=== PATIENT | female | born 1950 | race Caucasian/White ===

== ENCOUNTER 2020-11-28 16:13 | Inpatient (IN) | payer MEDICARE, OTHER ==
[2020-11-28] MEDS ORDERED: NALOXONE 0.4 MG/ML 1 ML VIAL IV PRN (16:52)
--- NOTE | 2020-11-28 16:52 | ED ---
Abdominal Pain HPI - General Source: patient, EMS Mode of arrival: EMS Limitations: no limitations <Iwona Nicole - Last Filed: 11/28/20 18:14> <Luis Enrique Murillo - Last Filed: 11/28/20 18:31> - General Chief Complaint: Abdominal Pain Stated Complaint: abd obstruction Time Seen by Provider: 11/28/20 16:22 - History of Present Illness Initial Comments: Patient is a 70-year-old female with history of diabetes, heart failure, CKD, multiple abdominal hernia repairs with mesh, presenting to the emergency department via transfer from [facility], for abdominal pain for one week. She states she's had multiple episodes of nonbloody, nonbilious emesis as well as watery diarrhea for the last week. She also admits to history of appendectomy, cholecystectomy. She's had the surgeries at a different hospital system. She denies any fevers, chills, chest pain, shortness of breath. She denies any urinary symptoms such as dysuria or hematuria. She has no further complaints at this time. Upon arrival to our ER, she is at 98% on 3 L, afebrile. She did receive Zofran and morphine and the EMS prior to arrival. She states her pain did increase during EMS ride but she feels like it is starting to decrease now. Currently 02/20. (Iwona Nicole) - Related Data Home Medications Medication Instructions Recorded Confirmed Atorvastatin [Lipitor] 40 mg PO HS 07/08/17 11/28/20 Hydrocodone/Acetaminophen [[place] 1 tab PO BID 07/08/17 11/28/20 5-325] Insulin Glulisine (For Pump) 0.01 units SQ-PUMP CONTINUOUS 07/08/17 11/28/20 [Apidra (For Pump)] Levothyroxine Sodium [Synthroid] 137 mcg PO SUTUTHSA 07/08/17 11/28/20 Ipratropium-Albuterol Nebulize 3 ml INHALATION RT-TID 11/28/20 11/28/20 [Duoneb 0.5 mg-3 mg/3 ml Soln] Levothyroxine Sodium [Synthroid] 150 mcg PO MOWEFR 11/28/20 11/28/20 Tiotropium [place] [Spiriva 1 spray INHALATION RT-DAILY 11/28/20 11/28/20 Respimat] Zolpidem [Ambien] 10 mg PO HS 11/28/20 11/28/20 Previous Rx's Medication Instructions Recorded Budesonide-Formot 160-4.5 Mcg 1 puff INHALATION RT-BID #1 puff 07/10/17 [Symbicort 160-4.5 Mcg Inhaler] Allergies Allergy/AdvReac Type Severity Reaction Status Date / Time Iodinated Contrast Media AdvReac SEE COMMENT Verified 11/28/20 17:15 [Iodinated Contrast- Oral and IV Dye] Review of Systems ROS Other: All systems not noted in ROS Statement are negative. <Iwona Nicole - Last Filed: 11/28/20 18:14> ROS Other: All systems not noted in ROS Statement are negative. <Luis Enrique Murillo - Last Filed: 11/28/20 18:31> ROS Statement: Those systems with pertinent positive or pertinent negative responses have been documented in the HPI. Past Medical History Past Medical History: Chest Pain / Angina, Heart Failure, Diabetes Mellitus, Hyperlipidemia, Hypertension, Sleep Apnea/CPAP/BIPAP, Thyroid Disorder History of Any Multi-Drug Resistant Organisms: MRSA Date of last positivie culture/infection: 2012 MDRO Source:: right arm Past Surgical History: Appendectomy, Cholecystectomy, Hernia Repair Additional Past Surgical History / Comment(s): tumors removed from head Past Anesthesia/Blood Transfusion Reactions: No Reported Reaction Past Psychological History: No Psychological Hx Reported Smoking Status: Former smoker Past Alcohol Use History: Rare Past Drug Use History: None Reported - Past Family History Mother Family Medical History: Congestive Heart Failure (CHF), Diabetes Mellitus, Sleep Apnea/CPAP/BIPAP, Thyroid Disorder Additional Family Medical History / Comment(s): diverticulitis <Iwona Nicole - Last Filed: 11/28/20 18:14> General Exam Limitations: no limitations <Iwona Nicole - Last Filed: 11/28/20 18:14> - General Exam Comments Initial Comments: GENERAL: Patient is well-developed and well-nourished. Patient is nontoxic and in mild distress. HEAD: Atraumatic, normocephalic. EYES: Pupils equal round and reactive to light, extraocular movements intact, sclera anicteric, conjunctiva are normal. Eyelids were unremarkable. ENT: TMs normal, nares patent, oropharynx clear without exudates. Moist mucous membranes. NECK: Normal range of motion, supple without lymphadenopathy or JVD. LUNGS: Unlabored respirations. Breath sounds clear to auscultation bilaterally and equal. No wheezes rales or rhonchi. HEART: Regular rate and rhythm without murmurs, rubs or gallops. ABDOMEN: Soft, distended, generalized tenderness, hypoactive bowel sounds. : Deferred MUSCULOSKELETAL: Normal extremities with adequate strength and normal range of motion, no pitting or edema. No clubbing or cyanosis. NEUROLOGICAL: Patient is alert and oriented x 3. Motor and sensory are also intact. Cranial nerves II through XII grossly intact. Symmetrical smile. Normal speech, normal gait. PSYCH: Normal mood, normal affect. SKIN: Warm, Dry, normal turgor, no rashes or lesions noted. (Iwona Nicole) Course <Luis Enrique Murillo - Last Filed: 11/28/20 18:31> Vital Signs 11/28/20 11/28/20 16:17 18:25 Temperature 98.7 F Pulse Rate 59 L 60 Respiratory 18 16 Rate Blood Pressure 123/60 104/82 O2 Sat by Pulse 98 98 Oximetry - Reevaluation(s) Reevaluation #1: 11/28/20 18:30 PA supervision: I did personally do a [id number] evaluation the patient she presented from [facility] after an evaluation for abdominal pain was found that she had an apple core lesion in her colon CAT scan with evidence of bowel obstruction. She was transferred here for higher level of care and surgical evaluation patient will be admitted to Dr. Healy with medical consultation. I do agree with the assessment and plan. I had previously discuss the case with the sending physician. (Luis Enrique Murillo) Medical Decision Making <Iwona Nicole - Last Filed: 11/28/20 18:14> - Medical Decision Making Patient is a 70-year-old female, with history of diabetes, heart failure, CKD, here as a transfer from [facility] for bowel obstruction. She's had abdominal pain for the past week. Multiple abdominal surgeries in her past. Her vital signs are currently stable, 98% on 3 L. Lab work performed at [facility] shows BUN of 23, creatinine 1.4, GFR 39. Remaining blood work showed no other acute process. Dr. Eemrson is 1.3. Her covert test is negative. CT was done without contrast secondary to kidney disease, show suspicious right colonic concentric mass or apple core type neoplasm causing bowel obstruction. Significantly dilated cecum with air-fluid level. Some nondependent air could reflect trap fecal debris but ischemia into the wall cannot be excluded. No free air or mesenteric air noted. Nonspecific bibasilar nodules consider metastatic disease. Patient received IV fluids, Zofran, morphine. Currently her pain is 6/10. Patient will be admitted under Dr. Healy who is accepting. We will put medicine on consult for medical management. We will place an NG tube, and keep NPO. Case discussed with Dr. Murillo. (Iwona Nicole) Disposition Decision Date: 11/28/20 Decision Time: 16:52 <Iwona Nicole - Last Filed: 11/28/20 18:14> <Luis Enrique Murillo - Last Filed: 11/28/20 18:31> Clinical Impression: Bowel obstruction Disposition: ADMITTED IP TO THIS HOSP
[2020-11-28] MEDS: SODIUM CHLORIDE 0.9% 1,000 ML IV SCH ×3 (18:19→18:46)
[2020-11-28] MEDS: MORPHINE SULFATE 4 MG/ML SYRINGE IV PRN ×2 (18:19→23:33)
--- NOTE | 2020-11-28 18:35 | XR ---
EXAMINATION TYPE: XR abdomen 1V DATE OF EXAM: 11/28/2020 COMPARISON: NONE HISTORY: Tube placement TECHNIQUE: 2 views supine FINDINGS: There is nasogastric tube with the tip overlying the gastroesophageal junction or the gastr ic fundus. There are clips probably from cholecystectomy. There are multiple dilated small bowel loop s with fluid. IMPRESSION: NG tube is probably just beyond the gastroesophageal junction.
[2020-11-28 18:38] LABS: Glucose,Whole Blood 180 mg/dL (75-99)
[2020-11-28] MEDS: INSULIN ASPART (NovoLOG) 100 UNIT/ML VIAL SQ SCH ×2 (18:46→21:48)
--- NOTE | 2020-11-28 19:25 | P.CONS ---
History of Present Illness - Reason for Consult Consult date: 11/28/20 Medical management Requesting physician: Clay Healy - Chief Complaint Abdominal pain - History of Present Illness Consultation: This is a pleasant 70-year-old patient of Dr. Mercer. Chronic stable medical conditions include heart failure, diabetes, hypertension, hyperlipidemia, obstructive sleep apnea, hypothyroid. Patient lives by herself at her baseline uses a walker. For 2 weeks patient been having mid abdominal pain. 3 much constant. We'll get 8 intermittent watery stools. Was taking Imodium. Has been having fever nausea vomiting. Patient's had multiple abdominal hernia repairs with mesh. Was transferred here from [facility]. She is also had appendectomy and cholecystectomy in the past. She was transferred for small bowel obstruction. Review of systems: GEN.: Tired EYES: None HEENT: None NECK: None RESPIRATORY: Some shortness of breath CARDIOVASCULAR: None GASTROINTESTINAL: As above GENITOURINARY: None MUSCULOSKELETAL: October joint pains LYMPHATICS: None HEMATOLOGICAL: None PSYCHIATRY: None NEUROLOGICAL: Does use a walker Past medical history to include: Angina, CHF, diabetes, hyperlipidemia, hypertension, obstructive sleep apnea, hypothyroid, home oxygen-2 L Social history: . Lives alone. Does smoke up to 7 years ago. Alcohol rarely. Does use a walker Physical examination: VITAL SIGNS: 98.7, 59, 18, 1 23 x 60, 98% on room air GENERAL: BMI 42.5, laying in bed, tired. EYES: Pupils equal. Conjunctiva normal. HEENT: External appearance of nose and ears normal, oral cavity grossly normal. NECK: JVD not raised; masses not palpable. HEART: First and second heart sounds are normal; no edema. LUNGS:[ Respiratory rate increased, decreased breath sounds. ABDOMEN: Soft, generalized abdominal tenderness, no guarding rigidity, hyperactive bowel sounds multiple scars on the abdomen, liver spleen not palpable, no masses palpable. MUSCULAR skeletal: Evidence of OA especially in the hands PSYCH: [Alert and oriented x3; mood and affect anxious. NEUROLOGICAL: Cranial nerves grossly intact; no facial asymmetry, power and sensation grossly intact. LYMPHATICS: No lymph nodes palpable in the axilla and neck INVESTIGATIONS, reviewed in the clinical context: Coronavirus [PCR]-not detected Abdominal x-ray film personally reviewed by me: Small bowel obstruction Assessment and plan: -Acute small bowel obstruction likely from adhesions from multiple abdominal surgeries. Patient to have an NG tube. -Diabetes mellitus type 2. Patient on insulin pump. Hold that for now. Start Levemir. Accu-Cheks. -Chronic hypoxic respiratory failure uses 2 L of oxygen at home -Hyperlipidemia -Chronic urinary stress incontinence. Follow clinically. -Essential hypertension -Hypothyroid, continue with Synthroid -Morbid obesity BMI 42.5. Follow-up with PCP for weight loss measures. -Chronic congestive heart failure. EF not known. -Chronic insomnia. 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 Subcu Lovenox We will check patient's labs. Care was discussed with the patient. Gentle hydration at 75 mL an hour. Thank you Dr. Broderick. Past Medical History Past Medical History: Chest Pain / Angina, Heart Failure, Diabetes Mellitus, Hyperlipidemia, Hypertension, Sleep Apnea/CPAP/BIPAP, Thyroid Disorder History of Any Multi-Drug Resistant Organisms: MRSA Year Discovered:: 2012 MDRO Source:: right arm Past Surgical History: Appendectomy, Cholecystectomy, Hernia Repair Additional Past Surgical History / Comment(s): tumors removed from head Past Anesthesia/Blood Transfusion Reactions: No Reported Reaction Past Psychological History: No Psychological Hx Reported Smoking Status: Former smoker Past Alcohol Use History: Rare Past Drug Use History: None Reported - Past Family History Mother Family Medical History: Congestive Heart Failure (CHF), Diabetes Mellitus, Sleep Apnea/CPAP/BIPAP, Thyroid Disorder Additional Family Medical History / Comment(s): diverticulitis Medications and Allergies Home Medications Medication Instructions Recorded Confirmed Type Atorvastatin [Lipitor] 40 mg PO HS 07/08/17 11/28/20 History Hydrocodone/Acetaminophen [[place] 1 tab PO BID 07/08/17 11/28/20 History 5-325] Insulin Glulisine (For Pump) 0.01 units SQ-PUMP CONTINUOUS 07/08/17 11/28/20 History [Apidra (For Pump)] Levothyroxine Sodium [Synthroid] 137 mcg PO SUTUTHSA 07/08/17 11/28/20 History Budesonide-Formot 160-4.5 Mcg 1 puff INHALATION RT-BID #1 puff 07/10/17 11/28/20 Rx [Symbicort 160-4.5 Mcg Inhaler] Ipratropium-Albuterol Nebulize 3 ml INHALATION RT-TID 11/28/20 11/28/20 History [Duoneb 0.5 mg-3 mg/3 ml Soln] Levothyroxine Sodium [Synthroid] 150 mcg PO MOWEFR 11/28/20 11/28/20 History Tiotropium [place] [Spiriva 1 spray INHALATION RT-DAILY 11/28/20 11/28/20 History Respimat] Zolpidem [Ambien] 10 mg PO HS 11/28/20 11/28/20 History Allergies Allergy/AdvReac Type Severity Reaction Status Date / Time Iodinated Contrast Media AdvReac SEE COMMENT Verified 11/28/20 17:15 [Iodinated Contrast- Oral and IV Dye] Physical Exam Vitals: Vital Signs Temp Pulse Resp BP Pulse Ox 11/28/20 18:25 60 16 104/82 98 11/28/20 16:17 98.7 F 59 L 18 123/60 98 Intake and Output 11/28/20 11/28/20 11/28/20 06:59 14:59 22:59 Other: Weight 108.862 kg Results Labs: Abnormal Lab Results - Last 24 Hours (Table) 11/28/20 Range/Units 18:34 POC Glucose (mg/dL) 180 H (75-99) mg/dL
[2020-11-28 19:58] LABS: Basophils % (A) 0 %; Eosinophils # (A) 0.1 k/uL (0-0.7); Eosinophils % (A) 1 %; HCT 40.6 % (34.0-46.0); Lymphocytes # (A) 1.4 k/uL (1.0-4.8); Lymphocytes % (A) 13 %; MCH 30.1 pg (25.0-35.0); MCV 94.1 fL (80.0-100.0); Monocytes # (A) 0.6 k/uL (0-1.0); Monocytes % (A) 5 %; Neutrophils # (A) 8.9 k/uL (1.3-7.7); Neutrophils % (A) 80 %; Platelet Count 529 k/uL (150-450); RBC 4.31 m/uL (3.80-5.40); RDW 14.9 % (11.5-15.5); WBC 11.1 k/uL (3.8-10.6)
[2020-11-28] MEDS: SYMBICORT 160-4.5 MCG INHALER INHALATION SCH (20:08)
[2020-11-28] MEDS: IPRATROPIUM-ALBUTEROL 3 ML NEB INHALATION SCH (20:08)
[2020-11-28 20:09] LABS: African American GFR (CKD) 42 (>60 ml/min/1.73 sqM); Anion Gap 5 mmol/L; Blood Urea Nitrogen 26 mg/dL (7-17); Calcium 8.6 mg/dL (8.4-10.2); Carbon Dioxide 32 mmol/L (22-30); Chloride 100 mmol/L (98-107); Glucose 182 mg/dL (74-99); Non-African American GFR(CKD) 37 (>60 ml/min/1.73 sqM); Potassium 4.3 mmol/L (3.5-5.1); Sodium 137 mmol/L (137-145)
[2020-11-28] MEDS: INSULIN DETEMIR (LEVEMIR) 100 UNIT/ML SYR SQ SCH (20:52)
[2020-11-28] MEDS: ENOXAPARIN 40 MG/0.4 ML SYRINGE SQ SCH (20:52)
[2020-11-28] MEDS: ATORVASTATIN 40 MG TAB PO SCH ×2 (20:52→20:56)
[2020-11-28 20:57] LABS: Glucose,Whole Blood 152 mg/dL (75-99)
[2020-11-28 21:47] LABS: Glucose,Whole Blood 161 mg/dL (75-99)
[2020-11-28] MEDS: ZOLPIDEM 5 MG TAB PO SCH (21:57)
[2020-11-29] MEDS: MORPHINE SULFATE 4 MG/ML SYRINGE IV PRN ×3 (03:23→13:53)
[2020-11-29] MEDS: LEVOTHYROXINE 137 MCG TAB PO SCH (06:34)
[2020-11-29] MEDS: ONDANSETRON 4 MG/2 ML VIAL IVP PRN ×3 (06:37→21:35)
[2020-11-29 08:23] LABS: Glucose,Whole Blood 118 mg/dL (75-99)
[2020-11-29] MEDS: INSULIN ASPART (NovoLOG) 100 UNIT/ML VIAL SQ SCH ×4 (08:23→21:35)
[2020-11-29] MEDS: IPRATROPIUM-ALBUTEROL 3 ML NEB INHALATION SCH ×3 (08:24→20:33)
[2020-11-29] MEDS: SYMBICORT 160-4.5 MCG INHALER INHALATION SCH (08:24)
[2020-11-29] MEDS: ENOXAPARIN 40 MG/0.4 ML SYRINGE SQ SCH (08:27)
[2020-11-29] MEDS: SODIUM CHLORIDE 0.9% 1,000 ML IV SCH ×2 (10:03→21:05)
--- NOTE | 2020-11-29 11:03 | XR ---
EXAMINATION TYPE: XR abdomen 2V DATE OF EXAM: 11/29/2020 COMPARISON: 11/28/2020 HISTORY: Pain TECHNIQUE: One view abdominal series FINDINGS: Persistent dilated small bowel loops with air-fluid levels. Bibasilar infiltrate. NG tube is seen onl y to level the distal esophagus. Surgical clips are seen in the right upper quadrant. Nonspecific pel denis calcifications. Hypertrophic and degenerative change of the spine. Report called to the patient's nurse 11/29/2020 at 10:59 AM IMPRESSION: 1. NG tube appears to been pulled back into the distal esophagus correlate for repositioning. 2. Persistent dilated bowel loops with a markedly distended loop seen in the right abdomen with air-f luid levels correlate for obstruction. 2. Bilateral lower lobe infiltrate.
--- NOTE | 2020-11-29 12:06 | P.GSHP ---
<Chiqui Dietz - Last Filed: 11/29/20 11:54> History of Present Illness H&P Date: 11/29/20 CHIEF COMPLAINT: Abdominal pain HISTORY OF PRESENT ILLNESS: This is a 70-year-old female she was a transfer from [facility]. She has a known past medical history of diabetes, congestive heart failure, chronic kidney disease, COPD and hypothyroidism. She has surgical history of 3 abdominal hernia repairs with mesh placement. Her last abdominal hernia surgery was about 20 years ago. She also had history of cholecystectomy and appendectomy. Patient is complaining of abdominal pain for about 2 weeks. She reports pain throughout her whole abdomen. She had been having diffuse watery diarrhea for the past week. And over the last couple a days she started to have vomiting. She denies any blood in the stool or emesis. She is also been having chills and sweats. Her pain is worse with movement. She had NG tube placed in the ER unfortunately the patient had pulled NG tube out. She does report her pain about a 5 or 6 out of 10. Computed tomography scan at [facility] had some shown suspicious right colonic mass or apple core neoplasm causing bowel obstruction. Significantly dilated cecum with air- fluid levels. Fecal debris and ischemia not excluded. Also had noted by nonspecific bibasilar nodules consider metastatic disease. Patient states her last colonoscopy was 7 years ago and was normal at that time. PAST MEDICAL HISTORY: See list. PAST SURGICAL HISTORY: See list. MEDICATIONS: See list. ALLERGIES: See list. SOCIAL HISTORY: No illicit drug use. REVIEW OF SYSTEMS: CONSTITUTIONAL: Denies fever or chills. HEENT: Denies blurred vision, vision changes, or eye pain. Denies hemoptysis CARDIOVASCULAR: Denies chest pain or pressure. RESPIRATORY: No shortness of breath. GASTROINTESTINAL: See HPI for pertinent findings HEMATOLOGIC: Denies bleeding disorders. GENITOURINARY: Denies any blood in urine or increased urinary frequency. SKIN: Denies pruitis. Denies rash. PHYSICAL EXAM: VITAL SIGNS: Reviewed GENERAL: Well-developed in no acute distress. HEENT: No sclera icterus. Extraocular movements grossly intact. Moist buccal mucosa. Head is atraumatic, normocephalic. No nasal drainage. ABDOMEN: Patient's stomach is distended firm tenderness with palpation thro ughout the abdomen. NEUROLOGIC: Alert and oriented. Cranial nerves II through XII grossly intact. LABORATORY DATA: WBC 11.1 Hgb 13 platelets 529 sodium 137 potassium 4.3 creatinine 1.45 glucose 1 82 IMAGING: ASSESSMENT: 1. Bowel obstruction with computed tomography scan findings suspicious of a right colonic mass or apple core lesion causing the bowel obstruction 2. History of 3 prior abdominal hernia repairs with mesh placement. Last surgery 20 years ago 3. History of cholecystectomy and appendectomy PLAN: -Patient scheduled for exploratory laparotomy with right colectomy with Dr. Healy today, 11/29/2020 -Initially NG tube placed in ER for decompression, unfortunately patient has pulled out the NG tube -Continue IV fluids -Continue pain medication as needed -Medical service on consult for medical management Physician Agronomy Teacher note has been reviewed by physician. Signing provider agrees with the documented findings, assessment, and plan of care. Past Medical History Past Medical History: Chest Pain / Angina, Heart Failure, COPD, Diabetes Mellitus, Hyperlipidemia, Hypertension, Osteoarthritis (OA), Pneumonia, Renal Disease, Respiratory Disorder, Sleep Apnea/CPAP/BIPAP, Thyroid Disorder Additional Past Medical History / Comment(s): IDDM type II with insulin pump, neuropathy bilateral feet, chronic respiratory failure with home O2 at 3L/NC ATC, TRUDI with Cpap, bronchitis, CKD stage II, urinary stress incontinence, hiatal hernia, arthritis in bilateral knees/back, insomnia, hypothyroid. 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 Past Anesthesia/Blood Transfusion Reactions: No Reported Reaction Additional Past Anesthesia/Blood Transfusion Reaction / Comment(s): Pt has clausterphobia. Smoking Status: Former smoker - Past Family History Mother Family Medical History: Cancer, Congestive Heart Failure (CHF), Diabetes Mellitus, Sleep Apnea/CPAP/BIPAP, Thyroid Disorder Additional Family Medical History / Comment(s): diverticulitis. Metastatic cancer/primary unknown Father Family Medical History: Diabetes Mellitus Additional Family Medical History / Comment(s): Obesity, multiple knee replacements, pacer. Medications and Allergies Home Medications Medication Instructions Recorded Confirmed Type Atorvastatin [Lipitor] 40 mg PO HS 07/08/17 11/28/20 History Hydrocodone/Acetaminophen [[place] 1 tab PO BID 07/08/17 11/28/20 History 5-325] Insulin Glulisine (For Pump) 0.01 units SQ-PUMP CONTINUOUS 07/08/17 11/28/20 H istory [Apidra (For Pump)] Levothyroxine Sodium [Synthroid] 137 mcg PO SUTUTHSA 07/08/17 11/28/20 History Budesonide-Formot 160-4.5 Mcg 1 puff INHALATION RT-BID #1 puff 07/10/17 11/28/20 Rx [Symbicort 160-4.5 Mcg Inhaler] Ipratropium-Albuterol Nebulize 3 ml INHALATION RT-TID 11/28/20 11/28/20 History [Duoneb 0.5 mg-3 mg/3 ml Soln] Levothyroxine Sodium [Synthroid] 150 mcg PO MOWEFR 11/28/20 11/28/20 History Tiotropium [place] [Spiriva 1 spray INHALATION RT-DAILY 11/28/20 11/28/20 History Respimat] Zolpidem [Ambien] 10 mg PO HS 11/28/20 11/28/20 History Allergies Allergy/AdvReac Type Severity Reaction Status Date / Time Iodinated Contrast Media AdvReac SEE COMMENT Verified 11/28/20 17:15 [Iodinated Contrast- Oral and IV Dye] Surgical - Exam Vital Signs Temp Pulse Resp BP Pulse Ox 98.7 F 59 L 18 123/60 98 11/28/20 16:17 11/28/20 16:17 11/28/20 16:17 11/28/20 16:17 11/28/20 16:17 Results - Labs 11/28/20 19:35 11/28/20 19:35 Abnormal Lab Results - Last 24 Hours (Table) 11/28/20 11/28/20 11/28/20 Range/Units 18:34 19:35 19:35 WBC 11.1 H (3.8-10.6) k/uL Plt Count 529 H (150-450) k/uL Neutrophils # 8.9 H (1.3-7.7) k/uL Carbon Dioxide 32 H (22-30) mmol/L BUN 26 H (7-17) mg/dL Creatinine 1.45 H (0.52-1.04) mg/dL Glucose 182 H (74-99) mg/dL POC Glucose (mg/dL) 180 H (75-99) mg/dL 11/28/20 11/28/20 11/29/20 Range/Units 20:51 21:44 08:22 WBC (3.8-10.6) k/uL Plt Count (150-450) k/uL Neutrophils # (1.3-7.7) k/uL Carbon Dioxide (22-30) mmol/L BUN (7-17) mg/dL Creatinine (0.52-1.04) mg/dL Glucose (74-99) mg/dL POC Glucose (mg/dL) 152 H 161 H 118 H (75-99) mg/dL Diabetes panel 11/28/20 Range/Units 19:35 Sodium 137 (137-145) mmol/L Potassium 4.3 (3.5-5.1) mmol/L Chloride 100 (98-107) mmol/L Carbon Dioxide 32 H (22-30) mmol/L BUN 26 H (7-17) mg/dL Creatinine 1.45 H (0.52-1.04) mg/dL Glucose 182 H (74-99) mg/dL Calcium 8.6 (8.4-10.2) mg/dL Calcium panel 11/28/20 Range/Units 19:35 Calcium 8.6 (8.4-10.2) mg/dL Pituitary panel 11/28/20 Range/Units 19:35 Sodium 137 (137-145) mmol/L Potassium 4.3 (3.5-5.1) mmol/L Chloride 100 (98-107) mmol/L Carbon Dioxide 32 H (22-30) mmol/L BUN 26 H (7-17) mg/dL Creatinine 1.45 H (0.52-1.04) mg/dL Glucose 182 H (74-99) mg/dL Calcium 8.6 (8.4-10.2) mg/dL Adrenal panel 11/28/20 Range/Units 19:35 Sodium 137 (137-145) mmol/L Potassium 4.3 (3.5-5.1) mmol/L Chloride 100 (98-107) mmol/L Carbon Dioxide 32 H (22-30) mmol/L BUN 26 H (7-17) mg/dL Creatinine 1.45 H (0.52-1.04) mg/dL Glucose 182 H (74-99) mg/dL Calcium 8.6 (8.4-10.2) mg/dL <Clay Healy - Last Filed: 11/29/20 14:50> History of Present Illness As above. Patient with 2 week history of intermittent diarrhea, constipation, and abdominal cramping. Patient feels bloated. CAT scan from outside [facility] ion reviewed with the patient and her son. Ascending colon obstructing lesion with possible adenopathy identified. 2 separate lung lesions appear to be present back in 2011 and appear likely benign. Patient had a nasogastric tube which fell out. She is refusing to have it replaced. Options reviewed with the patient and her family. Favor primary surgical intervention with open right colectomy and primary anastomosis. Patient with history of previous appendectomy cholecystectomy and multiple abdominal wall hernias with mesh. Risks of bleeding, infection, scarring, recurrent hernia, leak, abscess, bladder bowel and ureteral injury, respiratory and cardiac complications, and reviewed. They understand and wish to proceed. Case was discussed with hospitalist on 2 separate occasions. He apparently discussed with cardiology. Patient felt to be moderate risk and we do not need to wait for formal cardiac consultation at this time. We'll proceed this afternoon when OR time available. Surgical - Exam Vital Signs Temp Pulse Resp BP Pulse Ox 98.7 F 59 L 18 123/60 98 11/28/20 16:17 11/28/20 16:17 11/28/20 16:17 11/28/20 16:17 11/28/20 16:17 Results - Labs 11/28/20 19:35 11/28/20 19:35 Abnormal Lab Results - Last 24 Hours (Table) 11/28/20 11/28/20 11/28/20 Range/Units 18:34 19:35 19:35 WBC 11.1 H (3.8-10.6) k/uL Plt Count 529 H (150-450) k/uL Neutrophils # 8.9 H (1.3-7.7) k/uL Carbon Dioxide 32 H (22-30) mmol/L BUN 26 H (7-17) mg/dL Creatinine 1.45 H (0.52-1.04) mg/dL Glucose 182 H (74-99) mg/dL POC Glucose (mg/dL) 180 H (75-99) mg/dL 11/28/20 11/28/20 11/29/20 Range/Units 20:51 21:44 08:22 WBC (3.8-10.6) k/uL Plt Count (150-450) k/uL Neutrophils # (1.3-7.7) k/uL Carbon Dioxide (22-30) mmol/L BUN (7-17) mg/dL Creatinine (0.52-1.04) mg/dL Glucose (74-99) mg/dL POC Glucose (mg/dL) 152 H 161 H 118 H (75-99) mg/dL 11/29/20 Range/Units 12:20 WBC (3.8-10.6) k/uL Plt Count (150-450) k/uL Neutrophils # (1.3-7.7) k/uL Carbon Dioxide (22-30) mmol/L BUN (7-17) mg/dL Creatinine (0.52-1.04) mg/dL Glucose (74-99) mg/dL POC Glucose (mg/dL) 155 H (75-99) mg/dL Diabetes panel 11/28/20 Range/Units 19:35 Sodium 137 (137-145) mmol/L Potassium 4.3 (3.5-5.1) mmol/L Chloride 100 (98-107) mmol/L Carbon Dioxide 32 H (22-30) mmol/L BUN 26 H (7-17) mg/dL Creatinine 1.45 H (0.52-1.04) mg/dL Glucose 182 H (74-99) mg/dL Calcium 8.6 (8.4-10.2) mg/dL Calcium panel 11/28/20 Range/Units 19:35 Calcium 8.6 (8.4-10.2) mg/dL Pituitary panel 11/28/20 Range/Units 19:35 Sodium 137 (137-145) mmol/L Potassium 4.3 (3.5-5.1) mmol/L Chloride 100 (98-107) mmol/L Carbon Dioxide 32 H (22-30) mmol/L BUN 26 H (7-17) mg/dL Creatinine 1.45 H (0.52-1.04) mg/dL Glucose 182 H (74-99) mg/dL Calcium 8.6 (8.4-10.2) mg/dL Adrenal panel 11/28/20 Range/Units 19:35 Sodium 137 (137-145) mmol/L Potassium 4.3 (3.5-5.1) mmol/L Chloride 100 (98-107) mmol/L Carbon Dioxide 32 H (22-30) mmol/L BUN 26 H (7-17) mg/dL Creatinine 1.45 H (0.52-1.04) mg/dL Glucose 182 H (74-99) mg/dL Calcium 8.6 (8.4-10.2) mg/dL
[2020-11-29 12:21] LABS: Glucose,Whole Blood 155 mg/dL (75-99)
[2020-11-29] MEDS: PANTOPRAZOLE 40 MG/10 ML VIAL IVP SCH (13:47)
[2020-11-29] MEDS ORDERED: LACTATED RINGERS 1,000 ML IV ONE ×2 (14:54→17:00)
[2020-11-29 15:27] LABS: Glucose,Whole Blood 136 mg/dL (75-99)
[2020-11-29] MEDS ORDERED: metroNIDAZOLE-NS PMX 500 MG in SALINE 1 100ML.BAG IVPB STA (16:41)
[2020-11-29] MEDS ORDERED: NEOSTIGMINE 1 MG/ML 10 ML VIAL ONE (16:45)
[2020-11-29] MEDS ORDERED: SUCCINYLCHOLINE CHLORIDE 100 MG/5 ML SYR IV ONE (16:45)
[2020-11-29] MEDS ORDERED: GLYCOPYRROLATE 0.2 MG/ML 2 ML VIAL ONE (16:45)
[2020-11-29] MEDS ORDERED: LIDOCAINE 1% INJ 10MG/ML (20 ML MDV) ONE (16:45)
[2020-11-29] MEDS ORDERED: PROPOFOL 10 MG/ML 20 ML VIAL IV ONE (16:45)
[2020-11-29] MEDS ORDERED: fentaNYL (PF) 50 MCG/ML 2 ML AMP ONE (16:45)
[2020-11-29] MEDS ORDERED: HYDROmorphone (PF) 1 MG/ML ONE (16:45)
[2020-11-29] MEDS ORDERED: KETAMINE 10 MG/ML 20 ML VIAL ONE (16:45)
[2020-11-29] MEDS ORDERED: ROCURONIUM 10 MG/ML (5 ML VIAL) IV ONE (16:45)
--- NOTE | 2020-11-29 16:45 | P.CNPUL ---
History of Present Illness Consult date: 11/29/20 Requesting physician: Clay Healy Reason for consult: dyspnea, COPD, hypoxemia Chief complaint: Bowel obstruction, preop clearance. History of present illness: 70-year-old patient, brought in by EMS, on November 28. She was seen by Dr. Luis Enrique Murillo in the emergency department. She has a history of diabetes mellitus, CHF, chronic kidney disease, multiple abdominal hernia repairs, with mesh, and severe COPD. Her FEV1 is 0.92 L which is 41% of predicted. She sees my partner in the office for her COPD. She also suffers from chronic hypoxemic respiratory failure, and does use oxygen /. She apparently recently has had multiple episodes of nonbloody nonbilious emesis, as well as watery diarrhea, for one week. She apparently was evaluated and found on computed tomography scan, to have a colonic lesion, consistent with colon cancer. I was consulted for preop clearance. We saw her right before she went off to surgery. She is chronically on oxygen therapy at 3 L as mentioned above. The patient was having surgery with Dr. Clay Healy. Basically, she tells me that her COPD much at baseline. I did mention to her that she may end up in the intensive care unit after surgery. Also, based on the FEV1 alone, without the MVV, or RV/TLC ratio, the patient's at moderately increased operative risk from general anesthesia. White count 11.1, hemoglobin 13, hematocrit 40.6, platelet count 529,000, sodium 137, potassium 4.3, chlorides 100, CO2 32, anion gap 5, BUN 26, and creatinine 1.45. There was no chest x-ray to review. Review of Systems REVIEW OF SYSTEMS: CONSTITUTIONAL: [Negative.] NEUROLOGIC: [ Negative.] HEENT: [ Negative.] CARDIAC: [Negative.] PULMONARY: Chronic shortness of breath, pretty much at baseline. GI: Nausea, vomiting, abdominal pain, and diarrhea. : [Negative.] RHEUMATOLOGIC: [ Negative.] IMMUNOLOGIC: [ Negative.] ENDOCRINE: [Negative. ] DERMATOLOGIC: [Negative.] Past Medical History Past Medical History: Chest Pain / Angina, Heart Failure, COPD, Diabetes Mellitus, Hyperlipidemia, Hypertension, Osteoarthritis (OA), Pneumonia, Renal Disease, Respiratory Disorder, Sleep Apnea/CPAP/BIPAP, Thyroid Disorder Additional Past Medical History / Comment(s): IDDM type II with insulin pump, neuropathy bilateral feet, chronic respiratory failure with home O2 at 3L/NC ATC, TRUDI with Cpap, bronchitis, CKD stage II, urinary stress incontinence, hiat al hernia, arthritis in bilateral knees/back, insomnia, hypothyroid. 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 Past Anesthesia/Blood Transfusion Reactions: No Reported Reaction Additional Past Anesthesia/Blood Transfusion Reaction / Comment(s): Pt has clausterphobia. Smoking Status: Former smoker - Past Family History Mother Family Medical History: Cancer, Congestive Heart Failure (CHF), Diabetes Mellitus, Sleep Apnea/CPAP/BIPAP, Thyroid Disorder Additional Family Medical History / Comment(s): diverticulitis. Metastatic cancer/primary unknown Father Family Medical History: Diabetes Mellitus Additional Family Medical History / Comment(s): Obesity, multiple knee replaceme nts, pacer. Medications and Allergies Home Medications Medication Instructions Recorded Confirmed Type Atorvastatin [Lipitor] 40 mg PO HS 07/08/17 11/28/20 History Hydrocodone/Acetaminophen [[place] 1 tab PO BID 07/08/17 11/28/20 History 5-325] Insulin Glulisine (For Pump) 0.01 units SQ-PUMP CONTINUOUS 07/08/17 11/28/20 History [Apidra (For Pump)] Levothyroxine Sodium [Synthroid] 137 mcg PO SUTUTHSA 07/08/17 11/28/20 History Budesonide-Formot 160-4.5 Mcg 1 puff INHALATION RT-BID #1 puff 07/10/17 11/28/20 Rx [Symbicort 160-4.5 Mcg Inhaler] Ipratropium-Albuterol Nebulize 3 ml INHALATION RT-TID 11/28/20 11/28/20 History [Duoneb 0.5 mg-3 mg/3 ml Soln] Levothyroxine Sodium [Synthroid] 150 mcg PO MOWEFR 11/28/20 11/28/20 History Tiotropium [place] [Spiriva 1 spray INHALATION RT-DAILY 11/28/20 11/28/20 History Respimat] Zolpidem [Ambien] 10 mg PO HS 11/28/20 11/28/20 History Allergies Allergy/AdvReac Type Severity Reaction Status Date / Time Iodinated Contrast Media AdvReac SEE COMMENT Verified 11/28/20 17:15 [Iodinated Contrast- Oral and IV Dye] Physical Exam Osteopathic Statement: *. No significant issues noted on an osteopathic structural exam other than those noted in the History and Physical/Consult. Vitals: Vital Signs Temp Pulse Pulse Resp BP BP BP 11/29/20 15:39 98.3 F 72 20 116/58 11/29/20 08:33 59 L 11/29/20 08:25 58 L 11/29/20 08:16 97.5 F L 60 22 95/51 11/29/20 06:16 97.9 F 86 16 109/56 11/29/20 03:26 87 16 102/47 11/29/20 03:18 95/47 11/29/20 02:00 97.9 F 62 18 95/46 11/28/20 23:22 61 16 110/45 11/28/20 22:00 76 18 100/56 11/28/20 20:19 60 11/28/20 20:10 56 L 11/28/20 20:02 60 18 109/48 11/28/20 18:25 60 16 104/82 Pulse Ox 11/29/20 15:39 96 11/29/20 08:33 11/29/20 08:25 11/29/20 08:16 95 11/29/20 06:16 99 11/29/20 03:26 99 11/29/20 03:18 11/29/20 02:00 96 11/28/20 23:22 98 11/28/20 22:00 95 11/28/20 20:19 11/28/20 20:10 11/28/20 20:02 95 11/28/20 18:25 98 Intake and Output 11/29/20 11/29/20 11/29/20 06:59 14:59 22:59 Other: # Voids 1 Weight 108.862 kg No acute distress, oriented 3. Patient currently on 3 L nasal cannula, which is her baseline oxygen requirement. Saturations are 96%. HEENT examination is grossly unremarkable. Mucous membranes are moist. Neck supple. Full range of motion. No adenopathy thyromegaly or neck vein distention. Cardiovascular examination reveals regular rhythm rate. S1-S2 normal. No S3 or S4. No discernible murmur noted. Heart rate is 72 bpm. Lungs reveal diminished breath sounds throughout. A few scattered expiratory w heezes and rhonchi are noted. Breath sounds are equal bilaterally but diminished throughout. There are no crackles. Abdomen mildly tender on palpation, and mildly distended. No bowel sounds. Extremities are intact. No cyanosis clubbing or edema. Skin is without rash or lesion. Neurologic examination is brief but nonfocal. Results - Laboratory Findings CBC and BMP: 11/28/20 19:35 11/28/20 19:35 Abnormal lab findings: Abnormal Labs 11/28/20 11/28/20 11/28/20 18:34 19:35 19:35 WBC 11.1 H Plt Count 529 H Neutrophils # 8.9 H Carbon Dioxide 32 H BUN 26 H Creatinine 1.45 H Glucose 182 H POC Glucose (mg/dL) 180 H 11/28/20 11/28/20 11/29/20 20:51 21:44 08:22 WBC Plt Count Neutrophils # Carbon Dioxide BUN Creatinine Glucose POC Glucose (mg/dL) 152 H 161 H 118 H 11/29/20 11/29/20 12:20 15:24 WBC Plt Count Neutrophils # Carbon Dioxide BUN Creatinine Glucose POC Glucose (mg/dL) 155 H 136 H Assessment and Plan Assessment: Acute bowel obstruction, with computed tomography scan showing findings suspicious of a right colonic mass or apple core lesion. Severe/stage III, COPD, with an FEV1 that is 0.92 L or 41% of predicted. History of 3 prior abdominal hernia repairs, with mesh placement. History of angina pectoris. History of CHF. History of diabetes mellitus. History of hyperlipidemia. History of essential hypertension. History of sleep apnea syndrome, currently on CPAP. History of hypothyroidism. Prior history of MRSA infection, 2012. Previous history of heavy tobacco use. Plan: Plan dated 11/29/2020. As we are in the room seeing the patient, transport people were there to take her to the operating room. I did explain to her, that based on her lung function, and an FEV1 that's 0.92 L or 41% of predicted, she was at moderately increased operative risk, and may end up in the intensive care unit. We'll make sure that she has appropriate breathing medications ordered after surgery. We did review her office notes. She sees my partner, Dr. Whitaker. In addition to COPD, she has sleep apnea syndrome for which he uses CPAP. We will continue to follow make recommendations were appropriate. After surgery, she will need to use the incentive spirometer every hour, and focus on deep breathing, coughing, and clearing of secretions. Additional recommendations and suggestions are forthcoming. Time with Patient: Greater than 30
--- NOTE | 2020-11-29 20:01 | P.OP ---
Date of Procedure: 11/29/20 Procedure(s) Performed: PREOPERATIVE DIAGNOSIS: Obstructing mass right colon POSTOPERATIVE DIAGNOSIS: Same PROCEDURE: Exploratory laparotomy with right colectomy SURGEON: Monet EBL: 100ML ANESTHESIA: General COMPLICATIONS: None OPERATIVE PROCEDURE: Placement placed in the operating table in the supine posit ion. The patient was placed under general anesthesia. Abdomen was then prepped and draped sterilely. Midline incision made using the scalpel. Dissection through the subcutaneous tissues and fascia took place using electrocautery. The patient had a mesh present extending from the infraumbilical to the supraumbilical location. This was divided sharply. Entrance into the peritoneal cavity occurred. The patient had extensive adhesions present to the abdominal wall which were carefully lysed using 1 dissection and electrocautery. This took approximately 30-40 minutes. Bookwalter retractor was utilized. The patient's cecum was significantly distended with some early ischemic changes. The patient's right upper quadrant had adhesions likely from the previous cholecystectomy. Very carefully I was able to mobilize the cecum and ascending colon. The gastrocolic ligament was divided and the hepatic flexure was mobilized. Most of the mobilization took place using a LigaSure device. Once we had the bowel towards the midline I was able to divide the mid to proximal transverse colon using a linear 75 blue load stapler. The mesentery was divided towards the colic pedicle using both 0 silk ties and the LigaSure device. Once we reached the region of the right colic pedicle the small bowel was divided. The small bowel was distended. The wall of the bowel throughout was slightly edematous from the chronic obstruction. I used a green load 75 stapler to divide the ileum. The mesentery was then divided using the LigaSure device. As we started to approach the cecum the mesentery was divided using a combination of LigaSure and 0 silk ties. Once we reached the ileocolic pedicle it was divided after 2-0 silk ties were placed and the LigaSure was utilized. The patient had residual nonresectable lymphadenopathy in the retroperitoneum that appeared to be adherent to the duodenum and densely adherent to the ileocolic pedicle. The palpable mass was identified at the distal ascending colon. The duodenum was carefully preserved and no cautery was used adjacent to the duodenum. Specimen was passed off at that point. The area was irrigated. No bleeding was seen. The antimesenteric portion of the staple line of both the ileum and transverse colon was excised using electrocautery. The green load linear 75 stapler was fired along the antimesenteric border creating a [id number] anastomosis antiperistaltic. The defect was then closed using a green load TX 60 device. The TX 60 stapler line was imbricated using interrupted 3-0 GI silk sutures. A 3-0 GI silk crotch stitch was also placed. Again irrigation took place with no evidence of bleeding. No additional abnormalities in the bowel both small bowel and colon were identified. Palpation of the liver revealed no abnormalities. No peritoneal metastasis were seen on the surfaces. The nasogastric tube was confirmed to be within the lumen of the stomach. This was then secured. The midline fascia was then reapproximated using 2 separate double-stranded looped PDS sutures for the superior two thirds of the closure. The bottom 1/3-1/2 of the closure was reapproximated using short running #1 Ethibond sutures. This was where the mesh was present. I then placed a drain anterior to the fascial closure exiting from the right lower quadrant. This is sutured to the skin using a 3-0 nylon stitch. The subcutaneous tissues were closed using 3-0 Vicryl sutures. The skin was closed using danielle. Sterile dressings were applied. At the end of this procedure the sponge needle and ensure counts were correct. DISPOSITION: Stable to recovery room
[2020-11-29 20:08] LABS: Glucose,Whole Blood 200 mg/dL (75-99)
[2020-11-29] MEDS: fentaNYL (PF) 50 MCG/ML 2 ML AMP IVP ONE ×2 (20:14→20:18)
[2020-11-29] MEDS: HYDROmorphone 0.5 MG/0.5 ML SYRINGE IVP ONE ×2 (20:23→20:27)
[2020-11-29 21:28] LABS: Glucose,Whole Blood 222 mg/dL (75-99)
[2020-11-29] MEDS: ACETAMINOPHEN IV (For NPO) 1,000 MG in EMPTY BAG 1 BAG IVPB SCH (21:47)
[2020-11-29] MEDS: ZOLPIDEM 5 MG TAB PO SCH (22:54)
[2020-11-29] MEDS: INSULIN DETEMIR (LEVEMIR) 100 UNIT/ML SYR SQ SCH (22:54)
[2020-11-29] MEDS: ATORVASTATIN 40 MG TAB PO SCH (22:54)
--- NOTE | 2020-11-29 23:03 | P.PN ---
Progress Note - Text Progress Note Date: 11/29/20 - Chief Complaint Abdominal pain Consultation: This is a pleasant 70-year-old patient of Dr. Mercer. Chronic stable medical conditions include heart failure, diabetes, hypertension, hyperlipidemia, obstructive sleep apnea, hypothyroid. Patient lives by herself at her baseline uses a walker. For 2 weeks patient been having mid abdominal pain. 3 much constant. We'll get 8 intermittent watery stools. Was taking Imodium. Has been having fever nausea vomiting. Patient's had multiple abdominal hernia repairs with mesh. Was transferred here from [facility]. She is also had appendectomy and cholecystectomy in the past. She was transferred for small bowel obstruction. Today-laying in bed. NG tube. Abdominal distention. No flatus. Abdominal pain. Review of systems: Was done for constitutional, cardiovascular, GI, pulmonary. relevant finding as above Active Medications Albuterol/Ipratropium (Ipratropium-Albuterol 3 Ml Neb) 3 ml INHALATION RT-TID [facility] Last Admin: 11/29/20 20:33 Dose: Not Given Documented by: Atorvastatin Calcium (Atorvastatin 40 Mg Tab) 40 mg PO HS [facility] Last Admin: 11/29/20 22:54 Dose: Not Given Documented by: Budesonide/Formoterol Fumarate (Symbicort 160-4.5 Mcg Inhaler) 1 puff INHALATION RT-BID [facility] Last Admin: 11/29/20 08:24 Dose: 1 puff Documented by: Enoxaparin Sodium (Enoxaparin 40 Mg/0.4 Ml Syringe) 40 mg SQ DAILY [facility] Last Admin: 11/29/20 08:27 Dose: 40 mg Documented by: Heparin Sodium (Porcine) (Heparin Sodium,Porcine 5,000 Unit/Ml 1 Ml Vial) 5,000 unit SQ Q8HR [facility] Hydromorphone HCl (Hydromorphone 1 Mg/Ml 1 Ml Syringe) 1 mg IVP Q3HR PRN PRN Reason: Pain Sodium Chloride (Saline 0.9%) 1,000 mls @ 75 mls/hr IV .[id number] [facility] Last Admin: 11/29/20 21:05 Dose: 0 mls Documented by: Piperacillin Sod/Tazobactam (Sod 3.375 gm/ Sodium Chloride) 100 mls @ 25 mls/hr IVPB Q8HR [facility] Metronidazole 500 mg/ IV (Solution) 100 mls @ 100 mls/hr IVPB Q8HR [facility] Acetaminophen 1,000 mg/ IV (Solution) 100 mls @ 400 mls/hr IVPB Q6H [facility] Stop: 11/30/20 15:14 Last Admin: 11/29/20 21:47 Dose: 400 mls/hr Documented by: Insulin Aspart (Insulin Aspart (Novolog) 100 Unit/Ml Vial) 0 unit SQ ACHS [facility]; Protocol Last Admin: 11/29/20 21:35 Dose: 4 unit Documented by: Insulin Detemir (Insulin Detemir (Levemir) 100 Unit/Ml Syr) 20 unit SQ [facility] Last Admin: 11/29/20 22:54 Dose: Not Given Documented by: Levothyroxine Sodium (Levothyroxine 137 Mcg Tab) 137 mcg PO DAILY@0630 [facility] Last Admin: 11/29/20 06:34 Dose: Not Given Documented by: Naloxone HCl (Naloxone 0.4 Mg/Ml 1 Ml Vial) 0.2 mg IV Q2M PRN PRN Reason: Opioid Reversal Ondansetron HCl (Ondansetron 4 Mg/2 Ml Vial) 4 mg IVP Q8HR PRN PRN Reason: Nausea And Vomiting Last Admin: 11/29/20 21:35 Dose: 4 mg Documented by: Pantoprazole Sodium (Pantoprazole 40 Mg/10 Ml Vial) 40 mg IVP DAILY [facility] Last Admin: 11/29/20 13:47 Dose: 40 mg Documented by: Zolpidem Tartrate (Zolpidem 5 Mg Tab) 5 mg PO [facility] Last Admin: 11/29/20 22:54 Dose: Not Given Documented by: Past medical history to include: Angina, CHF, diabetes, hyperlipidemia, hypertension, obstructive sleep apnea, hypothyroid, home oxygen-2 L Social history: . Lives alone. Does smoke up to 7 years ago. Alcohol rarely. Does use a walker Physical examination: VITAL SIGNS: 97.5, 60, 22, 95/51, 95% on room air GENERAL: BMI 42.5, laying in bed, tired. EYES: Pupils equal. Conjunctiva normal. HEENT: External appearance of nose and ears normal, oral cavity grossly normal. NECK: JVD not raised; masses not palpable. HEART: First and second heart sounds are normal; no edema. LUNGS:[ Respiratory rate increased, decreased breath sounds. ABDOMEN: Soft, generalized abdominal tenderness, some distention, no guarding rigidity, hyperactive bowel sounds multiple scars on the abdomen, liver spleen not palpable, no masses palpable. MUSCULAR skeletal: Evidence of OA especially in the hands PSYCH: [Alert and oriented x3; mood and affect anxious. INVESTIGATIONS, reviewed in the clinical context: Abdominal x-ray [November 29]: Persistent dilated bowel loops with air-fluid levels Coronavirus [PCR]-not detected Abdominal x-ray film personally reviewed by me: Small bowel obstruction Assessment and plan: -Acute small bowel obstruction likely from adhesions from multiple abdominal surgeries. NG tube. Not improving. -Diabetes mellitus type 2. Patient on insulin pump. Hold that for now. Start Levemir. Accu-Cheks. -Chronic hypoxic respiratory failure uses 2 L of oxygen at home -Hyperlipidemia -Chronic urinary stress incontinence. Follow clinically. -Essential hypertension -Hypothyroid, continue with Synthroid -Morbid obesity BMI 42.5. Follow-up with PCP for weight loss measures. -Chronic congestive heart failure. EF not known. -Chronic insomnia. 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 Subcu Lovenox Dr. Broderick called me this afternoon. Most sitting the patient on for surgery. Cleared to proceed for surgery. Patient is the moderate cardiovascular risk. No acute intervention. Has to be monitored cardiopulmonary perioperatively. Cardiology consultation was also placed. Total time spent about 40 minutes with over 20 minutes of discussion Thank you Dr. Broderick.
[2020-11-29] MEDS: metroNIDAZOLE-NS PMX 500 MG in SALINE 1 100ML.BAG IVPB SCH (23:18)
[2020-11-29] MEDS: PIPERACILLIN-TAZOBACTAM 3.375 GM in SODIUM CHLORIDE 0.9% 100 ML IVPB SCH (23:30)
[2020-11-29] MEDS: HEPARIN SODIUM,PORCINE 5,000 UNIT/ML 1 ML VIAL SQ SCH (23:40)
[2020-11-30] MEDS: HYDROmorphone 1 MG/ML 1 ML SYRINGE IVP PRN ×5 (00:18→20:00)
[2020-11-30] MEDS: ACETAMINOPHEN IV (For NPO) 1,000 MG in EMPTY BAG 1 BAG IVPB SCH ×3 (02:33→15:29)
[2020-11-30] MEDS: LEVOTHYROXINE 137 MCG TAB PO SCH (02:41)
[2020-11-30 07:28] LABS: Basophils % (A) 0 %; Eosinophils % (A) 0 %; HCT 40.6 % (34.0-46.0); HGB 12.6 gm/dL (11.4-16.0); Hypochromasia Slight; Lymphocytes # (A) 0.4 k/uL (1.0-4.8); Lymphocytes % (A) 4 %; MCH 30.2 pg (25.0-35.0); MCHC 31.1 g/dL (31.0-37.0); MCV 97.2 fL (80.0-100.0); Monocytes # (A) 0.6 k/uL (0-1.0); Monocytes % (A) 5 %; Neutrophils # (A) 9.5 k/uL (1.3-7.7); Neutrophils % (A) 90 %; Platelet Count 462 k/uL (150-450); RBC 4.17 m/uL (3.80-5.40); RDW 14.9 % (11.5-15.5); WBC 10.6 k/uL (3.8-10.6)
[2020-11-30 07:46] LABS: African American GFR (CKD) 41 (>60 ml/min/1.73 sqM); Anion Gap 9 mmol/L; Blood Urea Nitrogen 29 mg/dL (7-17); Calcium 7.7 mg/dL (8.4-10.2); Carbon Dioxide 21 mmol/L (22-30); Chloride 107 mmol/L (98-107); Glucose 241 mg/dL (74-99); Non-African American GFR(CKD) 35 (>60 ml/min/1.73 sqM); Potassium 4.8 mmol/L (3.5-5.1); Sodium 137 mmol/L (137-145)
[2020-11-30 07:57] LABS: Glucose,Whole Blood 233 mg/dL (75-99)
[2020-11-30] MEDS: SYMBICORT 160-4.5 MCG INHALER INHALATION SCH ×2 (08:24→19:23)
[2020-11-30] MEDS: IPRATROPIUM-ALBUTEROL 3 ML NEB INHALATION SCH ×3 (08:24→19:25)
[2020-11-30] MEDS: PIPERACILLIN-TAZOBACTAM 3.375 GM in SODIUM CHLORIDE 0.9% 100 ML IVPB SCH ×2 (08:35→17:03)
[2020-11-30] MEDS: INSULIN ASPART (NovoLOG) 100 UNIT/ML VIAL SQ SCH ×4 (08:39→21:59)
[2020-11-30] MEDS: PANTOPRAZOLE 40 MG/10 ML VIAL IVP SCH (08:44)
[2020-11-30] MEDS: ENOXAPARIN 40 MG/0.4 ML SYRINGE SQ SCH (08:45)
[2020-11-30] MEDS: HEPARIN SODIUM,PORCINE 5,000 UNIT/ML 1 ML VIAL SQ SCH (08:47)
[2020-11-30] MEDS: metroNIDAZOLE-NS PMX 500 MG in SALINE 1 100ML.BAG IVPB SCH ×2 (10:00→17:00)
--- NOTE | 2020-11-30 10:29 | P.PN ---
Subjective Progress Note Date: 11/30/20 Principal diagnosis: Colon obstruction Patient says her abdominal swelling and pressure type pain are improved after surgery. She has incisional discomfort today. T-max 99.1. Sats 93% on simple mass. White blood cell count 10.6, hemoglobin 12.6. Nasogastric tube is bilious. Objective - Vital Signs Vital signs: Vital Signs Temp 99.1 F 11/30/20 08:00 Pulse 60 11/30/20 08:38 Resp 18 11/30/20 08:00 BP 127/63 11/30/20 08:00 Pulse Ox 93 L 11/30/20 08:00 Intake & Output 11/29/20 11/30/20 11/30/20 18:59 06:59 18:59 Intake Total 1650 300 Output Total 650 15 Balance 1650 -350 -15 Weight 108.862 kg Intake: IV 1650 200 Intake, IV Titration 100 Amount metroNIDAZOLE-NS PMX 500 100 mg In Saline 1 100ml.bag @ 100 mls/hr IVPB Q8HR [facility] Rx#:[id number] Output: Gastric Drainage 100 Drainage 15 Abdomen 15 Urine 450 Estimated Blood Loss 100 Other: Voiding Method Indwelling Catheter # Voids 1 - Exam Abdomen: Soft, mild distention, dressing clean and dry, mild tenderness - Labs CBC & Chem 7: 11/30/20 06:58 11/30/20 06:58 Labs: Abnormal Lab Results - Last 24 Hours (Table) 11/29/20 11/29/20 11/29/20 Range/Units 12:20 15:24 20:07 Plt Count (150-450) k/uL Neutrophils # (1.3-7.7) k/uL Lymphocytes # (1.0-4.8) k/uL Carbon Dioxide (22-30) mmol/L BUN (7-17) mg/dL Creatinine (0.52-1.04) mg/dL Glucose (74-99) mg/dL POC Glucose (mg/dL) 155 H 136 H 200 H (75-99) mg/dL Calcium (8.4-10.2) mg/dL 11/29/20 11/30/20 11/30/20 Range/Units 21:26 06:58 06:58 Plt Count 462 H (150-450) k/uL Neutrophils # 9.5 H (1.3-7.7) k/uL Lymphocytes # 0.4 L (1.0-4.8) k/uL Carbon Dioxide 21 L (22-30) mmol/L BUN 29 H (7-17) mg/dL Creatinine 1.50 H (0.52-1.04) mg/dL Glucose 241 H (74-99) mg/dL POC Glucose (mg/dL) 222 H (75-99) mg/dL Calcium 7.7 L (8.4-10.2) mg/dL 11/30/20 Range/Units 07:37 Plt Count (150-450) k/uL Neutrophils # (1.3-7.7) k/uL Lymphocytes # (1.0-4.8) k/uL Carbon Dioxide (22-30) mmol/L BUN (7-17) mg/dL Creatinine (0.52-1.04) mg/dL Glucose (74-99) mg/dL POC Glucose (mg/dL) 233 H (75-99) mg/dL Calcium (8.4-10.2) mg/dL Assessment and Plan (1) Bowel obstruction Narrative/Plan: Tissue doing fairly well postoperatively. Keep nothing by mouth with nasogastric tube suction for now. May have ice chips. Add abdominal binder. Follow labs. Current Visit: Yes Status: Acute Code(s): K56.609 - UNSP INTESTNL OBST, UNSP TO PARTIAL VERSUS COMPLETE OBST SNOMED Code(s): 05510667
[2020-11-30 12:06] LABS: Glucose,Whole Blood 216 mg/dL (75-99)
--- NOTE | 2020-11-30 12:50 | XR ---
EXAMINATION TYPE: XR abdomen 1V DATE OF EXAM: 11/30/2020 COMPARISON: 11/29/2020 INDICATION: NG tube placement TECHNIQUE: Single view abdomen semiupright view FINDINGS: Nonspecific bowel gas is present. Left lower lobe infiltrate may be present. Psoas margins are normal. No organomegaly is present. Surgical skin danielle and a catheter present within the right mid abdomen There is placement of a nasogastric tube which is been advanced and now has its tip in the right uppe r quadrant of the abdomen. IMPRESSION: 1. NG tube tip currently within the right upper quadrant of the abdomen has been advanced from the co mparison. 2. Postsurgical changes. 3. Correlate for right lower lobe atelectasis
--- NOTE | 2020-11-30 13:47 | P.CRDCN ---
History of Present Illness Consult date: 11/30/20 Reason for Consult (text): Cardiac clearance Chief complaint: Cardiac clearance for surgery History of present illness: HISTORY OF PRESENT ILLNESS AND PLAN: This is a 70 year-old female she was a transfer from [facility] for complaints of severe abdominal pain, emesis, loose stools x 2 weeks. She has a history of diabetes, congestive heart failure, chronic kidney disease, COPD, hypothyroidism, 3 abdominal hernia repairs with mesh placement, cholecystectomy and appendectomy. Pt is currentl POD #3 s/p colectomy with removal of obstructing mass of RIGHT colon. Unfortunately there was no cardiology surgical clearance prior to procedure. Pt is seen this am lying with bed with on acute distress. Pt has no current complaints of chest pain, chest pressure, shortness of breath or palpitations. No lower extremity edema. Patient does have mild abdominal pain with the midline incision that is clean dry and intact. Drain tubs intact. Pt also has NG tube with dark green drainage, NPO currently. Pa tient continues on 4 L of supplemental oxygen. Currently vital signs stable. Sinus rhythm, heart rate 60. Patient has never followed with cardiology historically. Most recent echocardiogram in 2017 shows preserved EF at 55-60% mild concentric LVH. Mild to moderate MR and mild TR. SIGNIFICANT PAST MEDICAL HISTORY: diabetes, congestive heart failure, chronic kidney disease, COPD, hypothyroidism, 3 abdominal hernia repairs with mesh placement, cholecystectomy and appendectomy. PAST SURGICAL HISTORY: See list. SIGNIFICANT LABORATORY VALUES: BUN 29, CR 1.5. Glucose levels elevated in the 200's. Most recent echo = EF 55-60% mild concentric LVH. Mild to moderate MR. Mild TR. REVIEW OF SYSTEMS: CONSTITUTIONAL: Denies fever. Denies chills. EYES: Denies blurred vision. Denies blurred vision or vision changes. Denies eye pain. EARS, NOSE, MOUTH & THROAT: Denies headache. Denies sore throat. Denies ear pain Denies hemoptysis. CARDIOVASCULAR: Denies chest pain. Denies shortness of breath. Denies orthopnea. Denies PND. Denies palpitations. RESPIRATORY: Denies cough. Denies shortness of breath. GASTROINTESTINAL: Complains of incisional abdominal pain. No complaints of distention. Denies diarrhea. Denies constipation. Denies nausea. Denies vomiting. MUSCULOSKELETAL: Complains of myalgias. INTEGUMENTARY: Denies pruitis. Denies rash. ENDOCRINE: Complains of fatigue. Denies weight change. Denies polydipsia. Denies polyurina Denies heat/cold intolerance. GENITOURINARY: Denies burning, hematuria or urgency with micturation. HEMATOLOGIC: Denies history of anemia. Denies bleeding. NEUROLOGIC: Denies numbness. Denies tingling. Complains of weakness. PSYCHIATRIC: Denies anxiety. Denies depression. PHYSICAL EXAM: GENERAL: Morbidly obese, in no acute distress. HEENT: Head is atraumatic, normocephalic. Pupils are equal, round. Extra ocular movements intact. Mucous membranes moist. Neck supple. No JVD. No carotid bruit. No thyromegaly. LUNGS: Clear to auscultation. No wheezes, rales or rhonchi. No chest wall tend erness on palpation or with deep breathing. HEART: Regular rate and rhythm, no rubs or gallops. S1 and S2 heard. I/ systolic murmur at the base. ABDOMEN: Abdominal exam, WNL for post surgical day #3. Hypoactive bowel sounds x4 quads. Soft but tender, without masses, organomegaly, or abdominal aorta enlargement. EXTREMITIES/VASCULAR: Extremities have easily palpable radial, femoral, dorsalis pedis and posterior tibial pulses. No cyanosis, calf tenderness. No BLE edema. NEUROLOGIC: Patient is awake, alert and oriented x3. No focal neurologic abnormalities. FINAL IMPRESSION: 1. Colon obstruction, POD #1 doing well 2. HTN, controlled 3. Hyperlipidemia 4. COPD with supplimental O2, 5. DM II PLAN: Patient is doing as well as can be expected post op day #3. Pain is well controlled. VSS. Pt continues NPO. Pt continue same medical/medication regime. Cardiology to follow on a when necessary basis. Nurse Practitioner note has been reviewed by the Physician. Signing provider agrees with the documented findings, assessment and plan of care. Past Medical History Past Medical History: Chest Pain / Angina, Heart Failure, COPD, Diabetes Lelia litus, Hyperlipidemia, Hypertension, Osteoarthritis (OA), Pneumonia, Renal Disease, Respiratory Disorder, Sleep Apnea/CPAP/BIPAP, Thyroid Disorder Additional Past Medical History / Comment(s): IDDM type II with insulin pump, neuropathy bilateral feet, chronic respiratory failure with home O2 at 3L/NC ATC, TRUDI with Cpap, bronchitis, CKD stage II, urinary stress incontinence, hiatal hernia, arthritis in bilateral knees/back, insomnia, hypothyroid. 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 Past Anesthesia/Blood Transfusion Reactions: No Reported Reaction Additional Past Anesthesia/Blood Transfusion Reaction / Comment(s): Pt has clausterphobia. Smoking Status: Former smoker - Past Family History Mother Family Medical History: Cancer, Congestive Heart Failure (CHF), Diabetes Mellitus, Sleep Apnea/CPAP/BIPAP, Thyroid Disorder Additional Family Medical History / Comment(s): diverticulitis. Metastatic ca ncer/primary unknown Father Family Medical History: Diabetes Mellitus Additional Family Medical History / Comment(s): Obesity, multiple knee rep lacements, pacer. Medications and Allergies Home Medications Medication Instructions Recorded Confirmed Type Atorvastatin [Lipitor] 40 mg PO HS 07/08/17 11/28/20 History Hydrocodone/Acetaminophen [[place] 1 tab PO BID 07/08/17 11/28/20 History 5-325] Insulin Glulisine (For Pump) 0.01 units SQ-PUMP CONTINUOUS 07/08/17 11/28/20 History [Apidra (For Pump)] Levothyroxine Sodium [Synthroid] 137 mcg PO SUTUTHSA 07/08/17 11/28/20 History Budesonide-Formot 160-4.5 Mcg 1 puff INHALATION RT-BID #1 puff 07/10/17 11/28/20 Rx [Symbicort 160-4.5 Mcg Inhaler] Ipratropium-Albuterol Nebulize 3 ml INHALATION RT-TID 11/28/20 11/28/20 History [Duoneb 0.5 mg-3 mg/3 ml Soln] Levothyroxine Sodium [Synthroid] 150 mcg PO MOWEFR 11/28/20 11/28/20 History Tiotropium [place] [Spiriva 1 spray INHALATION RT-DAILY 11/28/20 11/28/20 Hist ory Respimat] Zolpidem [Ambien] 10 mg PO HS 11/28/20 11/28/20 History Allergies Allergy/AdvReac Type Severity Reaction Status Date / Time Iodinated Contrast Media AdvReac SEE COMMENT Verified 11/28/20 17:15 [Iodinated Contrast- Oral and IV Dye] Physical Exam Vitals: Vital Signs Temp Pulse Pulse Pulse Resp BP BP 11/30/20 08:38 60 11/30/20 08:30 18 11/30/20 08:24 60 11/30/20 08:00 99.1 F 73 18 127/63 11/30/20 02:23 97.9 F 76 17 99/52 11/29/20 23:29 76 102/59 11/29/20 22:59 80 101/56 11/29/20 22:29 85 93/44 11/29/20 22:14 82 109/55 11/29/20 21:59 82 111/60 11/29/20 21:44 82 111/58 11/29/20 21:32 97.6 F 81 16 113/57 11/29/20 21:00 85 16 134/61 11/29/20 20:45 82 16 140/63 11/29/20 20:30 80 16 132/59 11/29/20 20:15 72 18 126/61 11/29/20 20:03 99.3 F 70 20 131/62 11/29/20 15:39 98.3 F 72 20 116/58 Pulse Ox 11/30/20 08:38 11/30/20 08:30 11/30/20 08:24 11/30/20 08:00 93 L 11/30/20 02:23 94 L 11/29/20 23:29 92 L 11/29/20 22:59 90 L 11/29/20 22:29 90 L 11/29/20 22:14 92 L 11/29/20 21:59 91 L 11/29/20 21:44 91 L 11/29/20 21:32 91 L 11/29/20 21:00 97 11/29/20 20:45 94 L 11/29/20 20:30 95 11/29/20 20:15 94 L 11/29/20 20:03 96 11/29/20 15:39 96 Intake and Output 11/29/20 11/30/20 11/30/20 22:59 06:59 14:59 Intake Total 1350 100 Output Total 250 400 15 Balance 1100 -300 -15 Intake: IV 1350 Intake, IV Titration 100 Amount metroNIDAZOLE-NS PMX 500 100 mg In Saline 1 100ml.bag @ 100 mls/hr IVPB Q8HR [facility] Rx#:[id number] Output: Gastric Drainage 100 Drainage 15 Abdomen 15 Urine 150 300 Estimated Blood Loss 100 Other: Voiding Method Indwelling Catheter Indwelling Catheter Results 11/30/20 06:58 11/30/20 06:58 CBC 11/30/20 Range/Units 06:58 WBC 10.6 (3.8-10.6) k/uL RBC 4.17 (3.80-5.40) m/uL Hgb 12.6 (11.4-16.0) gm/dL Hct 40.6 (34.0-46.0) % Plt Count 462 H (150-450) k/uL Comprehensive Metabolic Panel 11/30/20 Range/Units 06:58 Sodium 137 (137-145) mmol/L Potassium 4.8 (3.5-5.1) mmol/L Chloride 107 (98-107) mmol/L Carbon Dioxide 21 L (22-30) mmol/L BUN 29 H (7-17) mg/dL Creatinine 1.50 H (0.52-1.04) mg/dL Glucose 241 H (74-99) mg/dL Calcium 7.7 L (8.4-10.2) mg/dL Current Medications Generic Name Dose Route Start Last Admin Trade Name Freq PRN Reason Stop Dose Admin Albuterol/Ipratropium 3 ml 11/28/20 20:00 11/30/20 12:05 Ipratropium-Albuterol 3 Ml Neb INHALATION Not Given RT-TID [facility] Atorvastatin Calcium 40 mg 11/28/20 21:00 11/29/20 22:54 Atorvastatin 40 Mg Tab PO Not Given HS [facility] Budesonide/Formoterol Fumarate 1 puff 11/28/20 20:00 11/30/20 08:24 Symbicort 160-4.5 Mcg Inhaler INHALATION 1 puff RT-BID [facility] Administration Enoxaparin Sodium 40 mg 11/28/20 19:30 11/30/20 08:45 Enoxaparin 40 Mg/0.4 Ml Syringe SQ Not Given DAILY [facility] Hydromorphone HCl 1 mg 11/29/20 20:26 11/30/20 12:44 Hydromorphone 1 Mg/Ml 1 Ml Syringe IVP 1 mg Q3HR PRN Administration Pain Sodium Chloride 1,000 mls @ 75 mls/hr 11/28/20 17:00 11/29/20 21:05 Saline 0.9% IV 0 mls .[id number] [facility] Administration Piperacillin Sod/Tazobactam 100 mls @ 25 mls/hr 11/30/20 00:00 11/30/20 08:35 Sod 3.375 gm/ Sodium Chloride IVPB 25 mls/hr Q8HR [facility] Administration Metronidazole 500 mg/ IV 100 mls @ 100 mls/hr 11/30/20 00:00 11/30/20 10:00 Solution IVPB 100 mls/hr Q8HR [facility] Administration Acetaminophen 1,000 mg/ IV 100 mls @ 400 mls/hr 11/29/20 21:00 11/30/20 08:53 Solution IVPB 11/30/20 15:14 400 mls/hr Q6H [facility] Administration Insulin Aspart 0 unit 11/28/20 17:30 11/30/20 12:54 Insulin Aspart (Novolog) 100 Unit/Ml Vial SQ 4 unit ACHS [facility] Administration Protocol Insulin Detemir 20 unit 11/28/20 21:00 11/29/20 22:54 Insulin Detemir (Levemir) 100 Unit/Ml Syr SQ Not Given HS [facility] Levothyroxine Sodium 137 mcg 11/29/20 06:30 11/30/20 02:41 Levothyroxine 137 Mcg Tab PO Not Given DAILY@0630 [facility] Naloxone HCl 0.2 mg 11/28/20 16:52 Naloxone 0.4 Mg/Ml 1 Ml Vial IV Q2M PRN Opioid Reversal Ondansetron HCl 4 mg 11/28/20 16:52 11/29/20 21:35 Ondansetron 4 Mg/2 Ml Vial IVP 4 mg Q8HR PRN Administration Nausea And Vomiting Pantoprazole Sodium 40 mg 11/29/20 12:15 11/30/20 08:44 Pantoprazole 40 Mg/10 Ml Vial IVP 40 mg DAILY [facility] Administration Zolpidem Tartrate 5 mg 11/28/20 21:00 11/29/20 22:54 Zolpidem 5 Mg Tab PO Not Given HS [facility] Intake and Output 11/29/20 11/30/20 11/30/20 22:59 06:59 14:59 Intake Total 1350 100 Output Total 250 400 15 Balance 1100 -300 -15 Intake: IV 1350 Intake, IV Titration 100 Amount metroNIDAZOLE-NS PMX 500 100 mg In Saline 1 100ml.bag @ 100 mls/hr IVPB Q8HR [facility] Rx#:[id number] Output: Gastric Drainage 100 Drainage 15 Abdomen 15 Urine 150 300 Estimated Blood Loss 100 Other: Voiding Method Indwelling Catheter Indwelling Catheter 11/30/20 06:58 11/30/20 06:58
--- NOTE | 2020-11-30 15:16 | P.PN ---
Subjective Progress Note Date: 11/30/20 Principal diagnosis: Bowel mass, status post resection 70-year-old patient, brought in by EMS, on November 28. She was seen by Dr. Luis Enrique Murillo in the emergency department. She has a history of diabetes mellitus, CHF, chronic kidney disease, multiple abdominal hernia repairs, with mesh, and severe COPD. Her FEV1 is 0.92 L which is 41% of predicted. She sees my partner in the office for her COPD. She also suffers from chronic hypoxemic respiratory failure, and does use oxygen /. She apparently recently has had multiple episodes of nonbloody nonbilious emesis, as well as watery diarrhea, for one week. She apparently was evaluated and found on computed tomography sca n, to have a colonic lesion, consistent with colon cancer. I was consulted for preop clearance. We saw her right before she went off to surgery. She is chronically on oxygen therapy at 3 L as mentioned above. The patient was having surgery with Dr. Clay Healy. Basically, she tells me that her COPD much at baseline. I did mention to her that she may end up in the intensive care unit after surgery. Also, based on the FEV1 alone, without the MVV, or RV/TLC ratio, the patient's at moderately increased operative risk from general anesthesia. White count 11.1, hemoglobin 13, hematocrit 40.6, platelet count 529,000, sodium 137, potassium 4.3, chlorides 100, CO2 32, anion gap 5, BUN 26, and creatinine 1.45. There was no chest x-ray to review. The patient is seen today 11/30/2020 in follow-up on the regular medical floor. She is currently resting quite comfortably in bed. Awake and alert in no acute distress. Nasogastric tube is secured in place. Maintaining O2 saturations in the 90s on 6 L/m per nasal cannula. White count 10.6. Hemoglobin 12.6. Sodium 137. Potassium 4.8. Creatinine 1.50. She is maintained on Symbicort and DuoNeb inhalations. Anticoagulated with Lovenox. Objective - Vital Signs Vital signs: Vital Signs Temp 98.4 F 11/30/20 14:00 Pulse 67 11/30/20 14:00 Resp 18 11/30/20 14:00 BP 120/67 11/30/20 14:00 Pulse Ox 99 11/30/20 14:00 Intake & Output 11/29/20 11/30/20 11/30/20 18:59 06:59 18:59 Intake Total 1650 300 Output Total 650 15 Balance 1650 -350 -15 Weight 108.862 kg Intake: IV 1650 200 Intake, IV Titration 100 Amount metroNIDAZOLE-NS PMX 500 100 mg In Saline 1 100ml.bag @ 100 mls/hr IVPB Q8HR [facility] Rx#:[id number] Output: Gastric Drainage 100 Drainage 15 Abdomen 15 Urine 450 Estimated Blood Loss 100 Other: Voiding Method Indwelling Catheter Indwelling Catheter # Voids 1 - Exam GENERAL EXAM: Alert, pleasant 70-year-old female patient, and 6 L nasal cannula, comfortable in no apparent distress. HEAD: Normocephalic. EYES: Normal reaction of pupils, equal size. NOSE: Nasogastric tube secured in place Clear with pink turbinates. THROAT: No erythema or exudates. NECK: No masses, no JVD. CHEST: No chest wall deformity. LUNGS: Equal air entry with crackles in the posterior bases, diminished. CVS: S1 and S2 normal with no audible murmur, regular rhythm. ABDOMEN: Is seen dry and intact. No hepatosplenomegaly, normal bowel sounds, no guarding or rigidity. SPINE: No scoliosis or deformity SKIN: No rashes CENTRAL NERVOUS SYSTEM: No focal deficits, tone is normal in all 4 extremities. EXTREMITIES: There is no peripheral edema. No clubbing, no cyanosis. Peripheral pulses are intact. - Labs CBC & Chem 7: 11/30/20 06:58 11/30/20 06:58 Labs: Abnormal Lab Results - Last 24 Hours (Table) 11/29/20 11/29/20 11/29/20 Range/Units 15:24 20:07 21:26 Plt Count (150-450) k/uL Neutrophils # (1.3-7.7) k/uL Lymphocytes # (1.0-4.8) k/uL Carbon Dioxide (22-30) mmol/L BUN (7-17) mg/dL Creatinine (0.52-1.04) mg/dL Glucose (74-99) mg/dL POC Glucose (mg/dL) 136 H 200 H 222 H (75-99) mg/dL Calcium (8.4-10.2) mg/dL 11/30/20 11/30/20 11/30/20 Range/Units 06:58 06:58 07:37 Plt Count 462 H (150-450) k/uL Neutrophils # 9.5 H (1.3-7.7) k/uL Lymphocytes # 0.4 L (1.0-4.8) k/uL Carbon Dioxide 21 L (22-30) mmol/L BUN 29 H (7-17) mg/dL Creatinine 1.50 H (0.52-1.04) mg/dL Glucose 241 H (74-99) mg/dL POC Glucose (mg/dL) 233 H (75-99) mg/dL Calcium 7.7 L (8.4-10.2) mg/dL 11/30/20 Range/Units 11:55 Plt Count (150-450) k/uL Neutrophils # (1.3-7.7) k/uL Lymphocytes # (1.0-4.8) k/uL Carbon Dioxide (22-30) mmol/L BUN (7-17) mg/dL Creatinine (0.52-1.04) mg/dL Glucose (74-99) mg/dL POC Glucose (mg/dL) 216 H (75-99) mg/dL Calcium (8.4-10.2) mg/dL Assessment and Plan Assessment: 1 Acute bowel obstruction, with computed tomography scan showing findings suspicious of a right colonic mass or apple core lesion. Status post resection. Postoperative day #1. 2 Severe/stage III, COPD, with an FEV1 that is 0.92 L or 41% of predicted. 3 History of 3 prior abdominal hernia repairs, with mesh placement. 4 History of angina pectoris. 5 History of CHF. 6 History of diabetes mellitus. 7 History of hyperlipidemia. 8 History of essential hypertension. 9 History of sleep apnea syndrome, currently on CPAP. 10 History of hypothyroidism. 11 Prior history of MRSA infection, 2013. 12 Previous history of heavy tobacco use. Plan: The patient was seen and evaluated by Dr. Seals Currently stable from the pulmonary standpoint Encouraged the increased use the incentive spirometer and cough and deep breathing exercises Titrate down the FiO2 as tolerated Continue Bull and yl We will continue to follow I, the cosigning physician, performed a history & physical examination of the patient. Lungs sounds few crackles in the posterior bases. Maintaining good O2 saturations in the 90s on 6 L/m per nasal. I discussed the assessment and plan of care with my nurse practitioner, Maria Guadalupe Barnes. I attest to the above note as dictated by her.
[2020-11-30 16:54] LABS: Glucose,Whole Blood 212 mg/dL (75-99)
[2020-11-30 21:10] LABS: Glucose,Whole Blood 159 mg/dL (75-99)
[2020-11-30] MEDS: ATORVASTATIN 40 MG TAB PO SCH (21:58)
[2020-11-30] MEDS: ZOLPIDEM 5 MG TAB PO SCH (21:58)
[2020-11-30] MEDS: INSULIN DETEMIR (LEVEMIR) 100 UNIT/ML SYR SQ SCH (21:59)
[2020-11-30] MEDS: ONDANSETRON 4 MG/2 ML VIAL IVP PRN (22:06)
--- NOTE | 2020-11-30 22:42 | P.PN ---
Progress Note - Text Progress Note Date: 11/30/20 - Chief Complaint Abdominal pain Consultation: This is a pleasant 70-year-old patient of Dr. Mercer. Chronic stable medical conditions include heart failure, diabetes, hypertension, hyperlipidemia, obstructive sleep apnea, hypothyroid. Patient lives by herself at her baseline uses a walker. For 2 weeks patient been having mid abdominal pain. 3 much constant. We'll get 8 intermittent watery stools. Was taking Imodium. Has been having fever nausea vomiting. Patient's had multiple abdominal hernia repairs with mesh. Was transferred here from [facility]. She is also had appendectomy and cholecystectomy in the past. She was transferred for small bowel obstruction. November 29: Underwent expiratory 3 laboratory with a right colectomy for obstructing right distal colonic mass Today-In bed. NG tube to suction. Some abdominal pain. Son at the bedside. IV fluids. Nothing by mouth Review of systems: Was done for constitutional, cardiovascular, GI, pulmonary. relevant finding as above Active Medications Albuterol/Ipratropium (Ipratropium-Albuterol 3 Ml Neb) 3 ml INHALATION RT-TID [facility] Last Admin: 11/30/20 19:25 Dose: Not Given Documented by: Atorvastatin Calcium (Atorvastatin 40 Mg Tab) 40 mg PO HS [facility] Last Admin: 11/30/20 21:58 Dose: 40 mg Documented by: Budesonide/Formoterol Fumarate (Symbicort 160-4.5 Mcg Inhaler) 1 puff INHALATION RT-BID [facility] Last Admin: 11/30/20 19:23 Dose: 1 puff Documented by: Enoxaparin Sodium (Enoxaparin 40 Mg/0.4 Ml Syringe) 40 mg SQ DAILY [facility] Last Admin: 11/30/20 08:45 Dose: Not Given Documented by: Hydromorphone HCl (Hydromorphone 1 Mg/Ml 1 Ml Syringe) 1 mg IVP Q3HR PRN PRN Reason: Pain Last Admin: 11/30/20 20:00 Dose: 1 mg Documented by: Sodium Chloride (Saline 0.9%) 1,000 mls @ 75 mls/hr IV .[id number] [facility] Last Admin: 11/29/20 21:05 Dose: 0 mls Documented by: Piperacillin Sod/Tazobactam (Sod 3.375 gm/ Sodium Chloride) 100 mls @ 25 mls/hr IVPB Q8HR [facility] Last Admin: 11/30/20 17:03 Dose: 25 mls/hr Documented by: Metronidazole 500 mg/ IV (Solution) 100 mls @ 100 mls/hr IVPB Q8HR [facility] Last Admin: 11/30/20 17:00 Dose: 100 mls/hr Documented by: Insulin Aspart (Insulin Aspart (Novolog) 100 Unit/Ml Vial) 0 unit SQ [facility]; Protocol Last Admin: 11/30/20 21:59 Dose: 2 unit Documented by: Insulin Detemir (Insulin Detemir (Levemir) 100 Unit/Ml Syr) 20 unit SQ [facility] Last Admin: 11/30/20 21:59 Dose: 20 unit Documented by: Levothyroxine Sodium (Levothyroxine 137 Mcg Tab) 137 mcg PO DAILY@0630 [facility] Last Admin: 11/30/20 02:41 Dose: Not Given Documented by: Naloxone HCl (Naloxone 0.4 Mg/Ml 1 Ml Vial) 0.2 mg IV Q2M PRN PRN Reason: Opioid Reversal Ondansetron HCl (Ondansetron 4 Mg/2 Ml Vial) 4 mg IVP Q8HR PRN PRN Reason: Nausea And Vomiting Last Admin: 11/30/20 22:06 Dose: 4 mg Documented by: Pantoprazole Sodium (Pantoprazole 40 Mg/10 Ml Vial) 40 mg IVP DAILY [facility] Last Admin: 11/30/20 08:44 Dose: 40 mg Documented by: Zolpidem Tartrate (Zolpidem 5 Mg Tab) 5 mg PO [facility] Last Admin: 11/30/20 21:58 Dose: 5 mg Documented by: Past medical history to include: Angina, CHF, diabetes, hyperlipidemia, hypertension, obstructive sleep apnea, hypothyroid, home oxygen-2 L Social history: . Lives alone. Does smoke up to 7 years ago. Alcohol rarely. Does use a walker Physical examination: VITAL SIGNS: 98.4, 67, 18, 120/67, 99% on 6 L GENERAL: Laying in bed, awake EYES: Pupils equal. Conjunctiva normal. HEENT: External appearance of nose and ears normal, oral cavity -dry. NG tube NECK: JVD not raised; masses not palpable. HEART: First and second heart sounds are normal; no edema. LUNGS:[ Respiratory rate increased, decreased breath sounds. ABDOMEN: Soft, mild abdominal tenderness, dressing in place, no guarding rigidity, absent bowel sounds multiple scars on the abdomen, liver spleen not palpable, no masses palpable. MUSCULAR skeletal: Evidence of OA especially in the hands PSYCH: [Alert and oriented x3; mood and affect anxious. INVESTIGATIONS, reviewed in the clinical context: November 30: WBC 10.6 hemoglobin 12.6 potassium 4.8 creatinine 1.5 Abdominal x-ray [November 29]: Persistent dilated bowel loops with air-fluid levels Coronavirus [PCR]-not detected Abdominal x-ray film personally reviewed by me: Small bowel obstruction Assessment and plan: -Acute small bowel obstruction : November 29: Right hemicolectomy for a distal ascending colon mass. NG tube -Diabetes mellitus type 2. Patient on insulin pump. Hold that for now. Start Levemir. Accu-Cheks. -Chronic hypoxic respiratory failure uses 2 L of oxygen at home -Hyperlipidemia -Chronic urinary stress incontinence. Follow clinically. -Essential hypertension -Hypothyroid, continue with Synthroid -Morbid obesity BMI 42.5. Follow-up with PCP for weight loss measures. -Chronic congestive heart failure. EF not known. -Chronic insomnia. 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 Subcu Lovenox Care was discussed with the patient and son at the bedside. Questions answered. Follow-up BMP. Increase IV fluids to 100an hour Thank you Dr. Broderick.
[2020-12-01] MEDS: HYDROmorphone 1 MG/ML 1 ML SYRINGE IVP PRN ×7 (01:10→22:02)
[2020-12-01] MEDS: metroNIDAZOLE-NS PMX 500 MG in SALINE 1 100ML.BAG IVPB SCH ×3 (01:16→16:01)
[2020-12-01] MEDS: SODIUM CHLORIDE 0.9% 1,000 ML IV SCH ×3 (01:17→16:09)
[2020-12-01] MEDS: PIPERACILLIN-TAZOBACTAM 3.375 GM in SODIUM CHLORIDE 0.9% 100 ML IVPB SCH ×3 (03:10→15:41)
[2020-12-01] MEDS: IPRATROPIUM-ALBUTEROL 3 ML NEB INHALATION SCH ×4 (04:37→20:46)
[2020-12-01] MEDS: LEVOTHYROXINE 137 MCG TAB PO SCH (05:51)
[2020-12-01 07:03] LABS: Glucose,Whole Blood 140 mg/dL (75-99)
[2020-12-01] MEDS: SYMBICORT 160-4.5 MCG INHALER INHALATION SCH (07:46)
[2020-12-01] MEDS: INSULIN ASPART (NovoLOG) 100 UNIT/ML VIAL SQ SCH ×4 (08:13→21:46)
[2020-12-01] MEDS: PANTOPRAZOLE 40 MG/10 ML VIAL IVP SCH (08:26)
[2020-12-01] MEDS: ENOXAPARIN 40 MG/0.4 ML SYRINGE SQ SCH (08:34)
[2020-12-01 09:15] LABS: Basophils # (A) 0.05 X 10*3/uL (0.00-0.10); Basophils % (A) 0.5 %; Eosinophils # (A) 0.19 X 10*3/uL (0.04-0.35); Eosinophils % (A) 1.9 %; HCT 35.1 % (37.2-46.3); HGB 10.9 g/dL (12.0-15.0); Lymphocytes # (A) 0.62 X 10*3/uL (0.90-5.00); MCH 30.5 pg (27.0-32.0); MCHC 31.1 g/dL (32.0-37.0); MCV 98.3 fL (80.0-97.0); Mean Platelet Volume 10.1 fL (9.5-12.2); Monocytes % (A) 7.8 %; Neutrophils % (A) 82.8 %; Platelet Count 498 X 10*3/uL (140-440); RBC 3.57 X 10*6/uL (4.10-5.20); RDW 14.6 % (11.5-14.5); WBC 10.26 X 10*3/uL (4.50-10.00)
[2020-12-01 09:54] LABS: African American GFR (CKD) 48.5 (60.0-200.0); Anion Gap 5.6 mmol/L (4.00-12.00); BUN/Creat Ratio 19.23 Ratio (12.00-20.00); Carbon Dioxide 26.4 mmol/L (21.6-31.8); Non-African American GFR(CKD) 41.8 (60.0-200.0); Potassium 4.5 mmol/L (3.5-5.5)
--- NOTE | 2020-12-01 10:38 | P.PN ---
Subjective Progress Note Date: 12/01/20 Principal diagnosis: Colon obstruction Patient without new complaints. Nasogastric tube 300 mL bilious since last night. White blood cell count 10.2, hemoglobin 10.9. Pain is about the same she states. No flatus or bowel movement thus far. Objective - Vital Signs Vital signs: Vital Signs Temp 97.5 F L 12/01/20 07:00 Pulse 85 12/01/20 07:00 Resp 20 12/01/20 07:00 BP 129/69 12/01/20 07:00 Pulse Ox 91 L 12/01/20 07:00 Intake & Output 11/30/20 12/01/20 12/01/20 18:59 06:59 18:59 Output Total 780 980 Balance -780 -980 Output: Gastric Drainage 300 200 Drainage 30 30 Abdomen 30 30 Urine 450 750 Other: Voiding Method Indwelling Catheter Indwelling Catheter - Exam Abdomen: Soft, nondistended, mild tenderness, dressing clean and dry - Labs CBC & Chem 7: 12/01/20 06:10 12/01/20 06:10 Labs: Abnormal Lab Results - Last 24 Hours (Table) 11/30/20 11/30/20 11/30/20 Range/Units 11:55 16:42 21:09 WBC (4.50-10.00) X 10*3/uL RBC (4.10-5.20) X 10*6/uL Hgb (12.0-15.0) g/dL Hct (37.2-46.3) % MCV (80.0-97.0) fL MCHC (32.0-37.0) g/dL RDW (11.5-14.5) % Plt Count (140-440) X 10*3/uL Absolute Nucleated RBC (0.00-0.00) X 10*3/uL Immature Gran # (0.00-0.04) X 10*3/uL Neutrophils # (1.80-7.70) X 10*3/uL Lymphocytes # (0.90-5.00) X 10*3/uL NRBC/100 WBC Diff (0.0-0.0) /100 WBCS Est GFR (CKD-EPI)AfAm (60.0-200.0) Est GFR (CKD-EPI)NonAf (60.0-200.0) Glucose (70-110) mg/dL POC Glucose (mg/dL) 216 H 212 H 159 H (75-99) mg/dL Calcium (8.7-10.3) mg/dL 12/01/20 12/01/20 12/01/20 Range/Units 06:10 06:10 06:45 WBC 10.26 H (4.50-10.00) X 10*3/uL RBC 3.57 L (4.10-5.20) X 10*6/uL Hgb 10.9 L (12.0-15.0) g/dL Hct 35.1 L (37.2-46.3) % MCV 98.3 H (80.0-97.0) fL MCHC 31.1 L (32.0-37.0) g/dL RDW 14.6 H (11.5-14.5) % Plt Count 498 H (140-440) X 10*3/uL Absolute Nucleated RBC 0.02 H (0.00-0.00) X 10*3/uL Immature Gran # 0.10 H (0.00-0.04) X 10*3/uL Neutrophils # 8.50 H (1.80-7.70) X 10*3/uL Lymphocytes # 0.62 L (0.90-5.00) X 10*3/uL NRBC/100 WBC Diff 0.2 H (0.0-0.0) /100 WBCS Est GFR (CKD-EPI)AfAm 48.5 L (60.0-200.0) Est GFR (CKD-EPI)NonAf 41.8 L (60.0-200.0) Glucose 155 H (70-110) mg/dL POC Glucose (mg/dL) 140 H (75-99) mg/dL Calcium 8.0 L (8.7-10.3) mg/dL Assessment and Plan (1) Bowel obstruction Narrative/Plan: Keep nothing by mouth with nasogastric tube in place. Recheck labs tomorrow. Increase activity as tolerated. Current Visit: Yes Status: Acute Code(s): K56.609 - UNSP INTESTNL OBST, UNSP TO PARTIAL VERSUS COMPLETE OBST SNOMED Code(s): 38564085
--- NOTE | 2020-12-01 11:14 | P.PN ---
Subjective Progress Note Date: 12/01/20 PROGRESS NOTE 12/01/20 This is a 70 year-old female she was a transfer from [facility] for complaints of severe abdominal pain, emesis, loose stools x 2 weeks. She has a history of diabetes, congestive heart failure, chronic kidney disease, COPD, hypothyroidism, 3 abdominal hernia repairs with mesh placement, cholecystectomy and appendectomy. Pt is currently POD #3 s/p colectomy with removal of obstructing mass of RIGHT colon. Unfortunately there was no cardiology surgical clearance prior to procedure. Pt is seen this am lying with bed with on acute distress. Pt has no current complaints of chest pain, chest pressure, shortness of breath or palpitations. No lower extremity edema. Patient does have mild abdominal pain with the midline incision that is clean dry and intact. Drain tubs intact. Pt also has NG tube with dark green drainage, NPO currently. Patient continues on 4 L of supplemental oxygen. Currently vital signs stable. Sinus rhythm, heart rate 60. Patient has never followed with cardiology historically. Most recent echocardiogram in 2017 shows preserved EF at 55-60% mild concentric LVH. Mild to moderate MR and mild TR. Progress Note 12/01/20 Pt is seen this am lying with bed with on acute distress, pain well controlled. Pt has no current complaints of chest pain, chest pressure, shortness of breath or palpitations. No lower extremity edema. Patient has abdominal binder on this day. NG tube continues with dark green drainage. Pt remains NPO with ICE. Patient continues on 4 L of supplemental oxygen. Currently vital signs stable. Sinus rhythm, heart rate 60. Pt using IS, lungs jarvis are diminished bilaterally this am. Encourage ambulation. POD #4 PHYSICAL EXAMINATION: HEENT: Head is atraumatic, normocephalic. Pupils are equal, round. Sclerae anicteric. Conjunctivae are clear. Mucous membranes of the mouth are moist. Neck is supple. There is no jugular venous distention. No carotid bruit is heard. No thyromegaly. LUNGS: DIMINISHED lung jarvis bilaterally. No chest wall tenderness is noted on palpation or with deep breathing. HEART: Regular rate and rhythm without murmurs, rubs or gallops. S1 and S2 heard. ABDOMEN: Abdominal exam hypoactive bowel sounds. The abdomen was soft and remains tender. No masses, organomegaly, or appreciable enlargement of the abdominal aorta. EXTREMITIES: Examination of the extremities revealed easily palpable radial, femoral and pedal pulses. There was no cyanosis, clubbing or edema. No calf tenderness noted. VASCULAR: Radial and dorsalis pedis pulses palpated, no evidence of clubbing. NEUROLOGIC: Patient is awake, alert and oriented x3. There were no obvious focal neurologic abnormalities. LAB DATA: HGB 10.9/HCT 35.1. BUN 25, CR 1.3. CA 8.0 FINAL IMPRESSION: 1. Colon obstruction, POD #4 doing well 2. HTN, controlled 3. Hyperlipidemia 4. COPD with supplimental O2, 5. DM II PLAN: PLAN: Patient is doing as well post op day #4. Pain is well controlled. VSS. Pt continues NPO. Pt continue same medical/medication regime. Cardiology to follow on a when necessary basis. Objective - Vital Signs Vital signs: Vital Signs Temp 97.5 F L 12/01/20 07:00 Pulse 85 12/01/20 07:00 Resp 20 12/01/20 07:00 BP 129/69 12/01/20 07:00 Pulse Ox 91 L 12/01/20 07:00 Intake & Output 11/30/20 12/01/20 12/01/20 18:59 06:59 18:59 Output Total 780 980 Balance -780 -980 Output: Gastric Drainage 300 200 Drainage 30 30 Abdomen 30 30 Urine 450 750 Other: Voiding Method Indwelling Catheter Indwelling Catheter - Labs CBC & Chem 7: 12/01/20 06:10 12/01/20 06:10 Labs: Abnormal Lab Results - Last 24 Hours (Table) 11/30/20 11/30/20 11/30/20 Range/Units 11:55 16:42 21:09 WBC (4.50-10.00) X 10*3/uL RBC (4.10-5.20) X 10*6/uL Hgb (12.0-15.0) g/dL Hct (37.2-46.3) % MCV (80.0-97.0) fL MCHC (32.0-37.0) g/dL RDW (11.5-14.5) % Plt Count (140-440) X 10*3/uL Absolute Nucleated RBC (0.00-0.00) X 10*3/uL Immature Gran # (0.00-0.04) X 10*3/uL Neutrophils # (1.80-7.70) X 10*3/uL Lymphocytes # (0.90-5.00) X 10*3/uL NRBC/100 WBC Diff (0.0-0.0) /100 WBCS Est GFR (CKD-EPI)AfAm (60.0-200.0) Est GFR (CKD-EPI)NonAf (60.0-200.0) Glucose (70-110) mg/dL POC Glucose (mg/dL) 216 H 212 H 159 H (75-99) mg/dL Calcium (8.7-10.3) mg/dL 12/01/20 12/01/20 12/01/20 Range/Units 06:10 06:10 06:45 WBC 10.26 H (4.50-10.00) X 10*3/uL RBC 3.57 L (4.10-5.20) X 10*6/uL Hgb 10.9 L (12.0-15.0) g/dL Hct 35.1 L (37.2-46.3) % MCV 98.3 H (80.0-97.0) fL MCHC 31.1 L (32.0-37.0) g/dL RDW 14.6 H (11.5-14.5) % Plt Count 498 H (140-440) X 10*3/uL Absolute Nucleated RBC 0.02 H (0.00-0.00) X 10*3/uL Immature Gran # 0.10 H (0.00-0.04) X 10*3/uL Neutrophils # 8.50 H (1.80-7.70) X 10*3/uL Lymphocytes # 0.62 L (0.90-5.00) X 10*3/uL NRBC/100 WBC Diff 0.2 H (0.0-0.0) /100 WBCS Est GFR (CKD-EPI)AfAm 48.5 L (60.0-200.0) Est GFR (CKD-EPI)NonAf 41.8 L (60.0-200.0) Glucose 155 H (70-110) mg/dL POC Glucose (mg/dL) 140 H (75-99) mg/dL Calcium 8.0 L (8.7-10.3) mg/dL
[2020-12-01 11:21] LABS: Glucose,Whole Blood 113 mg/dL (75-99)
--- NOTE | 2020-12-01 15:07 | P.PN ---
Subjective Progress Note Date: 12/01/20 Principal diagnosis: Bowel mass, status post resection 70-year-old patient, brought in by EMS, on November 28. She was seen by Dr. Luis Enrique Murillo in the emergency department. She has a history of diabetes mellitus, CHF, chronic kidney disease, multiple abdominal hernia repairs, with mesh, and severe COPD. Her FEV1 is 0.92 L which is 41% of predicted. She sees my partner in the office for her COPD. She also suffers from chronic hypoxemic respiratory failure, and does use oxygen 24/. She apparently recently has had multiple episodes of nonbloody nonbilious emesis, as well as watery diarrhea, for one week. She apparently was evaluated and found on computed tomography sca n, to have a colonic lesion, consistent with colon cancer. I was consulted for preop clearance. We saw her right before she went off to surgery. She is chronically on oxygen therapy at 3 L as mentioned above. The patient was having surgery with Dr. Clay Healy. Basically, she tells me that her COPD much at baseline. I did mention to her that she may end up in the intensive care unit after surgery. Also, based on the FEV1 alone, without the MVV, or RV/TLC ratio, the patient's at moderately increased operative risk from general anesthesia. White count 11.1, hemoglobin 13, hematocrit 40.6, platelet count 529,000, sodium 137, potassium 4.3, chlorides 100, CO2 32, anion gap 5, BUN 26, and creatinine 1.45. There was no chest x-ray to review. The patient is seen today 11/30/2020 in follow-up on the regular medical floor. She is currently resting quite comfortably in bed. Awake and alert in no acute distress. Nasogastric tube is secured in place. Maintaining O2 saturations in the 90s on 6 L/m per nasal cannula. White count 10.6. Hemoglobin 12.6. Sodium 137. Potassium 4.8. Creatinine 1.50. She is maintained on Symbicort and DuoNeb inhalations. Anticoagulated with Lovenox. The patient is seen today 12/01/2020 in follow-up on the regular medical floor. She is awake and alert in no acute distress. Resting comfortably in bed. Nasogastric tube remains in place. This is postoperative day #2. She remains on Zosyn and Flagyl. Maintaining O2 saturation in the 90s on 4 L/m per nasal cannula. She was requesting breathing treatments during the night for some incr easing shortness of breath. Working well with the incentive spirometer. White count 10.2. Hemoglobin 10.9. Sodium 141. Potassium 4.5. Creatinine 1.3. Objective - Vital Signs Vital signs: Vital Signs Temp 97.5 F L 12/01/20 14:34 Pulse 87 12/01/20 14:34 Resp 18 12/01/20 14:34 BP 125/71 12/01/20 14:34 Pulse Ox 90 L 12/01/20 14:34 Intake & Output 11/30/20 12/01/20 12/01/20 18:59 06:59 18:59 Output Total 780 980 Balance -780 -980 Output: Gastric Drainage 300 200 Drainage 30 30 Abdomen 30 30 Urine 450 750 Other: Voiding Method Indwelling Catheter Indwelling Catheter Indwelling Catheter - Exam GENERAL EXAM: Alert, pleasant 70-year-old female patient, on 4 L nasal cannula, comfortable in no apparent distress. HEAD: Normocephalic. EYES: Normal reaction of pupils, equal size. NOSE: Nasogastric tube secured in place. Clear with pink turbinates. THROAT: No erythema or exudates. NECK: No masses, no JVD. CHEST: No chest wall deformity. LUNGS: Equal air entry with crackles in the posterior bases, diminished. CVS: S1 and S2 normal with no audible murmur, regular rhythm. ABDOMEN: Dressing dry and intact. No hepatosplenomegaly, normal bowel sounds, no guarding or rigidity. SPINE: No scoliosis or deformity SKIN: No rashes CENTRAL NERVOUS SYSTEM: No focal deficits, tone is normal in all 4 extremities. EXTREMITIES: There is no peripheral edema. No clubbing, no cyanosis. Peripheral pulses are intact. - Labs CBC & Chem 7: 12/01/20 06:10 12/01/20 06:10 Labs: Abnormal Lab Results - Last 24 Hours (Table) 11/30/20 11/30/20 12/01/20 Range/Units 16:42 21:09 06:10 WBC 10.26 H (4.50-10.00) X 10*3/uL RBC 3.57 L (4.10-5.20) X 10*6/uL Hgb 10.9 L (12.0-15.0) g/dL Hct 35.1 L (37.2-46.3) % MCV 98.3 H (80.0-97.0) fL MCHC 31.1 L (32.0-37.0) g/dL RDW 14.6 H (11.5-14.5) % Plt Count 498 H (140-440) X 10*3/uL Absolute Nucleated RBC 0.02 H (0.00-0.00) X 10*3/uL Immature Gran # 0.10 H (0.00-0.04) X 10*3/uL Neutrophils # 8.50 H (1.80-7.70) X 10*3/uL Lymphocytes # 0.62 L (0.90-5.00) X 10*3/uL NRBC/100 WBC Diff 0.2 H (0.0-0.0) /100 WBCS Est GFR (CKD-EPI)AfAm (60.0-200.0) Est GFR (CKD-EPI)NonAf (60.0-200.0) Glucose (70-110) mg/dL POC Glucose (mg/dL) 212 H 159 H (75-99) mg/dL Calcium (8.7-10.3) mg/dL 12/01/20 12/01/20 12/01/20 Range/Units 06:10 06:45 11:20 WBC (4.50-10.00) X 10*3/uL RBC (4.10-5.20) X 10*6/uL Hgb (12.0-15.0) g/dL Hct (37.2-46.3) % MCV (80.0-97.0) fL MCHC (32.0-37.0) g/dL RDW (11.5-14.5) % Plt Count (140-440) X 10*3/uL Absolute Nucleated RBC (0.00-0.00) X 10*3/uL Immature Gran # (0.00-0.04) X 10*3/uL Neutrophils # (1.80-7.70) X 10*3/uL Lymphocytes # (0.90-5.00) X 10*3/uL NRBC/100 WBC Diff (0.0-0.0) /100 WBCS Est GFR (CKD-EPI)AfAm 48.5 L (60.0-200.0) Est GFR (CKD-EPI)NonAf 41.8 L (60.0-200.0) Glucose 155 H (70-110) mg/dL POC Glucose (mg/dL) 140 H 113 H (75-99) mg/dL Calcium 8.0 L (8.7-10.3) mg/dL Assessment and Plan Assessment: 1 Acute bowel obstruction, with computed tomography scan showing findings suspic ious of a right colonic mass or apple core lesion. Status post resection. Postoperative day #2. 2 Severe/stage III, COPD, with an FEV1 that is 0.92 L or 41% of predicted. 3 History of 3 prior abdominal hernia repairs, with mesh placement. 4 History of angina pectoris. 5 History of CHF. 6 History of diabetes mellitus. 7 History of hyperlipidemia. 8 History of essential hypertension. 9 History of sleep apnea syndrome, currently on CPAP. 10 History of hypothyroidism. 11 Prior history of MRSA infection, 2012. 12 Previous history of heavy tobacco use. Plan: The patient was seen and evaluated by Dr. Seals We'll discontinue Symbicort, add Pulmicort and Perforomist DuoNeb inhalations scheduled and when necessary Encouraged the increased use the incentive spirometer Increase her activity as tolerate Titrate down the FiO2 as tolerated Continue Zosyn and Flagyl Chest x-ray in a.m. We will continue to follow I, the cosigning physician, performed a history & physical examination of the patient. Lungs sounds few crackles in the posterior bases. Maintaining good O2 saturations in the 90s on 4 L/m per nasal. I discussed the assessment and plan of care with my nurse practitioner, Maria Guadalupe Barnes. I attest to the above note as dictated by her.
[2020-12-01] MEDS: ONDANSETRON 4 MG/2 ML VIAL IVP PRN (15:47)
[2020-12-01 16:07] LABS: Glucose,Whole Blood 106 mg/dL (75-99)
[2020-12-01] MEDS ORDERED: BUDESONIDE 0.5 MG/2 ML NEBU INHALATION SCH (20:00)
[2020-12-01 20:25] LABS: Glucose,Whole Blood 104 mg/dL (75-99)
[2020-12-01] MEDS: BUDESONIDE 1 MG/2 ML NEBU INHALATION SCH (20:46)
[2020-12-01] MEDS: FORMOTEROL FUMARATE 20 MCG/2 ML NEBU INHALATION SCH (20:46)
--- NOTE | 2020-12-01 21:18 | P.PN ---
Progress Note - Text Progress Note Date: 12/01/20 - Chief Complaint Abdominal pain Consultation: This is a pleasant 70-year-old patient of Dr. Mercer. Chronic stable medical conditions include heart failure, diabetes, hypertension, hyperlipidemia, obstructive sleep apnea, hypothyroid. Patient lives by herself at her baseline uses a walker. For 2 weeks patient been having mid abdominal pain. 3 much constant. We'll get 8 intermittent watery stools. Was taking Imodium. Has been having fever nausea vomiting. Patient's had multiple abdominal hernia repairs with mesh. Was transferred here from [facility]. She is also had appendectomy and cholecystectomy in the past. She was transferred for small bowel obstruction. November 29: Underwent expiratory 3 laboratory with a right colectomy for obstructing right distal colonic mass Today-In bed. NG tube to suction. Some abdominal pain. Son at the bedside. Remains nothing by mouth. No flatus or bowel movement. Review of systems: Was done for constitutional, cardiovascular, GI, pulmonary. relevant finding as above Active Medications Albuterol/Ipratropium (Ipratropium-Albuterol 3 Ml Neb) 3 ml INHALATION RT-TID SPENCER Last Admin: 12/01/20 20:46 Dose: 3 ml Documented by: Albuterol/Ipratropium (Ipratropium-Albuterol 3 Ml Neb) 3 ml INHALATION RT-Q1H PRN PRN Reason: Shortness Of Breath Or Wheezing Atorvastatin Calcium (Atorvastatin 40 Mg Tab) 40 mg PO HS SPENCER Last Admin: 11/30/20 21:58 Dose: 40 mg Documented by: Budesonide (Budesonide 1 Mg/2 Ml Nebu) 1 mg INHALATION RT-BID SPENCER Last Admin: 12/01/20 20:46 Dose: 1 mg Documented by: Enoxaparin Sodium (Enoxaparin 40 Mg/0.4 Ml Syringe) 40 mg SQ DAILY [facility] Last Admin: 12/01/20 08:34 Dose: 40 mg Documented by: Formoterol Fumarate (Formoterol Fumarate 20 Mcg/2 Ml Nebu) 20 mcg INHALATION RT-BID SPENCER Last Admin: 12/01/20 20:46 Dose: 20 mcg Documented by: Hydromorphone HCl (Hydromorphone 1 Mg/Ml 1 Ml Syringe) 1 mg IVP Q3HR PRN PRN Reason: Pain Last Admin: 12/01/20 18:14 Dose: 1 mg Documented by: Piperacillin Sod/Tazobactam (Sod 3.375 gm/ Sodium Chloride) 100 mls @ 25 mls/hr IVPB Q8HR [facility] Last Admin: 12/01/20 15:41 Dose: 25 mls/hr Documented by: Metronidazole 500 mg/ IV (Solution) 100 mls @ 100 mls/hr IVPB Q8HR [facility] Last Admin: 12/01/20 16:01 Dose: 100 mls/hr Documented by: Sodium Chloride (Saline 0.9%) 1,000 mls @ 100 mls/hr IV .Q10H [facility] Last Admin: 12/01/20 16:09 Dose: 100 mls/hr Documented by: Insulin Aspart (Insulin Aspart (Novolog) 100 Unit/Ml Vial) 0 unit SQ [facility]; Protocol Last Admin: 12/01/20 16:07 Dose: Not Given Documented by: Insulin Detemir (Insulin Detemir (Levemir) 100 Unit/Ml Syr) 20 unit SQ [facility] Last Admin: 11/30/20 21:59 Dose: 20 unit Documented by: Levothyroxine Sodium (Levothyroxine 137 Mcg Tab) 137 mcg PO DAILY@0630 [facility] Last Admin: 12/01/20 05:51 Dose: 137 mcg Documented by: Naloxone HCl (Naloxone 0.4 Mg/Ml 1 Ml Vial) 0.2 mg IV Q2M PRN PRN Reason: Opioid Reversal Ondansetron HCl (Ondansetron 4 Mg/2 Ml Vial) 4 mg IVP Q8HR PRN PRN Reason: Nausea And Vomiting Last Admin: 12/01/20 15:47 Dose: 4 mg Documented by: Pantoprazole Sodium (Pantoprazole 40 Mg/10 Ml Vial) 40 mg IVP DAILY [facility] Last Admin: 12/01/20 08:26 Dose: 40 mg Documented by: Zolpidem Tartrate (Zolpidem 5 Mg Tab) 5 mg PO [facility] Last Admin: 11/30/20 21:58 Dose: 5 mg Documented by: Past medical history to include: Angina, CHF, diabetes, hyperlipidemia, hypertension, obstructive sleep apnea, hypothyroid, home oxygen-2 L Social history: . Lives alone. Does smoke up to 7 years ago. Alcohol rarely. Does use a walker Physical examination: VITAL SIGNS: 97.5, 87, 18, 1 25 x 71, 90% on 3 L GENERAL: Reclining in bed, awake EYES: Pupils equal. Conjunctiva normal. HEENT: External appearance of nose and ears normal, oral cavity -dry. NG tube NECK: JVD not raised; masses not palpable. HEART: First and second heart sounds are normal; no edema. LUNGS:[ Respiratory rate increased, decreased breath sounds. ABDOMEN: Soft, mild abdominal tenderness, dressing in place, no guarding rigidity, absent bowel sounds multiple scars on the abdomen, liver spleen not palpable, no masses palpable. MUSCULAR skeletal: Evidence of OA especially in the hands PSYCH: [Alert and oriented x3; mood and affect anxious. INVESTIGATIONS, reviewed in the clinical context: December 01: WBC 10.2 hemoglobin 10.9 platelets 198 potassium 4.5 creatinine 1.3 November 30: WBC 10.6 hemoglobin 12.6 potassium 4.8 creatinine 1.5 Abdominal x-ray [November 29]: Persistent dilated bowel loops with air-fluid levels Coronavirus [PCR]-not detected Abdominal x-ray film personally reviewed by me: Small bowel obstruction Assessment and plan: -Acute small bowel obstruction : November 29: Right hemicolectomy for a distal ascending colon mass. NG tube to suction -Diabetes mellitus type 2. Patient on insulin pump. Hold that for now. Start Levemir. Accu-Cheks. -Chronic hypoxic respiratory failure uses 2 L of oxygen at home -Hyperlipidemia -Chronic urinary stress incontinence. Follow clinically. -Essential hypertension follow blood pressure closely -Hypothyroid, continue with Synthroid -Morbid obesity BMI 42.5. Follow-up with PCP for weight loss measures. -Chronic congestive heart failure. EF not known. -Chronic insomnia. 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 Subcu Lovenox Care was discussed with the patient and son at the bedside. Continue IV fluids. I asked the patient to sit up in a chair Thank you Dr. Broderick.
[2020-12-01] MEDS: INSULIN DETEMIR (LEVEMIR) 100 UNIT/ML SYR SQ SCH (21:52)
[2020-12-01] MEDS: ATORVASTATIN 40 MG TAB PO SCH ×2 (21:52→22:00)
[2020-12-01] MEDS: ZOLPIDEM 5 MG TAB PO SCH ×2 (21:52→22:00)
[2020-12-02] MEDS: PIPERACILLIN-TAZOBACTAM 3.375 GM in SODIUM CHLORIDE 0.9% 100 ML IVPB SCH ×3 (02:09→16:36)
[2020-12-02] MEDS: metroNIDAZOLE-NS PMX 500 MG in SALINE 1 100ML.BAG IVPB SCH ×3 (02:10→16:36)
[2020-12-02] MEDS: ONDANSETRON 4 MG/2 ML VIAL IVP PRN (02:13)
[2020-12-02] MEDS: HYDROmorphone 1 MG/ML 1 ML SYRINGE IVP PRN ×6 (02:18→22:03)
[2020-12-02] MEDS: SODIUM CHLORIDE 0.9% 1,000 ML IV SCH ×2 (04:37→16:31)
[2020-12-02 06:57] LABS: Glucose,Whole Blood 128 mg/dL (75-99)
[2020-12-02] MEDS: IPRATROPIUM-ALBUTEROL 3 ML NEB INHALATION SCH ×3 (07:18→20:30)
[2020-12-02] MEDS: BUDESONIDE 1 MG/2 ML NEBU INHALATION SCH ×2 (07:18→20:30)
[2020-12-02] MEDS: FORMOTEROL FUMARATE 20 MCG/2 ML NEBU INHALATION SCH ×2 (07:24→20:30)
[2020-12-02] MEDS: LEVOTHYROXINE 137 MCG TAB PO SCH (07:36)
[2020-12-02] MEDS: INSULIN ASPART (NovoLOG) 100 UNIT/ML VIAL SQ SCH ×4 (07:36→20:53)
[2020-12-02] MEDS: ENOXAPARIN 40 MG/0.4 ML SYRINGE SQ SCH (07:45)
[2020-12-02] MEDS: PANTOPRAZOLE 40 MG/10 ML VIAL IVP SCH (07:45)
[2020-12-02 09:25] LABS: African American GFR (CKD) 53.4 (60.0-200.0); Anion Gap 8.8 mmol/L (4.00-12.00); BUN/Creat Ratio 19.17 Ratio (12.00-20.00); Calcium 8.2 mg/dL (8.7-10.3); Carbon Dioxide 27.2 mmol/L (21.6-31.8); Non-African American GFR(CKD) 46.1 (60.0-200.0); Potassium 4.2 mmol/L (3.5-5.5)
[2020-12-02 09:31] LABS: Basophils # (A) 0.07 X 10*3/uL (0.00-0.10); Basophils % (A) 0.6 %; Eosinophils # (A) 0.15 X 10*3/uL (0.04-0.35); Eosinophils % (A) 1.2 %; HCT 33.8 % (37.2-46.3); HGB 10.5 g/dL (12.0-15.0); Lymphocytes # (A) 1.01 X 10*3/uL (0.90-5.00); Lymphocytes % (A) 8.4 %; MCH 30.4 pg (27.0-32.0); MCHC 31.1 g/dL (32.0-37.0); Mean Platelet Volume 9.8 fL (9.5-12.2); Monocytes # (A) 0.74 X 10*3/uL (0.20-1.00); Monocytes % (A) 6.1 %; Neutrophils # (A) 9.95 X 10*3/uL (1.80-7.70); Neutrophils % (A) 82.3 %; Platelet Count 460 X 10*3/uL (140-440); RBC 3.45 X 10*6/uL (4.10-5.20); WBC 12.09 X 10*3/uL (4.50-10.00)
--- NOTE | 2020-12-02 10:21 | XR ---
EXAMINATION TYPE: XR chest 1V portable DATE OF EXAM: 12/02/2020 COMPARISON: Chest x-ray dated 07/08/2017 HISTORY: Postop atelectasis TECHNIQUE: Single frontal view of the chest is obtained. FINDINGS: Lung volumes are low and the patient is rotated. Patchy densities present at the lung base s. Cardiac mediastinal silhouette is likely within normal limits accounting for differences in techni que. There is an NG tube present coursing in the appropriate direction, distal tip not definitely inc luded on exam. Surgical clips are present in the right upper quadrant, surgical danielle noted. No milagro dent pneumothorax or sizable effusion. Aorta is dense. IMPRESSION: Probable atelectasis, correlate to exclude pneumonia. Follow-up recommended. Postop chilel ges.
--- NOTE | 2020-12-02 10:46 | P.PN ---
<Chiqui Dietz - Last Filed: 12/02/20 10:37> Subjective Progress Note Date: 12/02/20 CHIEF COMPLAINT: Colon obstruction HISTORY OF PRESENT ILLNESS: Patient is status post exploratory laparotomy with right colectomy for obstructing mass of the right colon. Postop day #3. She had about 300 mL output of bilious fluid from her NG tube last night. JOHN drain about 10 mL of serosanguineous fluid. Patient is complaining of a headache this morning. She denies any flatus or BM. She denies any nausea. She does report a decrease in her pain. She is on 5 L of oxygen. She remains nothing by mouth. She is afebrile. WBC 12.09 hemoglobin 10.5 creatinine 1.2 Chest x-ray possible atelectasis, correlate to exclude pneumonia. PHYSICAL EXAM: VITAL SIGNS: Reviewed. GENERAL: Well-developed in no acute distress. HEENT: No sclera icterus. Extraocular movements grossly intact. Moist buccal mucosa. Head is atraumatic, normocephalic. ABDOMEN: Soft. Nondistended. Dressing clean, dry and intact. JOHN drain right side of abdomen NEUROLOGIC: Alert and oriented. Cranial nerves II through XII grossly intact. ASSESSMENT: 1. Obstructing mass of the right colon status post exploratory laparotomy with right colectomy PLAN: -Continue NG tube for decompression -Keep patient nothing by mouth -Encouraged patient to use incentive spirometer -Encouraged patient to increase activity -Continue IV fluid -Continue IV antibiotics -Continue GI prophylaxis Protonix and DVT prophylaxis Lovenox Physician Duplicating Machine Operator note has been reviewed by physician. Signing provider agrees with the documented findings, assessment, and plan of care. Objective - Vital Signs Vital signs: Vital Signs Temp 92.5 F L 12/02/20 07:46 Pulse 83 12/02/20 07:46 Resp 20 12/02/20 07:46 BP 155/73 12/02/20 07:46 Pulse Ox 90 L 12/02/20 07:46 Intake & Output 12/01/20 12/02/20 12/02/20 18:59 06:59 18:59 Output Total 1285 960 Balance -1285 -960 Output: Gastric Drainage 150 300 Drainage 35 10 Abdomen 35 10 Urine 1100 650 Other: Voiding Method Indwelling Catheter Indwelling Catheter - Labs CBC & Chem 7: 12/02/20 05:51 12/02/20 05:51 Labs: Abnormal Lab Results - Last 24 Hours (Table) 12/01/20 12/01/20 12/01/20 Range/Units 11:20 16:05 20:23 WBC (4.50-10.00) X 10*3/uL RBC (4.10-5.20) X 10*6/uL Hgb (12.0-15.0) g/dL Hct (37.2-46.3) % MCV (80.0-97.0) fL MCHC (32.0-37.0) g/dL RDW (11.5-14.5) % Plt Count (140-440) X 10*3/uL Immature Gran # (0.00-0.04) X 10*3/uL Neutrophils # (1.80-7.70) X 10*3/uL Est GFR (CKD-EPI)AfAm (60.0-200.0) Est GFR (CKD-EPI)NonAf (60.0-200.0) Glucose (70-110) mg/dL POC Glucose (mg/dL) 113 H 106 H 104 H (75-99) mg/dL Calcium (8.7-10.3) mg/dL 12/02/20 12/02/20 12/02/20 Range/Units 05:51 05:51 06:56 WBC 12.09 H (4.50-10.00) X 10*3/uL RBC 3.45 L (4.10-5.20) X 10*6/uL Hgb 10.5 L (12.0-15.0) g/dL Hct 33.8 L (37.2-46.3) % MCV 98.0 H (80.0-97.0) fL MCHC 31.1 L (32.0-37.0) g/dL RDW 15.0 H (11.5-14.5) % Plt Count 460 H (140-440) X 10*3/uL Immature Gran # 0.17 H (0.00-0.04) X 10*3/uL Neutrophils # 9.95 H (1.80-7.70) X 10*3/uL Est GFR (CKD-EPI)AfAm 53.4 L (60.0-200.0) Est GFR (CKD-EPI)NonAf 46.1 L (60.0-200.0) Glucose 131 H (70-110) mg/dL POC Glucose (mg/dL) 128 H (75-99) mg/dL Calcium 8.2 L (8.7-10.3) mg/dL <DiannavidalClay - Last Filed: 12/02/20 14:39> Subjective As above. Patient feeling some abdominal cramps. Overall pain is improving however. We'll remove nasogastric tube. Keep nothing by mouth. Increase activity. Tentatively planned Barkley catheter removal tomorrow. Objective - Vital Signs Vital signs: Vital Signs Temp 97.6 F 12/02/20 13:51 Pulse 76 12/02/20 13:51 Resp 17 12/02/20 13:51 BP 145/61 12/02/20 13:51 Pulse Ox 91 L 12/02/20 13:51 Intake & Output 12/01/20 12/02/20 12/02/20 18:59 06:59 18:59 Output Total 1285 960 Balance -1285 -960 Output: Gastric Drainage 150 300 Drainage 35 10 Abdomen 35 10 Urine 1100 650 Other: Voiding Method Indwelling Catheter Indwelling Catheter - Labs CBC & Chem 7: 12/02/20 05:51 12/02/20 05:51 Labs: Abnormal Lab Results - Last 24 Hours (Table) 12/01/20 12/01/20 12/02/20 Range/Units 16:05 20:23 05:51 WBC 12.09 H (4.50-10.00) X 10*3/uL RBC 3.45 L (4.10-5.20) X 10*6/uL Hgb 10.5 L (12.0-15.0) g/dL Hct 33.8 L (37.2-46.3) % MCV 98.0 H (80.0-97.0) fL MCHC 31.1 L (32.0-37.0) g/dL RDW 15.0 H (11.5-14.5) % Plt Count 460 H (140-440) X 10*3/uL Immature Gran # 0.17 H (0.00-0.04) X 10*3/uL Neutrophils # 9.95 H (1.80-7.70) X 10*3/uL Est GFR (CKD-EPI)AfAm (60.0-200.0) Est GFR (CKD-EPI)NonAf (60.0-200.0) Glucose (70-110) mg/dL POC Glucose (mg/dL) 106 H 104 H (75-99) mg/dL Calcium (8.7-10.3) mg/dL 12/02/20 12/02/20 12/02/20 Range/Units 05:51 06:56 12:02 WBC (4.50-10.00) X 10*3/uL RBC (4.10-5.20) X 10*6/uL Hgb (12.0-15.0) g/dL Hct (37.2-46.3) % MCV (80.0-97.0) fL MCHC (32.0-37.0) g/dL RDW (11.5-14.5) % Plt Count (140-440) X 10*3/uL Immature Gran # (0.00-0.04) X 10*3/uL Neutrophils # (1.80-7.70) X 10*3/uL Est GFR (CKD-EPI)AfAm 53.4 L (60.0-200.0) Est GFR (CKD-EPI)NonAf 46.1 L (60.0-200.0) Glucose 131 H (70-110) mg/dL POC Glucose (mg/dL) 128 H 132 H (75-99) mg/dL Calcium 8.2 L (8.7-10.3) mg/dL Assessment and Plan (1) Bowel obstruction Current Visit: Yes Status: Acute Code(s): K56.609 - UNSP INTESTNL OBST, UNSP TO PARTIAL VERSUS COMPLETE OBST SNOMED Code(s): 49759562
--- NOTE | 2020-12-02 11:38 | P.PN ---
Subjective Progress Note Date: 12/02/20 70-year-old patient, brought in by EMS, on November 28. She was seen by Dr. Luis Enrique Murillo in the emergency department. She has a history of diabetes mellitus, CHF, chronic kidney disease, multiple abdominal hernia repairs, with mesh, and severe COPD. Her FEV1 is 0.92 L which is 41% of predicted. She sees my partner in the office for her COPD. She also suffers from chronic hypoxemic respiratory failure, and does use oxygen 24/. She apparently recently has had multiple episodes of nonbloody nonbilious emesis, as well as watery diarrhea, for one week. She apparently was evaluated and found on computed tomography scan, to have a colonic lesion, consistent with colon cancer. I was consulted for preop clearance. We saw her right before she went off to surgery. She is chronically on oxygen therapy at 3 L as mentioned above. The patient was having surgery with Dr. Clay Healy. Basically, she tells me that her COPD much at baseline. I did mention to her that she may end up in the intensive care unit after surgery. Also, based on the FEV1 alone, without the MVV, or RV/TLC ratio, the patient's at moderately increased operative risk from general anesthesia. White count 11.1, hemoglobin 13, hematocrit 40.6, platelet count 529,000, sodium 137, potassium 4.3, chlorides 100, CO2 32, anion gap 5, BUN 26, and creatinine 1.45. There was no chest x-ray to review. The patient is seen today 11/30/2020 in follow-up on the regular medical floor. She is currently resting quite comfortably in bed. Awake and alert in no acute distress. Nasogastric tube is secured in place. Maintaining O2 saturations in the 90s on 6 L/m per nasal cannula. White count 10.6. Hemoglobin 12.6. Sodium 137. Potassium 4.8. Creatinine 1.50. She is maintained on Symbicort and DuoNeb inhalations. Anticoagulated with Lovenox. The patient is seen today 12/01/2020 in follow-up on the regular medical floor. She is awake and alert in no acute distress. Resting comfortably in bed. Nasogastric tube remains in place. This is postoperative day #2. She remains on Zosyn and Flagyl. Maintaining O2 saturation in the 90s on 4 L/m per nasal cannula. She was requesting breathing treatments during the night for some increasing shortness of breath. Working well with the incentive spirometer. White count 10.2. Hemoglobin 10.9. Sodium 141. Potassium 4.5. Creatinine 1.3. 12/02/2020 the patient is being seen for a follow-up. The patient is postop day #3 and the patient underwent resection of the right colonic mass and secondary bowel obstruction. The patient has an NG tube in place. The patient remains covered with a combination of Zosyn and Flagyl. Doing well. Using incentive spirometer. No significant respiratory difficulties. Currently on oxygen at 4 L per minute nasal cannula. The pain is under adequate control. The patient is on DuoNeb nebulized treatments around the clock and the patient is receiving Dilaudid for pain control 1 mg every 3 hours IV. IV fluids are running with normal saline at the rate of 100 mL an hour. NG tube was removed this morning. The patient is passing no gas and she hasn't had any bowel movements yet. Nevertheless, she has decent bowel sounds. JOHN drains in place. Output is in order of minimal amount in the order of 10 mL serosanguineous. The patient was up on a chair and she is gradually getting stronger. Antibiotic coverage is s katelyn. Oxygen is at 5 L. Objective - Vital Signs Vital signs: Vital Signs Temp 97.5 F L 12/02/20 07:46 Pulse 83 12/02/20 07:46 Resp 20 12/02/20 07:46 BP 155/73 12/02/20 07:46 Pulse Ox 90 L 12/02/20 07:46 Intake & Output 12/01/20 12/02/20 12/02/20 18:59 06:59 18:59 Output Total 1285 960 Balance -1285 -960 Output: Gastric Drainage 150 300 Drainage 35 10 Abdomen 35 10 Urine 1100 650 Other: Voiding Method Indwelling Catheter Indwelling Catheter - Exam GENERAL EXAM: Alert, pleasant 70-year-old female patient, on 4 L nasal cannula, comfortable in no apparent distress. HEAD: Normocephalic. EYES: Normal reaction of pupils, equal size. NOSE: Nasogastric tube secured in place. Clear with pink turbinates. THROAT: No erythema or exudates. NECK: No masses, no JVD. CHEST: No chest wall deformity. LUNGS: Equal air entry with crackles in the posterior bases, diminished. CVS: S1 and S2 normal with no audible murmur, regular rhythm. ABDOMEN: Dressing dry and intact. No hepatosplenomegaly, normal bowel sounds, no guarding or rigidity. SPINE: No scoliosis or deformity SKIN: No rashes CENTRAL NERVOUS SYSTEM: No focal deficits, tone is normal in all 4 extremities. EXTREMITIES: There is no peripheral edema. No clubbing, no cyanosis. Peripheral pulses are intact. - Labs CBC & Chem 7: 12/02/20 05:51 12/02/20 05:51 Labs: Abnormal Lab Results - Last 24 Hours (Table) 12/01/20 12/01/20 12/02/20 Range/Units 16:05 20:23 05:51 WBC 12.09 H (4.50-10.00) X 10*3/uL RBC 3.45 L (4.10-5.20) X 10*6/uL Hgb 10.5 L (12.0-15.0) g/dL Hct 33.8 L (37.2-46.3) % MCV 98.0 H (80.0-97.0) fL MCHC 31.1 L (32.0-37.0) g/dL RDW 15.0 H (11.5-14.5) % Plt Count 460 H (140-440) X 10*3/uL Immature Gran # 0.17 H (0.00-0.04) X 10*3/uL Neutrophils # 9.95 H (1.80-7.70) X 10*3/uL Est GFR (CKD-EPI)AfAm (60.0-200.0) Est GFR (CKD-EPI)NonAf (60.0-200.0) Glucose (70-110) mg/dL POC Glucose (mg/dL) 106 H 104 H (75-99) mg/dL Calcium (8.7-10.3) mg/dL 12/02/20 12/02/20 Range/Units 05:51 06:56 WBC (4.50-10.00) X 10*3/uL RBC (4.10-5.20) X 10*6/uL Hgb (12.0-15.0) g/dL Hct (37.2-46.3) % MCV (80.0-97.0) fL MCHC (32.0-37.0) g/dL RDW (11.5-14.5) % Plt Count (140-440) X 10*3/uL Immature Gran # (0.00-0.04) X 10*3/uL Neutrophils # (1.80-7.70) X 10*3/uL Est GFR (CKD-EPI)AfAm 53.4 L (60.0-200.0) Est GFR (CKD-EPI)NonAf 46.1 L (60.0-200.0) Glucose 131 H (70-110) mg/dL POC Glucose (mg/dL) 128 H (75-99) mg/dL Calcium 8.2 L (8.7-10.3) mg/dL Assessment and Plan Plan: 1 Acute bowel obstruction, with computed tomography scan showing findings suspicious of a right colonic mass or apple core lesion. Status post resection. Postoperative day #3. The patient had the NG tube removed and the patient is currently on Zosyn and Flagyl. Using incentive spirometer. Pain is under good control for now. 2 Severe/stage III, COPD, with an FEV1 that is 0.92 L or 41% of predicted. 3 History of 3 prior abdominal hernia repairs, with mesh placement. 4 History of angina pectoris. 5 History of CHF. 6 History of diabetes mellitus. 7 History of hyperlipidemia. 8 History of essential hypertension. 9 History of sleep apnea syndrome, currently on CPAP. 10 History of hypothyroidism. 11 Prior history of MRSA infection, 2013. 12 Previous history of heavy tobacco use. Plan: NG tube has been removed today. JOHN drain output is minimal at this point in time. DuoNeb inhalations scheduled and when necessary, in addition to Pulmicort and Perforomist Encouraged the increased use the incentive spirometer Increase her activity as tolerate Titrate down the FiO2 as tolerated Continue Zosyn and Flagyl Chest x-ray in a.m. We will continue to follow
[2020-12-02 12:03] LABS: Glucose,Whole Blood 132 mg/dL (75-99)
[2020-12-02 16:39] LABS: Glucose,Whole Blood 117 mg/dL (75-99)
[2020-12-02 20:27] LABS: Glucose,Whole Blood 114 mg/dL (75-99)
[2020-12-02] MEDS: INSULIN DETEMIR (LEVEMIR) 100 UNIT/ML SYR SQ SCH (21:55)
[2020-12-02] MEDS: ZOLPIDEM 5 MG TAB PO SCH (22:03)
[2020-12-02] MEDS: ATORVASTATIN 40 MG TAB PO SCH (22:03)
[2020-12-02] MEDS: BENZOCAINE/MENTHOL LOZENG 1 EACH LOZENGE MUCOUS MEM PRN (22:03)
--- NOTE | 2020-12-02 22:19 | P.PN ---
Progress Note - Text Progress Note Date: 12/02/20 - Chief Complaint Abdominal pain Consultation: This is a pleasant 70-year-old patient of Dr. Mercer. Chronic stable medical conditions include heart failure, diabetes, hypertension, hyperlipidemia, obstructive sleep apnea, hypothyroid. Patient lives by herself at her baseline uses a walker. For 2 weeks patient been having mid abdominal pain. 3 much constant. We'll get 8 intermittent watery stools. Was taking Imodium. Has been having fever nausea vomiting. Patient's had multiple abdominal hernia repairs with mesh. Was transferred here from [facility]. She is also had appendectomy and cholecystectomy in the past. She was transferred for small bowel obstruction. November 29: Underwent expiratory 3 laboratory with a right colectomy for obstructing right distal colonic mass Today-In bed. NG tube to suction. Some abdominal pain. . Remains nothing by mouth. No flatus or bowel movement. Review of systems: Was done for constitutional, cardiovascular, GI, pulmonary. relevant finding as above Active Medications Albuterol/Ipratropium (Ipratropium-Albuterol 3 Ml Neb) 3 ml INHALATION RT-TID SPENCER Last Admin: 12/02/20 20:30 Dose: 3 ml Documented by: Albuterol/Ipratropium (Ipratropium-Albuterol 3 Ml Neb) 3 ml INHALATION RT-Q1H PRN PRN Reason: Shortness Of Breath Or Wheezing Atorvastatin Calcium (Atorvastatin 40 Mg Tab) 40 mg PO HS SPENCER Last Admin: 12/02/20 22:03 Dose: 40 mg Documented by: Benzocaine/Menthol (Benzocaine/Menthol Lozeng 1 Each Lozenge) 1 each MUCOUS MEM Q4HR PRN PRN Reason: Sore Throat Last Admin: 12/02/20 22:03 Dose: 1 each Documented by: Budesonide (Budesonide 1 Mg/2 Ml Nebu) 1 mg INHALATION RT-BID SPENCER Last Admin: 12/02/20 20:30 Dose: 1 mg Documented by: Enoxaparin Sodium (Enoxaparin 40 Mg/0.4 Ml Syringe) 40 mg SQ DAILY SPENCER Last Admin: 12/02/20 07:45 Dose: 40 mg Documented by: Formoterol Fumarate (Formoterol Fumarate 20 Mcg/2 Ml Nebu) 20 mcg INHALATION RT-BID SPENCER Last Admin: 12/02/20 20:30 Dose: 20 mcg Documented by: Hydromorphone HCl (Hydromorphone 1 Mg/Ml 1 Ml Syringe) 1 mg IVP Q3HR PRN PRN Reason: Pain Last Admin: 12/02/20 22:03 Dose: 1 mg Documented by: Piperacillin Sod/Tazobactam (Sod 3.375 gm/ Sodium Chloride) 100 mls @ 25 mls/hr IVPB Q8HR [facility] Last Admin: 12/02/20 16:36 Dose: 25 mls/hr Documented by: Metronidazole 500 mg/ IV (Solution) 100 mls @ 100 mls/hr IVPB Q8HR [facility] Last Admin: 12/02/20 16:36 Dose: 100 mls/hr Documented by: Sodium Chloride (Saline 0.9%) 1,000 mls @ 100 mls/hr IV .Q10H [facility] Last Admin: 12/02/20 16:31 Dose: Not Given Documented by: Insulin Aspart (Insulin Aspart (Novolog) 100 Unit/Ml Vial) 0 unit SQ [facility]; Protocol Last Admin: 12/02/20 20:53 Dose: Not Given Documented by: Insulin Detemir (Insulin Detemir (Levemir) 100 Unit/Ml Syr) 20 unit SQ [facility] Last Admin: 12/02/20 21:55 Dose: Not Given Documented by: Levothyroxine Sodium (Levothyroxine 137 Mcg Tab) 137 mcg PO DAILY@0630 [facility] Last Admin: 12/02/20 07:36 Dose: Not Given Documented by: Naloxone HCl (Naloxone 0.4 Mg/Ml 1 Ml Vial) 0.2 mg IV Q2M PRN PRN Reason: Opioid Reversal Ondansetron HCl (Ondansetron 4 Mg/2 Ml Vial) 4 mg IVP Q8HR PRN PRN Reason: Nausea And Vomiting Last Admin: 12/02/20 02:13 Dose: 4 mg Documented by: Pantoprazole Sodium (Pantoprazole 40 Mg/10 Ml Vial) 40 mg IVP DAILY [facility] Last Admin: 12/02/20 07:45 Dose: 40 mg Documented by: Zolpidem Tartrate (Zolpidem 5 Mg Tab) 5 mg PO [facility] Last Admin: 12/02/20 22:03 Dose: 5 mg Documented by: Past medical history to include: Angina, CHF, diabetes, hyperlipidemia, hypertension, obstructive sleep apnea, hypothyroid, home oxygen-2 L Social history: . Lives alone. Does smoke up to 7 years ago. Alcohol rarely. Does use a walker Physical examination: VITAL SIGNS: 97.6, 76, 17, 145 x 61, 91% on 5 L GENERAL: Reclining in bed, awake EYES: Pupils equal. Conjunctiva normal. HEENT: External appearance of nose and ears normal, oral cavity -dry. NG tube NECK: JVD not raised; masses not palpable. HEART: First and second heart sounds are normal; no edema. LUNGS:[ Respiratory rate increased, decreased breath sounds. ABDOMEN: Soft, mild abdominal tenderness, dressing in place, no guarding rigidity, absent bowel sounds multiple scars on the abdomen, liver spleen not palpable, no masses palpable. JOHN drain. Sluggish bowel sounds MUSCULAR skeletal: Evidence of OA especially in the hands PSYCH: [Alert and oriented x3; mood and affect anxious. INVESTIGATIONS, reviewed in the clinical context: December 02: WBC 12.09 hemoglobin 10.5 potassium 4.2 December 01: WBC 10.2 hemoglobin 10.9 platelets 198 potassium 4.5 creatinine 1.3 November 30: WBC 10.6 hemoglobin 12.6 potassium 4.8 creatinine 1.5 Abdominal x-ray [November 29]: Persistent dilated bowel loops with air-fluid levels Coronavirus [PCR]-not detected Abdominal x-ray film personally reviewed by me: Small bowel obstruction Assessment and plan: -Acute small bowel obstruction : November 29: Right hemicolectomy for a distal ascending colon mass. NG tube to suction -Diabetes mellitus type 2. Patient on insulin pump. Hold that for now. Levemir. Accu-Cheks. -Chronic hypoxic respiratory failure uses 2 L of oxygen at home -Hyperlipidemia -Chronic urinary stress incontinence. Follow clinically. -Essential hypertension follow blood pressure closely -Hypothyroid, continue with Synthroid -Morbid obesity BMI 42.5. Follow-up with PCP for weight loss measures. -Chronic congestive heart failure. EF not known. -Chronic insomnia. 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 Subcu Lovenox Care was discussed with the patient Continue IV fluids. Thank you Dr. Broderick.
[2020-12-03] MEDS: PIPERACILLIN-TAZOBACTAM 3.375 GM in SODIUM CHLORIDE 0.9% 100 ML IVPB SCH ×3 (00:49→15:21)
[2020-12-03] MEDS: metroNIDAZOLE-NS PMX 500 MG in SALINE 1 100ML.BAG IVPB SCH ×3 (00:50→15:28)
[2020-12-03] MEDS: SODIUM CHLORIDE 0.9% 1,000 ML IV SCH ×3 (00:51→23:41)
[2020-12-03] MEDS: HYDROmorphone 1 MG/ML 1 ML SYRINGE IVP PRN ×5 (01:40→22:14)
[2020-12-03] MEDS: BENZOCAINE/MENTHOL LOZENG 1 EACH LOZENGE MUCOUS MEM PRN ×3 (01:41→12:34)
[2020-12-03] MEDS: LEVOTHYROXINE 137 MCG TAB PO SCH (05:31)
[2020-12-03 06:47] LABS: Glucose,Whole Blood 157 mg/dL (75-99)
[2020-12-03] MEDS: INSULIN ASPART (NovoLOG) 100 UNIT/ML VIAL SQ SCH ×4 (07:51→23:41)
[2020-12-03] MEDS: BUDESONIDE 1 MG/2 ML NEBU INHALATION SCH ×2 (08:34→21:30)
[2020-12-03] MEDS: IPRATROPIUM-ALBUTEROL 3 ML NEB INHALATION SCH ×3 (08:34→21:30)
[2020-12-03] MEDS: FORMOTEROL FUMARATE 20 MCG/2 ML NEBU INHALATION SCH ×2 (08:34→21:30)
[2020-12-03 08:39] LABS: Basophils # (A) 0.11 X 10*3/uL (0.00-0.10); Basophils % (A) 0.8 %; Eosinophils # (A) 0.04 X 10*3/uL (0.04-0.35); Eosinophils % (A) 0.3 %; HCT 36.1 % (37.2-46.3); HGB 10.7 g/dL (12.0-15.0); Lymphocytes # (A) 0.85 X 10*3/uL (0.90-5.00); Lymphocytes % (A) 5.9 %; MCH 29.8 pg (27.0-32.0); MCHC 29.6 g/dL (32.0-37.0); MCV 100.6 fL (80.0-97.0); Mean Platelet Volume 9.8 fL (9.5-12.2); Monocytes # (A) 0.62 X 10*3/uL (0.20-1.00); Monocytes % (A) 4.3 %; Neutrophils # (A) 12.37 X 10*3/uL (1.80-7.70); Neutrophils % (A) 86.2 %; Platelet Count 490 X 10*3/uL (140-440); RBC 3.59 X 10*6/uL (4.10-5.20); RDW 15.1 % (11.5-14.5); WBC 14.35 X 10*3/uL (4.50-10.00)
[2020-12-03] MEDS: ENOXAPARIN 40 MG/0.4 ML SYRINGE SQ SCH (09:04)
[2020-12-03] MEDS: PANTOPRAZOLE 40 MG/10 ML VIAL IVP SCH (09:10)
--- NOTE | 2020-12-03 11:04 | P.PN ---
<Chiqui Dietz - Last Filed: 12/03/20 10:57> Subjective Progress Note Date: 12/03/20 CHIEF COMPLAINT: Colon obstruction HISTORY OF PRESENT ILLNESS: Patient is status post exploratory laparotomy with right colectomy for obstructing mass of the right colon. Postop day #4. NG tube was discontinued yesterday. Patient denies any vomiting. She is reporting nausea this morning and is being given Zofran. She is complaining of abdominal pain. She states that the pain is the same as yesterday. But she does rate her pain 10 out of 10. She has been requiring the IV Dilaudid. She is currently sitting up at the bedside chair. She denies any bowel movement or flatus. Afebrile. White count has increased from 12.09-14.35 hemoglobin 10.7 JOHN drain serosanguineous fluid 47 mL output in 24hours. PHYSICAL EXAM: VITAL SIGNS: Reviewed. GENERAL: Well-developed in no acute distress. HEENT: No sclera icterus. Extraocular movements grossly intact. Moist buccal mucosa. Head is atraumatic, normocephalic. ABDOMEN: Soft. Nondistended. Incision at the umbilicus head minimal blood noted. The rest of the incision clean dry and intact. JOHN drain right side of abdomen NEUROLOGIC: Alert and oriented. Cranial nerves II through XII grossly intact. ASSESSMENT: 1. Obstructing mass of the right colon status post exploratory laparotomy with right colectomy 2. Leukocytosis PLAN: -Keep patient nothing by mouth -Add IV Tylenol for pain -Continue IV Dilaudid as needed -Encouraged patient to use incentive spirometer -Encouraged patient to increase activity -Continue IV fluid -Continue IV antibiotics -Continue GI prophylaxis Protonix and DVT prophylaxis Lovenox Physician [employer] Paralegal note has been reviewed by physician. Signing provider agrees with the documented findings, assessment, and plan of care. Objective - Vital Signs Vital signs: Vital Signs Temp 97.8 F 12/03/20 07:04 Pulse 92 12/03/20 08:51 Resp 12 12/03/20 07:04 BP 149/64 12/03/20 07:04 Pulse Ox 90 L 12/03/20 08:34 Intake & Output 12/02/20 12/03/20 12/03/20 18:59 06:59 18:59 Intake Total 1100 Output Total 870 717 Balance 230 -717 Intake: Intake, IV Titration 1000 Amount Sodium Chloride 0.9% 1, 1000 000 ml @ 100 mls/hr IV . Q10H [facility] Rx#:[id number] Oral 100 Output: Drainage 20 17 Abdomen 20 17 Urine 850 700 Other: Voiding Method Indwelling Catheter - Labs CBC & Chem 7: 12/03/20 05:17 12/02/20 05:51 Labs: Abnormal Lab Results - Last 24 Hours (Table) 12/02/20 12/02/20 12/02/20 Range/Units 12:02 16:37 20:24 WBC (4.50-10.00) X 10*3/uL RBC (4.10-5.20) X 10*6/uL Hgb (12.0-15.0) g/dL Hct (37.2-46.3) % MCV (80.0-97.0) fL MCHC (32.0-37.0) g/dL RDW (11.5-14.5) % Plt Count (140-440) X 10*3/uL Immature Gran # (0.00-0.04) X 10*3/uL Neutrophils # (1.80-7.70) X 10*3/uL Lymphocytes # (0.90-5.00) X 10*3/uL Basophils # (0.00-0.10) X 10*3/uL POC Glucose (mg/dL) 132 H 117 H 114 H (75-99) mg/dL 12/03/20 12/03/20 Range/Units 05:17 06:42 WBC 14.35 H (4.50-10.00) X 10*3/uL RBC 3.59 L (4.10-5.20) X 10*6/uL Hgb 10.7 L (12.0-15.0) g/dL Hct 36.1 L (37.2-46.3) % MCV 100.6 H (80.0-97.0) fL MCHC 29.6 L (32.0-37.0) g/dL RDW 15.1 H (11.5-14.5) % Plt Count 490 H (140-440) X 10*3/uL Immature Gran # 0.36 H (0.00-0.04) X 10*3/uL Neutrophils # 12.37 H (1.80-7.70) X 10*3/uL Lymphocytes # 0.85 L (0.90-5.00) X 10*3/uL Basophils # 0.11 H (0.00-0.10) X 10*3/uL POC Glucose (mg/dL) 157 H (75-99) mg/dL <Clay Healy - Last Filed: 12/03/20 16:14> Subjective As above. Patient was having dry heaves today immediately after the Dilaudid was given. She states her pain is improved although she was moaning during her dry heaves episode earlier. She is afebrile. White blood cell count has increased somewhat today. She is passing flatus. No bowel movement. She is asking for food. Continue increasing activity. Repeat CBC tomorrow. If leukocytosis or pain increase we'll plan CT abdomen. We'll try to switch away from IV narcotics. Objective - Vital Signs Vital signs: Vital Signs Temp 98.5 F 12/03/20 13:27 Pulse 80 12/03/20 13:27 Resp 15 12/03/20 13:27 BP 152/67 12/03/20 13:27 Pulse Ox 90 L 12/03/20 08:34 Intake & Output 12/02/20 12/03/20 12/03/20 18:59 06:59 18:59 Intake Total 1100 Output Total 870 717 525 Balance 068 -517 -366 Weight 108.862 kg Intake: Intake, IV Titration 1000 Amount Sodium Chloride 0.9% 1, 1000 000 ml @ 100 mls/hr IV . Q10H [facility] Rx#:[id number] Oral 100 Output: Drainage 20 17 25 Abdomen 20 17 25 Urine 850 700 500 Other: Voiding Method Indwelling Catheter Indwelling Catheter - Labs CBC & Chem 7: 12/03/20 05:17 12/02/20 05:51 Labs: Abnormal Lab Results - Last 24 Hours (Table) 12/02/20 12/02/20 12/03/20 Range/Units 16:37 20:24 05:17 WBC 14.35 H (4.50-10.00) X 10*3/uL RBC 3.59 L (4.10-5.20) X 10*6/uL Hgb 10.7 L (12.0-15.0) g/dL Hct 36.1 L (37.2-46.3) % MCV 100.6 H (80.0-97.0) fL MCHC 29.6 L (32.0-37.0) g/dL RDW 15.1 H (11.5-14.5) % Plt Count 490 H (140-440) X 10*3/uL Immature Gran # 0.36 H (0.00-0.04) X 10*3/uL Neutrophils # 12.37 H (1.80-7.70) X 10*3/uL Lymphocytes # 0.85 L (0.90-5.00) X 10*3/uL Basophils # 0.11 H (0.00-0.10) X 10*3/uL POC Glucose (mg/dL) 117 H 114 H (75-99) mg/dL 12/03/20 12/03/20 Range/Units 06:42 11:26 WBC (4.50-10.00) X 10*3/uL RBC (4.10-5.20) X 10*6/uL Hgb (12.0-15.0) g/dL Hct (37.2-46.3) % MCV (80.0-97.0) fL MCHC (32.0-37.0) g/dL RDW (11.5-14.5) % Plt Count (140-440) X 10*3/uL Immature Gran # (0.00-0.04) X 10*3/uL Neutrophils # (1.80-7.70) X 10*3/uL Lymphocytes # (0.90-5.00) X 10*3/uL Basophils # (0.00-0.10) X 10*3/uL POC Glucose (mg/dL) 157 H 180 H (75-99) mg/dL Assessment and Plan (1) Bowel obstruction Current Visit: Yes Status: Acute Code(s): K56.609 - UNSP INTESTNL OBST, UNSP TO PARTIAL VERSUS COMPLETE OBST SNOMED Code(s): 62072977
[2020-12-03 11:31] LABS: Glucose,Whole Blood 180 mg/dL (75-99)
--- NOTE | 2020-12-03 11:46 | P.PN ---
Subjective Progress Note Date: 12/03/20 70-year-old patient, brought in by EMS, on November 28. She was seen by Dr. Luis Enrique Murillo in the emergency department. She has a history of diabetes mellitus, CHF, chronic kidney disease, multiple abdominal hernia repairs, with mesh, and severe COPD. Her FEV1 is 0.92 L which is 41% of predicted. She sees my partner in the office for her COPD. She also suffers from chronic hypoxemic respiratory failure, and does use oxygen 24/. She apparently recently has had multiple episodes of nonbloody nonbilious emesis, as well as watery diarrhea, for one week. She apparently was evaluated and found on computed tomography scan, to have a colonic lesion, consistent with colon cancer. I was consulted for preop clearance. We saw her right before she went off to surgery. She is chronically on oxygen therapy at 3 L as mentioned above. The patient was having surgery with Dr. Clay Healy. Basically, she tells me that her COPD much at baseline. I did mention to her that she may end up in the intensive care unit after surgery. Also, based on the FEV1 alone, without the MVV, or RV/TLC ratio, the patient's at moderately increased operative risk from general anesthesia. White count 11.1, hemoglobin 13, hematocrit 40.6, platelet count 529,000, sodium 137, potassium 4.3, chlorides 100, CO2 32, anion gap 5, BUN 26, and creatinine 1.45. There was no chest x-ray to review. The patient is seen today 11/30/2020 in follow-up on the regular medical floor. She is currently resting quite comfortably in bed. Awake and alert in no acute distress. Nasogastric tube is secured in place. Maintaining O2 saturations in the 90s on 6 L/m per nasal cannula. White count 10.6. Hemoglobin 12.6. Sodium 137. Potassium 4.8. Creatinine 1.50. She is maintained on Symbicort and DuoNeb inhalations. Anticoagulated with Lovenox. The patient is seen today 12/01/2020 in follow-up on the regular medical floor. She is awake and alert in no acute distress. Resting comfortably in bed. Nasogastric tube remains in place. This is postoperative day #2. She remains on Zosyn and Flagyl. Maintaining O2 saturation in the 90s on 4 L/m per nasal cannula. She was requesting breathing treatments during the night for some increasing shortness of breath. Working well with the incentive spirometer. White count 10.2. Hemoglobin 10.9. Sodium 141. Potassium 4.5. Creatinine 1.3. 12/02/2020 the patient is being seen for a follow-up. The patient is postop day #3 and the patient underwent resection of the right colonic mass and secondary bowel obstruction. The patient has an NG tube in place. The patient remains covered with a combination of Zosyn and Flagyl. Doing well. Using incentive spirometer. No significant respiratory difficulties. Currently on oxygen at 4 L per minute nasal cannula. The pain is under adequate control. The patient is on DuoNeb nebulized treatments around the clock and the patient is receiving Dilaudid for pain control 1 mg every 3 hours IV. IV fluids are running with normal saline at the rate of 100 mL an hour. NG tube was removed this morning. The patient is passing no gas and she hasn't had any bowel movements yet. Nevertheless, she has decent bowel sounds. JOHN drains in place. Output is in order of minimal amount in the order of 10 mL serosanguineous. The patient was up on a chair and she is gradually getting stronger. Antibiotic coverage is s katelyn. Oxygen is at 5 L. On today's evaluation of 12/02/2020, the patient is postop day #4. She is currently on 5 L of oxygen by nasal cannula. NG tube was removed yesterday. She is quite comfortable and she is sitting up on a recliner. JOHN drain is in place and output is serosanguineous and it's minimal right now. Bowel sounds are active and the patient on is still nothing by mouth and she's taken only as chips. She is using incentive spirometer which is in front of her all the time. Urine output is adequate. She feels that she is getting stronger. She is on DuoNeb nebulized treatment [id number]. She has adequate pain control with Dilaudid. She is also on examination Zosyn and Flagyl. No fever. No chills. No other significant events overnight. No altered mentation. Patient is passing gas and she is requesting gel low Objective - Vital Signs Vital signs: Vital Signs Temp 97.8 F 12/03/20 07:04 Pulse 92 12/03/20 08:51 Resp 12 12/03/20 07:04 BP 149/64 12/03/20 07:04 Pulse Ox 90 L 12/03/20 08:34 Intake & Output 12/02/20 12/03/20 12/03/20 18:59 06:59 18:59 Intake Total 1100 Output Total 870 717 Balance 230 -717 Weight 108.862 kg Intake: Intake, IV Titration 1000 Amount Sodium Chloride 0.9% 1, 1000 000 ml @ 100 mls/hr IV . Q10H [facility] Rx#:[id number] Oral 100 Output: Drainage 20 17 Abdomen 20 17 Urine 850 700 Other: Voiding Method Indwelling Catheter Indwelling Catheter - Exam GENERAL EXAM: Alert, pleasant 70-year-old female patient, on 4-5L nasal cannula, comfortable in no apparent distress. HEAD: Normocephalic. EYES: Normal reaction of pupils, equal size. NOSE: Nasogastric tube secured in place. Clear with pink turbinates. THROAT: No erythema or exudates. NECK: No masses, no JVD. CHEST: No chest wall deformity. LUNGS: Equal air entry with crackles in the posterior bases, diminished. CVS: S1 and S2 normal with no audible murmur, regular rhythm. ABDOMEN: Dressing dry and intact. No hepatosplenomegaly, normal bowel sounds, no guarding or rigidity. Patient has a JOHN drain in the right lower quadrant. SPINE: No scoliosis or deformity SKIN: No rashes CENTRAL NERVOUS SYSTEM: No focal deficits, tone is normal in all 4 extremities. EXTREMITIES: There is no peripheral edema. No clubbing, no cyanosis. Pe ripheral pulses are intact. - Labs CBC & Chem 7: 12/03/20 05:17 12/02/20 05:51 Labs: Abnormal Lab Results - Last 24 Hours (Table) 12/02/20 12/02/20 12/02/20 Range/Units 12:02 16:37 20:24 WBC (4.50-10.00) X 10*3/uL RBC (4.10-5.20) X 10*6/uL Hgb (12.0-15.0) g/dL Hct (37.2-46.3) % MCV (80.0-97.0) fL MCHC (32.0-37.0) g/dL RDW (11.5-14.5) % Plt Count (140-440) X 10*3/uL Immature Gran # (0.00-0.04) X 10*3/uL Neutrophils # (1.80-7.70) X 10*3/uL Lymphocytes # (0.90-5.00) X 10*3/uL Basophils # (0.00-0.10) X 10*3/uL POC Glucose (mg/dL) 132 H 117 H 114 H (75-99) mg/dL 12/03/20 12/03/20 12/03/20 Range/Units 05:17 06:42 11:26 WBC 14.35 H (4.50-10.00) X 10*3/uL RBC 3.59 L (4.10-5.20) X 10*6/uL Hgb 10.7 L (12.0-15.0) g/dL Hct 36.1 L (37.2-46.3) % MCV 100.6 H (80.0-97.0) fL MCHC 29.6 L (32.0-37.0) g/dL RDW 15.1 H (11.5-14.5) % Plt Count 490 H (140-440) X 10*3/uL Immature Gran # 0.36 H (0.00-0.04) X 10*3/uL Neutrophils # 12.37 H (1.80-7.70) X 10*3/uL Lymphocytes # 0.85 L (0.90-5.00) X 10*3/uL Basophils # 0.11 H (0.00-0.10) X 10*3/uL POC Glucose (mg/dL) 157 H 180 H (75-99) mg/dL Assessment and Plan Plan: 1 Acute bowel obstruction, with computed tomography scan showing findings mayo picious of a right colonic mass or apple core lesion. Status post resection. Postoperative day #4. The patient had the NG tube removed and the patient is currently on Zosyn and Flagyl. Using incentive spirometer. Pain is under good control for now. Patient has bowel sounds on examination. The patient is also passing gas. 2 Severe/stage III, COPD, with an FEV1 that is 0.92 L or 41% of predicted. 3 History of 3 prior abdominal hernia repairs, with mesh placement. 4 History of angina pectoris. 5 History of CHF. 6 History of diabetes mellitus. 7 History of hyperlipidemia. 8 History of essential hypertension. 9 History of sleep apnea syndrome, currently on CPAP. 10 History of hypothyroidism. 11 Prior history of MRSA infection, 2013. 12 Previous history of heavy tobacco use. Plan: When asked the surgeon regarding the possibility of advancing diet to full liquids JOHN drain output is minimal at this point in time. DuoNeb inhalations scheduled and when necessary, in addition to Pulmicort and Perforomist Encouraged the increased use the incentive spirometer Increase her activity as tolerate Titrate down the FiO2 as tolerated Continue Zosyn and Flagyl Patient is sitting up on a recliner. Chest x-ray in ROM yesterday showed limited atelectatic changes in lung bases. Lung WERE small. Atelectasis was worse on the left. No other major abnormalities noted. We will continue to follow
[2020-12-03] MEDS: ACETAMINOPHEN IV (For NPO) 1,000 MG in EMPTY BAG 1 BAG IVPB SCH ×2 (12:38→18:04)
[2020-12-03] MEDS: ONDANSETRON 4 MG/2 ML VIAL IVP PRN ×2 (13:03→22:09)
[2020-12-03] MEDS: KETOROLAC 15 MG/ML 1 ML VIAL IVP SCH ×2 (16:18→23:42)
[2020-12-03 16:41] LABS: Glucose,Whole Blood 182 mg/dL (75-99)
[2020-12-03 19:58] LABS: Glucose,Whole Blood 153 mg/dL (75-99)
[2020-12-03] MEDS: traMADol 50 MG TAB PO PRN (20:13)
[2020-12-03] MEDS: ZOLPIDEM 5 MG TAB PO SCH (21:47)
[2020-12-03] MEDS: ATORVASTATIN 40 MG TAB PO SCH (21:47)
[2020-12-03] MEDS ORDERED: IOPAMIDOL CONTRAST (ORAL USE) VIAL PO PRN (23:27)
[2020-12-03] MEDS: INSULIN DETEMIR (LEVEMIR) 100 UNIT/ML SYR SQ SCH (23:41)
[2020-12-04] MEDS: ACETAMINOPHEN IV (For NPO) 1,000 MG in EMPTY BAG 1 BAG IVPB SCH ×2 (00:14→05:21)
[2020-12-04] MEDS: metroNIDAZOLE-NS PMX 500 MG in SALINE 1 100ML.BAG IVPB SCH ×3 (01:07→16:25)
[2020-12-04] MEDS: PIPERACILLIN-TAZOBACTAM 3.375 GM in SODIUM CHLORIDE 0.9% 100 ML IVPB SCH ×3 (01:08→16:25)
--- NOTE | 2020-12-04 01:09 | CT ---
EXAMINATION TYPE: CT abdomen pelvis wo con DATE OF EXAM: 12/04/2020 COMPARISON: 11/28/2020 HISTORY: pain CT DLP: 1689.1 mGycm Automated exposure control for dose reduction was used. Images were obtained from the diaphragm to the floor the pelvis with oral contrast only. There are moderate bilateral pleural effusions. There is airspace consolidation and atelectasis in talat th lower lobes. Heart is probably enlarged. Liver shows no focal defect. There are clips from cholecystectomy. The bile ducts are not dilated. Sp jr is intact. The stomach is intact. There is no pancreatic mass. There is no adrenal mass. Kidneys have normal size. There is no hydronephrosis. There is no retroperi toneal adenopathy. There is Barkley catheter in the urinary bladder. Bladder is empty. Uterus is anteve rted. I see no evidence of free air. There are distended multiple loops of air and fluid-filled small bowel . The thoracic and lumbar spine appear intact. There is no compression fracture. The bony pelvis is i ntact. I see no evidence of free air. There is no ascites. IMPRESSION: Compared to recent exam there is development of basilar pulmonary airspace consolidation and atelecta sis. There are new pleural effusions. Distended loops of air and fluid-filled bowel consistent with ileus which is similar to last exam. No free air. I do not suspect a mechanical bowel obstruction. There is previous intestinal surgery. The re is a markedly dilated loop of bowel in the right lateral abdomen on the previous exam which is not present on today's exam. There is a segment of bowel with wall thickening and stenosis on the old CT scan that is not demonstrated on today's exam in the right lateral abdomen.
--- NOTE | 2020-12-04 01:15 | P.PN ---
Progress Note - Text Progress Note Date: 12/03/20 - Chief Complaint Abdominal pain Consultation: This is a pleasant 70-year-old patient of Dr. Mercer. Chronic stable medical conditions include heart failure, diabetes, hypertension, hyperlipidemia, obstructive sleep apnea, hypothyroid. Patient lives by herself at her baseline uses a walker. For 2 weeks patient been having mid abdominal pain. 3 much constant. We'll get 8 intermittent watery stools. Was taking Imodium. Has been having fever nausea vomiting. Patient's had multiple abdominal hernia repairs with mesh. Was transferred here from [facility]. She is also had appendectomy and cholecystectomy in the past. She was transferred for small bowel obstruction. November 29: Underwent expiratory 3 laboratory with a right colectomy for obstructing right distal colonic mass Today-. NG tube to suction. Some abdominal pain. . Remains nothing by mouth. No flatus or bowel movement. Review of systems: Was done for constitutional, cardiovascular, GI, pulmonary. relevant finding as above Active Medications Albuterol/Ipratropium (Ipratropium-Albuterol 3 Ml Neb) 3 ml INHALATION RT-TID [facility] Last Admin: 12/03/20 21:30 Dose: 3 ml Documented by: Albuterol/Ipratropium (Ipratropium-Albuterol 3 Ml Neb) 3 ml INHALATION RT-Q1H PRN PRN Reason: Shortness Of Breath Or Wheezing Atorvastatin Calcium (Atorvastatin 40 Mg Tab) 40 mg PO HS [facility] Last Admin: 12/03/20 21:47 Dose: 40 mg Documented by: Benzocaine/Menthol (Benzocaine/Menthol Lozeng 1 Each Lozenge) 1 each MUCOUS MEM Q4HR PRN PRN Reason: Sore Throat Last Admin: 12/03/20 12:34 Dose: 1 each Documented by: Budesonide (Budesonide 1 Mg/2 Ml Nebu) 1 mg INHALATION RT-BID [facility] Last Admin: 12/03/20 21:30 Dose: 1 mg Documented by: Enoxaparin Sodium (Enoxaparin 40 Mg/0.4 Ml Syringe) 40 mg SQ DAILY [facility] Last Admin: 12/03/20 09:04 Dose: 40 mg Documented by: Formoterol Fumarate (Formoterol Fumarate 20 Mcg/2 Ml Nebu) 20 mcg INHALATION RT-BID [facility]ER Last Admin: 12/03/20 21:30 Dose: 20 mcg Documented by: Hydromorphone HCl (Hydromorphone 1 Mg/Ml 1 Ml Syringe) 1 mg IVP Q3HR PRN PRN Reason: Pain Last Admin: 12/03/20 22:14 Dose: 1 mg Documented by: Piperacillin Sod/Tazobactam (Sod 3.375 gm/ Sodium Chloride) 100 mls @ 25 mls/hr IVPB Q8HR [facility] Last Admin: 12/04/20 01:08 Dose: 25 mls/hr Documented by: Metronidazole 500 mg/ IV (Solution) 100 mls @ 100 mls/hr IVPB Q8HR [facility] Last Admin: 12/04/20 01:07 Dose: 100 mls/hr Documented by: Sodium Chloride (Saline 0.9%) 1,000 mls @ 100 mls/hr IV .Q10H [facility] Last Admin: 12/03/20 23:41 Dose: Not Given Documented by: Acetaminophen 1,000 mg/ IV (Solution) 100 mls @ 400 mls/hr IVPB Q6HR [facility] Stop: 12/04/20 06:14 Last Admin: 12/04/20 00:14 Dose: 400 mls/hr Documented by: Insulin Aspart (Insulin Aspart (Novolog) 100 Unit/Ml Vial) 0 unit SQ [facility]; Protocol Last Admin: 12/03/20 23:41 Dose: Not Given Documented by: Insulin Detemir (Insulin Detemir (Levemir) 100 Unit/Ml Syr) 20 unit SQ [facility] Last Admin: 12/03/20 23:41 Dose: Not Given Documented by: Iopamidol (Iopamidol Contrast (Oral Use) Vial) 30 ml PO Q60M PRN PRN Reason: CT Scan Stop: 12/04/20 23:28 Last Admin: 12/03/20 23:37 Dose: 30 ml Documented by: Ketorolac Tromethamine (Ketorolac 15 Mg/Ml 1 Ml Vial) 15 mg IVP Q6H [facility] Stop: 12/08/20 15:01 Last Admin: 12/03/20 23:42 Dose: 15 mg Documented by: Levothyroxine Sodium (Levothyroxine 137 Mcg Tab) 137 mcg PO DAILY@0630 [facility] Last Admin: 12/03/20 05:31 Dose: 137 mcg Documented by: Naloxone HCl (Naloxone 0.4 Mg/Ml 1 Ml Vial) 0.2 mg IV Q2M PRN PRN Reason: Opioid Reversal Ondansetron HCl (Ondansetron 4 Mg/2 Ml Vial) 4 mg IVP Q8HR PRN PRN Reason: Nausea And Vomiting Last Admin: 12/03/20 22:09 Dose: 4 mg Documented by: Pantoprazole Sodium (Pantoprazole 40 Mg/10 Ml Vial) 40 mg IVP DAILY [facility] Last Admin: 12/03/20 09:10 Dose: 40 mg Documented by: Tramadol HCl (Tramadol 50 Mg Tab) 50 mg PO Q6H PRN PRN Reason: Breakthrough Pain Last Admin: 12/03/20 20:13 Dose: 50 mg Documented by: Zolpidem Tartrate (Zolpidem 5 Mg Tab) 5 mg PO HS [facility] Last Admin: 12/03/20 21:47 Dose: 5 mg Documented by: Past medical history to include: Angina, CHF, diabetes, hyperlipidemia, hypertension, obstructive sleep apnea, hypothyroid, home oxygen-2 L Social history: . Lives alone. Does smoke up to 7 years ago. Alcohol rarely. Does use a walker Physical examination: VITAL SIGNS: 98.5, 80, 15, 152 with 57, on nasal cannula GENERAL: Reclining in bed, awake EYES: Pupils equal. Conjunctiva normal. HEENT: External appearance of nose and ears normal, oral cavity -dry. NG tube NECK: JVD not raised; masses not palpable. HEART: First and second heart sounds are normal; no edema. LUNGS:[ Respiratory rate increased, decreased breath sounds. ABDOMEN: Soft, mild abdominal tenderness, dressing in place, no guarding rigidity, absent bowel sounds multiple scars on the abdomen, liver spleen not palpable, no masses palpable. JOHN drain. Sluggish bowel sounds MUSCULAR skeletal: Evidence of OA especially in the hands PSYCH: [Alert and oriented x3; mood and affect anxious. INVESTIGATIONS, reviewed in the clinical context: December 03: WBC 14.3 hemoglobin 10.7 December 02: WBC 12.09 hemoglobin 10.5 potassium 4.2 December 01: WBC 10.2 hemoglobin 10.9 platelets 198 potassium 4.5 creatinine 1.3 November 30: WBC 10.6 hemoglobin 12.6 potassium 4.8 creatinine 1.5 Abdominal x-ray [November 29]: Persistent dilated bowel loops with air-fluid levels Coronavirus [PCR]-not detected Abdominal x-ray film personally reviewed by me: Small bowel obstruction Assessment and plan: -Acute small bowel obstruction : November 29: Right hemicolectomy for a distal ascending colon mass. NG tube to suction -Diabetes mellitus type 2. Patient on insulin pump. Hold that for now. Levemir. Accu-Cheks. -Chronic hypoxic respiratory failure uses 2 L of oxygen at home -Hyperlipidemia -Chronic urinary stress incontinence. Follow clinically. -Essential hypertension follow blood pressure closely -Hypothyroid, continue with Synthroid -Morbid obesity BMI 42.5. Follow-up with PCP for weight loss measures. -Chronic congestive heart failure. EF not known. -Chronic insomnia. 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 Subcu Lovenox Continue current treatment plan. Continue IV fluids. Keep a close and the white count is going up. On IV Zosyn and Flagyl. Thank you Dr. Broderick.
[2020-12-04] MEDS: HYDROmorphone 1 MG/ML 1 ML SYRINGE IVP PRN ×2 (02:19→17:31)
--- NOTE | 2020-12-04 02:42 | XR ---
EXAM: XR Chest, 1 View CLINICAL HISTORY: ITS.REASON XR Reason: NG PLACEMENT TECHNIQUE: Frontal view of the chest. COMPARISON: 12/02/2020 IMPRESSION: NG tube terminates in the mid stomach. Right more than left pleural effusions.
[2020-12-04] MEDS: KETOROLAC 15 MG/ML 1 ML VIAL IVP SCH ×4 (05:17→20:14)
[2020-12-04] MEDS: LEVOTHYROXINE 137 MCG TAB PO SCH (05:21)
[2020-12-04 06:47] LABS: Glucose,Whole Blood 168 mg/dL (75-99)
[2020-12-04] MEDS: INSULIN ASPART (NovoLOG) 100 UNIT/ML VIAL SQ SCH ×4 (07:23→23:49)
[2020-12-04] MEDS: BUDESONIDE 1 MG/2 ML NEBU INHALATION SCH ×2 (07:25→20:10)
[2020-12-04] MEDS: IPRATROPIUM-ALBUTEROL 3 ML NEB INHALATION SCH ×3 (07:25→20:10)
[2020-12-04] MEDS: FORMOTEROL FUMARATE 20 MCG/2 ML NEBU INHALATION SCH ×2 (07:26→20:10)
[2020-12-04 08:51] LABS: Basophils # (A) 0.13 X 10*3/uL (0.00-0.10); Basophils % (A) 0.9 %; Eosinophils # (A) 0.25 X 10*3/uL (0.04-0.35); Eosinophils % (A) 1.8 %; HGB 10.3 g/dL (12.0-15.0); Lymphocytes # (A) 1.17 X 10*3/uL (0.90-5.00); Lymphocytes % (A) 8.2 %; MCH 29.9 pg (27.0-32.0); MCHC 29.4 g/dL (32.0-37.0); MCV 101.4 fL (80.0-97.0); Mean Platelet Volume 9.8 fL (9.5-12.2); Monocytes # (A) 0.74 X 10*3/uL (0.20-1.00); Monocytes % (A) 5.2 %; Neutrophils # (A) 11.54 X 10*3/uL (1.80-7.70); Neutrophils % (A) 81.3 %; Platelet Count 490 X 10*3/uL (140-440); RBC 3.45 X 10*6/uL (4.10-5.20); RDW 15.3 % (11.5-14.5)
[2020-12-04 09:23] LABS: African American GFR (CKD) 53.4 (60.0-200.0); Anion Gap 10.1 mmol/L (4.00-12.00); BUN/Creat Ratio 21.67 Ratio (12.00-20.00); Calcium 8.3 mg/dL (8.7-10.3); Carbon Dioxide 25.9 mmol/L (21.6-31.8); Non-African American GFR(CKD) 46.1 (60.0-200.0); Potassium 3.9 mmol/L (3.5-5.5)
[2020-12-04] MEDS: PANTOPRAZOLE 40 MG/10 ML VIAL IVP SCH (10:15)
[2020-12-04] MEDS: ENOXAPARIN 40 MG/0.4 ML SYRINGE SQ SCH (10:15)
[2020-12-04] MEDS: bisacodyL 10 MG SUPP RECTAL SCH (10:16)
--- NOTE | 2020-12-04 10:56 | P.PN ---
<Chiqui Dietz - Last Filed: 12/04/20 12:21> Subjective Progress Note Date: 12/04/20 CHIEF COMPLAINT: Colon obstruction HISTORY OF PRESENT ILLNESS: Patient is status post exploratory laparotomy with right colectomy for obstructing mass of the right colon. Postop day #5. Patient had increasing abdominal pain through the night a computed tomography scan of the abdomen and pelvis was completed which had shown development of basilar pulmonary airspace consolidation and atelectasis. There are new pleural effusions. Distended loops of air and fluid-filled bowel consistent with ileus which is similar to last exam. No free air. Patient did have NG tube reinserted and Dulcolax suppositories added. Patient lying in bed. She states that she is not moving today. She wants a day of rest. She rates her abdominal pain 7 out of 10 and when she receives pain medication and goes down to 4 out of 10. She states that her pain is the same as yesterday. She is passing gas. No bowel movement. Denies any nausea. She does have a cough. Afebrile. WBC 14.20 Hgb 10.3 creatinine 1.2 JOHN drains serosanguineous fluid with 10 mL output through the night. PHYSICAL EXAM: VITAL SIGNS: Reviewed. GENERAL: Well-developed in no acute distress. HEENT: No sclera icterus. Extraocular movements grossly intact. Moist buccal mucosa. Head is atraumatic, normocephalic. ABDOMEN: Soft. Nondistended. Incision at the umbilicus minimal blood noted. The rest of the incision clean dry and intact. JOHN drain right side of abdomen serosanguineous fluid NEUROLOGIC: Alert and oriented. Cranial nerves II through XII grossly intact. ASSESSMENT: 1. Obstructing mass of the right colon status post exploratory laparotomy with right colectomy 2. Leukocytosis 3. Ileus PLAN: -Keep patient nothing by mouth except for ice chips and popsicles -Continue NG tube for decompression -Continue Dulcolax suppositories daily -Continue pain medication as needed. We'll continue the Toradol and Ultram. IV Dilaudid only for severe breakthrough pain otherwise try to avoid IV narcotics -Encouraged patient to use incentive spirometer -Encouraged patient to increase activity -Continue IV fluid -Continue IV antibiotics -Continue GI prophylaxis Protonix and DVT prophylaxis Lovenox Physician Technical Planner note has been reviewed by physician. Signing provider agrees with the documented findings, assessment, and plan of care. Objective - Vital Signs Vital signs: Vital Signs Temp 97.4 F L 12/04/20 08:56 Pulse 91 12/04/20 08:56 Resp 14 12/04/20 08:56 BP 176/82 12/04/20 08:56 Pulse Ox 92 L 12/04/20 07:26 Intake & Output 12/03/20 12/04/20 12/04/20 18:59 06:59 18:59 Output Total 685 500 Balance -685 -500 Weight 108.862 kg Output: Drainage 35 Abdomen 35 Urine 650 500 Other: Voiding Method Indwelling Catheter Indwelling Catheter Indwelling Catheter - Labs CBC & Chem 7: 12/04/20 05:28 12/04/20 05:28 Labs: Abnormal Lab Results - Last 24 Hours (Table) 12/03/20 12/03/20 12/03/20 Range/Units 11:26 16:32 19:56 WBC (4.50-10.00) X 10*3/uL RBC (4.10-5.20) X 10*6/uL Hgb (12.0-15.0) g/dL Hct (37.2-46.3) % MCV (80.0-97.0) fL MCHC (32.0-37.0) g/dL RDW (11.5-14.5) % Plt Count (140-440) X 10*3/uL Immature Gran # (0.00-0.04) X 10*3/uL Neutrophils # (1.80-7.70) X 10*3/uL Basophils # (0.00-0.10) X 10*3/uL Est GFR (CKD-EPI)AfAm (60.0-200.0) Est GFR (CKD-EPI)NonAf (60.0-200.0) BUN/Creatinine Ratio (12.00-20.00) Ratio Glucose (70-110) mg/dL POC Glucose (mg/dL) 180 H 182 H 153 H (75-99) mg/dL Calcium (8.7-10.3) mg/dL 12/04/20 12/04/20 12/04/20 Range/Units 05:28 05:28 06:41 WBC 14.20 H (4.50-10.00) X 10*3/uL RBC 3.45 L (4.10-5.20) X 10*6/uL Hgb 10.3 L (12.0-15.0) g/dL Hct 35.0 L (37.2-46.3) % MCV 101.4 H (80.0-97.0) fL MCHC 29.4 L (32.0-37.0) g/dL RDW 15.3 H (11.5-14.5) % Plt Count 490 H (140-440) X 10*3/uL Immature Gran # 0.37 H (0.00-0.04) X 10*3/uL Neutrophils # 11.54 H (1.80-7.70) X 10*3/uL Basophils # 0.13 H (0.00-0.10) X 10*3/uL Est GFR (CKD-EPI)AfAm 53.4 L (60.0-200.0) Est GFR (CKD-EPI)NonAf 46.1 L (60.0-200.0) BUN/Creatinine Ratio 21.67 H (12.00-20.00) Ratio Glucose 166 H (70-110) mg/dL POC Glucose (mg/dL) 168 H (75-99) mg/dL Calcium 8.3 L (8.7-10.3) mg/dL <Clay Healy - Last Filed: 12/04/20 18:43> Subjective Patient was doing better today. She was up in the chair for 3-4 hours and apparently was comfortable speaking with her son and pain was well controlled without narcotics. After going back to bed however patient began experiencing some discomfort again. She describes cramps at times. She is passing flatus. No bowel movement. Nasogastric tube remains in place after last night's CAT scan showed ileus. CAT scan was reviewed. I do not see any definite evidence to suggest anastomotic leak although this must be monitored for closely. Continue antibiotics. Consult radiology for PICC line so that TPN can be initiated. Call the patient's son by phone and left a message on his machine. Objective - Vital Signs Vital signs: Vital Signs Temp 98.3 F 12/04/20 14:58 Pulse 81 12/04/20 16:45 Resp 21 12/04/20 16:02 BP 170/82 12/04/20 16:02 Pulse Ox 93 L 12/04/20 16:02 Intake & Output 12/03/20 12/04/20 12/04/20 18:59 06:59 18:59 Output Total 595 608 4636 Balance -685 -500 -1010 Weight 108.862 kg Output: Drainage 35 10 Abdomen 35 10 Urine 433 587 2617 Other: Voiding Method Indwelling Catheter Indwelling Catheter Indwelling Catheter - Labs CBC & Chem 7: 12/04/20 05:28 12/04/20 05:28 Labs: Abnormal Lab Results - Last 24 Hours (Table) 12/03/20 12/04/20 12/04/20 Range/Units 19:56 05:28 05:28 WBC 14.20 H (4.50-10.00) X 10*3/uL RBC 3.45 L (4.10-5.20) X 10*6/uL Hgb 10.3 L (12.0-15.0) g/dL Hct 35.0 L (37.2-46.3) % MCV 101.4 H (80.0-97.0) fL MCHC 29.4 L (32.0-37.0) g/dL RDW 15.3 H (11.5-14.5) % Plt Count 490 H (140-440) X 10*3/uL Immature Gran # 0.37 H (0.00-0.04) X 10*3/uL Neutrophils # 11.54 H (1.80-7.70) X 10*3/uL Basophils # 0.13 H (0.00-0.10) X 10*3/uL Est GFR (CKD-EPI)AfAm 53.4 L (60.0-200.0) Est GFR (CKD-EPI)NonAf 46.1 L (60.0-200.0) BUN/Creatinine Ratio 21.67 H (12.00-20.00) Ratio Glucose 166 H (70-110) mg/dL POC Glucose (mg/dL) 153 H (75-99) mg/dL Calcium 8.3 L (8.7-10.3) mg/dL 12/04/20 12/04/20 12/04/20 Range/Units 06:41 11:28 16:24 WBC (4.50-10.00) X 10*3/uL RBC (4.10-5.20) X 10*6/uL Hgb (12.0-15.0) g/dL Hct (37.2-46.3) % MCV (80.0-97.0) fL MCHC (32.0-37.0) g/dL RDW (11.5-14.5) % Plt Count (140-440) X 10*3/uL Immature Gran # (0.00-0.04) X 10*3/uL Neutrophils # (1.80-7.70) X 10*3/uL Basophils # (0.00-0.10) X 10*3/uL Est GFR (CKD-EPI)AfAm (60.0-200.0) Est GFR (CKD-EPI)NonAf (60.0-200.0) BUN/Creatinine Ratio (12.00-20.00) Ratio Glucose (70-110) mg/dL POC Glucose (mg/dL) 168 H 166 H 172 H (75-99) mg/dL Calcium (8.7-10.3) mg/dL Assessment and Plan (1) Bowel obstruction Current Visit: Yes Status: Acute Code(s): K56.609 - UNSP INTESTNL OBST, UNSP TO PARTIAL VERSUS COMPLETE OBST SNOMED Code(s): 05069709
[2020-12-04] MEDS: SODIUM CHLORIDE 0.9% 1,000 ML IV SCH ×3 (11:22→18:08)
[2020-12-04 11:34] LABS: Glucose,Whole Blood 166 mg/dL (75-99)
--- NOTE | 2020-12-04 12:20 | P.PN ---
Subjective Progress Note Date: 12/04/20 Principal diagnosis: Bowel mass, status post resection 70-year-old patient, brought in by EMS, on November 28. She was seen by Dr. Luis Enrique Murillo in the emergency department. She has a history of diabetes mellitus, CHF, chronic kidney disease, multiple abdominal hernia repairs, with mesh, and severe COPD. Her FEV1 is 0.92 L which is 41% of predicted. She sees my partner in the office for her COPD. She also suffers from chronic hypoxemic respiratory failure, and does use oxygen 05/04. She apparently recently has had multiple episodes of nonbloody nonbilious emesis, as well as watery diarrhea, for one week. She apparently was evaluated and found on computed tomography sca n, to have a colonic lesion, consistent with colon cancer. I was consulted for preop clearance. We saw her right before she went off to surgery. She is chronically on oxygen therapy at 3 L as mentioned above. The patient was having surgery with Dr. Clay Healy. Basically, she tells me that her COPD much at baseline. I did mention to her that she may end up in the intensive care unit after surgery. Also, based on the FEV1 alone, without the MVV, or RV/TLC ratio, the patient's at moderately increased operative risk from general anesthesia. White count 11.1, hemoglobin 13, hematocrit 40.6, platelet count 529,000, sodium 137, potassium 4.3, chlorides 100, CO2 32, anion gap 5, BUN 26, and creatinine 1.45. There was no chest x-ray to review. The patient is seen today 11/30/2020 in follow-up on the regular medical floor. She is currently resting quite comfortably in bed. Awake and alert in no acute distress. Nasogastric tube is secured in place. Maintaining O2 saturations in the 90s on 6 L/m per nasal cannula. White count 10.6. Hemoglobin 12.6. Sodium 137. Potassium 4.8. Creatinine 1.50. She is maintained on Symbicort and DuoNeb inhalations. Anticoagulated with Lovenox. The patient is seen today 12/01/2020 in follow-up on the regular medical floor. She is awake and alert in no acute distress. Resting comfortably in bed. Nasogastric tube remains in place. This is postoperative day #2. She remains on Zosyn and Flagyl. Maintaining O2 saturation in the 90s on 4 L/m per nasal cannula. She was requesting breathing treatments during the night for some incr easing shortness of breath. Working well with the incentive spirometer. White count 10.2. Hemoglobin 10.9. Sodium 141. Potassium 4.5. Creatinine 1.3. 12/02/2020 the patient is being seen for a follow-up. The patient is postop day #3 and the patient underwent resection of the right colonic mass and secondary bowel obstruction. The patient has an NG tube in place. The patient remains covered with a combination of Zosyn and Flagyl. Doing well. Using incentive spirometer. No significant respiratory difficulties. Currently on oxygen at 4 L per minute nasal cannula. The pain is under adequate control. The patient is on DuoNeb nebulized treatments around the clock and the patient is receiving Dilaudid for pain control 1 mg every 3 hours IV. IV fluids are running with normal saline at the rate of 100 mL an hour. NG tube was removed this morning. The patient is passing no gas and she hasn't had any bowel movements yet. Nevertheless, she has decent bowel sounds. JOHN drains in place. Output is in order of minimal amount in the order of 10 mL serosanguineous. The patient was up on a chair and she is gradually getting stronger. Antibiotic coverage is same. Oxygen is at 5 L. On today's evaluation of 12/02/2020, the patient is postop day #4. She is currently on 5 L of oxygen by nasal cannula. NG tube was removed yesterday. She is quite comfortable and she is sitting up on a recliner. JOHN drain is in place and output is serosanguineous and it's minimal right now. Bowel sounds are active and the patient on is still nothing by mouth and she's taken only as chips. She is using incentive spirometer which is in front of her all the time. Urine output is adequate. She feels that she is getting stronger. She is on DuoNeb nebulized treatment [id number]. She has adequate pain control with Dilaudid. She is also on examination Zosyn and Flagyl. No fever. No chills. No other significant events overnight. No altered mentation. Patient is passing gas and she is requesting gel low The patient is seen today 12/04/2020 in follow-up. This is postoperative day #5. She is currently sitting up in a chair at the bedside. Maintaining O2 saturations in the 90s on 5 L/m per nasal cannula. She's afebrile. His been having some ongoing discomfort in her abdomen. Nasogastric tube remains in place. Computed tomography scan of the abdomen revealed distended loops of air and fluid filled bowel consistent with ileus similar to compared to previous. N o free air. No mechanical bowel obstruction. There were noted basilar consolidation and atelectasis. New pleural effusions. She is working well with the incentive spirometer. Chest x-ray revealed pleural effusions right greater than left. She is continued on bronchodilators, antibiotics in the form of Zosyn and Flagyl. Objective - Vital Signs Vital signs: Vital Signs Temp 97.4 F L 12/04/20 08:56 Pulse 80 12/04/20 11:19 Resp 14 12/04/20 08:56 BP 176/82 12/04/20 08:56 Pulse Ox 92 L 12/04/20 07:26 Intake & Output 12/03/20 12/04/20 12/04/20 18:59 06:59 18:59 Output Total 685 500 Balance -685 -500 Weight 108.862 kg Output: Drainage 35 Abdomen 35 Urine 650 500 Other: Voiding Method Indwelling Catheter Indwelling Catheter Indwelling Catheter - Exam GENERAL EXAM: Alert, pleasant 70-year-old female patient, up in a chair at the bedside on 5 L nasal cannula, comfortable in no apparent distress. HEAD: Normocephalic. EYES: Normal reaction of pupils, equal size. NOSE: Nasogastric tube secured in place. Clear with pink turbinates. THROAT: No erythema or exudates. NECK: No masses, no JVD. CHEST: No chest wall deformity. LUNGS: Equal air entry with crackles in the posterior bases, diminished. CVS: S1 and S2 normal with no audible murmur, regular rhythm. ABDOMEN: Dressing dry and intact. No hepatosplenomegaly, normal bowel sounds, no guarding or rigidity. SPINE: No scoliosis or deformity SKIN: No rashes CENTRAL NERVOUS SYSTEM: No focal deficits, tone is normal in all 4 extremities. EXTREMITIES: There is no peripheral edema. No clubbing, no cyanosis. Peripheral pulses are intact. - Labs CBC & Chem 7: 12/04/20 05:28 12/04/20 05:28 Labs: Abnormal Lab Results - Last 24 Hours (Table) 12/03/20 12/03/20 12/04/20 Range/Units 16:32 19:56 05:28 WBC 14.20 H (4.50-10.00) X 10*3/uL RBC 3.45 L (4.10-5.20) X 10*6/uL Hgb 10.3 L (12.0-15.0) g/dL Hct 35.0 L (37.2-46.3) % MCV 101.4 H (80.0-97.0) fL MCHC 29.4 L (32.0-37.0) g/dL RDW 15.3 H (11.5-14.5) % Plt Count 490 H (140-440) X 10*3/uL Immature Gran # 0.37 H (0.00-0.04) X 10*3/uL Neutrophils # 11.54 H (1.80-7.70) X 10*3/uL Basophils # 0.13 H (0.00-0.10) X 10*3/uL Est GFR (CKD-EPI)AfAm (60.0-200.0) Est GFR (CKD-EPI)NonAf (60.0-200.0) BUN/Creatinine Ratio (12.00-20.00) Ratio Glucose (70-110) mg/dL POC Glucose (mg/dL) 182 H 153 H (75-99) mg/dL Calcium (8.7-10.3) mg/dL 12/04/20 12/04/20 12/04/20 Range/Units 05:28 06:41 11:28 WBC (4.50-10.00) X 10*3/uL RBC (4.10-5.20) X 10*6/uL Hgb (12.0-15.0) g/dL Hct (37.2-46.3) % MCV (80.0-97.0) fL MCHC (32.0-37.0) g/dL RDW (11.5-14.5) % Plt Count (140-440) X 10*3/uL Immature Gran # (0.00-0.04) X 10*3/uL Neutrophils # (1.80-7.70) X 10*3/uL Basophils # (0.00-0.10) X 10*3/uL Est GFR (CKD-EPI)AfAm 53.4 L (60.0-200.0) Est GFR (CKD-EPI)NonAf 46.1 L (60.0-200.0) BUN/Creatinine Ratio 21.67 H (12.00-20.00) Ratio Glucose 166 H (70-110) mg/dL POC Glucose (mg/dL) 168 H 166 H (75-99) mg/dL Calcium 8.3 L (8.7-10.3) mg/dL Assessment and Plan Assessment: 1 Acute bowel obstruction, with computed tomography scan showing findings suspicious of a right colonic mass or apple core lesion. Status post resection. Postoperative day #5. Computed tomography scan of the abdomen revealed distended loops of air and fluid filled bowel consistent with ileus similar to compared to previous. No free air. No mechanical bowel obstruction. 2 Severe/stage III, COPD, with an FEV1 that is 0.92 L or 41% of predicted. 3 History of 3 prior abdominal hernia repairs, with mesh placement. 4 History of angina pectoris. 5 History of CHF. 6 History of diabetes mellitus. 7 History of hyperlipidemia. 8 History of essential hypertension. 9 History of sleep apnea syndrome, currently on CPAP. 10 History of hypothyroidism. 11 Prior history of MRSA infection, 2013. 12 Previous history of heavy tobacco use. Plan: The patient was seen and evaluated by Dr. Whitaker Computed tomography scan of the abdomen, chest x-ray, labs reviewed Encourage increased use the incentive spirometer Continued bronchodilators, Zosyn, Flagyl Increase her activity as tolerate Titrate down the FiO2 as tolerated We will continue to follow I, the cosigning physician, performed a history & physical examination of the patient. Lungs sounds few crackles in the posterior bases. Maintaining good O2 saturations in the 90s on 5 L/m per nasal. I discussed the assessment and plan of care with my nurse practitioner, Maria Guadalupe Barnes. I attest to the above note as dictated by her.
[2020-12-04 16:26] LABS: Glucose,Whole Blood 172 mg/dL (75-99)
[2020-12-04] MEDS: IPRATROPIUM-ALBUTEROL 3 ML NEB INHALATION PRN (16:38)
[2020-12-04] MEDS: ONDANSETRON 4 MG/2 ML VIAL IVP PRN (17:39)
[2020-12-04] MEDS: ATORVASTATIN 40 MG TAB PO SCH (20:14)
[2020-12-04] MEDS: ZOLPIDEM 5 MG TAB PO SCH (20:14)
[2020-12-04] MEDS: BENZOCAINE/MENTHOL LOZENG 1 EACH LOZENGE MUCOUS MEM PRN (23:28)
[2020-12-04] MEDS: INSULIN DETEMIR (LEVEMIR) 100 UNIT/ML SYR SQ SCH (23:49)
[2020-12-04 23:50] LABS: Glucose,Whole Blood 145 mg/dL (75-99)
--- NOTE | 2020-12-05 00:21 | P.PN ---
Progress Note - Text Progress Note Date: 12/04/20 - Chief Complaint Abdominal pain Consultation: This is a pleasant 70-year-old patient of Dr. Mercer. Chronic stable medical conditions include heart failure, diabetes, hypertension, hyperlipidemia, obstructive sleep apnea, hypothyroid. Patient lives by herself at her baseline uses a walker. For 2 weeks patient been having mid abdominal pain. 3 much constant. We'll get 8 intermittent watery stools. Was taking Imodium. Has been having fever nausea vomiting. Patient's had multiple abdominal hernia repairs with mesh. Was transferred here from [facility]. She is also had appendectomy and cholecystectomy in the past. She was transferred for small bowel obstruction. November 29: Underwent expiratory 3 laboratory with a right colectomy for obstructing right distal colonic mass Today-. Was having increasing abdominal pain. More distention. Computed tomography scan showed postoperative ileus. NG tube was reinserted. Did pass some flatus. Review of systems: Was done for constitutional, cardiovascular, GI, pulmonary. relevant finding as above Active Medications Albuterol/Ipratropium (Ipratropium-Albuterol 3 Ml Neb) 3 ml INHALATION RT-TID SPENCER Last Admin: 12/04/20 20:10 Dose: 3 ml Documented by: Albuterol/Ipratropium (Ipratropium-Albuterol 3 Ml Neb) 3 ml INHALATION RT-Q1H PRN PRN Reason: Shortness Of Breath Or Wheezing Last Admin: 12/04/20 16:38 Dose: 3 ml Documented by: Atorvastatin Calcium (Atorvastatin 40 Mg Tab) 40 mg PO HS SPENCER Last Admin: 12/04/20 20:14 Dose: 40 mg Documented by: Benzocaine (Benzocaine [place] 1 Can) 1 spray MUCOUS MEM QID PRN PRN Reason: Mouth Irritation Benzocaine/Menthol (Benzocaine/Menthol Lozeng 1 Each Lozenge) 1 each MUCOUS MEM Q4HR PRN PRN Reason: Sore Throat Last Admin: 12/04/20 23:28 Dose: 1 each Documented by: Bisacodyl (Bisacodyl 10 Mg Supp) 10 mg RECTAL DAILY SPENCER Last Admin: 12/04/20 10:16 Dose: 10 mg Documented by: Budesonide (Budesonide 1 Mg/2 Ml Nebu) 1 mg INHALATION RT-BID SPENCER Last Admin: 12/04/20 20:10 Dose: 1 mg Documented by: Enoxaparin Sodium (Enoxaparin 40 Mg/0.4 Ml Syringe) 40 mg SQ DAILY [facility] Last Admin: 12/04/20 10:15 Dose: 40 mg Documented by: Formoterol Fumarate (Formoterol Fumarate 20 Mcg/2 Ml Nebu) 20 mcg INHALATION RT-BID [facility] Last Admin: 12/04/20 20:10 Dose: 20 mcg Documented by: Hydromorphone HCl (Hydromorphone 1 Mg/Ml 1 Ml Syringe) 1 mg IVP Q3HR PRN PRN Reason: Pain Last Admin: 12/04/20 17:31 Dose: 1 mg Documented by: Piperacillin Sod/Tazobactam (Sod 3.375 gm/ Sodium Chloride) 100 mls @ 25 mls/hr IVPB Q8HR [facility] Last Admin: 12/04/20 16:25 Dose: 25 mls/hr Documented by: Metronidazole 500 mg/ IV (Solution) 100 mls @ 100 mls/hr IVPB Q8HR [facility] Last Admin: 12/04/20 16:25 Dose: 100 mls/hr Documented by: Sodium Chloride (Saline 0.9%) 1,000 mls @ 100 mls/hr IV .Q10H [facility] Last Admin: 12/04/20 18:08 Dose: Not Given Documented by: Insulin Aspart (Insulin Aspart (Novolog) 100 Unit/Ml Vial) 0 unit SQ Q6HR [facility]; Protocol Last Admin: 12/04/20 23:49 Dose: Not Given Documented by: Insulin Detemir (Insulin Detemir (Levemir) 100 Unit/Ml Syr) 20 unit SQ [facility] Last Admin: 12/04/20 23:49 Dose: Not Given Documented by: Ketorolac Tromethamine (Ketorolac 15 Mg/Ml 1 Ml Vial) 15 mg IVP Q6H [facility] Stop: 12/08/20 15:01 Last Admin: 12/04/20 20:14 Dose: 15 mg Documented by: Levothyroxine Sodium (Levothyroxine 137 Mcg Tab) 137 mcg PO DAILY@0630 [facility] Last Admin: 12/04/20 05:21 Dose: Not Given Documented by: Naloxone HCl (Naloxone 0.4 Mg/Ml 1 Ml Vial) 0.2 mg IV Q2M PRN PRN Reason: Opioid Reversal Ondansetron HCl (Ondansetron 4 Mg/2 Ml Vial) 4 mg IVP Q8HR PRN PRN Reason: Nausea And Vomiting Last Admin: 12/04/20 17:39 Dose: 4 mg Documented by: Pantoprazole Sodium (Pantoprazole 40 Mg/10 Ml Vial) 40 mg IVP DAILY [facility] Last Admin: 12/04/20 10:15 Dose: 40 mg Documented by: Tramadol HCl (Tramadol 50 Mg Tab) 50 mg PO Q6H PRN PRN Reason: Breakthrough Pain Last Admin: 12/03/20 20:13 Dose: 50 mg Documented by: Zolpidem Tartrate (Zolpidem 5 Mg Tab) 5 mg PO HS [facility] Last Admin: 12/04/20 20:14 Dose: 5 mg Documented by: Past medical history to include: Angina, CHF, diabetes, hyperlipidemia, hypertension, obstructive sleep apnea, hypothyroid, home oxygen-2 L Social history: . Lives alone. Does smoke up to 7 years ago. Alcohol rarely. Does use a walker Physical examination: VITAL SIGNS: 98.7, 84, 15, 155% in 2, 96% on 5 L GENERAL: Reclining in bed, tired, awake EYES: Pupils equal. Conjunctiva normal. HEENT: External appearance of nose and ears normal, oral cavity -dry. NG tube- to suction NECK: JVD not raised; masses not palpable. HEART: First and second heart sounds are normal; no edema. LUNGS:[ Respiratory rate increased, decreased breath sounds. ABDOMEN: Soft, mild abdominal tenderness, dressing in place, no guarding rigidity, absent bowel sounds multiple scars on the abdomen, liver spleen not palpable, no masses palpable. JOHN drain. Sluggish bowel sounds MUSCULAR skeletal: Evidence of OA especially in the hands PSYCH: [Alert and oriented x3; mood and affect anxious. INVESTIGATIONS, reviewed in the clinical context: Chest x-ray right greater than left pleural effusion Computed tomography scan of abdomen and pelvis without contrast: Distended loops of 8 and fluid-filled bowel consistent with ileus similar to previous exam. No free air. Bowel obstruction not suspected December 04: WBC 14.2 hemoglobin 10.3 potassium 3.9 creatinine 1.2 December 03: WBC 14.3 hemoglobin 10.7 December 02: WBC 12.09 hemoglobin 10.5 potassium 4.2 December 01: WBC 10.2 hemoglobin 10.9 platelets 198 potassium 4.5 creatinine 1.3 November 30: WBC 10.6 hemoglobin 12.6 potassium 4.8 creatinine 1.5 Abdominal x-ray [November 29]: Persistent dilated bowel loops with air-fluid levels Coronavirus [PCR]-not detected Abdominal x-ray film personally reviewed by me: Small bowel obstruction Assessment and plan: -Acute small bowel obstruction : November 29: Right hemicolectomy for a distal ascending colon mass. NG tube to suction. - Post operative ileus.-NG tube to continue. Not improving -Diabetes mellitus type 2. Patient on insulin pump. Hold that for now. Levemir. Accu-Cheks. -Chronic hypoxic respiratory failure uses 2 L of oxygen at home -Hyperlipidemia -Chronic urinary stress incontinence. Follow clinically. -Essential hypertension follow blood pressure closely -Hypothyroid, continue with Synthroid -Morbid obesity BMI 42.5. Follow-up with PCP for weight loss measures. -Chronic congestive heart failure. EF not known. -Chronic insomnia. 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 Subcu Lovenox Continue current treatment plan. Continue IV fluids. On IV Zosyn and Flagyl. Thank you Dr. Broderick.
[2020-12-05] MEDS: PIPERACILLIN-TAZOBACTAM 3.375 GM in SODIUM CHLORIDE 0.9% 100 ML IVPB SCH ×3 (00:31→17:20)
[2020-12-05] MEDS: SODIUM CHLORIDE 0.9% 1,000 ML IV SCH ×2 (00:36→14:46)
[2020-12-05] MEDS: metroNIDAZOLE-NS PMX 500 MG in SALINE 1 100ML.BAG IVPB SCH ×3 (00:36→17:20)
[2020-12-05] MEDS: HYDROmorphone 1 MG/ML 1 ML SYRINGE IVP PRN ×2 (01:21→06:19)
[2020-12-05] MEDS: KETOROLAC 15 MG/ML 1 ML VIAL IVP SCH ×4 (04:02→20:07)
[2020-12-05] MEDS: BENZOCAINE/MENTHOL LOZENG 1 EACH LOZENGE MUCOUS MEM PRN ×2 (04:13→17:56)
[2020-12-05] MEDS: INSULIN ASPART (NovoLOG) 100 UNIT/ML VIAL SQ SCH ×4 (04:36→17:35)
[2020-12-05] MEDS: ENOXAPARIN 40 MG/0.4 ML SYRINGE SQ SCH (04:45)
[2020-12-05 05:50] LABS: Glucose,Whole Blood 161 mg/dL (75-99)
[2020-12-05] MEDS ORDERED: LEVOTHYROXINE IVP 100 MCG/5 ML VIAL IV SCH ×2 (06:30)
[2020-12-05 06:48] LABS: African American GFR (CKD) 64 (>60 ml/min/1.73 sqM); Anion Gap 5 mmol/L; Blood Urea Nitrogen 24 mg/dL (7-17); Calcium 7.9 mg/dL (8.4-10.2); Carbon Dioxide 30 mmol/L (22-30); Chloride 107 mmol/L (98-107); Glucose 167 mg/dL (74-99); Non-African American GFR(CKD) 56 (>60 ml/min/1.73 sqM); Potassium 3.8 mmol/L (3.5-5.1); Sodium 142 mmol/L (137-145)
[2020-12-05 06:59] LABS: Glucose,Whole Blood 156 mg/dL (75-99)
[2020-12-05] MEDS: BUDESONIDE 1 MG/2 ML NEBU INHALATION SCH ×2 (07:40→19:32)
[2020-12-05] MEDS: FORMOTEROL FUMARATE 20 MCG/2 ML NEBU INHALATION SCH ×2 (07:40→19:32)
[2020-12-05] MEDS: IPRATROPIUM-ALBUTEROL 3 ML NEB INHALATION SCH ×3 (07:40→19:33)
[2020-12-05] MEDS: ONDANSETRON 4 MG/2 ML VIAL IVP PRN (08:03)
[2020-12-05] MEDS: PANTOPRAZOLE 40 MG/10 ML VIAL IVP SCH (09:00)
[2020-12-05] MEDS: bisacodyL 10 MG SUPP RECTAL SCH (09:00)
--- NOTE | 2020-12-05 10:58 | P.PN ---
<MirelaChiqui - Last Filed: 12/05/20 10:54> Subjective Progress Note Date: 12/05/20 CHIEF COMPLAINT: Colon obstruction HISTORY OF PRESENT ILLNESS: Patient is status post exploratory laparotomy with right colectomy for obstructing mass of the right colon. Postop day #6. Patient did have a bowel movement yesterday. She is having flatus. Nursing is again reporting that patient gets nauseous after the IV Dilaudid is given and that makes her lethargic. Patient reports that she did not sleep well last night. She states usually at home to help her sleep she uses a CPAP and takes her Ambien. Patient currently rating her abdominal pain about a 6 out of 10. She states that her pain is about the same as yesterday. Afebrile. Creatinine 1.03. CBC pending. PHYSICAL EXAM: VITAL SIGNS: Reviewed. GENERAL: Well-developed in no acute distress. HEENT: No sclera icterus. Extraocular movements grossly intact. Moist buccal mucosa. Head is atraumatic, normocephalic. ABDOMEN: Soft. Nondistended. Incision site clean dry and intact. Nontender with light palpation. JOHN drain right side of abdomen serosanguineous fluid NEUROLOGIC: Alert and oriented. Cranial nerves II through XII grossly intact. ASSESSMENT: 1. Obstructing mass of the right colon status post exploratory laparotomy with right colectomy 2. Leukocytosis 3. Ileus PLAN: -Keep patient nothing by mouth except for ice chips and popsicles -Continue NG tube for decompression -Continue Dulcolax suppositories daily -Continue pain medication as needed. We'll continue the Toradol and Ultram. IV Dilaudid only for severe breakthrough pain otherwise try to avoid IV narcotics -Encouraged patient to use incentive spirometer -Encouraged patient to increase activity -Continue IV fluid -Continue IV antibiotics -Continue GI prophylaxis Protonix and DVT prophylaxis Lovenox Physician Knobber note has been reviewed by physician. Signing provider agrees with the documented findings, assessment, and plan of care. Objective - Vital Signs Vital signs: Vital Signs Temp 97.4 F L 12/05/20 00:17 Pulse 75 12/05/20 08:02 Resp 15 12/05/20 07:16 BP 128/65 12/05/20 07:16 Pulse Ox 91 L 12/05/20 07:16 Intake & Output 12/04/20 12/05/20 12/05/20 18:59 06:59 18:59 Output Total 1010 625 Balance -1010 -625 Output: Drainage 10 Abdomen 10 Urine 1000 625 Other: Voiding Method Indwelling Catheter Indwelling Catheter Indwelling Catheter # Bowel Movements 1 - Labs CBC & Chem 7: 12/04/20 05:28 12/05/20 06:21 Labs: Abnormal Lab Results - Last 24 Hours (Table) 12/04/20 12/04/20 12/04/20 Range/Units 11:28 16:24 23:48 BUN (7-17) mg/dL Glucose (74-99) mg/dL POC Glucose (mg/dL) 166 H 172 H 145 H (75-99) mg/dL Calcium (8.4-10.2) mg/dL 12/05/20 12/05/20 12/05/20 Range/Units 05:48 06:21 06:57 BUN 24 H (7-17) mg/dL Glucose 167 H (74-99) mg/dL POC Glucose (mg/dL) 161 H 156 H (75-99) mg/dL Calcium 7.9 L (8.4-10.2) mg/dL <Clay Healy - Last Filed: 12/05/20 13:35> Subjective As above. Patient says her pain is better today than yesterday currently. Had her PICC line placed earlier. Will begin TPN fully later today. Patient is ingesting large volumes of ice chips and popsicles and with that denies nausea. Nasogastric tube output as expected has increased. She did have a small bowel movement yesterday. Denies shortness of breath currently but apparently was having some dyspnea earlier. White blood cell count today unchanged. Keep nasogastric tube for now. Continue antibiotics. Begin TPN. Objective - Vital Signs Vital signs: Vital Signs Temp 94.6 F L 12/05/20 12:19 Pulse 90 12/05/20 12:19 Resp 15 12/05/20 07:16 BP 126/66 12/05/20 12:19 Pulse Ox 92 L 12/05/20 12:19 Intake & Output 12/04/20 12/05/20 12/05/20 18:59 06:59 18:59 Output Total 1010 625 Balance -1010 -625 Output: Drainage 10 Abdomen 10 Urine 1000 625 Other: Voiding Method Indwelling Catheter Indwelling Catheter Indwelling Catheter # Bowel Movements 1 - Labs CBC & Chem 7: 12/05/20 11:47 12/05/20 06:21 Labs: Abnormal Lab Results - Last 24 Hours (Table) 12/04/20 12/04/20 12/05/20 Range/Units 16:24 23:48 05:48 WBC (3.8-10.6) k/uL MCHC (31.0-37.0) g/dL Plt Count (150-450) k/uL Neutrophils # (1.3-7.7) k/uL Lymphocytes # (1.0-4.8) k/uL BUN (7-17) mg/dL Glucose (74-99) mg/dL POC Glucose (mg/dL) 172 H 145 H 161 H (75-99) mg/dL Calcium (8.4-10.2) mg/dL 12/05/20 12/05/20 12/05/20 Range/Units 06:21 06:57 11:34 WBC (3.8-10.6) k/uL MCHC (31.0-37.0) g/dL Plt Count (150-450) k/uL Neutrophils # (1.3-7.7) k/uL Lymphocytes # (1.0-4.8) k/uL BUN 24 H (7-17) mg/dL Glucose 167 H (74-99) mg/dL POC Glucose (mg/dL) 156 H 170 H (75-99) mg/dL Calcium 7.9 L (8.4-10.2) mg/dL 12/05/20 Range/Units 11:47 WBC 14.3 H (3.8-10.6) k/uL MCHC 30.4 L (31.0-37.0) g/dL Plt Count 480 H (150-450) k/uL Neutrophils # 13.0 H (1.3-7.7) k/uL Lymphocytes # 0.6 L (1.0-4.8) k/uL BUN (7-17) mg/dL Glucose (74-99) mg/dL POC Glucose (mg/dL) (75-99) mg/dL Calcium (8.4-10.2) mg/dL Assessment and Plan (1) Bowel obstruction Current Visit: Yes Status: Acute Code(s): K56.609 - UNSP INTESTNL OBST, UNSP TO PARTIAL VERSUS COMPLETE OBST SNOMED Code(s): 95031245
[2020-12-05 11:36] LABS: Glucose,Whole Blood 170 mg/dL (75-99)
--- NOTE | 2020-12-05 12:11 | P.PN ---
Subjective Progress Note Date: 12/05/20 70-year-old patient, brought in by EMS, on November 28. She was seen by Dr. Luis Enrique Murillo in the emergency department. She has a history of diabetes mellitus, CHF, chronic kidney disease, multiple abdominal hernia repairs, with mesh, and severe COPD. Her FEV1 is 0.92 L which is 41% of predicted. She sees my partner in the office for her COPD. She also suffers from chronic hypoxemic respiratory failure, and does use oxygen 24/. She apparently recently has had multiple episodes of nonbloody nonbilious emesis, as well as watery diarrhea, for one week. She apparently was evaluated and found on computed tomography scan, to have a colonic lesion, consistent with colon cancer. I was consulted for preop clearance. We saw her right before she went off to surgery. She is chronically on oxygen therapy at 3 L as mentioned above. The patient was having surgery with Dr. Clay Healy. Basically, she tells me that her COPD much at baseline. I did mention to her that she may end up in the intensive care unit after surgery. Also, based on the FEV1 alone, without the MVV, or RV/TLC ratio, the patient's at moderately increased operative risk from general anesthesia. White count 11.1, hemoglobin 13, hematocrit 40.6, platelet count 529,000, sodium 137, potassium 4.3, chlorides 100, CO2 32, anion gap 5, BUN 26, and creatinine 1.45. There was no chest x-ray to review. The patient is seen today 11/30/2020 in follow-up on the regular medical floor. She is currently resting quite comfortably in bed. Awake and alert in no acute distress. Nasogastric tube is secured in place. Maintaining O2 saturations in the 90s on 6 L/m per nasal cannula. White count 10.6. Hemoglobin 12.6. Sodium 137. Potassium 4.8. Creatinine 1.50. She is maintained on Symbicort and DuoNeb inhalations. Anticoagulated with Lovenox. The patient is seen today 12/01/2020 in follow-up on the regular medical floor. She is awake and alert in no acute distress. Resting comfortably in bed. Nasogastric tube remains in place. This is postoperative day #2. She remains on Zosyn and Flagyl. Maintaining O2 saturation in the 90s on 4 L/m per nasal cannula. She was requesting breathing treatments during the night for some increasing shortness of breath. Working well with the incentive spirometer. White count 10.2. Hemoglobin 10.9. Sodium 141. Potassium 4.5. Creatinine 1.3. 12/02/2020 the patient is being seen for a follow-up. The patient is postop day #3 and the patient underwent resection of the right colonic mass and secondary bowel obstruction. The patient has an NG tube in place. The patient remains covered with a combination of Zosyn and Flagyl. Doing well. Using incentive spirometer. No significant respiratory difficulties. Currently on oxygen at 4 L per minute nasal cannula. The pain is under adequate control. The patient is on DuoNeb nebulized treatments around the clock and the patient is receiving Dilaudid for pain control 1 mg every 3 hours IV. IV fluids are running with normal saline at the rate of 100 mL an hour. NG tube was removed this morning. The patient is passing no gas and she hasn't had any bowel movements yet. Nevertheless, she has decent bowel sounds. JOHN drains in place. Output is in order of minimal amount in the order of 10 mL serosanguineous. The patient was up on a chair and she is gradually getting stronger. Antibiotic coverage is sa me. Oxygen is at 5 L. On today's evaluation of 12/02/2020, the patient is postop day #4. She is c urrently on 5 L of oxygen by nasal cannula. NG tube was removed yesterday. She is quite comfortable and she is sitting up on a recliner. JOHN drain is in place and output is serosanguineous and it's minimal right now. Bowel sounds are active and the patient on is still nothing by mouth and she's taken only as chips. She is using incentive spirometer which is in front of her all the time. Urine output is adequate. She feels that she is getting stronger. She is on DuoNeb nebulized treatment [id number]. She has adequate pain control with Dilaudid. She is also on examination Zosyn and Flagyl. No fever. No chills. No other significant events overnight. No altered mentation. Patient is passing gas and she is requesting gel low The patient is seen today 12/04/2020 in follow-up. This is postoperative day #5. She is currently sitting up in a chair at the bedside. Maintaining O2 saturations in the 90s on 5 L/m per nasal cannula. She's afebrile. His been having some ongoing discomfort in her abdomen. Nasogastric tube remains in place. Computed tomography scan of the abdomen revealed distended loops of air and fluid filled bowel consistent with ileus similar to compared to previous. No free air. No mechanical bowel obstruction. There were noted basilar consolidation and atelectasis. New pleural effusions. She is working well with the incentive spirometer. Chest x-ray revealed pleural effusions right greater than left. She is continued on bronchodilators, antibiotics in the form of Zosyn and Flagyl. 12/05/2020 the patient is postop day #6. She was able to pass flatus. She was also able to pass a bowel movement. NG tube is still in place and output is in order of 3. Unfortunately, she continues to have popsicles. In terms of oxygen, she is on 6 L and his saturations around 91%. She is feeling slightly more short of breath and she getting incentive spirometer. Chest x-ray that showed some small bilateral pleural effusions. She is on IV fluids currently running at 100 mL an hour. She is also on examination Zosyn and Flagyl. Surgical wound site is clean. The blood work from today showing Objective - Vital Signs Vital signs: Vital Signs Temp 97.4 F L 12/05/20 00:17 Pulse 87 12/05/20 11:10 Resp 15 12/05/20 07:16 BP 128/65 12/05/20 07:16 Pulse Ox 91 L 12/05/20 07:16 Intake & Output 12/04/20 12/05/20 12/05/20 18:59 06:59 18:59 Output Total 1010 625 Balance -1010 -625 Output: Drainage 10 Abdomen 10 Urine 1000 625 Other: Voiding Method Indwelling Catheter Indwelling Catheter Indwelling Catheter # Bowel Movements 1 - Exam GENERAL EXAM: Alert, pleasant 70-year-old female patient, on 4-5L nasal cannula, comfortable in no apparent distress. HEAD: Normocephalic. EYES: Normal reaction of pupils, equal size. NOSE: Nasogastric tube secured in place. Clear with pink turbinates. THROAT: No erythema or exudates. NECK: No masses, no JVD. CHEST: No chest wall deformity. LUNGS: Equal air entry with crackles in the posterior bases, diminished. CVS: S1 and S2 normal with no audible murmur, regular rhythm. ABDOMEN: Dressing dry and intact. No hepatosplenomegaly, normal bowel sounds, no guarding or rigidity. Patient has a JOHN drain in the right lower quadrant. SPINE: No scoliosis or deformity SKIN: No rashes CENTRAL NERVOUS SYSTEM: No focal deficits, tone is normal in all 4 extremities. EXTREMITIES: There is no peripheral edema. No clubbing, no cyanosis. Peripheral pulses are intact. - Labs CBC & Chem 7: 12/04/20 05:28 12/05/20 06:21 Labs: Abnormal Lab Results - Last 24 Hours (Table) 12/04/20 12/04/20 12/05/20 Range/Units 16:24 23:48 05:48 BUN (7-17) mg/dL Glucose (74-99) mg/dL POC Glucose (mg/dL) 172 H 145 H 161 H (75-99) mg/dL Calcium (8.4-10.2) mg/dL 12/05/20 12/05/20 12/05/20 Range/Units 06:21 06:57 11:34 BUN 24 H (7-17) mg/dL Glucose 167 H (74-99) mg/dL POC Glucose (mg/dL) 156 H 170 H (75-99) mg/dL Calcium 7.9 L (8.4-10.2) mg/dL Assessment and Plan Plan: 1 Acute bowel obstruction, with computed tomography scan showing findings suspicious of a right colonic mass or apple core lesion. Status post resection. Postoperative day #5 The patient had the NG tube in place as the patient is having PICC line insertion and the patient will be started at a later stage on TPN for nutritional support. Otherwise, the surgical wound site is dry clean and intact. The patient on Zosyn and Levaquin. The patient is being monitored along with the surgical team. She has active. Unfortunately she continues to take liquids and popsicles which is increasing her NG output. 2 Severe/stage III, COPD, with an FEV1 that is 0.92 L or 41% of predicted. 3 History of 3 prior abdominal hernia repairs, with mesh placement. 4 History of angina pectoris. 5 History of CHF. 6 History of diabetes mellitus. 7 History of hyperlipidemia. 8 History of essential hypertension. 9 History of sleep apnea syndrome, currently on CPAP. 10 History of hypothyroidism. 11 Prior history of MRSA infection, 2013. 12 Previous history of heavy tobacco use. Plan: Continue using incentive spirometer Keep the NG tube in place and keep the patient nothing by mouth for now Will insert a PICC line today and possible TPN at a later stage JOHN drain output is minimal at this point in time. DuoNeb inhalations scheduled and when necessary, in addition to Pulmicort and Perforomist Encouraged the increased use the incentive spirometer Increase her activity as tolerate Titrate down the FiO2 as tolerated my currently on 6 L Continue Zosyn and Flagyl Patient is sitting up on a recliner. We will continue to follow
[2020-12-05] MEDS ORDERED: LIDOCAINE 1% INJ 10MG/ML (20 ML MDV) SQ ONE (12:38)
[2020-12-05 13:29] LABS: Basophils # (A) 0.1 k/uL (0-0.2); Basophils % (A) 1 %; Eosinophils # (A) 0.2 k/uL (0-0.7); Eosinophils % (A) 1 %; HCT 37.8 % (34.0-46.0); HGB 11.5 gm/dL (11.4-16.0); Hypochromasia Marked; Lymphocytes # (A) 0.6 k/uL (1.0-4.8); Lymphocytes % (A) 4 %; MCH 29.8 pg (25.0-35.0); MCHC 30.4 g/dL (31.0-37.0); MCV 98.1 fL (80.0-100.0); Mean Platelet Volume 7.1; Monocytes # (A) 0.4 k/uL (0-1.0); Monocytes % (A) 3 %; Neutrophils % (A) 91 %; Platelet Count 480 k/uL (150-450); RBC 3.85 m/uL (3.80-5.40); RDW 15.2 % (11.5-15.5); WBC 14.3 k/uL (3.8-10.6)
--- NOTE | 2020-12-05 14:14 | IR ---
PICC LINE PLACEMENT: HISTORY: Infection requiring long-term antibiotic therapy PROCEDURE: Ultrasound and fluoroscopic guidance of PICC line placement. COMPLICATIONS: None ANESTHESIA: 1. 1% Lidocaine locally. FINDINGS/TECHNIQUE: The procedure was explained to the patient. The risks, complications, benefits and alternatives were discussed and any questions were answered. Informed consent was obtained. The patient was placed supine on the fluoroscopic table and prepped and draped in the usual sterile fash ion. Utilizing a 21 gauge needle and sonographic and fluoroscopic guidance, access in the left basi lic vein was achieved and there is placement of a 0.018 guidewire. The vein is patent. A 4-F sheath was placed over the guidewire. The guidewire and dilator were removed and a 4-F. PICC line was plac ed through the sheath with the tip at the level of the SVC. The sheath was removed, the catheter was flushed and sutured into position. The patient was stable throughout the procedure and remained sta ble upon discharge from the Department of Radiology. The vein puncture was patent under ultrasound. A bazan scale image was obtained to document patency of the vein punctured. All elements of the maximal barrier technique were utilized. FLUOROSCOPY TIME: 0.3 minutes and one images submitted IMPRESSION: Successful PICC line placement under ultrasound and fluoroscopic guidance.
[2020-12-05 14:57] LABS: Magnesium 2.1 mg/dL (1.6-2.3); Phosphorus 2.6 mg/dL (2.5-4.5)
[2020-12-05] MEDS ORDERED: MVI, ADULT NO.4 WITH VIT K 10 ML, TRACE (CONC-1ML/DOSE) 1 ML in AMINO ACID 5%-D20W+LYTE... IV SCH ×3 (16:00)
[2020-12-05 16:32] LABS: Glucose,Whole Blood 208 mg/dL (75-99)
[2020-12-05] MEDS: ZOLPIDEM 5 MG TAB PO SCH (20:07)
[2020-12-05] MEDS: ATORVASTATIN 40 MG TAB PO SCH (20:07)
[2020-12-05] MEDS: INSULIN DETEMIR (LEVEMIR) 100 UNIT/ML SYR SQ SCH (21:52)
[2020-12-05] MEDS ORDERED: traMADol 50 MG TAB ONE (23:15)
[2020-12-06] MEDS ORDERED: INSULIN ASPART (NovoLOG) 100 UNIT/ML VIAL SQ ONE
[2020-12-06] MEDS ORDERED: KETOROLAC 15 MG/ML 1 ML VIAL ONE (03:00)
[2020-12-06 05:37] LABS: Glucose,Whole Blood 243 mg/dL (75-99)
[2020-12-06] MEDS: INSULIN ASPART (NovoLOG) 100 UNIT/ML VIAL SQ SCH ×4 (06:02→17:33)
[2020-12-06] MEDS: PIPERACILLIN-TAZOBACTAM 3.375 GM in SODIUM CHLORIDE 0.9% 100 ML IVPB SCH ×3 (06:02→15:56)
[2020-12-06] MEDS: metroNIDAZOLE-NS PMX 500 MG in SALINE 1 100ML.BAG IVPB SCH ×3 (06:02→15:55)
[2020-12-06] MEDS: SODIUM CHLORIDE 0.9% 1,000 ML IV SCH ×2 (06:02→10:08)
[2020-12-06] MEDS: KETOROLAC 15 MG/ML 1 ML VIAL IVP SCH ×4 (06:03→21:11)
[2020-12-06 06:15] LABS: Glucose,Whole Blood 253 mg/dL (75-99)
[2020-12-06] MEDS: traMADol 50 MG TAB PO PRN (06:26)
[2020-12-06] MEDS: LEVOTHYROXINE IVP 100 MCG/5 ML VIAL IV SCH (06:27)
[2020-12-06] MEDS: BENZOCAINE/MENTHOL LOZENG 1 EACH LOZENGE MUCOUS MEM PRN (06:29)
[2020-12-06 07:19] LABS: Basophils # (A) 0.1 k/uL (0-0.2); Basophils % (A) 0 %; Eosinophils # (A) 0.1 k/uL (0-0.7); Eosinophils % (A) 1 %; HCT 37.1 % (34.0-46.0); HGB 11.3 gm/dL (11.4-16.0); Hypochromasia Moderate; Lymphocytes # (A) 0.6 k/uL (1.0-4.8); Lymphocytes % (A) 4 %; MCH 29.5 pg (25.0-35.0); MCHC 30.6 g/dL (31.0-37.0); MCV 96.4 fL (80.0-100.0); Mean Platelet Volume 7.1; Monocytes # (A) 0.5 k/uL (0-1.0); Monocytes % (A) 3 %; Neutrophils # (A) 13.6 k/uL (1.3-7.7); Neutrophils % (A) 91 %; Platelet Count 496 k/uL (150-450); RBC 3.85 m/uL (3.80-5.40); RDW 15.2 % (11.5-15.5); WBC 14.9 k/uL (3.8-10.6)
[2020-12-06] MEDS: FORMOTEROL FUMARATE 20 MCG/2 ML NEBU INHALATION SCH ×2 (07:26→19:30)
[2020-12-06] MEDS: IPRATROPIUM-ALBUTEROL 3 ML NEB INHALATION SCH ×3 (07:26→19:30)
[2020-12-06] MEDS: BUDESONIDE 1 MG/2 ML NEBU INHALATION SCH ×2 (07:26→19:30)
[2020-12-06 09:33] LABS: African American GFR (CKD) 66.6 (60.0-200.0); Anion Gap 7.9 mmol/L (4.00-12.00); Calcium 8.5 mg/dL (8.7-10.3); Carbon Dioxide 32.1 mmol/L (21.6-31.8); Magnesium 2.1 mg/dL (1.5-2.4); Non-African American GFR(CKD) 57.4 (60.0-200.0); Phosphorus 1.8 mg/dL (2.4-5.1); Potassium 3.6 mmol/L (3.5-5.5)
[2020-12-06] MEDS: PANTOPRAZOLE 40 MG/10 ML VIAL IVP SCH (10:05)
[2020-12-06] MEDS: bisacodyL 10 MG SUPP RECTAL SCH (10:07)
[2020-12-06] MEDS: FAT EMULSION 20% 250 ML in EMPTY BAG 1 BAG IV SCH (10:07)
[2020-12-06] MEDS: ENOXAPARIN 40 MG/0.4 ML SYRINGE SQ SCH (10:08)
--- NOTE | 2020-12-06 10:42 | P.PN ---
Subjective Progress Note Date: 12/06/20 70-year-old patient, brought in by EMS, on November 28. She was seen by Dr. Luis Enrique Murillo in the emergency department. She has a history of diabetes mellitus, CHF, chronic kidney disease, multiple abdominal hernia repairs, with mesh, and severe COPD. Her FEV1 is 0.92 L which is 41% of predicted. She sees my partner in the office for her COPD. She also suffers from chronic hypoxemic respiratory failure, and does use oxygen 24/. She apparently recently has had multiple episodes of nonbloody nonbilious emesis, as well as watery diarrhea, for one week. She apparently was evaluated and found on computed tomography scan, to have a colonic lesion, consistent with colon cancer. I was consulted for preop clearance. We saw her right before she went off to surgery. She is chronically on oxygen therapy at 3 L as mentioned above. The patient was having surgery with Dr. Clay Healy. Basically, she tells me that her COPD much at baseline. I did mention to her that she may end up in the intensive care unit after surgery. Also, based on the FEV1 alone, without the MVV, or RV/TLC ratio, the patient's at moderately increased operative risk from general anesthesia. White count 11.1, hemoglobin 13, hematocrit 40.6, platelet count 529,000, sodium 137, potassium 4.3, chlorides 100, CO2 32, anion gap 5, BUN 26, and creatinine 1.45. There was no chest x-ray to review. The patient is seen today 11/30/2020 in follow-up on the regular medical floor. She is currently resting quite comfortably in bed. Awake and alert in no acute distress. Nasogastric tube is secured in place. Maintaining O2 saturations in the 90s on 6 L/m per nasal cannula. White count 10.6. Hemoglobin 12.6. Sodium 137. Potassium 4.8. Creatinine 1.50. She is maintained on Symbicort and DuoNeb inhalations. Anticoagulated with Lovenox. The patient is seen today 12/01/2020 in follow-up on the regular medical floor. She is awake and alert in no acute distress. Resting comfortably in bed. Nasogastric tube remains in place. This is postoperative day #2. She remains on Zosyn and Flagyl. Maintaining O2 saturation in the 90s on 4 L/m per nasal cannula. She was requesting breathing treatments during the night for some increasing shortness of breath. Working well with the incentive spirometer. White count 10.2. Hemoglobin 10.9. Sodium 141. Potassium 4.5. Creatinine 1.3. 12/02/2020 the patient is being seen for a follow-up. The patient is postop day #3 and the patient underwent resection of the right colonic mass and secondary bowel obstruction. The patient has an NG tube in place. The patient remains covered with a combination of Zosyn and Flagyl. Doing well. Using incentive spirometer. No significant respiratory difficulties. Currently on oxygen at 4 L per minute nasal cannula. The pain is under adequate control. The patient is on DuoNeb nebulized treatments around the clock and the patient is receiving Dilaudid for pain control 1 mg every 3 hours IV. IV fluids are running with normal saline at the rate of 100 mL an hour. NG tube was removed this morning. The patient is passing no gas and she hasn't had any bowel movements yet. Nevertheless, she has decent bowel sounds. JOHN drains in place. Output is in order of minimal amount in the order of 10 mL serosanguineous. The patient was up on a chair and she is gradually getting stronger. Antibiotic coverage is same. Oxygen is at 5 L. On today's evaluation of 12/02/2020, the patient is postop day #4. She is cur rently on 5 L of oxygen by nasal cannula. NG tube was removed yesterday. She is quite comfortable and she is sitting up on a recliner. JOHN drain is in place and output is serosanguineous and it's minimal right now. Bowel sounds are active and the patient on is still nothing by mouth and she's taken only as chips. She is using incentive spirometer which is in front of her all the time. Urine output is adequate. She feels that she is getting stronger. She is on DuoNeb nebulized treatment [id number]. She has adequate pain control with Dilaudid. She is also on examination Zosyn and Flagyl. No fever. No chills. No other significant events overnight. No altered mentation. Patient is passing gas and she is requesting gel low The patient is seen today 12/04/2020 in follow-up. This is postoperative day #5. She is currently sitting up in a chair at the bedside. Maintaining O2 saturations in the 90s on 5 L/m per nasal cannula. She's afebrile. His been having some ongoing discomfort in her abdomen. Nasogastric tube remains in place. Computed tomography scan of the abdomen revealed distended loops of air and fluid filled bowel consistent with ileus similar to compared to previous. No free air. No mechanical bowel obstruction. There were noted basilar consolidation and atelectasis. New pleural effusions. She is working well with the incentive spirometer. Chest x-ray revealed pleural effusions right greater than left. She is continued on bronchodilators, antibiotics in the form of Zosyn and Flagyl. 12/05/2020 the patient is postop day #6. She was able to pass flatus. She was also able to pass a bowel movement. NG tube is still in place and output is in order of 3. Unfortunately, she continues to have popsicles. In terms of oxygen, she is on 6 L and his saturations around 91%. She is feeling slightly more short of breath and she getting incentive spirometer. Chest x-ray that showed some small bilateral pleural effusions. She is on IV fluids currently running at 100 mL an hour. She is also on examination Zosyn and Flagyl. Surgical wound site is clean. The blood work from today showing 12/06/2020 patient seen in follow-up on medical surgical floor, she is leaving, she states she is tired, did not sleep well last night, but denies any respiratory distress, she is currently on 6 L of oxygen her pulse ox of 92%, her oxygen brought down from 10 L earlier today, NG tube remains in place, no abdominal pain, patient states she is starting to pass some gas, but remains on TPN, she is also receiving some popsicles. No nausea, no vomiting, her NG tube output not recorded. She is on antibiotics including Zosyn and Flagyl, she has been afebrile. Lung sounds reveal scattered crackles, but no wheezing. No coughing, no chest discomfort. Patient remains on nebulized treatments Objective - Vital Signs Vital signs: Vital Signs Temp 97.6 F 12/06/20 07:31 Pulse 82 12/06/20 07:50 Resp 18 12/06/20 07:31 BP 171/80 12/06/20 07:31 Pulse Ox 92 L 12/06/20 07:31 Intake & Output 12/05/20 12/06/20 12/06/20 18:59 06:59 18:59 Output Total 40 1100 Balance -40 -1100 Weight 108.862 kg 117 kg Output: Drainage 40 Abdomen 40 Urine 1100 Other: Voiding Method Indwelling Catheter Indwelling Catheter - Exam GENERAL EXAM: Alert, pleasant, 70-year-old white female, on 6 L of oxygen, with a pulse ox of 92%, comfortable in no apparent distress. HEAD: Normocephalic/atraumatic. EYES: Normal reaction of pupils, equal size. Conjunctiva pink, sclera white. NOSE: Clear with pink turbinates. NG tube in place THROAT: No erythema or exudates. NECK: No masses, no JVD, no thyroid enlargement, no adenopathy. CHEST: No chest wall deformity. Symmetrical expansion. LUNGS: Equal air entry with no crackles, wheeze, rhonchi or dullness. CVS: Regular rate and rhythm, normal S1 and S2, no gallops, no murmurs, no rubs ABDOMEN: Soft, nontender. No hepatosplenomegaly, normal bowel sounds, no guarding or rigidity. Incisions clean dry and intact, JOHN drain intact EXTREMITIES: No clubbing, no edema, no cyanosis, 2+ pulses and upper and lower extremities. MUSCULOSKELETAL: Muscle strength and tone normal. SPINE: No scoliosis or deformity SKIN: No rashes CENTRAL NERVOUS SYSTEM: Alert and oriented -3. No focal deficits, tone is normal in all 4 extremities. PSYCHIATRIC: Alert and oriented -3. Appropriate affect. Intact judgment and insight. - Labs CBC & Chem 7: 12/06/20 05:59 12/06/20 05:59 Labs: Abnormal Lab Results - Last 24 Hours (Table) 12/05/20 12/05/20 12/05/20 Range/Units 11:34 11:47 11:47 WBC 14.3 H (3.8-10.6) k/uL Hgb (11.4-16.0) gm/dL MCHC 30.4 L (31.0-37.0) g/dL Plt Count 480 H (150-450) k/uL Neutrophils # 13.0 H (1.3-7.7) k/uL Lymphocytes # 0.6 L (1.0-4.8) k/uL Sodium (135-145) mmol/L Carbon Dioxide (21.6-31.8) mmol/L Est GFR (CKD-EPI)NonAf (60.0-200.0) BUN/Creatinine Ratio (12.00-20.00) Ratio Glucose (70-110) mg/dL POC Glucose (mg/dL) 170 H (75-99) mg/dL Calcium (8.7-10.3) mg/dL Phosphorus (2.4-5.1) mg/dL Triglycerides 188 H (<150) mg/dL 12/05/20 12/06/20 12/06/20 Range/Units 16:31 00:47 05:59 WBC 14.9 H (3.8-10.6) k/uL Hgb 11.3 L (11.4-16.0) gm/dL MCHC 30.6 L (31.0-37.0) g/dL Plt Count 496 H (150-450) k/uL Neutrophils # 13.6 H (1.3-7.7) k/uL Lymphocytes # 0.6 L (1.0-4.8) k/uL Sodium (135-145) mmol/L Carbon Dioxide (21.6-31.8) mmol/L Est GFR (CKD-EPI)NonAf (60.0-200.0) BUN/Creatinine Ratio (12.00-20.00) Ratio Glucose (70-110) mg/dL POC Glucose (mg/dL) 208 H 243 H (75-99) mg/dL Calcium (8.7-10.3) mg/dL Phosphorus (2.4-5.1) mg/dL Triglycerides (<150) mg/dL 12/06/20 12/06/20 Range/Units 05:59 06:12 WBC (3.8-10.6) k/uL Hgb (11.4-16.0) gm/dL MCHC (31.0-37.0) g/dL Plt Count (150-450) k/uL Neutrophils # (1.3-7.7) k/uL Lymphocytes # (1.0-4.8) k/uL Sodium 147 H (135-145) mmol/L Carbon Dioxide 32.1 H (21.6-31.8) mmol/L Est GFR (CKD-EPI)NonAf 57.4 L (60.0-200.0) BUN/Creatinine Ratio 23.00 H (12.00-20.00) Ratio Glucose 262 H (70-110) mg/dL POC Glucose (mg/dL) 253 H (75-99) mg/dL Calcium 8.5 L (8.7-10.3) mg/dL Phosphorus 1.8 L (2.4-5.1) mg/dL Triglycerides (<150) mg/dL Assessment and Plan Plan: Assessment: 1 Acute bowel obstruction, with computed tomography scan showing findings suspicious of a right colonic mass or apple core lesion. Status post resection. Postoperative day #6 The patient had the NG tube in place as the patient is having PICC line insertion and the patient will be started at a later stage on TPN for nutritional support. Otherwise, the surgical wound site is dry clean and intact. The patient on Zosyn and Levaquin. The patient is being monitored along with the surgical team. She has active. Unfortunately she continues to take liquids and popsicles which is increasing her NG output. 2 Severe/stage III, COPD, with an FEV1 that is 0.92 L or 41% of predicted. 3 History of 3 prior abdominal hernia repairs, with mesh placement. 4 History of angina pectoris. 5 History of CHF. 6 History of diabetes mellitus. 7 History of hyperlipidemia. 8 History of essential hypertension. 9 History of sleep apnea syndrome, currently on CPAP. 10 History of hypothyroidism. 11 Prior history of MRSA infection, 2013. 12 Previous history of heavy tobacco use. Plan: Continue medical treatment, continue breathing treatments, wean FiO2, encourage deep breathing and coughing, encouraged the patient to sit up in the chair, switch IV fluids to 0.45 at 75 ML per hour, recheck electrolytes tomorrow, follow up chest x-ray tomorrow, patient remains on antibiotics, vital signs have been stable, no fever or chills. I performed a history & physical examination of the patient and discussed their management with my nurse practitioner, Elodia Sena. I reviewed the nurse practitioner's note and agree with the documented findings and plan of care. Lung sounds are positive for diffuse crackles throughout the lung jarvis. The findings and the impression was discussed with the patient. I attest to the documentation by the nurse practitioner. Time with Patient: Less than 30
[2020-12-06] MEDS: POTASSIUM PHOSPHATE 10 MMOL in SODIUM CHLORIDE 0.9% 100 ML IV SCH ×2 (11:14→13:48)
[2020-12-06] MEDS: SODIUM CHLORIDE 0.45% 1,000 ML IV SCH (11:24)
--- NOTE | 2020-12-06 11:35 | P.PN ---
<TeoChiqui camargo - Last Filed: 12/06/20 11:24> Subjective Progress Note Date: 12/06/20 CHIEF COMPLAINT: Colon obstruction HISTORY OF PRESENT ILLNESS: Patient is status post exploratory laparotomy with right colectomy for obstructing mass of the right colon. Postop day #7. Patient's last bowel movement was 12/04/2020. She is passing gas. Patient reports that her abdominal pain feels better than yesterday. Patient did get Ultram for pain. This morning patient is feeling very tired. She did require to be on 10 L of high flow oxygen through the night was able to come down to 6 L this morning and is now back at 10 L of high flow. Patient denies any cough or worsening shortness of breath. She just reports she is tired. She was unable to use the CPAP due to difficulty with getting a good seal with the NG tube. Patient denies any nausea. There is been no output through the NG tube. She is afebrile. WBC 14.9 Hgb 11.3 platelets 496 sodium 147 creatinine 1.0 phosphorus 1.8 magnesium 2.1 JOHN drain was removed yesterday. PHYSICAL EXAM: VITAL SIGNS: Reviewed. GENERAL: Well-developed in no acute distress. HEENT: No sclera icterus. Extraocular movements grossly intact. Moist buccal mucosa. Head is atraumatic, normocephalic. ABDOMEN: Soft. Nondistended. Incision site clean dry and intact. Minimal tenderness with palpation around incision site NEUROLOGIC: Alert and oriented. Cranial nerves II through XII grossly intact. ASSESSMENT: 1. Obstructing mass of the right colon status post exploratory laparotomy with right colectomy 2. Leukocytosis 3. Ileus 4. Hypophosphatemia being corrected with supplement PLAN: -Keep patient nothing by mouth except for ice chips and popsicles -Continue NG tube for decompression -Continue Dulcolax suppositories daily -Continue pain medication as needed. We'll continue the Toradol and Ultram. IV Dilaudid only for severe breakthrough pain otherwise try to avoid IV narcotics -Encouraged patient to use incentive spirometer -Encouraged patient to increase activity -Continue IV fluid which were adjusted to half normal saline by pulmonary service due to hypernatremia -Continue IV antibiotics -Continue GI prophylaxis Protonix and DVT prophylaxis Lovenox Physician Pig Caster note has been reviewed by physician. Signing provider agrees with the documented findings, assessment, and plan of care. Objective - Vital Signs Vital signs: Vital Signs Temp 97.6 F 12/06/20 07:31 Pulse 82 12/06/20 07:50 Resp 18 12/06/20 07:31 BP 171/80 12/06/20 07:31 Pulse Ox 92 L 12/06/20 07:31 Intake & Output 12/05/20 12/06/20 12/06/20 18:59 06:59 18:59 Intake Total 120 Output Total 40 2400 Balance -40 -2280 Weight 108.862 kg 117 kg Intake: Oral 120 Output: Drainage 40 Abdomen 40 Urine 2400 Other: Voiding Method Indwelling Catheter Indwelling Catheter - Labs CBC & Chem 7: 12/06/20 05:59 12/06/20 05:59 Labs: Abnormal Lab Results - Last 24 Hours (Table) 12/05/20 12/05/20 12/05/20 Range/Units 11:34 11:47 11:47 WBC 14.3 H (3.8-10.6) k/uL Hgb (11.4-16.0) gm/dL MCHC 30.4 L (31.0-37.0) g/dL Plt Count 480 H (150-450) k/uL Neutrophils # 13.0 H (1.3-7.7) k/uL Lymphocytes # 0.6 L (1.0-4.8) k/uL Sodium (135-145) mmol/L Carbon Dioxide (21.6-31.8) mmol/L Est GFR (CKD-EPI)NonAf (60.0-200.0) BUN/Creatinine Ratio (12.00-20.00) Ratio Glucose (70-110) mg/dL POC Glucose (mg/dL) 170 H (75-99) mg/dL Calcium (8.7-10.3) mg/dL Phosphorus (2.4-5.1) mg/dL Triglycerides 188 H (<150) mg/dL 12/05/20 12/06/20 12/06/20 Range/Units 16:31 00:47 05:59 WBC 14.9 H (3.8-10.6) k/uL Hgb 11.3 L (11.4-16.0) gm/dL MCHC 30.6 L (31.0-37.0) g/dL Plt Count 496 H (150-450) k/uL Neutrophils # 13.6 H (1.3-7.7) k/uL Lymphocytes # 0.6 L (1.0-4.8) k/uL Sodium (135-145) mmol/L Carbon Dioxide (21.6-31.8) mmol/L Est GFR (CKD-EPI)NonAf (60.0-200.0) BUN/Creatinine Ratio (12.00-20.00) Ratio Glucose (70-110) mg/dL POC Glucose (mg/dL) 208 H 243 H (75-99) mg/dL Calcium (8.7-10.3) mg/dL Phosphorus (2.4-5.1) mg/dL Triglycerides (<150) mg/dL 12/06/20 12/06/20 Range/Units 05:59 06:12 WBC (3.8-10.6) k/uL Hgb (11.4-16.0) gm/dL MCHC (31.0-37.0) g/dL Plt Count (150-450) k/uL Neutrophils # (1.3-7.7) k/uL Lymphocytes # (1.0-4.8) k/uL Sodium 147 H (135-145) mmol/L Carbon Dioxide 32.1 H (21.6-31.8) mmol/L Est GFR (CKD-EPI)NonAf 57.4 L (60.0-200.0) BUN/Creatinine Ratio 23.00 H (12.00-20.00) Ratio Glucose 262 H (70-110) mg/dL POC Glucose (mg/dL) 253 H (75-99) mg/dL Calcium 8.5 L (8.7-10.3) mg/dL Phosphorus 1.8 L (2.4-5.1) mg/dL Triglycerides (<150) mg/dL <Clay Healy - Last Filed: 12/06/20 14:31> Subjective As above. Patient did not sleep well last night she states. She says her pain is the same or worse today. White blood cell count remains 14. She is afebrile. No tachycardia. Will order CT abdomen and pelvis with rectal contrast at this time to reevaluate the anastomotic site once again. Resume analgesics in the form of Dilaudid. Discussed case with the patient and her son in detail. Objective - Vital Signs Vital signs: Vital Signs Temp 97.9 F 12/06/20 13:21 Pulse 80 12/06/20 13:21 Resp 18 12/06/20 13:21 BP 122/73 12/06/20 13:21 Pulse Ox 90 L 12/06/20 13:21 Intake & Output 12/05/20 12/06/20 12/06/20 18:59 06:59 18:59 Intake Total 120 Output Total 40 250 2400 Balance -40 -250 -2280 Weight 108.862 kg 117 kg 117 kg Intake: Oral 120 Output: Gastric Drainage 250 Drainage 40 Abdomen 40 Urine 2400 Other: Voiding Method Indwelling Catheter Indwelling Catheter - Labs CBC & Chem 7: 12/06/20 05:59 12/06/20 05:59 Labs: Abnormal Lab Results - Last 24 Hours (Table) 12/05/20 12/05/20 12/06/20 Range/Units 11:47 16:31 00:47 WBC (3.8-10.6) k/uL Hgb (11.4-16.0) gm/dL MCHC (31.0-37.0) g/dL Plt Count (150-450) k/uL Neutrophils # (1.3-7.7) k/uL Lymphocytes # (1.0-4.8) k/uL Sodium (135-145) mmol/L Carbon Dioxide (21.6-31.8) mmol/L Est GFR (CKD-EPI)NonAf (60.0-200.0) BUN/Creatinine Ratio (12.00-20.00) Ratio Glucose (70-110) mg/dL POC Glucose (mg/dL) 208 H 243 H (75-99) mg/dL Calcium (8.7-10.3) mg/dL Phosphorus (2.4-5.1) mg/dL Triglycerides 188 H (<150) mg/dL 12/06/20 12/06/20 12/06/20 Range/Units 05:59 05:59 06:12 WBC 14.9 H (3.8-10.6) k/uL Hgb 11.3 L (11.4-16.0) gm/dL MCHC 30.6 L (31.0-37.0) g/dL Plt Count 496 H (150-450) k/uL Neutrophils # 13.6 H (1.3-7.7) k/uL Lymphocytes # 0.6 L (1.0-4.8) k/uL Sodium 147 H (135-145) mmol/L Carbon Dioxide 32.1 H (21.6-31.8) mmol/L Est GFR (CKD-EPI)NonAf 57.4 L (60.0-200.0) BUN/Creatinine Ratio 23.00 H (12.00-20.00) Ratio Glucose 262 H (70-110) mg/dL POC Glucose (mg/dL) 253 H (75-99) mg/dL Calcium 8.5 L (8.7-10.3) mg/dL Phosphorus 1.8 L (2.4-5.1) mg/dL Triglycerides (<150) mg/dL 12/06/20 Range/Units 11:40 WBC (3.8-10.6) k/uL Hgb (11.4-16.0) gm/dL MCHC (31.0-37.0) g/dL Plt Count (150-450) k/uL Neutrophils # (1.3-7.7) k/uL Lymphocytes # (1.0-4.8) k/uL Sodium (135-145) mmol/L Carbon Dioxide (21.6-31.8) mmol/L Est GFR (CKD-EPI)NonAf (60.0-200.0) BUN/Creatinine Ratio (12.00-20.00) Ratio Glucose (70-110) mg/dL POC Glucose (mg/dL) 295 H (75-99) mg/dL Calcium (8.7-10.3) mg/dL Phosphorus (2.4-5.1) mg/dL Triglycerides (<150) mg/dL Assessment and Plan (1) Bowel obstruction Current Visit: Yes Status: Acute Code(s): K56.609 - UNSP INTESTNL OBST, UNSP TO PARTIAL VERSUS COMPLETE OBST SNOMED Code(s): 23935924
[2020-12-06 11:44] LABS: Glucose,Whole Blood 295 mg/dL (75-99)
[2020-12-06] MEDS: HYDROmorphone 1 MG/ML 1 ML SYRINGE IVP PRN (13:54)
--- NOTE | 2020-12-06 15:18 | CT ---
EXAMINATION TYPE: CT abdomen pelvis wo con DATE OF EXAM: 12/06/2020 COMPARISON: 12/04/2020 HISTORY: Post bowel resection x 1 week. No BM since. Abdominal pain. CT DLP: 1728.4 mGycm Examination of the solid and hollow viscera is limited given the lack of contrast. Rectal contrast wa s administered. FINDINGS: LUNG BASES: Basilar atelectasis and/or infiltrate persists. LIVER/GB: The gallbladder is unremarkable. No space-occupying hepatic lesion. PANCREAS: No pancreatic mass identified. No inflammatory process seen. SPLEEN: No evidence for splenomegaly. No intrasplenic lesions seen. ADRENALS: No adrenal nodules identified. No evidence for thickening. KIDNEYS: No evidence for renal mass. No nephrolithiasis. No hydronephrosis. Barkley catheter is in plac e. BOWEL: There has been partial right hemicolectomy with an anastomosis noted in the region of the prox imal to mid transverse colon. Contrast was instilled in a retrograde manner with filling of the rectu m, sigmoid colon descending colon, remaining transverse colon with reflux into the anastomotic small bowel. NG tube is seen coursing into the stomach. No evidence for free air. Anterior skin danielle are partially imaged. No evidence for abscess or leak. Lymph nodes: No evidence for adenopathy greater than 1 cm. Abdominal aorta: Atheromatous changes seen. No evidence for aneurysm. Genital organs: No significant abnormality. Other: No significant abnormality. IMPRESSION: 1. No evidence for colonic obstruction or leak at the anastomotic site. Contrast is noted to extend i nto the anastomotic small bowel. No evidence for leak or abscess. No free air. 2. Basilar atelectasis and/or infiltrates.
--- NOTE | 2020-12-06 15:28 | P.PN ---
Progress Note - Text Progress Note Date: 12/06/20 Patient went for her CAT scan with rectal contrast. CAT scan shows no evidence of leak or obstruction. Discussed case with the patient and her son again. Keep nasogastric tube to suction. Continue TPN. We'll start a fentanyl [employer] at this point. Exact etiology for the patient's persistent discomfort unclear. We will watch closely.
[2020-12-06] MEDS ORDERED: fentaNYL PCA 500 MCG/50 ML BAG IV PRN (16:00)
--- NOTE | 2020-12-06 16:07 | P.PN ---
Subjective Progress Note Date: 12/05/20 Principal diagnosis: Acute small bowel obstruction : November 29: Right hemicolectomy for a distal ascending colon mass. Ms. Batista is a 70-year-old female with a past medical history of CHF, diabetes, hypertension, hyperlipidemia, TRUDI, hypothyroidism on 2 L of home oxygen who was transferred from [facility] for small bowel obstruction. Patient underwent exploratory laparotomy on November 29 and she had a right colectomy for obstructing right distal colonic mass. On 12/05/2020 - patient was seen and examined at the bedside. As per discussion with nursing staff patient was able to have a bowel movement. She still has NG tube to suction. She is currently having Popsicle every 3 hours for comfort. She complains of mild difficulty in breathing. Patient was also complaining nausea at the time of exam. On reviewing her vitals temperature of 97.6, heart rate 80, respiratory rate 17, blood pressure 1 33 x 61, saturating at 92% on 6 L of nasal cannula. On reviewing labs white count of 14.3, hemoglobin 11.5, platelets 43. Sodium 142, depression 3.8, chloride 107, bicarb 30, BUN 24, creatinine 1.03. Active Medications Albuterol/Ipratropium (Ipratropium-Albuterol 3 Ml Neb) 3 ml INHALATION RT-TID [facility] Last Admin: 12/05/20 19:33 Dose: 3 ml Documented by: Albuterol/Ipratropium (Ipratropium-Albuterol 3 Ml Neb) 3 ml INHALATION RT-Q1H PRN PRN Reason: Shortness Of Breath Or Wheezing Last Admin: 12/04/20 16:38 Dose: 3 ml Documented by: Atorvastatin Calcium (Atorvastatin 40 Mg Tab) 40 mg PO HS [facility] Last Admin: 12/05/20 20:07 Dose: 40 mg Documented by: Benzocaine (Benzocaine Blackwell 1 Can) 1 spray MUCOUS MEM QID PRN PRN Reason: Mouth Irritation Benzocaine/Menthol (Benzocaine/Menthol Lozeng 1 Each Lozenge) 1 each MUCOUS MEM Q4HR PRN PRN Reason: Sore Throat Last Admin: 12/05/20 17:56 Dose: 1 each Documented by: Bisacodyl (Bisacodyl 10 Mg Supp) 10 mg RECTAL DAILY [facility] Last Admin: 12/05/20 09:00 Dose: 10 mg Documented by: Budesonide (Budesonide 1 Mg/2 Ml Nebu) 1 mg INHALATION RT-BID [facility] Last Admin: 12/05/20 19:32 Dose: 1 mg Documented by: Enoxaparin Sodium (Enoxaparin 40 Mg/0.4 Ml Syringe) 40 mg SQ DAILY [facility] Last Admin: 12/05/20 04:45 Dose: Not Given Documented by: Formoterol Fumarate (Formoterol Fumarate 20 Mcg/2 Ml Nebu) 20 mcg INHALATION RT-BID [facility] Last Admin: 12/05/20 19:32 Dose: 20 mcg Documented by: Hydromorphone HCl (Hydromorphone 1 Mg/Ml 1 Ml Syringe) 1 mg IVP Q3HR PRN PRN Reason: Pain Last Admin: 12/05/20 06:19 Dose: 1 mg Documented by: Piperacillin Sod/Tazobactam (Sod 3.375 gm/ Sodium Chloride) 100 mls @ 25 mls/hr IVPB Q8HR [facility] Last Admin: 12/05/20 17:20 Dose: 25 mls/hr Documented by: Metronidazole 500 mg/ IV (Solution) 100 mls @ 100 mls/hr IVPB Q8HR [facility] Last Admin: 12/05/20 17:20 Dose: 100 mls/hr Documented by: Sodium Chloride (Saline 0.9%) 1,000 mls @ 100 mls/hr IV .Q10H [facility] Last Admin: 12/05/20 14:46 Dose: 100 mls/hr Documented by: Parenteral Vitamin Supplement 10 ml/ Zinc/Copper/Manganese/Selenium 1 ml/ Amino Ac/Electrol/Dextrose/Calcium 1,011 mls @ 30 mls/hr IV .Q24H [facility] Stop: 12/06/20 12:00 Last Admin: 12/05/20 17:21 Dose: 30 mls/hr Documented by: Fat Emulsion Intravenous 250 (ml/ IV Solution) 250 mls @ 21 mls/hr IV MoWeFr [facility] Parenteral Vitamin Supplement 10 ml/ Zinc/Copper/Manganese/Selenium 1 ml/ Amino Ac/Electrol/Dextrose/Calcium 1,011 mls @ 85 mls/hr IV .BY DURATION [facility] Amino Ac/Electrol/Dextrose/Calcium (Clinimix E 5%-20% Solution) 1,000 mls @ 85 mls/hr IV .BY DURATION [facility] Insulin Aspart (Insulin Aspart (Novolog) 100 Unit/Ml Vial) 0 unit SQ Q6HR [facility]; Protocol Last Admin: 12/05/20 17:35 Dose: 4 unit Documented by: Insulin Detemir (Insulin Detemir (Levemir) 100 Unit/Ml Syr) 20 unit SQ [facility] Last Admin: 12/05/20 21:52 Dose: Not Given Documented by: Ketorolac Tromethamine (Ketorolac 15 Mg/Ml 1 Ml Vial) 15 mg IVP Q6H [facility] Stop: 12/08/20 15:01 Last Admin: 12/05/20 20:07 Dose: 15 mg Documented by: Levothyroxine Sodium (Levothyroxine Ivp 100 Mcg/5 Ml Vial) 75 mcg IV Q48H [facility] Levothyroxine Sodium (Levothyroxine Ivp 100 Mcg/5 Ml Vial) 68.5 mcg IV Q48H [facility] Naloxone HCl (Naloxone 0.4 Mg/Ml 1 Ml Vial) 0.2 mg IV Q2M PRN PRN Reason: Opioid Reversal Ondansetron HCl (Ondansetron 4 Mg/2 Ml Vial) 4 mg IVP Q8HR PRN PRN Reason: Nausea And Vomiting Last Admin: 12/05/20 08:03 Dose: 4 mg Documented by: Pantoprazole Sodium (Pantoprazole 40 Mg/10 Ml Vial) 40 mg IVP DAILY [facility] Last Admin: 12/05/20 09:00 Dose: 40 mg Documented by: Tramadol HCl (Tramadol 50 Mg Tab) 50 mg PO Q6H PRN PRN Reason: Breakthrough Pain Last Admin: 12/03/20 20:13 Dose: 50 mg Documented by: Zolpidem Tartrate (Zolpidem 5 Mg Tab) 5 mg PO [facility] Last Admin: 12/05/20 20:07 Dose: 5 mg Documented by: Objective - Vital Signs Vital signs: Vital Signs Temp 94.6 F L 12/05/20 12:19 Pulse 90 12/05/20 12:19 Resp 15 12/05/20 07:16 BP 126/66 12/05/20 12:19 Pulse Ox 92 L 12/05/20 12:19 Intake & Output 12/04/20 12/05/20 12/05/20 18:59 06:59 18:59 Output Total 1010 625 Balance -1010 -625 Weight 108.862 kg Output: Drainage 10 Abdomen 10 Urine 1000 625 Other: Voiding Method Indwelling Catheter Indwelling Catheter Indwelling Catheter # Bowel Movements 1 - Exam Physical examination: GENERAL: Reclining in bed, tired, awake, patient's son at bedside. EYES: Pupils equal. Conjunctiva normal. HEENT: External appearance of nose and ears normal, oral cavity -dry. NG tube- to suction NECK: JVD not raised; masses not palpable. HEART: First and second heart sounds are normal; no edema. LUNGS: Respiratory rate increased, decreased breath sounds. ABDOMEN: Soft, mild abdominal tenderness, dressing in place, no guarding rigi dity, absent bowel sounds multiple scars on the abdomen, liver spleen not palpable, no masses palpable. JOHN drain. Sluggish bowel sounds MUSCULAR skeletal: Evidence of OA especially in the hands PSYCH: Alert and oriented x3; mood and affect anxious. - Labs CBC & Chem 7: 12/06/20 05:59 12/06/20 05:59 Labs: Abnormal Lab Results - Last 24 Hours (Table) 12/04/20 12/04/20 12/05/20 Range/Units 16:24 23:48 05:48 WBC (3.8-10.6) k/uL MCHC (31.0-37.0) g/dL Plt Count (150-450) k/uL Neutrophils # (1.3-7.7) k/uL Lymphocytes # (1.0-4.8) k/uL BUN (7-17) mg/dL Glucose (74-99) mg/dL POC Glucose (mg/dL) 172 H 145 H 161 H (75-99) mg/dL Calcium (8.4-10.2) mg/dL 12/05/20 12/05/20 12/05/20 Range/Units 06:21 06:57 11:34 WBC (3.8-10.6) k/uL MCHC (31.0-37.0) g/dL Plt Count (150-450) k/uL Neutrophils # (1.3-7.7) k/uL Lymphocytes # (1.0-4.8) k/uL BUN 24 H (7-17) mg/dL Glucose 167 H (74-99) mg/dL POC Glucose (mg/dL) 156 H 170 H (75-99) mg/dL Calcium 7.9 L (8.4-10.2) mg/dL 12/05/20 Range/Units 11:47 WBC 14.3 H (3.8-10.6) k/uL MCHC 30.4 L (31.0-37.0) g/dL Plt Count 480 H (150-450) k/uL Neutrophils # 13.0 H (1.3-7.7) k/uL Lymphocytes # 0.6 L (1.0-4.8) k/uL BUN (7-17) mg/dL Glucose (74-99) mg/dL POC Glucose (mg/dL) (75-99) mg/dL Calcium (8.4-10.2) mg/dL Assessment and Plan Assessment: ASSESSMENT Acute small bowel obstruction Status post right hemicolectomy for distal ascending colonic mass Hepatitis mellitus Acute on chronic hypoxic respiratory failure Hypertension Hyperlipidemia Chronic urinary stress incontinence Hypothyroidism Morbid obesity with BMI of 45.7 CHF ejection fraction unknown Obstructive sleep apnea PLAN: She is postoperative day 5, patient has NG tube to suction. She is being continued on antibiotics in the form of Zosyn and Levaquin. She just had a PICC line placed and being started on TPN for nutritional support. Patient is requiring 6 L of oxygen to maintain sats above 90%. Continue with breathing treatments. Continue with IV Protonix for GI prophylaxis. Lovenox for DVT prophylaxis. Overall prognosis is guarded. Further admonitions to follow de pending on the progress of the patient. The treatment plan was discussed with her son at bedside in detail.
--- NOTE | 2020-12-06 16:13 | P.PN ---
Subjective Progress Note Date: 12/06/20 Principal diagnosis: Acute small bowel obstruction : November 29: Right hemicolectomy for a distal ascending colon mass. Ms. Batista is a 70-year-old female with a past medical history of CHF, diabetes, hypertension, hyperlipidemia, TRUDI, hypothyroidism on 2 L of home oxygen who was transferred from [facility] for small bowel obstruction. Patient underwent exploratory laparotomy on November 29 and she had a right colectomy for obstructing right distal colonic mass. On 12/05/2020 - patient was seen and examined at the bedside. As per discussion with nursing staff patient was able to have a bowel movement. She still has NG tube to suction. She is currently having Popsicle every 3 hours for comfort. She complains of mild difficulty in breathing. Patient was also complaining nausea at the time of exam. On reviewing her vitals temperature of 97.6, heart rate 80, respiratory rate 17, blood pressure 1 33 x 61, saturating at 92% on 6 L of nasal cannula. On reviewing labs white count of 14.3, hemoglobin 11.5, platelets 43. Sodium 142, depression 3.8, chloride 107, bicarb 30, BUN 24, creatinine 1.03. On 12/06/2020 - patient was seen and examined at the bedside. Patient just got her pain medication and is resting comfortably. She denies having any chest pain or palpitations. She continues to be on 6 L of oxygen and maintaining her sats above 90%. Afebrile for the past 24 hours, blood pressure 1 33 x 61. On reviewing her labs white count 14.9, hemoglobin 11.3, platelets 496. Sodium 147. Potassium 3.6, chloride 107, bicarb 32, BUN 23, creatinine 1.0. Blood sugars continue to be between 200-250. Active Medications Albuterol/Ipratropium (Ipratropium-Albuterol 3 Ml Neb) 3 ml INHALATION RT-TID SPENCER Last Admin: 12/06/20 11:41 Dose: 3 ml Documented by: Albuterol/Ipratropium (Ipratropium-Albuterol 3 Ml Neb) 3 ml INHALATION RT-Q1H PRN PRN Reason: Shortness Of Breath Or Wheezing Last Admin: 12/04/20 16:38 Dose: 3 ml Documented by: Atorvastatin Calcium (Atorvastatin 40 Mg Tab) 40 mg PO HS SPENCER Last Admin: 12/05/20 20:07 Dose: 40 mg Documented by: Benzocaine (Benzocaine Cadott 1 Can) 1 spray MUCOUS MEM QID PRN PRN Reason: Mouth Irritation Benzocaine/Menthol (Benzocaine/Menthol Lozeng 1 Each Lozenge) 1 each MUCOUS MEM Q4HR PRN PRN Reason: Sore Throat Last Admin: 12/06/20 06:29 Dose: 1 each Documented by: Bisacodyl (Bisacodyl 10 Mg Supp) 10 mg RECTAL DAILY [facility] Last Admin: 12/06/20 10:07 Dose: 10 mg Documented by: Budesonide (Budesonide 1 Mg/2 Ml Nebu) 1 mg INHALATION RT-BID [facility] Last Admin: 12/06/20 07:26 Dose: 1 mg Documented by: Enoxaparin Sodium (Enoxaparin 40 Mg/0.4 Ml Syringe) 40 mg SQ DAILY [facility] Last Admin: 12/06/20 10:08 Dose: 40 mg Documented by: Fentanyl Citrate (Fentanyl Bi Tri Operator 500 Mcg/50 Ml Bag) 500 mcg IV PER PROTOCOL PRN; Protocol PRN Reason: Pain Control Formoterol Fumarate (Formoterol Fumarate 20 Mcg/2 Ml Nebu) 20 mcg INHALATION RT-BID [facility] Last Admin: 12/06/20 07:26 Dose: 20 mcg Documented by: Hydromorphone HCl (Hydromorphone 1 Mg/Ml 1 Ml Syringe) 1 mg IVP Q3HR PRN PRN Reason: Pain Last Admin: 12/06/20 13:54 Dose: 1 mg Documented by: Piperacillin Sod/Tazobactam (Sod 3.375 gm/ Sodium Chloride) 100 mls @ 25 mls/hr IVPB Q8HR [facility] Last Admin: 12/06/20 15:56 Dose: 25 mls/hr Documented by: Metronidazole 500 mg/ IV (Solution) 100 mls @ 100 mls/hr IVPB Q8HR [facility] Last Admin: 12/06/20 15:55 Dose: 100 mls/hr Documented by: Fat Emulsion Intravenous 250 (ml/ IV Solution) 250 mls @ 21 mls/hr IV MoWeFr [facility] Last Admin: 12/06/20 10:07 Dose: 21 mls/hr Documented by: Parenteral Vitamin Supplement 10 ml/ Zinc/Copper/Manganese/Selenium 1 ml/ Amino Ac/Electrol/Dextrose/Calcium 1,011 mls @ 85 mls/hr IV .BY DURATION [facility] Amino Ac/Electrol/Dextrose/Calcium (Clinimix E 5%-20% Solution) 1,000 mls @ 85 mls/hr IV .BY DURATION [facility] Sodium Chloride (Saline 0.45%) 1,000 mls @ 75 mls/hr IV .[id number] [facility] Last Admin: 12/06/20 11:24 Dose: 75 mls/hr Documented by: Insulin Aspart (Insulin Aspart (Novolog) 100 Unit/Ml Vial) 0 unit SQ Q6HR [facility]; Protocol Last Admin: 12/06/20 12:40 Dose: 7 unit Documented by: Insulin Detemir (Insulin Detemir (Levemir) 100 Unit/Ml Syr) 20 unit SQ [facility] Last Admin: 12/05/20 21:52 Dose: Not Given Documented by: Ketorolac Tromethamine (Ketorolac 15 Mg/Ml 1 Ml Vial) 15 mg IVP Q6H [facility] Stop: 12/08/20 15:01 Last Admin: 12/06/20 15:08 Dose: 15 mg Documented by: Levothyroxine Sodium (Levothyroxine Ivp 100 Mcg/5 Ml Vial) 75 mcg IV Q48H [facility] Last Admin: 12/06/20 06:27 Dose: 75 mcg Documented by: Levothyroxine Sodium (Levothyroxine Ivp 100 Mcg/5 Ml Vial) 68.5 mcg IV Q48H [facility] Naloxone HCl (Naloxone 0.4 Mg/Ml 1 Ml Vial) 0.2 mg IV Q2M PRN PRN Reason: Opioid Reversal Ondansetron HCl (Ondansetron 4 Mg/2 Ml Vial) 4 mg IVP Q8HR PRN PRN Reason: Nausea And Vomiting Last Admin: 12/05/20 08:03 Dose: 4 mg Documented by: Pantoprazole Sodium (Pantoprazole 40 Mg/10 Ml Vial) 40 mg IVP DAILY [facility] Last Admin: 12/06/20 10:05 Dose: 40 mg Documented by: Tramadol HCl (Tramadol 50 Mg Tab) 50 mg PO Q6H PRN PRN Reason: Breakthrough Pain Last Admin: 12/06/20 06:26 Dose: 50 mg Documented by: Zolpidem Tartrate (Zolpidem 5 Mg Tab) 5 mg PO [facility] Last Admin: 12/05/20 20:07 Dose: 5 mg Documented by: Objective - Vital Signs Vital signs: Vital Signs Temp 97.9 F 12/06/20 13:21 Pulse 80 12/06/20 13:21 Resp 18 12/06/20 13:21 BP 122/73 12/06/20 13:21 Pulse Ox 90 L 12/06/20 13:21 Intake & Output 12/05/20 12/06/20 12/06/20 18:59 06:59 18:59 Intake Total 240 Output Total 40 250 3325 Balance -40 -250 -3080 Weight 108.862 kg 117 kg 117 kg Intake: Oral 240 Output: Gastric Drainage 250 Drainage 40 Abdomen 40 Urine 3325 Other: Voiding Method Indwelling Catheter Indwelling Catheter - Exam Physical examination: GENERAL: Reclining in bed, tired, awake EYES: Pupils equal. Conjunctiva normal. HEENT: External appearance of nose and ears normal, oral cavity -dry. NG tube- to suction NECK: JVD not raised; masses not palpable. HEART: First and second heart sounds are normal; no edema. LUNGS: Respiratory rate increased, decreased breath sounds. ABDOMEN: Soft, mild abdominal tenderness, dressing in place, no guarding rigidity, absent bowel sounds multiple scars on the abdomen, liver spleen not palpable, no masses palpable. JOHN drain. Sluggish bowel sounds MUSCULAR skeletal: Evidence of OA especially in the hands PSYCH: Alert and oriented x3; mood and affect anxious. - Labs CBC & Chem 7: 12/06/20 05:59 12/06/20 05:59 Labs: Abnormal Lab Results - Last 24 Hours (Table) 12/05/20 12/06/20 12/06/20 Range/Units 16:31 00:47 05:59 WBC 14.9 H (3.8-10.6) k/uL Hgb 11.3 L (11.4-16.0) gm/dL MCHC 30.6 L (31.0-37.0) g/dL Plt Count 496 H (150-450) k/uL Neutrophils # 13.6 H (1.3-7.7) k/uL Lymphocytes # 0.6 L (1.0-4.8) k/uL Sodium (135-145) mmol/L Carbon Dioxide (21.6-31.8) mmol/L Est GFR (CKD-EPI)NonAf (60.0-200.0) BUN/Creatinine Ratio (12.00-20.00) Ratio Glucose (70-110) mg/dL POC Glucose (mg/dL) 208 H 243 H (75-99) mg/dL Calcium (8.7-10.3) mg/dL Phosphorus (2.4-5.1) mg/dL 12/06/20 12/06/20 12/06/20 Range/Units 05:59 06:12 11:40 WBC (3.8-10.6) k/uL Hgb (11.4-16.0) gm/dL MCHC (31.0-37.0) g/dL Plt Count (150-450) k/uL Neutrophils # (1.3-7.7) k/uL Lymphocytes # (1.0-4.8) k/uL Sodium 147 H (135-145) mmol/L Carbon Dioxide 32.1 H (21.6-31.8) mmol/L Est GFR (CKD-EPI)NonAf 57.4 L (60.0-200.0) BUN/Creatinine Ratio 23.00 H (12.00-20.00) Ratio Glucose 262 H (70-110) mg/dL POC Glucose (mg/dL) 253 H 295 H (75-99) mg/dL Calcium 8.5 L (8.7-10.3) mg/dL Phosphorus 1.8 L (2.4-5.1) mg/dL Assessment and Plan Assessment: ASSESSMENT Acute small bowel obstruction Status post right hemicolectomy for distal ascending colonic mass - postop day 6 Diabetes mellitus Acute on chronic hypoxic respiratory failure Hypertension Hyperlipidemia Chronic urinary stress incontinence Hypothyroidism Morbid obesity with BMI of 45.7 CHF ejection fraction unknown Obstructive sleep apnea History of 3 prior abdominal hernia repairs with mesh placement PLAN: She is postoperative day #6 today , patient has NG tube to suction. She is being continued on antibiotics in the form of Zosyn and Levaquin. She just had a PICC line placed and started on TPN for nutritional support yesterday. Patient is requiring 6 L of oxygen to maintain sats above 90%. Continue with breathing treatments. Continue with IV Protonix for GI prophylaxis. Lovenox for DVT prophylaxis. Patient encouraged to continue with incentive spirometry. Overall prognosis is guarded. Further recommendations to follow depending on the progress of the patient.
[2020-12-06 17:01] LABS: Glucose,Whole Blood 298 mg/dL (75-99)
[2020-12-06] MEDS: INSULIN DETEMIR (LEVEMIR) 100 UNIT/ML SYR SQ SCH (21:17)
[2020-12-06] MEDS: ATORVASTATIN 40 MG TAB PO SCH (21:18)
[2020-12-06] MEDS: ZOLPIDEM 5 MG TAB PO SCH (21:18)
[2020-12-06] MEDS ORDERED: FUROSEMIDE 10 MG/ML 10 ML VIAL IV STA (23:20)
[2020-12-06] MEDS ORDERED: FUROSEMIDE 10 MG/ML 4 ML VIAL ONE (23:22)
[2020-12-06 23:24] LABS: Glucose,Whole Blood 273 mg/dL (75-99)
[2020-12-06 23:31] LABS: Allen Test Performed? Yes
[2020-12-06 23:32] LABS: ABG Base Excess 9.2 mmol/L; ABG HCO3 37 mmol/L (21-25); ABG PCO2 92 mmHg (35-45); ABG PH 7.21 (7.35-7.45); ABG PO2 75 mmHg (83-108); ABG TCO2 40 mmol/L (19-24)
[2020-12-06] MEDS: NALOXONE 0.4 MG/ML 1 ML VIAL IV PRN (23:32)
--- NOTE | 2020-12-06 23:50 | XR ---
EXAMINATION TYPE: XR chest 1V portable DATE OF EXAM: 12/06/2020 COMPARISON: 12/04/2020 HISTORY: Short of breath TECHNIQUE: Single view FINDINGS: There is pulmonary vascular congestion. Heart is enlarged. There is blunting of the costoph renic angles. Exam limited by patient's size. There is nasogastric tube. The lower end is not well se en. There is left subclavian catheter with tip in the superior vena cava. IMPRESSION: Congestive heart failure with pleural effusions. There is probably some bilateral lower l obe pneumonia. No change compared to last exam.
[2020-12-07] MEDS: PIPERACILLIN-TAZOBACTAM 3.375 GM in SODIUM CHLORIDE 0.9% 100 ML IVPB SCH ×3 (00:18→16:10)
[2020-12-07] MEDS: INSULIN ASPART (NovoLOG) 100 UNIT/ML VIAL SQ SCH ×4 (00:21→17:21)
[2020-12-07] MEDS: metroNIDAZOLE-NS PMX 500 MG in SALINE 1 100ML.BAG IVPB SCH ×3 (00:21→14:58)
[2020-12-07 00:41] LABS: ALT 23 U/L (4-34); AST 27 U/L (14-36); African American GFR (CKD) 76 (>60 ml/min/1.73 sqM); Albumin 2.7 g/dL (3.5-5.0); Albumin/Globulin Ratio 0.8; Alkaline Phosphatase 89 U/L (38-126); Anion Gap 1 mmol/L; Blood Urea Nitrogen 20 mg/dL (7-17); Carbon Dioxide 39 mmol/L (22-30); Chloride 102 mmol/L (98-107); Globulin 3.5 g/dL; Glucose 300 mg/dL (74-99); Non-African American GFR(CKD) 66 (>60 ml/min/1.73 sqM); Potassium 3.5 mmol/L (3.5-5.1); Sodium 142 mmol/L (137-145); Total Bilirubin 0.4 mg/dL (0.2-1.3); Total Protein 6.2 g/dL (6.3-8.2)
[2020-12-07 00:51] LABS: Basophils # (A) 0.1 k/uL (0-0.2); Basophils % (A) 1 %; Eosinophils # (A) 0.3 k/uL (0-0.7); Eosinophils % (A) 2 %; HCT 40.2 % (34.0-46.0); HGB 12.9 gm/dL (11.4-16.0); Hypochromasia Moderate; Lymphocytes # (A) 0.9 k/uL (1.0-4.8); Lymphocytes % (A) 6 %; MCH 30.9 pg (25.0-35.0); MCV 96.7 fL (80.0-100.0); Mean Platelet Volume 7.3; Monocytes # (A) 0.6 k/uL (0-1.0); Monocytes % (A) 4 %; Neutrophils # (A) 13.4 k/uL (1.3-7.7); Neutrophils % (A) 87 %; Platelet Count 416 k/uL (150-450); RBC 4.16 m/uL (3.80-5.40); WBC 15.3 k/uL (3.8-10.6)
--- NOTE | 2020-12-07 01:09 | P.EN ---
A team note Activated at 11:03 pm. The patient seen at the bedside shortly after. Discussed the case with RN and reviewed the chart in detail. The patient has had a prolonged hospital stay with intra-abdominal malignancy and subsequent exploratory laparoscopy. Patient also has a history of chronic hypoxic respiratory failure and uses 2 L of nasal cannula oxygen at home with increased requirements during the stay. The patient had been on 10 L nasal cannula throughout the day today and subsequently became hypoxic and more short of breath at which time the A team was activated. General: Non-toxic, in mild to moderate respiratory distress, appears stated age, morbidly obese HEENT: NC/AT, anicteric sclerae, moist conjunctiva, no lid-lag, PERRLA Cardiovascular: S1/S2 wnl, no murmurs, rubs, or gallops Lungs: Very poor air entry bilaterally Abdominal: Postsurgical, soft, non-tender, non-distended Skin: Warm, dry Extremities: 1+ bilateral lower extremity pitting edema, no contractures Psychiatric: Alert and oriented to person, place and time, appropriate affect Assessment/plan Acute hypoxic and hypercapnic respiratory failure suspected secondary to COPD exacerbation along with fluid overload -Lasix 80 mg IV push once ordered -ABG revealed significant hypercapnia with pCO2 92 -Patient started on BiPAP -Primary team notified -Pulmonary and cardiology on board
[2020-12-07] MEDS: SODIUM CHLORIDE 0.45% 1,000 ML IV SCH ×2 (01:39→14:01)
[2020-12-07] MEDS: 1: MVI, ADULT NO.4 WITH VIT K 10 ML, TRACE (CONC-1ML/DOSE) 1 ML in AMINO ACID 5%-D20W+LY IV SCH ×12 (02:52→22:09)
[2020-12-07] MEDS: KETOROLAC 15 MG/ML 1 ML VIAL IVP SCH ×4 (02:55→21:59)
[2020-12-07 06:11] LABS: Glucose,Whole Blood 301 mg/dL (75-99)
[2020-12-07] MEDS: LEVOTHYROXINE IVP 100 MCG/5 ML VIAL IV SCH (06:21)
[2020-12-07 06:46] LABS: Glucose,Whole Blood 310 mg/dL (75-99)
[2020-12-07] MEDS: FORMOTEROL FUMARATE 20 MCG/2 ML NEBU INHALATION SCH ×2 (07:19→20:37)
[2020-12-07] MEDS: BUDESONIDE 1 MG/2 ML NEBU INHALATION SCH ×2 (07:19→20:37)
[2020-12-07] MEDS: IPRATROPIUM-ALBUTEROL 3 ML NEB INHALATION SCH ×3 (07:19→20:37)
[2020-12-07] MEDS: ONDANSETRON 4 MG/2 ML VIAL IVP PRN (07:36)
[2020-12-07] MEDS: bisacodyL 10 MG SUPP RECTAL SCH (07:38)
[2020-12-07] MEDS: ENOXAPARIN 40 MG/0.4 ML SYRINGE SQ SCH (07:38)
[2020-12-07] MEDS: PANTOPRAZOLE 40 MG/10 ML VIAL IVP SCH (07:38)
--- NOTE | 2020-12-07 08:18 | XR ---
EXAMINATION TYPE: XR chest 1V portable DATE OF EXAM: 12/07/2020 COMPARISON: 12/06/2020 HISTORY: Shortness of breath TECHNIQUE: Single frontal view of the chest is obtained. FINDINGS There is a moderate opacity obscuring the left heart and left hemidiaphragm consistent with lung cons olidation. Is a partially consolidative opacity in the right lung base as well right hemidiaphragm. T he pulmonary vasculature appears moderately congested. Heart size is prominent. There is no change in the left sided PICC line or NG tube. There is no pneumothorax. Impression: bibasilar lung opacities most likely reflecting small pleural effusions and pulmonary edema essentia lly unchanged compared to the prior study.
[2020-12-07 09:00] LABS: Basophils # (A) 0.09 X 10*3/uL (0.00-0.10); Basophils % (A) 0.5 %; Eosinophils # (A) 0.34 X 10*3/uL (0.04-0.35); Eosinophils % (A) 2.1 %; HCT 36.2 % (37.2-46.3); HGB 10.9 g/dL (12.0-15.0); Lymphocytes # (A) 0.86 X 10*3/uL (0.90-5.00); Lymphocytes % (A) 5.3 %; MCH 29.9 pg (27.0-32.0); MCHC 30.1 g/dL (32.0-37.0); MCV 99.2 fL (80.0-97.0); Mean Platelet Volume 10.2 fL (9.5-12.2); Monocytes # (A) 0.75 X 10*3/uL (0.20-1.00); Monocytes % (A) 4.6 %; Neutrophils % (A) 85.4 %; Platelet Count 410 X 10*3/uL (140-440); RBC 3.65 X 10*6/uL (4.10-5.20); RDW 15.4 % (11.5-14.5); WBC 16.38 X 10*3/uL (4.50-10.00)
[2020-12-07 09:28] LABS: African American GFR (CKD) 59.3 (60.0-200.0); Albumin 2.7 g/dL (3.80-4.90); Albumin/Globulin Ratio 0.87 (1.60-3.17); Anion Gap 7.7 mmol/L (4.00-12.00); BUN/Creat Ratio 17.27 Ratio (12.00-20.00); Carbon Dioxide 36.3 mmol/L (21.6-31.8); Globulin 3.1 g/dL (1.6-3.3); Magnesium 1.8 mg/dL (1.5-2.4); Non-African American GFR(CKD) 51.2 (60.0-200.0); Potassium 3.3 mmol/L (3.5-5.5); Total Bilirubin 0.3 mg/dL (0.2-1.2); Total Protein 5.8 g/dL (6.2-8.2)
--- NOTE | 2020-12-07 12:23 | P.PN ---
Subjective Progress Note Date: 12/07/20 70-year-old patient, brought in by EMS, on November 28. She was seen by Dr. Luis Enrique Murillo in the emergency department. She has a history of diabetes mellitus, CHF, chronic kidney disease, multiple abdominal hernia repairs, with mesh, and severe COPD. Her FEV1 is 0.92 L which is 41% of predicted. She sees my partner in the office for her COPD. She also suffers from chronic hypoxemic respiratory failure, and does use oxygen 24/. She apparently recently has had multiple episodes of nonbloody nonbilious emesis, as well as watery diarrhea, for one week. She apparently was evaluated and found on computed tomography scan, to have a colonic lesion, consistent with colon cancer. I was consulted for preop clearance. We saw her right before she went off to surgery. She is chronically on oxygen therapy at 3 L as mentioned above. The patient was having surgery with Dr. Clay Healy. Basically, she tells me that her COPD much at baseline. I did mention to her that she may end up in the intensive care unit after surgery. Also, based on the FEV1 alone, without the MVV, or RV/TLC ratio, the patient's at moderately increased operative risk from general anesthesia. White count 11.1, hemoglobin 13, hematocrit 40.6, platelet count 529,000, sodium 137, potassium 4.3, chlorides 100, CO2 32, anion gap 5, BUN 26, and creatinine 1.45. There was no chest x-ray to review. The patient is seen today 11/30/2020 in follow-up on the regular medical floor. She is currently resting quite comfortably in bed. Awake and alert in no acute distress. Nasogastric tube is secured in place. Maintaining O2 saturations in the 90s on 6 L/m per nasal cannula. White count 10.6. Hemoglobin 12.6. Sodium 137. Potassium 4.8. Creatinine 1.50. She is maintained on Symbicort and DuoNeb inhalations. Anticoagulated with Lovenox. The patient is seen today 12/01/2020 in follow-up on the regular medical floor. She is awake and alert in no acute distress. Resting comfortably in bed. Nasogastric tube remains in place. This is postoperative day #2. She remains on Zosyn and Flagyl. Maintaining O2 saturation in the 90s on 4 L/m per nasal cannula. She was requesting breathing treatments during the night for some increasing shortness of breath. Working well with the incentive spirometer. White count 10.2. Hemoglobin 10.9. Sodium 141. Potassium 4.5. Creatinine 1.3. 12/02/2020 the patient is being seen for a follow-up. The patient is postop day #3 and the patient underwent resection of the right colonic mass and secondary bowel obstruction. The patient has an NG tube in place. The patient remains covered with a combination of Zosyn and Flagyl. Doing well. Using incentive spirometer. No significant respiratory difficulties. Currently on oxygen at 4 L per minute nasal cannula. The pain is under adequate control. The patient is on DuoNeb nebulized treatments around the clock and the patient is receiving Dilaudid for pain control 1 mg every 3 hours IV. IV fluids are running with normal saline at the rate of 100 mL an hour. NG tube was removed this morning. The patient is passing no gas and she hasn't had any bowel movements yet. Nevertheless, she has decent bowel sounds. JOHN drains in place. Output is in order of minimal amount in the order of 10 mL serosanguineous. The patient was up on a chair and she is gradually getting stronger. Antibiotic coverage is sa me. Oxygen is at 5 L. On today's evaluation of 12/02/2020, the patient is postop day #4. She is c urrently on 5 L of oxygen by nasal cannula. NG tube was removed yesterday. She is quite comfortable and she is sitting up on a recliner. JOHN drain is in place and output is serosanguineous and it's minimal right now. Bowel sounds are active and the patient on is still nothing by mouth and she's taken only as chips. She is using incentive spirometer which is in front of her all the time. Urine output is adequate. She feels that she is getting stronger. She is on DuoNeb nebulized treatment [id number]. She has adequate pain control with Dilaudid. She is also on examination Zosyn and Flagyl. No fever. No chills. No other significant events overnight. No altered mentation. Patient is passing gas and she is requesting gel low The patient is seen today 12/04/2020 in follow-up. This is postoperative day #5. She is currently sitting up in a chair at the bedside. Maintaining O2 saturations in the 90s on 5 L/m per nasal cannula. She's afebrile. His been having some ongoing discomfort in her abdomen. Nasogastric tube remains in place. Computed tomography scan of the abdomen revealed distended loops of air and fluid filled bowel consistent with ileus similar to compared to previous. No free air. No mechanical bowel obstruction. There were noted basilar consolidation and atelectasis. New pleural effusions. She is working well with the incentive spirometer. Chest x-ray revealed pleural effusions right greater than left. She is continued on bronchodilators, antibiotics in the form of Zosyn and Flagyl. 12/05/2020 the patient is postop day #6. She was able to pass flatus. She was also able to pass a bowel movement. NG tube is still in place and output is in order of 3. Unfortunately, she continues to have popsicles. In terms of oxygen, she is on 6 L and his saturations around 91%. She is feeling slightly more short of breath and she getting incentive spirometer. Chest x-ray that showed some small bilateral pleural effusions. She is on IV fluids currently running at 100 mL an hour. She is also on examination Zosyn and Flagyl. Surgical wound site is clean. The blood work from today showing His on 12/07/2020, the patient's condition has somewhat decompensated. She has recovered of setbacks yesterday. She became more short of breath overnight. The emergency team was called and the patient was given Lasix. The chest x-ray showed some pulmonary vessel congestion and fluid overload. The patient responded nicely. Currently the patient is on 5 L and this was up to 8 L and her saturations around 90%. She is also complaining of abdominal pain and distention. No direct tenderness. I noticed that the patient is taking some on and off popsicles despite the surgical recommendations. The patient's CAT scan of the abdomen and pelvis that was done on 12/06/2020 showed no evidence of any colonic obstruction or any anastomotic leaks. Some atelectatic changes were seen in lung bases bilaterally. Meanwhile, NG tube is still in place. Output from the NG tube is in the order of 50 mL over the past several hours probably 10 hours and the patient's output is limited this point in time. She is receiving TPN for nutritional support. Has no bowel sounds and examination. She was passing flatus yesterday and she is not passing any today. On examination, no direct tenderness. No altered mentation. Slightly more restless on today's evaluation. She remains on IV Zosyn. Blood work shows a white cell count of 16, hemoglobin of 10.9 which is up compared to yesterday, electrolytes show a potassium of 3.3 which is to be replaced and the sodium of 145 and a BUN of 19 with a creatinine of 1.1. Note that yesterday, during the patient's shortness of breath, blood gases was done that showed an acute on top of chronic hypercapnic respiratory failure and the patient responded to Lasix. She also had to be given some Narcan as the patient was under the contact of Dilaudid. Objective - Vital Signs Vital signs: Vital Signs Temp 97.4 F L 12/07/20 08:07 Pulse 82 12/07/20 11:14 Resp 16 12/07/20 08:07 BP 151/69 12/07/20 08:07 Pulse Ox 93 L 12/07/20 08:07 Intake & Output 12/06/20 12/07/20 12/07/20 18:59 06:59 18:59 Intake Total 240 Output Total 3375 2950 825 Balance -3135 -2950 -825 Weight 117 kg 116 kg Intake: Oral 240 Output: Gastric Drainage 50 Urine 3325 2950 825 Other: Voiding Method Indwelling Catheter Indwelling Catheter # Bowel Movements 1 - Exam GENERAL EXAM: Alert, pleasant 70-year-old female patient, on 8 liter nasal cannula, comfortable in no apparent distress. HEAD: Normocephalic. EYES: Normal reaction of pupils, equal size. NOSE: Nasogastric tube secured in place. Clear with pink turbinates. THROAT: No erythema or exudates. NECK: No masses, no JVD. CHEST: No chest wall deformity. LUNGS: Equal air entry with crackles in the posterior bases, diminished. CVS: S1 and S2 normal with no audible murmur, regular rhythm. ABDOMEN: Dressing dry and intact. No hepatosplenomegaly, normal bowel sounds, no guarding or rigidity. Patient has a JOHN drain in the right lower quadrant. I'll sounds are very much hypoactive and sluggish. No abdominal distention. No direct tenderness. Surgical wound site is dry clean and intact. SPINE: No scoliosis or deformity SKIN: No rashes CENTRAL NERVOUS SYSTEM: No focal deficits, tone is normal in all 4 extremities. EXTREMITIES: There is no peripheral edema. No clubbing, no cyanosis. Peripheral pulses are intact. - Labs CBC & Chem 7: 12/07/20 05:31 12/07/20 05:31 Labs: Abnormal Lab Results - Last 24 Hours (Table) 12/06/20 12/06/20 12/06/20 Range/Units 16:58 23:12 23:18 WBC (3.8-10.6) k/uL RBC (4.10-5.20) X 10*6/uL Hgb (12.0-15.0) g/dL Hct (37.2-46.3) % MCV (80.0-97.0) fL MCHC (32.0-37.0) g/dL RDW (11.5-14.5) % Immature Gran # (0.00-0.04) X 10*3/uL Neutrophils # (1.3-7.7) k/uL Lymphocytes # (1.0-4.8) k/uL ABG pH 7.21 L (7.35-7.45) ABG pCO2 92 H* (35-45) mmHg ABG pO2 75 L (83-108) mmHg ABG HCO3 37 H (21-25) mmol/L ABG Total CO2 40 H (19-24) mmol/L ABG O2 Saturation 92.0 L (94-97) % Potassium (3.5-5.5) mmol/L Carbon Dioxide (22-30) mmol/L BUN (7-17) mg/dL Est GFR (CKD-EPI)AfAm (60.0-200.0) Est GFR (CKD-EPI)NonAf (60.0-200.0) Glucose (74-99) mg/dL POC Glucose (mg/dL) 298 H 273 H (75-99) mg/dL Calcium (8.4-10.2) mg/dL Phosphorus (2.4-5.1) mg/dL Total Protein (6.3-8.2) g/dL Albumin (3.5-5.0) g/dL Albumin/Globulin Ratio (1.60-3.17) g/dL 12/06/20 12/06/20 12/07/20 Range/Units 23:23 23:23 05:31 WBC 15.3 H (3.8-10.6) k/uL RBC (4.10-5.20) X 10*6/uL Hgb (12.0-15.0) g/dL Hct (37.2-46.3) % MCV (80.0-97.0) fL MCHC (32.0-37.0) g/dL RDW (11.5-14.5) % Immature Gran # (0.00-0.04) X 10*3/uL Neutrophils # 13.4 H (1.3-7.7) k/uL Lymphocytes # 0.9 L (1.0-4.8) k/uL ABG pH (7.35-7.45) ABG pCO2 (35-45) mmHg ABG pO2 (83-108) mmHg ABG HCO3 (21-25) mmol/L ABG Total CO2 (19-24) mmol/L ABG O2 Saturation (94-97) % Potassium 3.3 L (3.5-5.5) mmol/L Carbon Dioxide 39 H 36.3 H (22-30) mmol/L BUN 20 H (7-17) mg/dL Est GFR (CKD-EPI)AfAm 59.3 L (60.0-200.0) Est GFR (CKD-EPI)NonAf 51.2 L (60.0-200.0) Glucose 300 H 314 H (74-99) mg/dL POC Glucose (mg/dL) (75-99) mg/dL Calcium 8.0 L 8.0 L (8.4-10.2) mg/dL Phosphorus 2.0 L (2.4-5.1) mg/dL Total Protein 6.2 L 5.8 L (6.3-8.2) g/dL Albumin 2.7 L 2.70 L (3.5-5.0) g/dL Albumin/Globulin Ratio 0.87 L (1.60-3.17) g/dL 12/07/20 12/07/20 12/07/20 Range/Units 05:31 06:10 06:43 WBC 16.38 H (3.8-10.6) k/uL RBC 3.65 L (4.10-5.20) X 10*6/uL Hgb 10.9 L (12.0-15.0) g/dL Hct 36.2 L (37.2-46.3) % MCV 99.2 H (80.0-97.0) fL MCHC 30.1 L (32.0-37.0) g/dL RDW 15.4 H (11.5-14.5) % Immature Gran # 0.34 H (0.00-0.04) X 10*3/uL Neutrophils # 14.00 H (1.3-7.7) k/uL Lymphocytes # 0.86 L (1.0-4.8) k/uL ABG pH (7.35-7.45) ABG pCO2 (35-45) mmHg ABG pO2 (83-108) mmHg ABG HCO3 (21-25) mmol/L ABG Total CO2 (19-24) mmol/L ABG O2 Saturation (94-97) % Potassium (3.5-5.5) mmol/L Carbon Dioxide (22-30) mmol/L BUN (7-17) mg/dL Est GFR (CKD-EPI)AfAm (60.0-200.0) Est GFR (CKD-EPI)NonAf (60.0-200.0) Glucose (74-99) mg/dL POC Glucose (mg/dL) 301 H 310 H (75-99) mg/dL Calcium (8.4-10.2) mg/dL Phosphorus (2.4-5.1) mg/dL Total Protein (6.3-8.2) g/dL Albumin (3.5-5.0) g/dL Albumin/Globulin Ratio (1.60-3.17) g/dL Assessment and Plan Plan: 1 Acute bowel obstruction, with computed tomography scan showing findings suspicious of a right colonic mass or apple core lesion. Status post resection. Postoperative day #6 The patient had the NG tube in place as the patient is having PICC line insertion and the patient will be started at a later stage on TPN for nutritional support. NG tube is in place. No flatus. Output from the NG tube minimal. CAT scan of the abdomen showed no major complications of this was done on 12/06/2020. The patient is currently on TPN for history and sup port. Blood sugars are elevated secondary to TPN. 2 Severe/stage III, COPD, with an FEV1 that is 0.92 L or 41% of predicted. The patient developed an acute on top of chronic hypercapnic respiratory failure. Please refer to the blood gases from yesterday. There was a component of fluid overload and she responded to diuretics. We'll give another additional dose of Lasix today. 3 History of 3 prior abdominal hernia repairs, with mesh placement. 4 History of angina pectoris. 5 History of CHF. 6 History of diabetes mellitus. 7 History of hyperlipidemia. 8 History of essential hypertension. 9 History of sleep apnea syndrome, currently on CPAP. 10 History of hypothyroidism. 11 Prior history of MRSA infection, 2012. 12 Previous history of heavy tobacco use. Plan: Continue using incentive spirometer Keep the patient nothing by mouth Keep the NG tube in place and keep the patient nothing by mouth for now TPN was initiated Sivan his Levemir up to 30 units along with the side effects coverage for an improved blood sugar control. Lasix 40 mg IV Incentive spirometer JOHN drain output is minimal at this point in time. DuoNeb inhalations scheduled and when necessary, in addition to Pulmicort and Perforomist Encouraged the increased use the incentive spirometer Increase her activity as tolerate Titrate down the FiO2 as tolerated my currently on 8 L Continue Zosyn and Flagyl Patient is sitting up on a recliner. Surgical follow-up regarding her abdominal pain and ongoing ileus the abdomen and pelvis that was done earlier was noted. Chest x-ray was also noted. We will continue to follow
[2020-12-07 12:27] LABS: Glucose,Whole Blood 322 mg/dL (75-99)
[2020-12-07] MEDS: HYDROmorphone 1 MG/ML 1 ML SYRINGE IVP PRN ×2 (12:43→19:55)
[2020-12-07] MEDS: FUROSEMIDE 10 MG/ML 4 ML VIAL IV SCH (12:43)
[2020-12-07] MEDS: POTASSIUM PHOSPHATE 10 MMOL in SODIUM CHLORIDE 0.9% 100 ML IV SCH ×2 (14:56→16:09)
--- NOTE | 2020-12-07 15:19 | P.PN ---
Subjective Progress Note Date: 12/07/20 CHIEF COMPLAINT: Abdominal pain with right obstructing colon mass HISTORY OF PRESENT ILLNESS: The patient is a 70-year-old female who presents as transfer for abdominal pain for 1 week from [facility] to this hospital multiple abdominal wall hernia repairs, including morbid obesity, insulin-d ependent diabetes, chronic obstructive pulmonary disease. She had computed tomography scan demonstrated an obstructing mass on the right colon. She is tatus post exploratory laparotomy with right hemicolectomy, 11/29/2020. She is hospital day 9. Overnight, patient had respiratory event of acute respiratory distress where an A team activation occurred. She was started on Lasix and placed on BiPAP. Her son is at bedside. She reports feeling better from this morning. She has her NGT bilious. She has a cold towel on her forehead and has cold basin. She denies any further dyspnea. ROS: No reports of nausea and vomiting. No fevers or chills. No new chest pain. Has morbid obesity, BMI 45.3. PHYSICAL EXAM: VITAL SIGNS: Reviewed CONSTITUTIONAL: Well developed and in no acute distress. EYES: Conjuctivae without sclera icterus. Extraocular movements grossly intact. HEAD, EARS, NOSE, THROAT: Moist buccal mucosa. Head is atraumatic, normocephalic. Hears conversational speech. No nasal drainage. NECK: Supple. No thyroidomegaly. RESPIRATORY: Non-labored respirations and equal bilateral excursions. On BiPAP. CARDIOVASCULAR: Palpable 2+ radial pulses. ABDOMEN: Obese. Dressing intact. Incision intact. MUSCULOSKELETAL: No gross deformity of the lower extremities noted. No clubbing. No cyanosis. SKIN: Good skin turgor. Well perfused. NEUROLOGIC: Cranial nerves II through XII grossly intact. No focal or lateralizing signs. PSYCH: Appropriate affect. Alert and oriented to person, place and time. CLINICAL LABS: Blood sugar glucose over 300, WBC elevated from 15 to over 16. Hemoglobin down 12.9-10.9. Creatinine increased from 0.9-1.1. PATHOLOGY: Poorly differentiated adenocarcinoma of the right colon with positive lymph nodes STUDIES: CT of the abdomen and pelvis from 12/06/2020 independent reviewed with contrast throughout the colon. Anasarca identified. Postsurgical changes along the abdominal wall noted. Bilateral pleural effusions. Moderate-sized pannus. This is my independent interpretation. ASSESSMENT: 1. Abdominal pain due to obstructing right colon mass now stage III right colon cancer 2. Acute respiratory event, respiratory distress 3. Morbid obesity due to excess calories, BMI 45.3 4. Insulin-dependent diabetes type 2, poorly controlled blood sugars over 300 PLAN: 1. Continue NPO 2. Continue NGT 3. She is not ambulating much and will need PT/OT Objective - Vital Signs Vital signs: Vital Signs Temp 97.4 F L 12/07/20 08:07 Pulse 82 12/07/20 11:14 Resp 16 12/07/20 08:07 BP 151/69 12/07/20 08:07 Pulse Ox 93 L 12/07/20 08:07 Intake & Output 12/06/20 12/07/20 12/07/20 18:59 06:59 18:59 Intake Total 240 Output Total 4983 2950 825 Balance -3135 -2950 -825 Weight 117 kg 116 kg Intake: Oral 240 Output: Gastric Drainage 50 Urine 3325 2950 825 Other: Voiding Method Indwelling Catheter Indwelling Catheter # Bowel Movements 1 - Labs CBC & Chem 7: 12/07/20 05:31 12/07/20 05:31 Labs: Abnormal Lab Results - Last 24 Hours (Table) 12/06/20 12/06/20 12/06/20 Range/Units 11:40 16:58 23:12 WBC (3.8-10.6) k/uL RBC (4.10-5.20) X 10*6/uL Hgb (12.0-15.0) g/dL Hct (37.2-46.3) % MCV (80.0-97.0) fL MCHC (32.0-37.0) g/dL RDW (11.5-14.5) % Immature Gran # (0.00-0.04) X 10*3/uL Neutrophils # (1.3-7.7) k/uL Lymphocytes # (1.0-4.8) k/uL ABG pH (7.35-7.45) ABG pCO2 (35-45) mmHg ABG pO2 (83-108) mmHg ABG HCO3 (21-25) mmol/L ABG Total CO2 (19-24) mmol/L ABG O2 Saturation (94-97) % Potassium (3.5-5.5) mmol/L Carbon Dioxide (22-30) mmol/L BUN (7-17) mg/dL Est GFR (CKD-EPI)AfAm (60.0-200.0) Est GFR (CKD-EPI)NonAf (60.0-200.0) Glucose (74-99) mg/dL POC Glucose (mg/dL) 295 H 298 H 273 H (75-99) mg/dL Calcium (8.4-10.2) mg/dL Phosphorus (2.4-5.1) mg/dL Total Protein (6.3-8.2) g/dL Albumin (3.5-5.0) g/dL Albumin/Globulin Ratio (1.60-3.17) g/dL 12/06/20 12/06/20 12/06/20 Range/Units 23:18 23:23 23:23 WBC 15.3 H (3.8-10.6) k/uL RBC (4.10-5.20) X 10*6/uL Hgb (12.0-15.0) g/dL Hct (37.2-46.3) % MCV (80.0-97.0) fL MCHC (32.0-37.0) g/dL RDW (11.5-14.5) % Immature Gran # (0.00-0.04) X 10*3/uL Neutrophils # 13.4 H (1.3-7.7) k/uL Lymphocytes # 0.9 L (1.0-4.8) k/uL ABG pH 7.21 L (7.35-7.45) ABG pCO2 92 H* (35-45) mmHg ABG pO2 75 L (83-108) mmHg ABG HCO3 37 H (21-25) mmol/L ABG Total CO2 40 H (19-24) mmol/L ABG O2 Saturation 92.0 L (94-97) % Potassium (3.5-5.5) mmol/L Carbon Dioxide 39 H (22-30) mmol/L BUN 20 H (7-17) mg/dL Est GFR (CKD-EPI)AfAm (60.0-200.0) Est GFR (CKD-EPI)NonAf (60.0-200.0) Glucose 300 H (74-99) mg/dL POC Glucose (mg/dL) (75-99) mg/dL Calcium 8.0 L (8.4-10.2) mg/dL Phosphorus (2.4-5.1) mg/dL Total Protein 6.2 L (6.3-8.2) g/dL Albumin 2.7 L (3.5-5.0) g/dL Albumin/Globulin Ratio (1.60-3.17) g/dL 12/07/20 12/07/20 12/07/20 Range/Units 05:31 05:31 06:10 WBC 16.38 H (3.8-10.6) k/uL RBC 3.65 L (4.10-5.20) X 10*6/uL Hgb 10.9 L (12.0-15.0) g/dL Hct 36.2 L (37.2-46.3) % MCV 99.2 H (80.0-97.0) fL MCHC 30.1 L (32.0-37.0) g/dL RDW 15.4 H (11.5-14.5) % Immature Gran # 0.34 H (0.00-0.04) X 10*3/uL Neutrophils # 14.00 H (1.3-7.7) k/uL Lymphocytes # 0.86 L (1.0-4.8) k/uL ABG pH (7.35-7.45) ABG pCO2 (35-45) mmHg ABG pO2 (83-108) mmHg ABG HCO3 (21-25) mmol/L ABG Total CO2 (19-24) mmol/L ABG O2 Saturation (94-97) % Potassium 3.3 L (3.5-5.5) mmol/L Carbon Dioxide 36.3 H (22-30) mmol/L BUN (7-17) mg/dL Est GFR (CKD-EPI)AfAm 59.3 L (60.0-200.0) Est GFR (CKD-EPI)NonAf 51.2 L (60.0-200.0) Glucose 314 H (74-99) mg/dL POC Glucose (mg/dL) 301 H (75-99) mg/dL Calcium 8.0 L (8.4-10.2) mg/dL Phosphorus 2.0 L (2.4-5.1) mg/dL Total Protein 5.8 L (6.3-8.2) g/dL Albumin 2.70 L (3.5-5.0) g/dL Albumin/Globulin Ratio 0.87 L (1.60-3.17) g/dL 12/07/20 Range/Units 06:43 WBC (3.8-10.6) k/uL RBC (4.10-5.20) X 10*6/uL Hgb (12.0-15.0) g/dL Hct (37.2-46.3) % MCV (80.0-97.0) fL MCHC (32.0-37.0) g/dL RDW (11.5-14.5) % Immature Gran # (0.00-0.04) X 10*3/uL Neutrophils # (1.3-7.7) k/uL Lymphocytes # (1.0-4.8) k/uL ABG pH (7.35-7.45) ABG pCO2 (35-45) mmHg ABG pO2 (83-108) mmHg ABG HCO3 (21-25) mmol/L ABG Total CO2 (19-24) mmol/L ABG O2 Saturation (94-97) % Potassium (3.5-5.5) mmol/L Carbon Dioxide (22-30) mmol/L BUN (7-17) mg/dL Est GFR (CKD-EPI)AfAm (60.0-200.0) Est GFR (CKD-EPI)NonAf (60.0-200.0) Glucose (74-99) mg/dL POC Glucose (mg/dL) 310 H (75-99) mg/dL Calcium (8.4-10.2) mg/dL Phosphorus (2.4-5.1) mg/dL Total Protein (6.3-8.2) g/dL Albumin (3.5-5.0) g/dL Albumin/Globulin Ratio (1.60-3.17) g/dL Assessment and Plan (1) Stage III carcinoma of colon Current Visit: Yes Status: Acute Code(s): C18.9 - MALIGNANT NEOPLASM OF COLON, UNSPECIFIED SNOMED Code(s): 545092261 (2) S/P right colectomy Current Visit: Yes Status: Acute Code(s): Z90.49 - ACQUIRED ABSENCE OF OTHER SPECIFIED PARTS OF DIGESTIVE TRACT SNOMED Code(s): 791469291 (3) Poorly controlled type 2 diabetes mellitus Current Visit: Yes Status: Acute Code(s): E11.65 - TYPE 2 DIABETES MELLITUS WITH HYPERGLYCEMIA SNOMED Code(s): 79840581 (4) Morbid obesity due to excess calories Current Visit: Yes Status: Acute Code(s): E66.01 - MORBID (SEVERE) OBESITY DUE TO EXCESS CALORIES SNOMED Code(s): 119478237 (5) BMI 45.0-49.9, adult Current Visit: Yes Status: Acute Code(s): Z68.42 - BODY MASS INDEX [BMI] 45.0-49.9, ADULT SNOMED Code(s): 848895237 (6) Respiratory distress Current Visit: Yes Status: Acute Code(s): R06.03 - ACUTE RESPIRATORY DISTRESS SNOMED Code(s): 337361363 (7) Congestive heart failure Current Visit: No Status: Acute Code(s): I50.9 - HEART FAILURE, UNSPECIFIED SNOMED Code(s): 70618168 (8) Hypoxia Current Visit: No Status: Acute Code(s): R09.02 - HYPOXEMIA SNOMED Code(s): 882069918
[2020-12-07] MEDS: IPRATROPIUM-ALBUTEROL 3 ML NEB INHALATION PRN (15:42)
--- NOTE | 2020-12-07 15:53 | P.PN ---
Subjective Progress Note Date: 12/07/20 Principal diagnosis: Acute small bowel obstruction : November 29: Right hemicolectomy for a distal ascending colon mass. Ms. Batista is a 70-year-old female with a past medical history of CHF, diabetes, hypertension, hyperlipidemia, TRUDI, hypothyroidism on 2 L of home oxygen who was transferred from [facility] for small bowel obstruction. Patient underwent exploratory laparotomy on November 29 and she had a right colectomy for obstructing right distal colonic mass. On 12/05/2020 - patient was seen and examined at the bedside. As per discussion with nursing staff patient was able to have a bowel movement. She still has NG tube to suction. She is currently having Popsicle every 3 hours for comfort. She complains of mild difficulty in breathing. Patient was also complaining nausea at the time of exam. On reviewing her vitals temperature of 97.6, heart rate 80, respiratory rate 17, blood pressure 1 33 x 61, saturating at 92% on 6 L of nasal cannula. On reviewing labs white count of 14.3, hemoglobin 11.5, platelets 43. Sodium 142, depression 3.8, chloride 107, bicarb 30, BUN 24, creatinine 1.03. On 12/06/2020 - patient was seen and examined at the bedside. Patient just got her pain medication and is resting comfortably. She denies having any chest pain or palpitations. She continues to be on 6 L of oxygen and maintaining her sats above 90%. Afebrile for the past 24 hours, blood pressure 1 33 x 61. On reviewing her labs white count 14.9, hemoglobin 11.3, platelets 496. Sodium 147. Potassium 3.6, chloride 107, bicarb 32, BUN 23, creatinine 1.0. Blood sugars continue to be between 200-250. On 12/07/2020-patient was seen and examined bedside. Patient's son at bedside. Last night rapid response team team was called as the patient was continuously having low saturations on her pulse ox. The patient was started on a fentanyl pump and this was discontinued. And she was administered a dose of Narcan. They ordered a chest x-ray which was consistent with congestive heart failure and pleural effusion with probable bilateral lower lobe pneumonia. Patient also received 80 mg of IV Lasix. Eventually patient's breathing status has improved and this morning her mentation is back to baseline. Patient complains of some nausea and dry mouth. She still continues to be 8 L of oxygen of oxygen to maintain saturation above 90%. On reviewing the vitals T-max of 97.4, heart rate 74, respiratory 16, blood pressure 151-69. She has NG tube in place and receiving TPN for nutritional support. Patient states that she got rectal [place] ppository and had couple of bowel movements yesterday but since this morning she is not passing gas. She denies having any abdominal pain. And on reviewing last this morning white count is 16.3, hemoglobin 10.9, platelets 410. Sodium 145, perforation 3.3, chloride 101, bicarb 36, BUN 19, creatinine 1.1 blood sugars running high in 300s. Active Medications Albuterol/Ipratropium (Ipratropium-Albuterol 3 Ml Neb) 3 ml INHALATION RT-TID [facility] Last Admin: 12/07/20 11:04 Dose: 3 ml Documented by: Albuterol/Ipratropium (Ipratropium-Albuterol 3 Ml Neb) 3 ml INHALATION RT-Q1H PRN PRN Reason: Shortness Of Breath Or Wheezing Last Admin: 12/07/20 15:42 Dose: 3 ml Documented by: Atorvastatin Calcium (Atorvastatin 40 Mg Tab) 40 mg PO HS [facility] Last Admin: 12/06/20 21:18 Dose: 40 mg Documented by: Benzocaine (Benzocaine [place] 1 Can) 1 spray MUCOUS MEM QID PRN PRN Reason: Mouth Irritation Benzocaine/Menthol (Benzocaine/Menthol Lozeng 1 Each Lozenge) 1 each MUCOUS MEM Q4HR PRN PRN Reason: Sore Throat Last Admin: 12/06/20 06:29 Dose: 1 each Documented by: Bisacodyl (Bisacodyl 10 Mg Supp) 10 mg RECTAL DAILY [facility] Last Admin: 12/07/20 07:38 Dose: 10 mg Documented by: Budesonide (Budesonide 1 Mg/2 Ml Nebu) 1 mg INHALATION RT-BID [facility] Last Admin: 12/07/20 07:19 Dose: 1 mg Documented by: Enoxaparin Sodium (Enoxaparin 40 Mg/0.4 Ml Syringe) 40 mg SQ DAILY [facility] Last Admin: 12/07/20 07:38 Dose: 40 mg Documented by: Fentanyl Citrate (Fentanyl Bus Washer 500 Mcg/50 Ml Bag) 500 mcg IV PER PROTOCOL PRN; Protocol PRN Reason: Pain Control Last Admin: 12/06/20 17:08 Dose: 500 mcg Documented by: Formoterol Fumarate (Formoterol Fumarate 20 Mcg/2 Ml Nebu) 20 mcg INHALATION RT-BID [facility] Last Admin: 12/07/20 07:19 Dose: 20 mcg Documented by: Furosemide (Furosemide 10 Mg/Ml 4 Ml Vial) 40 mg IV DAILY [facility] Last Admin: 12/07/20 12:43 Dose: 40 mg Documented by: Hydromorphone HCl (Hydromorphone 1 Mg/Ml 1 Ml Syringe) 1 mg IVP Q3HR PRN PRN Reason: Pain Last Admin: 12/07/20 12:43 Dose: 1 mg Documented by: Piperacillin Sod/Tazobactam (Sod 3.375 gm/ Sodium Chloride) 100 mls @ 25 mls/hr IVPB Q8HR [facility] Last Admin: 12/07/20 07:37 Dose: 25 mls/hr Documented by: Metronidazole 500 mg/ IV (Solution) 100 mls @ 100 mls/hr IVPB Q8HR [facility] Last Admin: 12/07/20 14:58 Dose: 100 mls/hr Documented by: Fat Emulsion Intravenous 250 (ml/ IV Solution) 250 mls @ 21 mls/hr IV MoWeFr [facility] Last Admin: 12/06/20 10:07 Dose: 21 mls/hr Documented by: Sodium Chloride (Saline 0.45%) 1,000 mls @ 20 mls/hr IV .Q24H [facility] Last Admin: 12/07/20 14:01 Dose: Not Given Documented by: Potassium Phosphate 10 mmol/ (Sodium Chloride) 103.3333 mls @ 50 mls/hr IV Q2H [facility] Stop: 12/07/20 18:59 Last Admin: 12/07/20 14:56 Dose: 50 mls/hr Documented by: Parenteral Vitamin Supplement 10 ml/ Zinc/Copper/Manganese/Selenium 1 ml/ Amino Ac/Electrol/Dextrose/Calcium 1,011 mls @ 85 mls/hr IV .BY DURATION [facility] Amino Ac/Electrol/Dextrose/Calcium (Clinimix E 5%-20% Solution) 1,000 mls @ 85 mls/hr IV .BY DURATION [facility] Insulin Aspart (Insulin Aspart (Novolog) 100 Unit/Ml Vial) 0 unit SQ Q6HR [facility]; Protocol Last Admin: 12/07/20 12:43 Dose: 8 unit Documented by: Insulin Detemir (Insulin Detemir (Levemir) 100 Unit/Ml Syr) 30 unit SQ [facility] Ketorolac Tromethamine (Ketorolac 15 Mg/Ml 1 Ml Vial) 15 mg IVP Q6H [facility] Stop: 12/08/20 15:01 Last Admin: 12/07/20 14:56 Dose: 15 mg Documented by: Levothyroxine Sodium (Levothyroxine Ivp 100 Mcg/5 Ml Vial) 75 mcg IV Q48H [facility] Last Admin: 12/06/20 06:27 Dose: 75 mcg Documented by: Levothyroxine Sodium (Levothyroxine Ivp 100 Mcg/5 Ml Vial) 68.5 mcg IV Q48H [facility] Last Admin: 12/07/20 06:21 Dose: 68.5 mcg Documented by: Naloxone HCl (Naloxone 0.4 Mg/Ml 1 Ml Vial) 0.2 mg IV Q2M PRN PRN Reason: Opioid Reversal Last Admin: 12/06/20 23:32 Dose: 0.2 mg Documented by: Ondansetron HCl (Ondansetron 4 Mg/2 Ml Vial) 4 mg IVP Q8HR PRN PRN Reason: Nausea And Vomiting Last Admin: 12/07/20 07:36 Dose: 4 mg Documented by: Pantoprazole Sodium (Pantoprazole 40 Mg/10 Ml Vial) 40 mg IVP DAILY [facility] Last Admin: 12/07/20 07:38 Dose: 40 mg Documented by: Tramadol HCl (Tramadol 50 Mg Tab) 50 mg PO Q6H PRN PRN Reason: Breakthrough Pain Last Admin: 12/06/20 06:26 Dose: 50 mg Documented by: Zolpidem Tartrate (Zolpidem 5 Mg Tab) 5 mg PO [facility] Last Admin: 12/06/20 21:18 Dose: 5 mg Documented by: Objective - Vital Signs Vital signs: Vital Signs Temp 97.4 F L 12/07/20 08:07 Pulse 82 12/07/20 11:14 Resp 16 12/07/20 08:07 BP 151/69 12/07/20 08:07 Pulse Ox 93 L 12/07/20 08:07 Intake & Output 12/06/20 12/07/2021 18:59 06:59 18:59 Intake Total 240 Output Total 0891 2950 825 Balance -3135 -2950 -825 Weight 117 kg 116 kg Intake: Oral 240 Output: Gastric Drainage 50 Urine 0885 2950 825 Other: Voiding Method Indwelling Catheter Indwelling Catheter # Bowel Movements 1 - Exam Physical examination: GENERAL: Reclining in bed, tired, awake, on 8 L of oxygen EYES: Pupils equal. Conjunctiva normal. HEENT: External appearance of nose and ears normal, oral cavity -dry. NG tube- to suction NECK: JVD not raised; masses not palpable. HEART: First and second heart sounds are normal; Mild edema. LUNGS: Respiratory rate increased, decreased breath sounds. ABDOMEN: Soft, mild abdominal tenderness, dressing in place, no guarding rigidity, absent bowel sounds multiple scars on the abdomen, liver spleen not palpable, no masses palpable. JOHN drain in place . Sluggish bowel sounds MUSCULAR skeletal: Evidence of OA especially in the hands PSYCH: Alert and oriented x3; mood and affect anxious. - Labs CBC & Chem 7: 12/07/20 05:31 12/07/20 05:31 Labs: Abnormal Lab Results - Last 24 Hours (Table) 12/06/20 12/06/20 12/06/20 Range/Units 16:58 23:12 23:18 WBC (3.8-10.6) k/uL RBC (4.10-5.20) X 10*6/uL Hgb (12.0-15.0) g/dL Hct (37.2-46.3) % MCV (80.0-97.0) fL MCHC (32.0-37.0) g/dL RDW (11.5-14.5) % Immature Gran # (0.00-0.04) X 10*3/uL Neutrophils # (1.3-7.7) k/uL Lymphocytes # (1.0-4.8) k/uL ABG pH 7.21 L (7.35-7.45) ABG pCO2 92 H* (35-45) mmHg ABG pO2 75 L (83-108) mmHg ABG HCO3 37 H (21-25) mmol/L ABG Total CO2 40 H (19-24) mmol/L ABG O2 Saturation 92.0 L (94-97) % Potassium (3.5-5.5) mmol/L Carbon Dioxide (22-30) mmol/L BUN (7-17) mg/dL Est GFR (CKD-EPI)AfAm (60.0-200.0) Est GFR (CKD-EPI)NonAf (60.0-200.0) Glucose (74-99) mg/dL POC Glucose (mg/dL) 298 H 273 H (75-99) mg/dL Calcium (8.4-10.2) mg/dL Phosphorus (2.4-5.1) mg/dL Total Protein (6.3-8.2) g/dL Albumin (3.5-5.0) g/dL Albumin/Globulin Ratio (1.60-3.17) g/dL 12/06/20 12/06/20 12/07/20 Range/Units 23:23 23:23 05:31 WBC 15.3 H (3.8-10.6) k/uL RBC (4.10-5.20) X 10*6/uL Hgb (12.0-15.0) g/dL Hct (37.2-46.3) % MCV (80.0-97.0) fL MCHC (32.0-37.0) g/dL RDW (11.5-14.5) % Immature Gran # (0.00-0.04) X 10*3/uL Neutrophils # 13.4 H (1.3-7.7) k/uL Lymphocytes # 0.9 L (1.0-4.8) k/uL ABG pH (7.35-7.45) ABG pCO2 (35-45) mmHg ABG pO2 (83-108) mmHg ABG HCO3 (21-25) mmol/L ABG Total CO2 (19-24) mmol/L ABG O2 Saturation (94-97) % Potassium 3.3 L (3.5-5.5) mmol/L Carbon Dioxide 39 H 36.3 H (22-30) mmol/L BUN 20 H (7-17) mg/dL Est GFR (CKD-EPI)AfAm 59.3 L (60.0-200.0) Est GFR (CKD-EPI)NonAf 51.2 L (60.0-200.0) Glucose 300 H 314 H (74-99) mg/dL POC Glucose (mg/dL) (75-99) mg/dL Calcium 8.0 L 8.0 L (8.4-10.2) mg/dL Phosphorus 2.0 L (2.4-5.1) mg/dL Total Protein 6.2 L 5.8 L (6.3-8.2) g/dL Albumin 2.7 L 2.70 L (3.5-5.0) g/dL Albumin/Globulin Ratio 0.87 L (1.60-3.17) g/dL 12/07/20 12/07/20 12/07/20 Range/Units 05:31 06:10 06:43 WBC 16.38 H (3.8-10.6) k/uL RBC 3.65 L (4.10-5.20) X 10*6/uL Hgb 10.9 L (12.0-15.0) g/dL Hct 36.2 L (37.2-46.3) % MCV 99.2 H (80.0-97.0) fL MCHC 30.1 L (32.0-37.0) g/dL RDW 15.4 H (11.5-14.5) % Immature Gran # 0.34 H (0.00-0.04) X 10*3/uL Neutrophils # 14.00 H (1.3-7.7) k/uL Lymphocytes # 0.86 L (1.0-4.8) k/uL ABG pH (7.35-7.45) ABG pCO2 (35-45) mmHg ABG pO2 (83-108) mmHg ABG HCO3 (21-25) mmol/L ABG Total CO2 (19-24) mmol/L ABG O2 Saturation (94-97) % Potassium (3.5-5.5) mmol/L Carbon Dioxide (22-30) mmol/L BUN (7-17) mg/dL Est GFR (CKD-EPI)AfAm (60.0-200.0) Est GFR (CKD-EPI)NonAf (60.0-200.0) Glucose (74-99) mg/dL POC Glucose (mg/dL) 301 H 310 H (75-99) mg/dL Calcium (8.4-10.2) mg/dL Phosphorus (2.4-5.1) mg/dL Total Protein (6.3-8.2) g/dL Albumin (3.5-5.0) g/dL Albumin/Globulin Ratio (1.60-3.17) g/dL 12/07/20 Range/Units 12:21 WBC (3.8-10.6) k/uL RBC (4.10-5.20) X 10*6/uL Hgb (12.0-15.0) g/dL Hct (37.2-46.3) % MCV (80.0-97.0) fL MCHC (32.0-37.0) g/dL RDW (11.5-14.5) % Immature Gran # (0.00-0.04) X 10*3/uL Neutrophils # (1.3-7.7) k/uL Lymphocytes # (1.0-4.8) k/uL ABG pH (7.35-7.45) ABG pCO2 (35-45) mmHg ABG pO2 (83-108) mmHg ABG HCO3 (21-25) mmol/L ABG Total CO2 (19-24) mmol/L ABG O2 Saturation (94-97) % Potassium (3.5-5.5) mmol/L Carbon Dioxide (22-30) mmol/L BUN (7-17) mg/dL Est GFR (CKD-EPI)AfAm (60.0-200.0) Est GFR (CKD-EPI)NonAf (60.0-200.0) Glucose (74-99) mg/dL POC Glucose (mg/dL) 322 H (75-99) mg/dL Calcium (8.4-10.2) mg/dL Phosphorus (2.4-5.1) mg/dL Total Protein (6.3-8.2) g/dL Albumin (3.5-5.0) g/dL Albumin/Globulin Ratio (1.60-3.17) g/dL Assessment and Plan Assessment: ASSESSMENT Acute small bowel obstruction Status post right hemicolectomy for distal ascending colonic mass - postop day 7 Diabetes mellitus Acute on chronic hypoxic respiratory failure Hypertension Hyperlipidemia Chronic urinary stress incontinence Hypothyroidism Morbid obesity with BMI of 45.7 CHF ejection fraction unknown Obstructive sleep apnea History of 3 prior abdominal hernia repairs with mesh placement PLAN: She is postoperative day # 7 today , patient has NG tube to suction. She is being continued on antibiotics in the form of Zosyn and Flagyl. She just had a PICC line placed and started on TPN for nutritional support and since then her blood sugars have been running high. She has been started on insulin. Her [employer] pump has been discontinued as the patient was not able to tolerate it and became lethargic yesterday. She is also started on IV Lasix today. Continue with breathing treatments. Continue with IV Protonix for GI prophylaxis. Lovenox for DVT prophylaxis. Patient encouraged to continue with incentive spirometry. Overall prognosis is guarded. Further recommendations to follow depending on the progress of the patient. The treatment plan was discussed in detail with the patient and her son at bedside today.
[2020-12-07 17:18] LABS: Glucose,Whole Blood 396 mg/dL (75-99)
[2020-12-07] MEDS: DRY MOUTH SPRAY 44.3 SPRAY/44.3 ML SPRAY MUCOUS MEM PRN (20:28)
[2020-12-07] MEDS ORDERED: INSULIN DETEMIR (LEVEMIR) 100 UNIT/ML SYR SQ SCH (21:00)
[2020-12-07] MEDS: ATORVASTATIN 40 MG TAB PO SCH (21:59)
[2020-12-07] MEDS: ZOLPIDEM 5 MG TAB PO SCH (21:59)
[2020-12-08 00:54] LABS: Glucose,Whole Blood 383 mg/dL (75-99)
[2020-12-08] MEDS: INSULIN ASPART (NovoLOG) 100 UNIT/ML VIAL SQ SCH ×4 (01:07→17:26)
[2020-12-08] MEDS: HYDROmorphone 1 MG/ML 1 ML SYRINGE IVP PRN ×4 (01:07→16:57)
[2020-12-08] MEDS: metroNIDAZOLE-NS PMX 500 MG in SALINE 1 100ML.BAG IVPB SCH ×3 (01:08→16:57)
[2020-12-08] MEDS: BENZOCAINE SPRAY 1 CAN MUCOUS MEM PRN ×2 (01:08→12:56)
[2020-12-08] MEDS: PIPERACILLIN-TAZOBACTAM 3.375 GM in SODIUM CHLORIDE 0.9% 100 ML IVPB SCH ×3 (01:08→17:05)
[2020-12-08] MEDS: KETOROLAC 15 MG/ML 1 ML VIAL IVP SCH ×3 (04:22→16:56)
[2020-12-08] MEDS: DRY MOUTH SPRAY 44.3 SPRAY/44.3 ML SPRAY MUCOUS MEM PRN (04:25)
[2020-12-08] MEDS: SODIUM CHLORIDE 0.45% 1,000 ML IV SCH (04:30)
[2020-12-08] MEDS: LEVOTHYROXINE IVP 100 MCG/5 ML VIAL IV SCH (06:08)
[2020-12-08 06:11] LABS: Glucose,Whole Blood 398 mg/dL (75-99)
[2020-12-08] MEDS: FORMOTEROL FUMARATE 20 MCG/2 ML NEBU INHALATION SCH ×2 (07:30→19:06)
[2020-12-08] MEDS: IPRATROPIUM-ALBUTEROL 3 ML NEB INHALATION SCH ×3 (07:30→19:06)
[2020-12-08] MEDS: BUDESONIDE 1 MG/2 ML NEBU INHALATION SCH ×2 (07:30→19:06)
[2020-12-08 08:20] LABS: Ionized Calcium 4.2 mg/dL (4.5-5.3)
[2020-12-08 08:33] LABS: ALT 25 U/L (4-34); AST 31 U/L (14-36); African American GFR (CKD) 74 (>60 ml/min/1.73 sqM); Albumin 2.7 g/dL (3.5-5.0); Albumin/Globulin Ratio 0.8; Alkaline Phosphatase 71 U/L (38-126); Blood Urea Nitrogen 25 mg/dL (7-17); Calcium 7.9 mg/dL (8.4-10.2); Chloride 96 mmol/L (98-107); Globulin 3.5 g/dL; Glucose 463 mg/dL (74-99); Magnesium 2.1 mg/dL (1.6-2.3); Non-African American GFR(CKD) 65 (>60 ml/min/1.73 sqM); Phosphorus 3.2 mg/dL (2.5-4.5); Potassium 3.4 mmol/L (3.5-5.1); Sodium 143 mmol/L (137-145); Total Bilirubin 0.5 mg/dL (0.2-1.3); Total Protein 6.2 g/dL (6.3-8.2)
[2020-12-08 08:39] LABS: Anion Gap 10 mmol/L; Carbon Dioxide 37 mmol/L (22-30)
[2020-12-08] MEDS: FUROSEMIDE 10 MG/ML 4 ML VIAL IV SCH (08:43)
[2020-12-08] MEDS: PANTOPRAZOLE 40 MG/10 ML VIAL IVP SCH (08:44)
[2020-12-08] MEDS: ENOXAPARIN 40 MG/0.4 ML SYRINGE SQ SCH (08:47)
[2020-12-08] MEDS: 1: MVI, ADULT NO.4 WITH VIT K 10 ML, TRACE (CONC-1ML/DOSE) 1 ML in AMINO ACID 5%-D20W+LY IV SCH ×6 (08:53→20:26)
[2020-12-08] MEDS: bisacodyL 10 MG SUPP RECTAL SCH (09:04)
[2020-12-08] MEDS ORDERED: FUROSEMIDE 10 MG/ML 4 ML VIAL IV STA (11:21)
--- NOTE | 2020-12-08 11:21 | P.PN ---
Subjective Progress Note Date: 12/08/20 70-year-old patient, brought in by EMS, on November 28. She was seen by Dr. Luis Enrique Murillo in the emergency department. She has a history of diabetes mellitus, CHF, chronic kidney disease, multiple abdominal hernia repairs, with mesh, and severe COPD. Her FEV1 is 0.92 L which is 41% of predicted. She sees my partner in the office for her COPD. She also suffers from chronic hypoxemic respiratory failure, and does use oxygen 24/. She apparently recently has had multiple episodes of nonbloody nonbilious emesis, as well as watery diarrhea, for one week. She apparently was evaluated and found on computed tomography scan, to have a colonic lesion, consistent with colon cancer. I was consulted for preop clearance. We saw her right before she went off to surgery. She is chronically on oxygen therapy at 3 L as mentioned above. The patient was having surgery with Dr. Clay Healy. Basically, she tells me that her COPD much at baseline. I did mention to her that she may end up in the intensive care unit after surgery. Also, based on the FEV1 alone, without the MVV, or RV/TLC ratio, the patient's at moderately increased operative risk from general anesthesia. White count 11.1, hemoglobin 13, hematocrit 40.6, platelet count 529,000, sodium 137, potassium 4.3, chlorides 100, CO2 32, anion gap 5, BUN 26, and creatinine 1.45. There was no chest x-ray to review. The patient is seen today 11/30/2020 in follow-up on the regular medical floor. She is currently resting quite comfortably in bed. Awake and alert in no acute distress. Nasogastric tube is secured in place. Maintaining O2 saturations in the 90s on 6 L/m per nasal cannula. White count 10.6. Hemoglobin 12.6. Sodium 137. Potassium 4.8. Creatinine 1.50. She is maintained on Symbicort and DuoNeb inhalations. Anticoagulated with Lovenox. The patient is seen today 12/01/2020 in follow-up on the regular medical floor. She is awake and alert in no acute distress. Resting comfortably in bed. Nasogastric tube remains in place. This is postoperative day #2. She remains on Zosyn and Flagyl. Maintaining O2 saturation in the 90s on 4 L/m per nasal cannula. She was requesting breathing treatments during the night for some increasing shortness of breath. Working well with the incentive spirometer. White count 10.2. Hemoglobin 10.9. Sodium 141. Potassium 4.5. Creatinine 1.3. 12/02/2020 the patient is being seen for a follow-up. The patient is postop day #3 and the patient underwent resection of the right colonic mass and secondary bowel obstruction. The patient has an NG tube in place. The patient remains covered with a combination of Zosyn and Flagyl. Doing well. Using incentive spirometer. No significant respiratory difficulties. Currently on oxygen at 4 L per minute nasal cannula. The pain is under adequate control. The patient is on DuoNeb nebulized treatments around the clock and the patient is receiving Dilaudid for pain control 1 mg every 3 hours IV. IV fluids are running with normal saline at the rate of 100 mL an hour. NG tube was removed this morning. The patient is passing no gas and she hasn't had any bowel movements yet. Nevertheless, she has decent bowel sounds. JOHN drains in place. Output is in order of minimal amount in the order of 10 mL serosanguineous. The patient was up on a chair and she is gradually getting stronger. Antibiotic coverage is sa me. Oxygen is at 5 L. On today's evaluation of 12/02/2020, the patient is postop day #4. She is c urrently on 5 L of oxygen by nasal cannula. NG tube was removed yesterday. She is quite comfortable and she is sitting up on a recliner. JOHN drain is in place and output is serosanguineous and it's minimal right now. Bowel sounds are active and the patient on is still nothing by mouth and she's taken only as chips. She is using incentive spirometer which is in front of her all the time. Urine output is adequate. She feels that she is getting stronger. She is on DuoNeb nebulized treatment [id number]. She has adequate pain control with Dilaudid. She is also on examination Zosyn and Flagyl. No fever. No chills. No other significant events overnight. No altered mentation. Patient is passing gas and she is requesting gel low The patient is seen today 12/04/2020 in follow-up. This is postoperative day #5. She is currently sitting up in a chair at the bedside. Maintaining O2 saturations in the 90s on 5 L/m per nasal cannula. She's afebrile. His been having some ongoing discomfort in her abdomen. Nasogastric tube remains in place. Computed tomography scan of the abdomen revealed distended loops of air and fluid filled bowel consistent with ileus similar to compared to previous. No free air. No mechanical bowel obstruction. There were noted basilar consolidation and atelectasis. New pleural effusions. She is working well with the incentive spirometer. Chest x-ray revealed pleural effusions right greater than left. She is continued on bronchodilators, antibiotics in the form of Zosyn and Flagyl. 12/05/2020 the patient is postop day #6. She was able to pass flatus. She was also able to pass a bowel movement. NG tube is still in place and output is in order of 3. Unfortunately, she continues to have popsicles. In terms of oxygen, she is on 6 L and his saturations around 91%. She is feeling slightly more short of breath and she getting incentive spirometer. Chest x-ray that showed some small bilateral pleural effusions. She is on IV fluids currently running at 100 mL an hour. She is also on examination Zosyn and Flagyl. Surgical wound site is clean. The blood work from today showing His on 12/07/2020, the patient's condition has somewhat decompensated. She has recovered of setbacks yesterday. She became more short of breath overnight. The emergency team was called and the patient was given Lasix. The chest x-ray showed some pulmonary vessel congestion and fluid overload. The patient responded nicely. Currently the patient is on 5 L and this was up to 8 L and her saturations around 90%. She is also complaining of abdominal pain and distention. No direct tenderness. I noticed that the patient is taking some on and off popsicles despite the surgical recommendations. The patient's CAT scan of the abdomen and pelvis that was done on 12/06/2020 showed no evidence of any colonic obstruction or any anastomotic leaks. Some atelectatic changes were seen in lung bases bilaterally. Meanwhile, NG tube is still in place. Output from the NG tube is in the order of 50 mL over the past several hours probably 10 hours and the patient's output is limited this point in time. She is receiving TPN for nutritional support. Has no bowel sounds and examination. She was passing flatus yesterday and she is not passing any today. On examination, no direct tenderness. No altered mentation. Slightly more restless on today's evaluation. She remains on IV Zosyn. Blood work shows a white cell count of 16, hemoglobin of 10.9 which is up compared to yesterday, electrolytes show a potassium of 3.3 which is to be replaced and the sodium of 145 and a BUN of 19 with a creatinine of 1.1. Note that yesterday, during the patient's shortness of breath, blood gases was done that showed an acute on top of chronic hypercapnic respiratory failure and the patient responded to Lasix. She also had to be given some Narcan as the patient was under the contact of Dilaudid. 12/08/2020 the patient is being seen for a follow-up. NG tube is still in place. She is on 10-15 L by nasal cannula. She is using incentive sp irometer. She put out only 20 mL on her energy over the past 8 hours. She has taken ice chips and she's going through them that he past. She is also on IV fluids and TPN for nutritional support. Surgical wound site is dry clean and intact. She is passing some flatus. Abdomen is still slightly distended and the patient is complaining is complaining of dry mouth and she continues to want ice chips.The patient is a patient of Zosyn and Flag. She remains on TPN. Blood sugars are elevated and the patient is currently on Levemir running at 30 units daily along with a sliding scale coverage. This dose was adjusted yesterday. She is also on Lovenox for DVT prophylaxis. Objective - Vital Signs Vital signs: Vital Signs Temp 98.1 F 12/08/20 08:56 Pulse 76 12/08/20 08:56 Resp 16 12/08/20 08:56 BP 134/72 12/08/20 08:56 Pulse Ox 94 L 12/08/20 08:56 Intake & Output 12/07/20 12/08/20 12/08/20 18:59 06:59 18:59 Output Total 825 20 Balance -825 -20 Weight 115.5 kg Output: Gastric Drainage 20 Urine 825 Other: Voiding Method Indwelling Catheter Indwelling Catheter - Exam GENERAL EXAM: Alert, pleasant 70-year-old female patient, on 10 liter nasal cannula, comfortable in no apparent distress. HEAD: Normocephalic. EYES: Normal reaction of pupils, equal size. NOSE: Nasogastric tube secured in place. Clear with pink turbinates. THROAT: No erythema or exudates. NECK: No masses, no JVD. CHEST: No chest wall deformity. LUNGS: Equal air entry with crackles in the posterior bases, diminished. CVS: S1 and S2 normal with no audible murmur, regular rhythm. ABDOMEN: Dressing dry and intact. No hepatosplenomegaly, normal bowel sounds, no guarding or rigidity. Patient has a JOHN drain in the right lower quadrant. I'll sounds are very much hypoactive and sluggish. No abdominal distention. No direct tenderness. Surgical wound site is dry clean and intact. SPINE: No scoliosis or deformity SKIN: No rashes CENTRAL NERVOUS SYSTEM: No focal deficits, tone is normal in all 4 extremities. EXTREMITIES: There is no peripheral edema. No clubbing, no cyanosis. Peripheral pulses are intact. - Labs CBC & Chem 7: 12/07/20 05:31 12/08/20 07:47 Labs: Abnormal Lab Results - Last 24 Hours (Table) 12/07/20 12/07/20 12/08/20 Range/Units 12:21 17:16 00:52 Potassium (3.5-5.1) mmol/L Chloride (98-107) mmol/L Carbon Dioxide (22-30) mmol/L BUN (7-17) mg/dL Glucose (74-99) mg/dL POC Glucose (mg/dL) 322 H 396 H 383 H (75-99) mg/dL Calcium (8.4-10.2) mg/dL Ionized Calcium Jorge (4.5-5.3) mg/dL Total Protein (6.3-8.2) g/dL Albumin (3.5-5.0) g/dL 12/08/20 12/08/20 Range/Units 06:09 07:47 Potassium 3.4 L (3.5-5.1) mmol/L Chloride 96 L (98-107) mmol/L Carbon Dioxide 37 H (22-30) mmol/L BUN 25 H (7-17) mg/dL Glucose 463 H (74-99) mg/dL POC Glucose (mg/dL) 398 H (75-99) mg/dL Calcium 7.9 L (8.4-10.2) mg/dL Ionized Calcium Jorge 4.2 L (4.5-5.3) mg/dL Total Protein 6.2 L (6.3-8.2) g/dL Albumin 2.7 L (3.5-5.0) g/dL Assessment and Plan Plan: 1 Acute bowel obstruction, with computed tomography scan showing findings suspicious of a right colonic mass or apple core lesion. Status post resection. Postoperative day #7 The patient had the NG tube in place as the patient is having PICC line insertion and the patient on TPN for nutritional support. NG tube is in place. Some flatus. Output from the NG tube minimal. CAT scan of the abdomen showed no major complications of this was done on 12/06/2020. The patient is currently on TPN for history and support. Blood sugars are elevated secondary to TPN. We'll need to make further adjustments on the Levemir dose. 2 Severe/stage III, COPD, with an FEV1 that is 0.92 L or 41% of predicted. The patient developed an acute on top of chronic hypercapnic respiratory failure. Please refer to the blood gases from yesterday. There was a component of fluid overload and she responded to diuretics. We'll give another additional dose of Lasix today. 3 History of 3 prior abdominal hernia repairs, with mesh placement. 4 History of angina pectoris. 5 History of CHF. 6 History of diabetes mellitus. 7 History of hyperlipidemia. 8 History of essential hypertension. 9 History of sleep apnea syndrome, currently on CPAP. 10 History of hypothyroidism. 11 Prior history of MRSA infection, 2013. 12 Previous history of heavy tobacco use. Plan: Continue using incentive spirometer Keep the patient nothing by mouth Keep the NG tube in place and keep the patient nothing by mouth for now TPN Levemir up to 42 units and will give her an additional 12 units this morning and started on 42 units of the evening Incentive spirometer We'll give additional dose of Lasix 40 mg IV push today Repeat chest x-ray in the morning JOHN drain output is minimal at this point in time. DuoNeb inhalations scheduled and when necessary, in addition to Pulmicort and Perforomist Encouraged the increased use the incentive spirometer Increase her activity as tolerate Titrate down the FiO2 as tolerated Continue Bull and [place]son Patient is sitting up on a recliner. Surgical follow-up regarding her abdominal pain and ongoing ileus the abdomen and pelvis that was done earlier was noted. We will continue to follow
[2020-12-08] MEDS ORDERED: INSULIN DETEMIR (LEVEMIR) 100 UNIT/ML SYR SQ STA (11:32)
[2020-12-08 11:34] LABS: Glucose,Whole Blood 494 mg/dL (75-99)
--- NOTE | 2020-12-08 12:13 | P.PN ---
Subjective Progress Note Date: 12/08/20 CHIEF COMPLAINT: Abdominal pain with right obstructing colon mass HISTORY OF PRESENT ILLNESS: The patient is a 70-year-old female who presents as status post exploratory laparotomy with right hemicolectomy, 11/29/2020. 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 Over the weekend, she had respiratory distress. She's been seen by pulmonary. She is having bowel movements. She has NG tube including TPN. She is bleeding from her PICC line. She has minimally ambulated. No reports of active abdominal pain. She reports lightheadedness with standing up with her walker. She is passing flatus. No bowel movements overnight. ROS: No reports of nausea and vomiting. No fevers or chills. She is having bowel movements. Has morbid obesity, BMI 45.3. PHYSICAL EXAM: VITAL SIGNS: Reviewed CONSTITUTIONAL: Well developed and in no acute distress. EYES: Conjuctivae without sclera icterus. Extraocular movements grossly intact. HEAD, EARS, NOSE, THROAT: Moist buccal mucosa. Head is atraumatic, normocephalic. Hears conversational speech. No nasal drainage. NECK: Supple. No thyroidomegaly. RESPIRATORY: Non-labored respirations and equal bilateral excursions. On nasal cannula CARDIOVASCULAR: Regular rate ABDOMEN: Obese. No peritonitis. MUSCULOSKELETAL: No gross deformity of the lower extremities noted. No clubbing. No cyanosis. SKIN: Good skin turgor. Well perfused. NEUROLOGIC: Cranial nerves II through XII grossly intact. No focal or lateralizing signs. PSYCH: Appropriate affect. Alert and oriented to person, place and time. CLINICAL LABS: Blood sugar glucose over 400, Creatinine increased from 0.9-1.1. ASSESSMENT: 1. Abdominal pain due to obstructing right colon mass now stage III right colon cancer 2. Acute respiratory event, respiratory distress 3. Morbid obesity due to excess calories, BMI 45.3 4. Insulin-dependent diabetes type 2, poorly controlled blood sugars over 400 PLAN: 1. Will need repeat hemoglobin especially with bleeding from PICC line 2. Continue ice chips and popsicles Objective - Vital Signs Vital signs: Vital Signs Temp 98.1 F 12/08/20 08:56 Pulse 76 12/08/20 08:56 Resp 16 12/08/20 08:56 BP 134/72 12/08/20 08:56 Pulse Ox 94 L 12/08/20 08:56 Intake & Output 12/07/20 12/08/20 12/08/20 18:59 06:59 18:59 Output Total 825 20 Balance -825 -20 Weight 115.5 kg Output: Gastric Drainage 20 Urine 825 Other: Voiding Method Indwelling Catheter Indwelling Catheter - Labs CBC & Chem 7: 12/07/20 05:31 12/08/20 07:47 Labs: Abnormal Lab Results - Last 24 Hours (Table) 12/07/20 12/07/20 12/08/20 Range/Units 12:21 17:16 00:52 Potassium (3.5-5.1) mmol/L Chloride (98-107) mmol/L Carbon Dioxide (22-30) mmol/L BUN (7-17) mg/dL Glucose (74-99) mg/dL POC Glucose (mg/dL) 322 H 396 H 383 H (75-99) mg/dL Calcium (8.4-10.2) mg/dL Ionized Calcium Jorge (4.5-5.3) mg/dL Total Protein (6.3-8.2) g/dL Albumin (3.5-5.0) g/dL 12/08/20 12/08/20 Range/Units 06:09 07:47 Potassium 3.4 L (3.5-5.1) mmol/L Chloride 96 L (98-107) mmol/L Carbon Dioxide 37 H (22-30) mmol/L BUN 25 H (7-17) mg/dL Glucose 463 H (74-99) mg/dL POC Glucose (mg/dL) 398 H (75-99) mg/dL Calcium 7.9 L (8.4-10.2) mg/dL Ionized Calcium Jorge 4.2 L (4.5-5.3) mg/dL Total Protein 6.2 L (6.3-8.2) g/dL Albumin 2.7 L (3.5-5.0) g/dL Assessment and Plan (1) Stage III carcinoma of colon Current Visit: Yes Status: Acute Code(s): C18.9 - MALIGNANT NEOPLASM OF COLON, UNSPECIFIED SNOMED Code(s): 510905389 (2) S/P right colectomy Current Visit: Yes Status: Acute Code(s): Z90.49 - ACQUIRED ABSENCE OF OTHER SPECIFIED PARTS OF DIGESTIVE TRACT SNOMED Code(s): 815063009 (3) Poorly controlled type 2 diabetes mellitus Current Visit: Yes Status: Acute Code(s): E11.65 - TYPE 2 DIABETES MELLITUS WITH HYPERGLYCEMIA SNOMED Code(s): 27531023 (4) Morbid obesity due to excess calories Current Visit: Yes Status: Acute Code(s): E66.01 - MORBID (SEVERE) OBESITY DUE TO EXCESS CALORIES SNOMED Code(s): 903423268 (5) BMI 45.0-49.9, adult Current Visit: Yes Status: Acute Code(s): Z68.42 - BODY MASS INDEX [BMI] 45.0-49.9, ADULT SNOMED Code(s): 535269048 (6) Respiratory distress Current Visit: Yes Status: Acute Code(s): R06.03 - ACUTE RESPIRATORY DISTRESS SNOMED Code(s): 026753590 (7) Congestive heart failure Current Visit: No Status: Acute Code(s): I50.9 - HEART FAILURE, UNSPECIFIED SNOMED Code(s): 19777926 (8) Hypoxia Current Visit: No Status: Acute Code(s): R09.02 - HYPOXEMIA SNOMED Code(s): 290973213
[2020-12-08 14:00] LABS: Glucose,Whole Blood 466 mg/dL (75-99)
[2020-12-08] MEDS ORDERED: CALCIUM GLUCONATE 2 GM in SODIUM CHLORIDE 0.9% 100 ML IVPB ONE (14:00)
[2020-12-08 16:57] LABS: Glucose,Whole Blood 489 mg/dL (75-99)
[2020-12-08] MEDS: BENZOCAINE/MENTHOL LOZENG 1 EACH LOZENGE MUCOUS MEM PRN (17:03)
[2020-12-08] MEDS: ATORVASTATIN 40 MG TAB PO SCH (20:27)
[2020-12-08] MEDS: INSULIN DETEMIR (LEVEMIR) 100 UNIT/ML SYR SQ SCH (23:00)
[2020-12-09 00:11] LABS: Glucose,Whole Blood 471 mg/dL (75-99)
[2020-12-09] MEDS: INSULIN ASPART (NovoLOG) 100 UNIT/ML VIAL SQ SCH ×4 (00:18→17:20)
[2020-12-09] MEDS: metroNIDAZOLE-NS PMX 500 MG in SALINE 1 100ML.BAG IVPB SCH ×3 (00:18→15:30)
[2020-12-09] MEDS: ONDANSETRON 4 MG/2 ML VIAL IVP PRN ×3 (00:19→17:20)
[2020-12-09] MEDS: PIPERACILLIN-TAZOBACTAM 3.375 GM in SODIUM CHLORIDE 0.9% 100 ML IVPB SCH ×3 (00:19→15:31)
--- NOTE | 2020-12-09 01:37 | P.PN ---
Subjective Progress Note Date: 12/08/20 Principal diagnosis: Acute small bowel obstruction : November 29: Right hemicolectomy for a distal ascending colon mass. Ms. Batista is a 70-year-old female with a past medical history of CHF, diabetes, hypertension, hyperlipidemia, TRUDI, hypothyroidism on 2 L of home oxygen who was transferred from [facility] for small bowel obstruction. Patient underwent exploratory laparotomy on November 29 and she had a right colectomy for obstructing right distal colonic mass. On 12/05/2020 - patient was seen and examined at the bedside. As per discussion with nursing staff patient was able to have a bowel movement. She still has NG tube to suction. She is currently having Popsicle every 3 hours for comfort. She complains of mild difficulty in breathing. Patient was also complaining nausea at the time of exam. On reviewing her vitals temperature of 97.6, heart rate 80, respiratory rate 17, blood pressure 1 33 x 61, saturating at 92% on 6 L of nasal cannula. On reviewing labs white count of 14.3, hemoglobin 11.5, platelets 43. Sodium 142, depression 3.8, chloride 107, bicarb 30, BUN 24, creatinine 1.03. On 12/06/2020 - patient was seen and examined at the bedside. Patient just got her pain medication and is resting comfortably. She denies having any chest pain or palpitations. She continues to be on 6 L of oxygen and maintaining her sats above 90%. Afebrile for the past 24 hours, blood pressure 1 33 x 61. On reviewing her labs white count 14.9, hemoglobin 11.3, platelets 496. Sodium 147. Potassium 3.6, chloride 107, bicarb 32, BUN 23, creatinine 1.0. Blood sugars continue to be between 200-250. On 12/07/2020-patient was seen and examined bedside. Patient's son at bedside. Last night rapid response team team was called as the patient was continuously having low saturations on her pulse ox. The patient was started on a fentanyl pump and this was discontinued. And she was administered a dose of Narcan. They ordered a chest x-ray which was consistent with congestive heart failure and pleural effusion with probable bilateral lower lobe pneumonia. Patient also received 80 mg of IV Lasix. Eventually patient's breathing status has improved and this morning her mentation is back to baseline. Patient complains of some nausea and dry mouth. She still continues to be 8 L of oxygen of oxygen to maintain saturation above 90%. On reviewing the vitals T-max of 97.4, heart rate 74, respiratory 16, blood pressure 151-69. She has NG tube in place and receiving TPN for nutritional support. Patient states that she got rectal [place] ppository and had couple of bowel movements yesterday but since this morning she is not passing gas. She denies having any abdominal pain. And on reviewing last this morning white count is 16.3, hemoglobin 10.9, platelets 410. Sodium 145, perforation 3.3, chloride 101, bicarb 36, BUN 19, creatinine 1.1 blood sugars running high in 300s. On 12/08/2020 -patient is seen and examined at the bedside. She is comfortably sitting up in a chair by the bedside and appears to be no acute distress. Patient complains of some abdominal soreness. She states that it has been almost 2 weeks that she ate anything and requesting to eat a popsicle. She complains of dry mouth. On reviewing the vitals temperature 97.5, heart rate 78, respiratory 20, blood pressure 147 x 64 saturating at 94% on 10 L high flow nasal cannula. Reviewing labs from this morning sodium 140, potassium 3.4, chloride 96, bicarb 37, BUN 25, creatinine 0.91. She continues to be on TPN for nutritional support and antibiotics in the form of Zosyn and Flagyl. Active Medications Albuterol/Ipratropium (Ipratropium-Albuterol 3 Ml Neb) 3 ml INHALATION RT-TID [facility] Last Admin: 12/08/20 19:06 Dose: 3 ml Documented by: Albuterol/Ipratropium (Ipratropium-Albuterol 3 Ml Neb) 3 ml INHALATION RT-Q1H PRN PRN Reason: Shortness Of Breath Or Wheezing Last Admin: 12/07/20 15:42 Dose: 3 ml Documented by: Atorvastatin Calcium (Atorvastatin 40 Mg Tab) 40 mg PO HS [facility] Last Admin: 12/08/20 20:27 Dose: Not Given Documented by: Benzocaine (Benzocaine Stephen 1 Can) 1 spray MUCOUS MEM QID PRN PRN Reason: Mouth Irritation Last Admin: 12/08/20 12:56 Dose: 1 spray Documented by: Benzocaine/Menthol (Benzocaine/Menthol Lozeng 1 Each Lozenge) 1 each MUCOUS MEM Q4HR PRN PRN Reason: Sore Throat Last Admin: 12/08/20 17:03 Dose: 1 each Documented by: Bisacodyl (Bisacodyl 10 Mg Supp) 10 mg RECTAL DAILY [facility] Last Admin: 12/08/20 09:04 Dose: 10 mg Documented by: Budesonide (Budesonide 1 Mg/2 Ml Nebu) 1 mg INHALATION RT-BID [facility] Last Admin: 12/08/20 19:06 Dose: 1 mg Documented by: Enoxaparin Sodium (Enoxaparin 40 Mg/0.4 Ml Syringe) 40 mg SQ DAILY [facility] Last Admin: 12/08/20 08:47 Dose: 40 mg Documented by: Fentanyl Citrate (Fentanyl It Systems Analyst Consultant 500 Mcg/50 Ml Bag) 500 mcg IV PER PROTOCOL PRN; Protocol PRN Reason: Pain Control Last Admin: 12/06/20 17:08 Dose: 500 mcg Documented by: Formoterol Fumarate (Formoterol Fumarate 20 Mcg/2 Ml Nebu) 20 mcg INHALATION RT-BID [facility] Last Admin: 12/08/20 19:06 Dose: 20 mcg Documented by: Furosemide (Furosemide 10 Mg/Ml 4 Ml Vial) 40 mg IV DAILY [facility] Last Admin: 12/08/20 08:43 Dose: 40 mg Documented by: Furosemide (Furosemide 10 Mg/Ml 4 Ml Vial) 40 mg IV DAILY [facility] Hydromorphone HCl (Hydromorphone 1 Mg/Ml 1 Ml Syringe) 1 mg IVP Q3HR PRN PRN Reason: Pain Last Admin: 12/08/20 16:57 Dose: 1 mg Documented by: Piperacillin Sod/Tazobactam (Sod 3.375 gm/ Sodium Chloride) 100 mls @ 25 mls/hr IVPB Q8HR [facility] Last Admin: 12/09/20 00:19 Dose: 25 mls/hr Documented by: Metronidazole 500 mg/ IV (Solution) 100 mls @ 100 mls/hr IVPB Q8HR [facility] Last Admin: 12/09/20 00:18 Dose: 100 mls/hr Documented by: Fat Emulsion Intravenous 250 (ml/ IV Solution) 250 mls @ 21 mls/hr IV MoWeFr [facility] Last Admin: 12/06/20 10:07 Dose: 21 mls/hr Documented by: Sodium Chloride (Saline 0.45%) 1,000 mls @ 20 mls/hr IV .Q24H [facility] Last Admin: 12/08/20 04:30 Dose: Not Given Documented by: Parenteral Vitamin Supplement 10 ml/ Zinc/Copper/Manganese/Selenium 1 ml/ Amino Ac/Electrol/Dextrose/Calcium 1,011 mls @ 85 mls/hr IV .BY DURATION [facility] Last Admin: 12/08/20 08:53 Dose: 85 mls/hr Documented by: Amino Ac/Electrol/Dextrose/Calcium (Clinimix E 5%-20% Solution) 1,000 mls @ 85 mls/hr IV .BY DURATION [facility] Last Admin: 12/08/20 20:26 Dose: 85 mls/hr Documented by: Insulin Aspart (Insulin Aspart (Novolog) 100 Unit/Ml Vial) 0 unit SQ Q6HR [facility]; Protocol Last Admin: 12/09/20 00:18 Dose: 12 unit Documented by: Insulin Detemir (Insulin Detemir (Levemir) 100 Unit/Ml Syr) 42 unit SQ [facility] Last Admin: 12/08/20 23:00 Dose: 42 unit Documented by: Levothyroxine Sodium (Levothyroxine Ivp 100 Mcg/5 Ml Vial) 75 mcg IV Q48H [facility] Last Admin: 12/08/20 06:08 Dose: 75 mcg Documented by: Levothyroxine Sodium (Levothyroxine Ivp 100 Mcg/5 Ml Vial) 68.5 mcg IV Q48H [facility] Last Admin: 12/07/20 06:21 Dose: 68.5 mcg Documented by: Naloxone HCl (Naloxone 0.4 Mg/Ml 1 Ml Vial) 0.2 mg IV Q2M PRN PRN Reason: Opioid Reversal Last Admin: 12/06/20 23:32 Dose: 0.2 mg Documented by: Ondansetron HCl (Ondansetron 4 Mg/2 Ml Vial) 4 mg IVP Q8HR PRN PRN Reason: Nausea And Vomiting Last Admin: 12/09/20 00:19 Dose: 4 mg Documented by: Pantoprazole Sodium (Pantoprazole 40 Mg/10 Ml Vial) 40 mg IVP DAILY [facility] Last Admin: 12/08/20 08:44 Dose: 40 mg Documented by: Saliva Substitute (Dry Mouth Stephen 44.3 Stephen/44.3 Ml Stephen) 1 spray MUCOUS MEM QID PRN PRN Reason: Dry Mouth Last Admin: 12/08/20 04:25 Dose: 1 spray Documented by: Tramadol HCl (Tramadol 50 Mg Tab) 50 mg PO Q6H PRN PRN Reason: Breakthrough Pain Last Admin: 12/06/20 06:26 Dose: 50 mg Documented by: Zolpidem Tartrate (Zolpidem 5 Mg Tab) 5 mg PO HS [facility] Last Admin: 12/07/20 21:59 Dose: 5 mg Documented by: Objective - Vital Signs Vital signs: Vital Signs Temp 98.1 F 12/08/20 08:56 Pulse 80 12/08/20 11:52 Resp 16 12/08/20 08:56 BP 134/72 12/08/20 08:56 Pulse Ox 94 L 12/08/20 08:56 Intake & Output 12/07/20 12/08/20 12/08/20 18:59 06:59 18:59 Output Total 825 20 Balance -825 -20 Weight 115.5 kg Output: Gastric Drainage 20 Urine 825 Other: Voiding Method Indwelling Catheter Indwelling Catheter - Exam Physical examination: GENERAL: Reclining in bed, tired, awake, on 10 L of oxygen of Oxygen saturating > 90 % EYES: Pupils equal. Conjunctiva normal. HEENT: External appearance of nose and ears normal, oral cavity -dry. NG tube- to suction, minimal secretions NECK: JVD not raised; masses not palpable. HEART: First and second heart sounds are normal; Mild edema. LUNGS: Respiratory rate increased, decreased breath sounds. ABDOMEN: Soft, mild abdominal tenderness, dressing in place, no guarding rigidity, absent bowel sounds multiple scars on the abdomen, liver spleen not palpable, no masses palpable. JOHN drain in place . Sluggish bowel sounds MUSCULAR skeletal: Evidence of OA especially in the hands PSYCH: Alert and oriented x3; mood - tearful that she has no eaten in days. - Labs CBC & Chem 7: 12/07/20 05:31 12/08/20 07:47 Labs: Abnormal Lab Results - Last 24 Hours (Table) 12/07/20 12/08/20 12/08/20 Range/Units 17:16 00:52 06:09 Potassium (3.5-5.1) mmol/L Chloride (98-107) mmol/L Carbon Dioxide (22-30) mmol/L BUN (7-17) mg/dL Glucose (74-99) mg/dL POC Glucose (mg/dL) 396 H 383 H 398 H (75-99) mg/dL Calcium (8.4-10.2) mg/dL Ionized Calcium Jorge (4.5-5.3) mg/dL Total Protein (6.3-8.2) g/dL Albumin (3.5-5.0) g/dL 12/08/20 12/08/20 12/08/20 Range/Units 07:47 11:32 13:58 Potassium 3.4 L (3.5-5.1) mmol/L Chloride 96 L (98-107) mmol/L Carbon Dioxide 37 H (22-30) mmol/L BUN 25 H (7-17) mg/dL Glucose 463 H (74-99) mg/dL POC Glucose (mg/dL) 494 H 466 H (75-99) mg/dL Calcium 7.9 L (8.4-10.2) mg/dL Ionized Calcium Jorge 4.2 L (4.5-5.3) mg/dL Total Protein 6.2 L (6.3-8.2) g/dL Albumin 2.7 L (3.5-5.0) g/dL Assessment and Plan Assessment: ASSESSMENT Acute small bowel obstruction Status post right hemicolectomy for distal ascending colonic mass - postop day 8 Diabetes mellitus Acute on chronic hypoxic respiratory failure Hypertension Hyperlipidemia Chronic urinary stress incontinence Hypothyroidism Morbid obesity with BMI of 45.7 CHF ejection fraction unknown Obstructive sleep apnea History of 3 prior abdominal hernia repairs with mesh placement PLAN: She is postoperative day # 8 today , patient has NG tube to suction. She is being continued on antibiotics in the form of Zosyn and Flagyl. She just had a PICC line placed and started on TPN for nutritional support and since then her blood sugars have been running high. She has been started on insulin, will increase the dose as they are stll running high . She was on a MILKER MACHINE pump for pain but became lethargic and it was discontinued. She is also started on IV Lasix yesterday. Continue with breathing treatments. Continue with IV Protonix for GI prophylaxis. Lovenox for DVT prophylaxis. Patient encouraged to continue with incentive spirometry. Overall prognosis is guarded. Further recommendations to follow depending on the progress of the patient.
[2020-12-09] MEDS: ZOLPIDEM 5 MG TAB PO SCH ×2 (01:55→22:01)
[2020-12-09 05:23] LABS: Glucose,Whole Blood 389 mg/dL (75-99)
[2020-12-09] MEDS: LEVOTHYROXINE IVP 100 MCG/5 ML VIAL IV SCH (06:14)
[2020-12-09] MEDS: traMADol 50 MG TAB PO PRN (06:23)
[2020-12-09] MEDS: SODIUM CHLORIDE 0.45% 1,000 ML IV SCH (06:25)
[2020-12-09] MEDS: BUDESONIDE 1 MG/2 ML NEBU INHALATION SCH ×2 (07:19→20:10)
[2020-12-09] MEDS: FORMOTEROL FUMARATE 20 MCG/2 ML NEBU INHALATION SCH ×2 (07:19→20:10)
[2020-12-09] MEDS: IPRATROPIUM-ALBUTEROL 3 ML NEB INHALATION SCH ×3 (07:20→20:10)
[2020-12-09] MEDS: FUROSEMIDE 10 MG/ML 4 ML VIAL IV SCH ×2 (08:11→08:14)
[2020-12-09] MEDS: PANTOPRAZOLE 40 MG/10 ML VIAL IVP SCH (08:12)
[2020-12-09] MEDS: HYDROmorphone 1 MG/ML 1 ML SYRINGE IVP PRN (08:12)
[2020-12-09] MEDS: ENOXAPARIN 40 MG/0.4 ML SYRINGE SQ SCH (08:14)
[2020-12-09] MEDS: bisacodyL 10 MG SUPP RECTAL SCH (08:14)
--- NOTE | 2020-12-09 08:38 | XR ---
EXAMINATION TYPE: XR chest 1V DATE OF EXAM: 12/09/2020 COMPARISON: Chest x-ray 12/07/2020 HISTORY: Hypoxia TECHNIQUE: Single frontal view of the chest is obtained. FINDINGS: Left-sided PICC line, NG tube are overlying appropriate positions, distal tip the PICC case e overlying superior vena cava. Patient is rotated. No evident pneumothorax or sizable effusion. Ther e is patchy basilar density however. Heart remains enlarged. Aorta is dense. IMPRESSION: Suspect some improvement in aeration at the lung bases, possible small effusions. Additi onal follow-up recommended.
[2020-12-09] MEDS: FAT EMULSION 20% 250 ML in EMPTY BAG 1 BAG IV SCH (09:50)
[2020-12-09 10:02] LABS: African American GFR (CKD) 59.3 (60.0-200.0); BUN/Creat Ratio 23.64 Ratio (12.00-20.00); Calcium 8.4 mg/dL (8.7-10.3); Carbon Dioxide >40.0 mmol/L (21.6-31.8); Chloride 94 mmol/L (96-109); Glucose 410 mg/dL (70-110); Magnesium 2.1 mg/dL (1.5-2.4); Non-African American GFR(CKD) 51.2 (60.0-200.0); Phosphorus 1.8 mg/dL (2.4-5.1); Potassium 3.1 mmol/L (3.5-5.5); Sodium 147 mmol/L (135-145)
[2020-12-09] MEDS: 1: MVI, ADULT NO.4 WITH VIT K 10 ML, TRACE (CONC-1ML/DOSE) 1 ML in AMINO ACID 5%-D20W+LY IV SCH ×3 (11:05)
--- NOTE | 2020-12-09 11:16 | P.PN ---
<Teomary joChiqui - Last Filed: 12/09/20 11:04> Subjective Progress Note Date: 12/09/20 CHIEF COMPLAINT: Colon obstruction HISTORY OF PRESENT ILLNESS: Patient is status post exploratory laparotomy with right colectomy for obstructing mass of the right colon. Postop day #10. Patient's last bowel movement was 12/07/2020. Patient did have a smear of a BM today. She is passing gas. Patient reported abdominal pain of 4 out of 10. She is feeling much better this morning. She denies any nausea or vomiting. She has NG tube in place with minimal output. She is feeling very sleepy and anxious at times. She was treated for fluid overload over the weekend and is now on IV Lasix. She's on room air satting at 95%. Afebrile. Sodium 147 potassium 3.1 CO2 greater than 40 creatinine 1.1 glucose 389 phosphorous 1.8 CBC pending. Patient states she usually takes [place] to help with her arthritis pain at home. Chest x-ray for today suspect some improvement in aeration at the lung bases, possible small effusions. PHYSICAL EXAM: VITAL SIGNS: Reviewed. GENERAL: Well-developed in no acute distress. HEENT: No sclera icterus. Extraocular movements grossly intact. Moist buccal mucosa. Head is atraumatic, normocephalic. ABDOMEN: Soft. Nondistended. Incision site clean dry and intact. Nontender NEUROLOGIC: Alert and oriented. Cranial nerves II through XII grossly intact. ASSESSMENT: 1. Obstructing mass of the right colon status post exploratory laparotomy with right colectomy with path report showing adenocarcinoma 2. Leukocytosis 3. Ileus 4. Hypophosphatemia 5. Hypokalemia PLAN: -Keep patient nothing by mouth except for ice chips and popsicles -Continue NG tube for decompression -Continue Dulcolax suppositories daily -Replace electrolytes -Continue pain medication as needed. We'll add [place] to help with pain control -Encouraged patient to use incentive spirometer -Encouraged patient to increase activity -Continue IV antibiotics -Continue GI prophylaxis Protonix and DVT prophylaxis Lovenox Physician Canal Structure Operator note has been reviewed by physician. Signing provider agrees with the documented findings, assessment, and plan of care. Objective - Vital Signs Vital signs: Vital Signs Temp 98.2 F 12/09/20 07:56 Pulse 80 12/09/20 10:55 Resp 22 12/09/20 07:56 BP 158/75 12/09/20 07:56 Pulse Ox 95 12/09/20 07:56 Intake & Output 12/08/20 12/09/20 12/09/20 18:59 06:59 18:59 Intake Total 50 Output Total 3025 2550 Balance -3025 -2550 50 Weight 111.5 kg Intake: Oral 50 Output: Urine 3021 2550 Other: Voiding Method Indwelling Catheter Indwelling Catheter Indwelling Catheter - Labs CBC & Chem 7: 12/07/20 05:31 12/09/20 05:23 Labs: Abnormal Lab Results - Last 24 Hours (Table) 12/08/20 12/08/20 12/08/20 Range/Units 11:32 13:58 16:55 Sodium (135-145) mmol/L Potassium (3.5-5.5) mmol/L Chloride (96-109) mmol/L Carbon Dioxide (21.6-31.8) mmol/L Est GFR (CKD-EPI)AfAm (60.0-200.0) Est GFR (CKD-EPI)NonAf (60.0-200.0) BUN/Creatinine Ratio (12.00-20.00) Ratio Glucose (70-110) mg/dL POC Glucose (mg/dL) 494 H 466 H 489 H (75-99) mg/dL Calcium (8.7-10.3) mg/dL Phosphorus (2.4-5.1) mg/dL 12/09/20 12/09/20 12/09/20 Range/Units 00:09 05:21 05:23 Sodium 147 H (135-145) mmol/L Potassium 3.1 L (3.5-5.5) mmol/L Chloride 94 L (96-109) mmol/L Carbon Dioxide >40.0 H* (21.6-31.8) mmol/L Est GFR (CKD-EPI)AfAm 59.3 L (60.0-200.0) Est GFR (CKD-EPI)NonAf 51.2 L (60.0-200.0) BUN/Creatinine Ratio 23.64 H (12.00-20.00) Ratio Glucose 410 H (70-110) mg/dL POC Glucose (mg/dL) 471 H 389 H (75-99) mg/dL Calcium 8.4 L (8.7-10.3) mg/dL Phosphorus 1.8 L (2.4-5.1) mg/dL <DiannavidalClay - Last Filed: 12/09/20 13:16> Subjective As above. Patient says her pain is actually a 0 out of 10 currently. She states that the nurses manipulated her nasogastric tube and she feels better as the result of that. She did have a bowel movement 2 days ago. She is passing flatus. She does not want the nasogastric tube removed out of fear that the pain will return in that it may have to be replaced. Her white blood cell count is improved today as well. Abdomen is soft with only mild tenderness at this time. We've agreed to keep the nasogastric tube and [place] catheter today. Hopefully we'll be able to remove both catheters tomorrow. Continue TPN. Objective - Vital Signs Vital signs: Vital Signs Temp 98.2 F 12/09/20 07:56 Pulse 76 12/09/20 11:10 Resp 22 12/09/20 07:56 BP 158/75 12/09/20 07:56 Pulse Ox 95 12/09/20 07:56 Intake & Output 12/08/20 12/09/20 12/09/20 18:59 06:59 18:59 Intake Total 1011 50 Output Total 3025 2550 Balance -3025 -1539 50 Weight 111.5 kg Intake: Intake, IV Titration 1011 Amount Mvi, Adult No.4 with Vit 1011 K 10 ml Trace (Conc-1Ml/ Dose) 1 ml In Amino Acid 5%-D20w+Lytes*E* 1,000 ml @ 85 mls/hr IV .BY [facility] Rx#: [id number] Oral 50 Output: Urine 3025 2550 Other: Voiding Method Indwelling Catheter Indwelling Catheter Indwelling Catheter - Labs CBC & Chem 7: 12/09/20 05:23 12/09/20 05:23 Labs: Abnormal Lab Results - Last 24 Hours (Table) 12/08/20 12/08/20 12/09/20 Range/Units 13:58 16:55 00:09 WBC (3.8-10.6) k/uL MCHC (31.0-37.0) g/dL Neutrophils # (1.3-7.7) k/uL Lymphocytes # (1.0-4.8) k/uL Sodium (135-145) mmol/L Potassium (3.5-5.5) mmol/L Chloride (96-109) mmol/L Carbon Dioxide (21.6-31.8) mmol/L Est GFR (CKD-EPI)AfAm (60.0-200.0) Est GFR (CKD-EPI)NonAf (60.0-200.0) BUN/Creatinine Ratio (12.00-20.00) Ratio Glucose (70-110) mg/dL POC Glucose (mg/dL) 466 H 489 H 471 H (75-99) mg/dL Calcium (8.7-10.3) mg/dL Phosphorus (2.4-5.1) mg/dL 12/09/20 12/09/20 12/09/20 Range/Units 05:21 05:23 05:23 WBC 13.3 H (3.8-10.6) k/uL MCHC 30.1 L (31.0-37.0) g/dL Neutrophils # 12.1 H (1.3-7.7) k/uL Lymphocytes # 0.4 L (1.0-4.8) k/uL Sodium 147 H (135-145) mmol/L Potassium 3.1 L (3.5-5.5) mmol/L Chloride 94 L (96-109) mmol/L Carbon Dioxide >40.0 H* (21.6-31.8) mmol/L Est GFR (CKD-EPI)AfAm 59.3 L (60.0-200.0) Est GFR (CKD-EPI)NonAf 51.2 L (60.0-200.0) BUN/Creatinine Ratio 23.64 H (12.00-20.00) Ratio Glucose 410 H (70-110) mg/dL POC Glucose (mg/dL) 389 H (75-99) mg/dL Calcium 8.4 L (8.7-10.3) mg/dL Phosphorus 1.8 L (2.4-5.1) mg/dL 12/09/20 Range/Units 11:16 WBC (3.8-10.6) k/uL MCHC (31.0-37.0) g/dL Neutrophils # (1.3-7.7) k/uL Lymphocytes # (1.0-4.8) k/uL Sodium (135-145) mmol/L Potassium (3.5-5.5) mmol/L Chloride (96-109) mmol/L Carbon Dioxide (21.6-31.8) mmol/L Est GFR (CKD-EPI)AfAm (60.0-200.0) Est GFR (CKD-EPI)NonAf (60.0-200.0) BUN/Creatinine Ratio (12.00-20.00) Ratio Glucose (70-110) mg/dL POC Glucose (mg/dL) 277 H (75-99) mg/dL Calcium (8.7-10.3) mg/dL Phosphorus (2.4-5.1) mg/dL Assessment and Plan (1) Bowel obstruction Current Visit: Yes Status: Acute Code(s): K56.609 - UNSP INTESTNL OBST, UNSP TO PARTIAL VERSUS COMPLETE OBST SNOMED Code(s): 73585564
[2020-12-09] MEDS ORDERED: Potassium Replacement Protocol 1 EACH MISC MISCELLANE PRN (11:20)
[2020-12-09] MEDS ORDERED: Magnesium Replacement Protocol 1 EACH MISC MISCELLANE PRN (11:20)
[2020-12-09] MEDS ORDERED: POTASSIUM CHLORIDE 10 MEQ in WATER FOR INJECTION 1 100ML.BAG IVPB STA (11:27)
[2020-12-09 11:36] LABS: Glucose,Whole Blood 277 mg/dL (75-99)
[2020-12-09 11:38] LABS: Basophils # (A) 0.1 k/uL (0-0.2); Basophils % (A) 1 %; Eosinophils # (A) 0.2 k/uL (0-0.7); Eosinophils % (A) 1 %; HCT 38.6 % (34.0-46.0); HGB 11.6 gm/dL (11.4-16.0); Hypochromasia Moderate; Lymphocytes # (A) 0.4 k/uL (1.0-4.8); Lymphocytes % (A) 3 %; MCH 29.3 pg (25.0-35.0); MCHC 30.1 g/dL (31.0-37.0); MCV 97.4 fL (80.0-100.0); Mean Platelet Volume 8.2; Monocytes # (A) 0.5 k/uL (0-1.0); Monocytes % (A) 4 %; Neutrophils # (A) 12.1 k/uL (1.3-7.7); Neutrophils % (A) 91 %; Platelet Count 367 k/uL (150-450); RBC 3.96 m/uL (3.80-5.40); RDW 15.5 % (11.5-15.5); WBC 13.3 k/uL (3.8-10.6)
[2020-12-09] MEDS: POTASSIUM PHOSPHATE 10 MMOL in SODIUM CHLORIDE 0.9% 100 ML IV SCH ×2 (12:12→14:27)
[2020-12-09] MEDS ORDERED: POTASSIUM CHLORIDE 20 MEQ in WATER FOR INJECTION 1 100ML.BAG IVPB ONE (16:30)
[2020-12-09] MEDS ORDERED: NON FORMULARY DRUG (Levothyroxine Sodium [Synthroid] 150 MCG Tablet) PO SCH (16:45)
--- NOTE | 2020-12-09 17:12 | PN ---
PROGRESS NOTE DATE OF SERVICE: 12/09/2020 This 70-year-old woman who was admitted after small bowel resection and right hemicolectomy for distal ascending colonic mass is being closely monitored at this time. The patient still has an NG tube. Surgery, Dr. Healy, is following the patient closely. The patient had exploratory laparotomy with right colectomy with obstructing mass of the right colon. Pathology showed adenocarcinoma. The most recent chest x- ray, which was reviewed personally by me, showed some improvement in the aeration. Past medical history reviewed. REVIEW OF SYSTEMS: CARDIOVASCULAR SYSTEM: No angina, palpitations. RESPIRATORY SYSTEM: As mentioned earlier. GI: As mentioned earlier. : No dysuria or retention. NERVOUS SYSTEM: No numbness, weakness. CURRENT MEDICATIONS: Reviewed. They include [place], DuoNeb, Lipitor, Cepacol, Dulcolax, Pulmicort, Lovenox, TPN, NovoLog, Levemir. PHYSICAL EXAMINATION: Patient alert and oriented x3. Pulse 74, blood pressure 144/60, respirations 16, temperature 98.1, pulse ox 96% on 10 L. HEENT: Conjunctivae normal. NECK: No jugular venous distention. CARDIOVASCULAR SYSTEM: S1, S2 muffled. RESPIRATORY SYSTEM: Breath sounds diminished at the bases. Scattered rhonchi and crackles. ABDOMEN: Soft, obese, non-tender. LEGS: No edema. No swelling. NERVOUS SYSTEM: No focal deficit. LABS: WBC 13.3, sodium 147, potassium 3.1. Glucose is 277, phosphorus 1.87. ASSESSMENT: 1. Obstructive mass in the right colon, status post exploratory laparotomy with right colectomy with pathology showing adenocarcinoma. 2. Diabetes mellitus, type 2, uncontrolled with hyperglycemia. 3. Acute on chronic hypoxic respiratory failure. 4. Hypertension. 5. Hyperlipidemia. 6. Chronic urinary incontinence. 7. Hypothyroidism. 8. Bilateral basilar atelectasis. 9. Morbid obesity. 10.Congestive heart failure with ejection fraction unknown. 11.Obstructive sleep apnea. 12.History of 3 prior abdominal hernia repairs with mesh placement. 13.Hypernatremia. 14.Hypokalemia. 15.Increased white count. 16.History of degenerative joint disease. 17.History of sleep apnea. 18.History of bronchitis. 19.History of methicillin-resistant Staphylococcus aeruginosa. 20.History of cholecystectomy. 21.Obesity with body mass index of 43.5. 22.FULL CODE. RECOMMENDATIONS AND DISCUSSION: I recommend to continue current medications, continue with the monitoring, symptomatic treatment. Continue with the bronchodilators. I would recommend monitoring the fluid/electrolyte balance closely. Adjust the amount of sodium in the TPN. Will continue the IV Lasix. Guarded prognosis because of multiple complex medical issues. Further recommendations to follow. Will cut down the amount of TPN also. See orders for further details. Continue with DuoNeb. MMODL / IJN: [id number] /
[2020-12-09 17:27] LABS: Glucose,Whole Blood 308 mg/dL (75-99)
--- NOTE | 2020-12-09 18:07 | P.PN ---
Subjective Progress Note Date: 12/09/20 Principal diagnosis: acute bowel obstruction 70-year-old patient, brought in by EMS, on November 28. She was seen by Dr. Luis Enrique Murillo in the emergency department. She has a history of diabetes mellitus, CHF, chronic kidney disease, multiple abdominal hernia repairs, with mesh, and severe COPD. Her FEV1 is 0.92 L which is 41% of predicted. She sees my partner in the office for her COPD. She also suffers from chronic hypoxemic respiratory failure, and does use oxygen 24/. She apparently recently has had multiple episodes of nonbloody nonbilious emesis, as well as watery diarrhea, for one week. She apparently was evaluated and found on computed tomography scan, to have a colonic lesion, consistent with colon cancer. I was consulted for preop clearance. We saw her right before she went off to surgery. She is chronically on oxygen therapy at 3 L as mentioned above. The patient was having surgery with Dr. Clay Healy. Basically, she tells me that her COPD much at baseline. I did mention to her that she may end up in the intensive care unit after surgery. Also, based on the FEV1 alone, without the MVV, or RV/TLC ratio, the patient's at moderately increased operative risk from general anesthesia. White count 11.1, hemoglobin 13, hematocrit 40.6, platelet count 529,000, sodium 137, potassium 4.3, chlorides 100, CO2 32, anion gap 5, BUN 26, and creatinine 1.45. There was no chest x-ray to review. The patient is seen today 11/30/2020 in follow-up on the regular medical floor. She is currently resting quite comfortably in bed. Awake and alert in no acute distress. Nasogastric tube is secured in place. Maintaining O2 saturations in the 90s on 6 L/m per nasal cannula. White count 10.6. Hemoglobin 12.6. Sodium 137. Potassium 4.8. Creatinine 1.50. She is maintained on Symbicort and DuoNeb inhalations. Anticoagulated with Lovenox. The patient is seen today 12/01/2020 in follow-up on the regular medical floor. She is awake and alert in no acute distress. Resting comfortably in bed. Nasogastric tube remains in place. This is postoperative day #2. She remains on Zosyn and Flagyl. Maintaining O2 saturation in the 90s on 4 L/m per nasal cannula. She was requesting breathing treatments during the night for some increasing shortness of breath. Working well with the incentive spirometer. White count 10.2. Hemoglobin 10.9. Sodium 141. Potassium 4.5. Creatinine 1.3. 12/02/2020 the patient is being seen for a follow-up. The patient is postop day #3 and the patient underwent resection of the right colonic mass and secondary bowel obstruction. The patient has an NG tube in place. The patient remains covered with a combination of Zosyn and Flagyl. Doing well. Using incentive spirometer. No significant respiratory difficulties. Currently on oxygen at 4 L per minute nasal cannula. The pain is under adequate control. The patient is on DuoNeb nebulized treatments around the clock and the patient is receiving Dilaudid for pain control 1 mg every 3 hours IV. IV fluids are running with normal saline at the rate of 100 mL an hour. NG tube was removed this morning. The patient is passing no gas and she hasn't had any bowel movements yet. Nevertheless, she has decent bowel sounds. JOHN drains in place. Output is in order of minimal amount in the order of 10 mL serosanguineous. The patient was up on a chair and she is gradually getting stronger. Antibiotic coverage is same. Oxygen is at 5 L. On today's evaluation of 12/02/2020, the patient is postop day #4. She is currently on 5 L of oxygen by nasal cannula. NG tube was removed yesterday. She is quite comfortable and she is sitting up on a recliner. JOHN drain is in place and output is serosanguineous and it's minimal right now. Bowel sounds are active and the patient on is still nothing by mouth and she's taken only as chips. She is using incentive spirometer which is in front of her all the time. Urine output is adequate. She feels that she is getting stronger. She is on DuoNeb nebulized treatment [id number]. She has adequate pain control with Dilaudid. She is also on examination Zosyn and Flagyl. No fever. No chills. No other significant events overnight. No altered mentation. Patient is passing gas and she is requesting gel low The patient is seen today 12/04/2020 in follow-up. This is postoperative day # 5. She is currently sitting up in a chair at the bedside. Maintaining O2 saturations in the 90s on 5 L/m per nasal cannula. She's afebrile. His been having some ongoing discomfort in her abdomen. Nasogastric tube remains in place. Computed tomography scan of the abdomen revealed distended loops of air and fluid filled bowel consistent with ileus similar to compared to previous. No free air. No mechanical bowel obstruction. There were noted basilar consolidation and atelectasis. New pleural effusions. She is working well with the incentive spirometer. Chest x-ray revealed pleural effusions right greater than left. She is continued on bronchodilators, antibiotics in the form of Zo syn and Flagyl. 12/05/2020 the patient is postop day #6. She was able to pass flatus. She was also able to pass a bowel movement. NG tube is still in place and output is in order of 3. Unfortunately, she continues to have popsicles. In terms of oxygen, she is on 6 L and his saturations around 91%. She is feeling slightly more short of breath and she getting incentive spirometer. Chest x-ray that showed some small bilateral pleural effusions. She is on IV fluids currently running at 100 mL an hour. She is also on examination Zosyn and Flagyl. Surgical wound site is clean. The blood work from today showing His on 12/07/2020, the patient's condition has somewhat decompensated. She has recovered of setbacks yesterday. She became more short of breath overnight. The emergency team was called and the patient was given Lasix. The chest x-ray showed some pulmonary vessel congestion and fluid overload. The patient responded nicely. Currently the patient is on 5 L and this was up to 8 L and her saturations around 90%. She is also complaining of abdominal pain and distention. No direct tenderness. I noticed that the patient is taking some on and off popsicles despite the surgical recommendations. The patient's CAT scan of the abdomen and pelvis that was done on 12/06/2020 showed no evidence of any colonic obstruction or any anastomotic leaks. Some atelectatic changes were seen in lung bases bilaterally. Meanwhile, NG tube is still in place. Output from the NG tube is in the order of 50 mL over the past several hours probably 10 hours and the patient's output is limited this point in time. She is receiving TPN for nutritional support. Has no bowel sounds and examination. She was passing flatus yesterday and she is not passing any today. On examination, no direct tenderness. No altered mentation. Slightly more restless on today's evaluation. She remains on IV Zosyn. Blood work shows a white cell count of 16, hemoglobin of 10.9 which is up compared to yesterday, electrolytes show a potassium of 3.3 which is to be replaced and the sodium of 145 and a BUN of 19 with a creatinine of 1.1. Note that yesterday, during the patient's shortness of breath, blood gases was done that showed an acute on top of chronic hypercapnic respiratory failure and the patient responded to Lasix. She also had to be given some Narcan as the patient was under the contact of Dilaudid. 12/08/2020 the patient is being seen for a follow-up. NG tube is still in pl fely. She is on 10-15 L by nasal cannula. She is using incentive spirometer. She put out only 20 mL on her energy over the past 8 hours. She has taken ice chips and she's going through them that he past. She is also on IV fluids and TPN for nutritional support. Surgical wound site is dry clean and intact. She is passing some flatus. Abdomen is still slightly distended and the patient is complaining is complaining of dry mouth and she continues to want ice chips.The patient is a patient of [facility] and [employer]. She remains on TPN. Blood sugars are elevated and the patient is currently on Levemir running at 30 units daily along with a sliding scale coverage. This dose was adjusted yesterday. She is also on Lovenox for DVT prophylaxis. Patient was reevaluated today on 12/09/2020, patient is comfortable, she continues to have nasogastric tube in place, she is on a high flow nasal ca nnula, she is actually on 10 L high flow, O2 saturations 94%, she is on TPN, and she is also on Lasix. Her chest x-ray continues to show left lower lobe atelectasis/infiltrate.WBC count today is 13.3 hemoglobin is 11.6. Sodium is elevated at 147 bicarb is more than 40 BUN is 26 creatinine is 1.1. Her sugar is 308. And her magnesium is 2.1. Objective - Vital Signs Vital signs: Vital Signs Temp 98.1 F 12/09/20 15:47 Pulse 74 12/09/20 15:47 Resp 16 12/09/20 15:47 BP 144/68 12/09/20 15:47 Pulse Ox 96 12/09/20 15:47 Intake & Output 12/08/20 12/09/20 12/09/20 18:59 06:59 18:59 Intake Total 1011 100 Output Total 3025 2550 1750 Balance -3025 -1539 -1650 Weight 111.5 kg 111.5 kg Intake: Intake, IV Titration 1011 Amount Mvi, Adult No.4 with Vit 1011 K 10 ml Trace (Conc-1Ml/ Dose) 1 ml In Amino Acid 5%-D20w+Lytes*E* 1,000 ml @ 85 mls/hr IV .BY DURATION [facility] Rx#: [id number] Oral 100 Output: Gastric Drainage 150 Urine 3025 2550 1600 Other: Voiding Method Indwelling Catheter Indwelling Catheter Indwelling Catheter - Exam GENERAL EXAM: Alert, pleasant 70-year-old female patient, on 10 liter nasal cannula, comfortable in no apparent distress. HEAD: Normocephalic. EYES: Normal reaction of pupils, equal size. NOSE: Nasogastric tube secured in place. Clear with pink turbinates. THROAT: No erythema or exudates. NECK: No masses, no JVD. CHEST: No chest wall deformity. LUNGS: diminished breath sounds and dullness at the left base, no crackles nor rhonchi no wheezes. CVS: S1 and S2 normal with no audible murmur, regular rhythm. ABDOMEN: Dressing dry and intact. No hepatosplenomegaly, normal bowel sounds, no guarding or rigidity. Patient has a JOHN drain in the right lower quadrant. I'll sounds are very much hypoactive and sluggish. No abdominal distention. No direct tenderness. Surgical wound site is dry clean and intact. SPINE: No scoliosis or deformity SKIN: No rashes CENTRAL NERVOUS SYSTEM: alert and oriented 3, no gross focal neurologic deficits. EXTREMITIES: no clubbing edema or cyanosis. - Labs CBC & Chem 7: 12/09/20 05:23 12/09/20 05:23 Labs: Abnormal Lab Results - Last 24 Hours (Table) 12/09/20 12/09/20 12/09/20 Range/Units 00:09 05:21 05:23 WBC (3.8-10.6) k/uL MCHC (31.0-37.0) g/dL Neutrophils # (1.3-7.7) k/uL Lymphocytes # (1.0-4.8) k/uL Sodium 147 H (135-145) mmol/L Potassium 3.1 L (3.5-5.5) mmol/L Chloride 94 L (96-109) mmol/L Carbon Dioxide >40.0 H* (21.6-31.8) mmol/L Est GFR (CKD-EPI)AfAm 59.3 L (60.0-200.0) Est GFR (CKD-EPI)NonAf 51.2 L (60.0-200.0) BUN/Creatinine Ratio 23.64 H (12.00-20.00) Ratio Glucose 410 H (70-110) mg/dL POC Glucose (mg/dL) 471 H 389 H (75-99) mg/dL Calcium 8.4 L (8.7-10.3) mg/dL Phosphorus 1.8 L (2.4-5.1) mg/dL 12/09/20 12/09/20 12/09/20 Range/Units 05:23 11:16 17:18 WBC 13.3 H (3.8-10.6) k/uL MCHC 30.1 L (31.0-37.0) g/dL Neutrophils # 12.1 H (1.3-7.7) k/uL Lymphocytes # 0.4 L (1.0-4.8) k/uL Sodium (135-145) mmol/L Potassium (3.5-5.5) mmol/L Chloride (96-109) mmol/L Carbon Dioxide (21.6-31.8) mmol/L Est GFR (CKD-EPI)AfAm (60.0-200.0) Est GFR (CKD-EPI)NonAf (60.0-200.0) BUN/Creatinine Ratio (12.00-20.00) Ratio Glucose (70-110) mg/dL POC Glucose (mg/dL) 277 H 308 H (75-99) mg/dL Calcium (8.7-10.3) mg/dL Phosphorus (2.4-5.1) mg/dL Assessment and Plan Assessment: 1 Acute bowel obstruction, status post resection, postoperative day #8. 2 Severe/stage III, COPD, with an FEV1 that is 0.92 L or 41% of predicted. The patient developed an acute on top of chronic hypercapnic respiratory failure. 3 History of 3 prior abdominal hernia repairs, with mesh placement. 4 History of angina pectoris. 5 History of CHF. 6 History of diabetes mellitus. 7 History of hyperlipidemia. 8 History of essential hypertension. 9 History of sleep apnea syndrome, currently on CPAP. 10 History of hypothyroidism. 11 Prior history of MRSA infection, 2013. 12 Previous history of heavy tobacco use. Recommendation: Continue present supportive care measures. Continue to keep the patient nothing by mouth. continue incentive spirometry. Continue bronchodilators. Continue insulin Continue diuretics. Titrate down the FiO2 as tolerated Continue Zosyn and Flagyl Patient is sitting up on a recliner. Surgical follow-up regarding her abdominal pain and ongoing ileus the abdomen and pelvis that was done earlier was noted. We will continue to follow Time with Patient: Less than 30
[2020-12-09] MEDS: INSULIN DETEMIR (LEVEMIR) 100 UNIT/ML SYR SQ SCH (22:01)
[2020-12-09] MEDS: ATORVASTATIN 40 MG TAB PO SCH (22:01)
[2020-12-10] MEDS: PIPERACILLIN-TAZOBACTAM 3.375 GM in SODIUM CHLORIDE 0.9% 100 ML IVPB SCH ×3 (00:53→17:26)
[2020-12-10] MEDS: metroNIDAZOLE-NS PMX 500 MG in SALINE 1 100ML.BAG IVPB SCH ×3 (00:53→16:19)
[2020-12-10 00:55] LABS: Glucose,Whole Blood 447 mg/dL (75-99)
[2020-12-10] MEDS ORDERED: INSULIN ASPART (NovoLOG) 100 UNIT/ML VIAL SQ ONE (01:15)
[2020-12-10] MEDS: INSULIN ASPART (NovoLOG) 100 UNIT/ML VIAL SQ SCH ×4 (01:17→17:27)
[2020-12-10] MEDS: SODIUM CHLORIDE 0.45% 1,000 ML IV SCH (03:15)
[2020-12-10 06:05] LABS: Glucose,Whole Blood 385 mg/dL (75-99)
[2020-12-10] MEDS: LEVOTHYROXINE IVP 100 MCG/5 ML VIAL IV SCH (06:23)
[2020-12-10 07:01] LABS: Ionized Calcium 4.3 mg/dL (4.5-5.3)
[2020-12-10] MEDS: BUDESONIDE 1 MG/2 ML NEBU INHALATION SCH ×2 (07:19→21:35)
[2020-12-10] MEDS: FORMOTEROL FUMARATE 20 MCG/2 ML NEBU INHALATION SCH ×2 (07:19→21:37)
[2020-12-10] MEDS: IPRATROPIUM-ALBUTEROL 3 ML NEB INHALATION SCH ×4 (07:19→21:35)
[2020-12-10] MEDS: PANTOPRAZOLE 40 MG/10 ML VIAL IVP SCH (08:03)
[2020-12-10] MEDS: FUROSEMIDE 10 MG/ML 4 ML VIAL IV SCH (08:21)
[2020-12-10] MEDS: ENOXAPARIN 40 MG/0.4 ML SYRINGE SQ SCH (08:27)
[2020-12-10 08:28] LABS: Basophils # (A) 0.1 k/uL (0-0.2); Basophils % (A) 1 %; Eosinophils # (A) 0.3 k/uL (0-0.7); Eosinophils % (A) 2 %; HCT 37.3 % (34.0-46.0); HGB 11.7 gm/dL (11.4-16.0); Hypochromasia Moderate; Lymphocytes # (A) 0.7 k/uL (1.0-4.8); Lymphocytes % (A) 6 %; MCH 30.7 pg (25.0-35.0); MCHC 31.4 g/dL (31.0-37.0); MCV 97.8 fL (80.0-100.0); Macrocytosis Slight; Monocytes # (A) 0.4 k/uL (0-1.0); Monocytes % (A) 4 %; Neutrophils # (A) 9.5 k/uL (1.3-7.7); Neutrophils % (A) 86 %; Platelet Count 326 k/uL (150-450); RBC 3.81 m/uL (3.80-5.40); RDW 15.6 % (11.5-15.5)
[2020-12-10] MEDS: bisacodyL 10 MG SUPP RECTAL SCH (08:28)
[2020-12-10] MEDS: BENZOCAINE SPRAY 1 CAN MUCOUS MEM PRN (08:49)
[2020-12-10 11:18] LABS: Glucose,Whole Blood 384 mg/dL (75-99)
--- NOTE | 2020-12-10 11:22 | P.PN ---
<Chiqui Dietz - Last Filed: 12/10/20 11:14> Subjective Progress Note Date: 12/10/20 CHIEF COMPLAINT: Colon obstruction HISTORY OF PRESENT ILLNESS: Patient is status post exploratory laparotomy with right colectomy for obstructing mass of the right colon. Postop day #11. Patient did have a smear of a BM yesterday. She is passing gas. Patient is complaining more of an irritation from the NG tube and feels that it has moved out of place. She has had 200 mL output to the NG tube but she has been eating a lot of ice chips and popsicles. She is still on 10 L of oxygen satting at 96%. Afebrile. WBC has decreased from 13.3-11. BMP pending phosphorus level pending. Patient does remain on IV Lasix. She is followed by pulmonary service PHYSICAL EXAM: VITAL SIGNS: Reviewed. GENERAL: Well-developed in no acute distress. HEENT: No sclera icterus. Extraocular movements grossly intact. Moist buccal mucosa. Head is atraumatic, normocephalic. ABDOMEN: Soft. Nondistended. Incision site clean dry and intact. Lower abdominal bruising noted from lovenox injections NEUROLOGIC: Alert and oriented. Cranial nerves II through XII grossly intact. ASSESSMENT: 1. Obstructing mass of the right colon status post exploratory laparotomy with right colectomy with path report showing adenocarcinoma 2. Leukocytosis 3. Ileus 4. Hypophosphatemia 5. Hypokalemia PLAN: -Discontinue NG tube -Discontinue Barkley catheter -Start patient on clear liquid diet -Continue TPN for nutrition support for now -Continue pain medication as needed -Encouraged patient to use incentive spirometer -Encouraged patient to increase activity -Continue IV antibiotics -Continue GI prophylaxis Protonix and DVT prophylaxis Lovenox Physician Manager Provider Relations note has been reviewed by physician. Signing provider agrees with the documented findings, assessment, and plan of care. Objective - Vital Signs Vital signs: Vital Signs Temp 96.8 F L 12/10/20 10:30 Pulse 92 12/10/20 10:30 Resp 20 12/10/20 09:10 BP 155/69 12/10/20 07:05 Pulse Ox 91 L 12/10/20 09:10 Intake & Output 12/09/20 12/10/20 12/10/20 18:59 06:59 18:59 Intake Total 100 Output Total 1750 2200 Balance -1650 -2200 Weight 111.5 kg 109 kg Intake: Oral 100 Output: Gastric Drainage 150 200 Urine 1600 2000 Other: Voiding Method Indwelling Catheter Indwelling Catheter Indwelling Catheter - Labs CBC & Chem 7: 12/10/20 05:26 12/09/20 05:23 Labs: Abnormal Lab Results - Last 24 Hours (Table) 12/09/20 12/09/20 12/09/20 Range/Units 05:23 11:16 17:18 WBC 13.3 H (3.8-10.6) k/uL MCHC 30.1 L (31.0-37.0) g/dL RDW (11.5-15.5) % Neutrophils # 12.1 H (1.3-7.7) k/uL Lymphocytes # 0.4 L (1.0-4.8) k/uL POC Glucose (mg/dL) 277 H 308 H (75-99) mg/dL Ionized Calcium Jorge (4.5-5.3) mg/dL 12/10/20 12/10/20 12/10/20 Range/Units 00:53 05:26 05:26 WBC 11.0 H (3.8-10.6) k/uL MCHC (31.0-37.0) g/dL RDW 15.6 H (11.5-15.5) % Neutrophils # 9.5 H (1.3-7.7) k/uL Lymphocytes # 0.7 L (1.0-4.8) k/uL POC Glucose (mg/dL) 447 H (75-99) mg/dL Ionized Calcium Jorge 4.3 L (4.5-5.3) mg/dL 12/10/20 Range/Units 06:04 WBC (3.8-10.6) k/uL MCHC (31.0-37.0) g/dL RDW (11.5-15.5) % Neutrophils # (1.3-7.7) k/uL Lymphocytes # (1.0-4.8) k/uL POC Glucose (mg/dL) 385 H (75-99) mg/dL Ionized Calcium Jorge (4.5-5.3) mg/dL <Clay Healy - Last Filed: 12/10/20 18:15> Subjective As above. Nasogastric tube was removed. She had another large stool today. Pain is well-controlled. Will increase diet further. Continue TPN today. Objective - Vital Signs Vital signs: Vital Signs Temp 98.1 F 12/10/20 16:57 Pulse 73 12/10/20 16:57 Resp 18 12/10/20 16:57 BP 144/66 12/10/20 16:57 Pulse Ox 95 12/10/20 13:52 Intake & Output 12/09/20 12/10/20 12/10/20 18:59 06:59 18:59 Intake Total 100 Output Total 1750 2200 2550 Balance -1650 -2200 -2550 Weight 111.5 kg 109 kg 109 kg Intake: Oral 100 Output: Gastric Drainage 150 200 Urine 1600 2000 2550 Other: Voiding Method Indwelling Catheter Indwelling Catheter Bedside Commode Bedpan Diaper # Voids 1 # Bowel Movements 1 - Labs CBC & Chem 7: 12/10/20 05:26 12/10/20 05:26 Labs: Abnormal Lab Results - Last 24 Hours (Table) 12/10/20 12/10/20 12/10/20 Range/Units 00:53 05:26 05:26 WBC 11.0 H (3.8-10.6) k/uL RDW 15.6 H (11.5-15.5) % Neutrophils # 9.5 H (1.3-7.7) k/uL Lymphocytes # 0.7 L (1.0-4.8) k/uL Sodium 154 H (135-145) mmol/L Potassium 3.2 L (3.5-5.5) mmol/L Carbon Dioxide >40.0 H* (21.6-31.8) mmol/L BUN 28.0 H (9.0-27.0) mg/dL Est GFR (CKD-EPI)AfAm 59.3 L (60.0-200.0) Est GFR (CKD-EPI)NonAf 51.2 L (60.0-200.0) BUN/Creatinine Ratio 25.45 H (12.00-20.00) Ratio Glucose 376 H (70-110) mg/dL POC Glucose (mg/dL) 447 H (75-99) mg/dL Calcium 8.6 L (8.7-10.3) mg/dL Ionized Calcium Jorge 4.3 L (4.5-5.3) mg/dL 12/10/20 12/10/20 12/10/20 Range/Units 06:04 11:13 16:49 WBC (3.8-10.6) k/uL RDW (11.5-15.5) % Neutrophils # (1.3-7.7) k/uL Lymphocytes # (1.0-4.8) k/uL Sodium (135-145) mmol/L Potassium (3.5-5.5) mmol/L Carbon Dioxide (21.6-31.8) mmol/L BUN (9.0-27.0) mg/dL Est GFR (CKD-EPI)AfAm (60.0-200.0) Est GFR (CKD-EPI)NonAf (60.0-200.0) BUN/Creatinine Ratio (12.00-20.00) Ratio Glucose (70-110) mg/dL POC Glucose (mg/dL) 385 H 384 H 511 H (75-99) mg/dL Calcium (8.7-10.3) mg/dL Ionized Calcium Jorge (4.5-5.3) mg/dL 12/10/20 Range/Units 16:51 WBC (3.8-10.6) k/uL RDW (11.5-15.5) % Neutrophils # (1.3-7.7) k/uL Lymphocytes # (1.0-4.8) k/uL Sodium (135-145) mmol/L Potassium (3.5-5.5) mmol/L Carbon Dioxide (21.6-31.8) mmol/L BUN (9.0-27.0) mg/dL Est GFR (CKD-EPI)AfAm (60.0-200.0) Est GFR (CKD-EPI)NonAf (60.0-200.0) BUN/Creatinine Ratio (12.00-20.00) Ratio Glucose (70-110) mg/dL POC Glucose (mg/dL) 476 H (75-99) mg/dL Calcium (8.7-10.3) mg/dL Ionized Calcium Jorge (4.5-5.3) mg/dL Assessment and Plan (1) Bowel obstruction Current Visit: Yes Status: Acute Code(s): K56.609 - UNSP INTESTNL OBST, UNSP TO PARTIAL VERSUS COMPLETE OBST SNOMED Code(s): 79703210
[2020-12-10 12:18] LABS: African American GFR (CKD) 59.3 (60.0-200.0); BUN/Creat Ratio 25.45 Ratio (12.00-20.00); Calcium 8.6 mg/dL (8.7-10.3); Carbon Dioxide >40.0 mmol/L (21.6-31.8); Chloride 98 mmol/L (96-109); Glucose 376 mg/dL (70-110); Magnesium 2.2 mg/dL (1.5-2.4); Non-African American GFR(CKD) 51.2 (60.0-200.0); Phosphorus 2.6 mg/dL (2.4-5.1); Potassium 3.2 mmol/L (3.5-5.5); Sodium 154 mmol/L (135-145)
[2020-12-10] MEDS ORDERED: CALCIUM GLUCONATE 1 GM in SODIUM CHLORIDE 0.9% 100 ML IVPB ONE (14:00)
[2020-12-10] MEDS: POTASSIUM CHLORIDE 20 MEQ in WATER FOR INJECTION 1 100ML.BAG IVPB SCH ×2 (14:57→17:26)
[2020-12-10] MEDS: HYDROmorphone 1 MG/ML 1 ML SYRINGE IVP PRN (15:27)
[2020-12-10] MEDS: ONDANSETRON 4 MG/2 ML VIAL IVP PRN (15:27)
[2020-12-10] MEDS: INSULIN DETEMIR (LEVEMIR) 100 UNIT/ML SYR SQ SCH ×2 (16:17→20:24)
--- NOTE | 2020-12-10 16:42 | PN ---
PROGRESS NOTE DATE OF SERVICE: 12/10/2020 This 70-year-old woman with a past medical history of multiple medical problems was admitted with obstructing mass on the right colon. Patient had surgery. The patient is on TPN. The patient has been planned to have clear liquids today. The patient is also having multiple electrolyte abnormalities and elevated blood sugars. The patient also had severe COPD. Dr. Carroll is following the patient closely. Past medical history reviewed. REVIEW OF SYSTEMS: CARDIOVASCULAR SYSTEM: No angina, palpitations. RESPIRATORY SYSTEM: As mentioned earlier. GI: As mentioned earlier. : No dysuria or retention. NERVOUS SYSTEM: As mentioned earlier. CURRENT MEDICATIONS: Reviewed. They include Minong, DuoNeb, Lipitor, Hurricaine spray, Dulcolax, Pulmicort. Doses are reviewed. PHYSICAL EXAMINATION: Alert oriented and oriented x3. Pulse 73, blood pressure 142/89, respiration 22, temperature 98.3, pulse ox 92% on 10% nasal cannula. HEENT: Conjunctivae normal. NECK: No jugular venous distention. CARDIOVASCULAR SYSTEM: S1, S2 muffled. RESPIRATORY SYSTEM: Breath sounds diminished at the bases. Bilateral scattered rhonchi and crackles. ABDOMEN: Soft, obese, non-tender. LEGS: No edema. No swelling. NERVOUS SYSTEM: No focal deficit. LABS: WBC 11, hemoglobin 11.7. Sodium 152, potassium 3.2. ASSESSMENT: 1. Obstructive mass in the right colon, status post exploratory laparotomy, right colectomy and pathology showing adenocarcinoma. 2. Diabetes mellitus, type 2, uncontrolled with hyperglycemia. 3. Chronic obstructive pulmonary disease, acute exacerbation, with acute on chronic hypoxic respiratory failure. 4. Hypertension. 5. Hyperlipidemia. 6. Chronic urinary incontinence. 7. Hypothyroidism. 8. Left base atelectasis. 9. Morbid obesity. 10.Congestive heart failure; ejection fraction unknown. 11.Obstructive sleep apnea. 12.History of 3 prior abdominal hernia repairs and mesh placement. 13.Hyponatremia. 14.Hypokalemia. 15.Increased white count. 16.History of degenerative joint disease. 17.History of sleep apnea. 18.History of bronchitis. 19.History of methicillin-resistant Staphylococcus aeruginosa. 20.History of cholecystectomy. 21.History of obesity with body mass index of 43.4. 22.FULL CODE. RECOMMENDATIONS AND DISCUSSION: I recommend to continue current medications, continue symptomatic treatment with intensive bronchodilators. Adjust the TPN and fluid to counter the hypernatremia and hypokalemia. Otherwise, increase the dose of Lantus to 30 units subcutaneously b.i.d. Monitor blood sugars closely. Guarded prognosis. Further recommendations to follow. Will repeat a chest x-ray in the morning. MMODL / IJN: [id number] /
[2020-12-10 16:52] LABS: Glucose,Whole Blood 476 mg/dL (75-99)
[2020-12-10 16:52] LABS: Glucose,Whole Blood 511 mg/dL (75-99)
--- NOTE | 2020-12-10 18:49 | P.PN ---
Subjective Progress Note Date: 12/10/20 Principal diagnosis: Bowel mass, status post resection 70-year-old patient, brought in by EMS, on November 28. She was seen by Dr. Luis Enrique Murillo in the emergency department. She has a history of diabetes mellitus, CHF, chronic kidney disease, multiple abdominal hernia repairs, with mesh, and severe COPD. Her FEV1 is 0.92 L which is 41% of predicted. She sees my partner in the office for her COPD. She also suffers from chronic hypoxemic respiratory failure, and does use oxygen 24/. She apparently recently has had multiple episodes of nonbloody nonbilious emesis, as well as watery diarrhea, for one week. She apparently was evaluated and found on computed tomography sca n, to have a colonic lesion, consistent with colon cancer. I was consulted for preop clearance. We saw her right before she went off to surgery. She is chronically on oxygen therapy at 3 L as mentioned above. The patient was having surgery with Dr. Clay Healy. Basically, she tells me that her COPD much at baseline. I did mention to her that she may end up in the intensive care unit after surgery. Also, based on the FEV1 alone, without the MVV, or RV/TLC ratio, the patient's at moderately increased operative risk from general anesthesia. White count 11.1, hemoglobin 13, hematocrit 40.6, platelet count 529,000, sodium 137, potassium 4.3, chlorides 100, CO2 32, anion gap 5, BUN 26, and creatinine 1.45. There was no chest x-ray to review. The patient is seen today 11/30/2020 in follow-up on the regular medical floor. She is currently resting quite comfortably in bed. Awake and alert in no acute distress. Nasogastric tube is secured in place. Maintaining O2 saturations in the 90s on 6 L/m per nasal cannula. White count 10.6. Hemoglobin 12.6. Sodium 137. Potassium 4.8. Creatinine 1.50. She is maintained on Symbicort and DuoNeb inhalations. Anticoagulated with Lovenox. The patient is seen today 12/01/2020 in follow-up on the regular medical floor. She is awake and alert in no acute distress. Resting comfortably in bed. Nasogastric tube remains in place. This is postoperative day #2. She remains on Zosyn and Flagyl. Maintaining O2 saturation in the 90s on 4 L/m per nasal cannula. She was requesting breathing treatments during the night for some incr easing shortness of breath. Working well with the incentive spirometer. White count 10.2. Hemoglobin 10.9. Sodium 141. Potassium 4.5. Creatinine 1.3. 12/02/2020 the patient is being seen for a follow-up. The patient is postop day #3 and the patient underwent resection of the right colonic mass and secondary bowel obstruction. The patient has an NG tube in place. The patient remains covered with a combination of Zosyn and Flagyl. Doing well. Using incentive spirometer. No significant respiratory difficulties. Currently on oxygen at 4 L per minute nasal cannula. The pain is under adequate control. The patient is on DuoNeb nebulized treatments around the clock and the patient is receiving Dilaudid for pain control 1 mg every 3 hours IV. IV fluids are running with normal saline at the rate of 100 mL an hour. NG tube was removed this morning. The patient is passing no gas and she hasn't had any bowel movements yet. Nevertheless, she has decent bowel sounds. JOHN drains in place. Output is in order of minimal amount in the order of 10 mL serosanguineous. The patient was up on a chair and she is gradually getting stronger. Antibiotic coverage is same. Oxygen is at 5 L. On today's evaluation of 12/02/2020, the patient is postop day #4. She is currently on 5 L of oxygen by nasal cannula. NG tube was removed yesterday. She is quite comfortable and she is sitting up on a recliner. JOHN drain is in place and output is serosanguineous and it's minimal right now. Bowel sounds are active and the patient on is still nothing by mouth and she's taken only as chips. She is using incentive spirometer which is in front of her all the time. Urine output is adequate. She feels that she is getting stronger. She is on DuoNeb nebulized treatment [id number]. She has adequate pain control with Dilaudid. She is also on examination Zosyn and Flagyl. No fever. No chills. No other significant events overnight. No altered mentation. Patient is passing gas and she is requesting gel low The patient is seen today 12/04/2020 in follow-up. This is postoperative day #5. She is currently sitting up in a chair at the bedside. Maintaining O2 saturations in the 90s on 5 L/m per nasal cannula. She's afebrile. His been having some ongoing discomfort in her abdomen. Nasogastric tube remains in place. Computed tomography scan of the abdomen revealed distended loops of air and fluid filled bowel consistent with ileus similar to compared to previous. N o free air. No mechanical bowel obstruction. There were noted basilar consolidation and atelectasis. New pleural effusions. She is working well with the incentive spirometer. Chest x-ray revealed pleural effusions right greater than left. She is continued on bronchodilators, antibiotics in the form of Zosyn and Flagyl. The patient is seen today 12/10/2020 in follow-up on the regular medical floor. She is currently sitting up in bed. Awake and alert in no acute distress. She is currently on 10 L high flow nasal cannula and maintaining O2 saturations in the mid 90s. Recent chest x-ray revealed improvement in aeration of the lung bases with small effusions. White count 11.0. Hemoglobin 11.7. Sodium 154. Potassium 3.2. Bicarb greater than 40. Creatinine 1.1. Glucose 376. She remains on DuoNeb inhalations, Pulmicort and Perforomist inhalations, antibiotics in the form of Zosyn, Flagyl. Remains on IV diuretics. Lovenox for DVT prophylaxis. Again encouraged regarding the increased use the incentive spirometer and cough and deep breathing exercises. Nasogastric tube and Barkley catheter removed. Tolerating a clear liquid diet. Remains on TPN and lipids for nutritional support. Pathology of the right colon mass positive for adenocarcinoma. Objective - Vital Signs Vital signs: Vital Signs Temp 98.1 F 12/10/20 16:57 Pulse 73 12/10/20 16:57 Resp 18 12/10/20 16:57 BP 144/66 12/10/20 16:57 Pulse Ox 95 12/10/20 13:52 Intake & Output 12/09/20 12/10/20 12/10/20 18:59 06:59 18:59 Intake Total 100 Output Total 1750 2200 2550 Balance -1650 -2200 -2550 Weight 111.5 kg 109 kg 109 kg Intake: Oral 100 Output: Gastric Drainage 150 200 Urine 1600 2000 2550 Other: Voiding Method Indwelling Catheter Indwelling Catheter Bedside Commode Bedpan Diaper # Voids 1 # Bowel Movements 1 - Exam GENERAL EXAM: Alert, pleasant 70-year-old female patient, on 10 L nasal cannula, comfortable in no apparent distress. HEAD: Normocephalic. EYES: Normal reaction of pupils, equal size. NOSE: Nasogastric tube secured in place. Clear with pink turbinates. THROAT: No erythema or exudates. NECK: No masses, no JVD. CHEST: No chest wall deformity. LUNGS: Equal air entry with crackles in the posterior bases, diminished. CVS: S1 and S2 normal with no audible murmur, regular rhythm. ABDOMEN: Dressing dry and intact. No hepatosplenomegaly, normal bowel sounds, no guarding or rigidity. SPINE: No scoliosis or deformity SKIN: No rashes CENTRAL NERVOUS SYSTEM: No focal deficits, tone is normal in all 4 extremities. EXTREMITIES: There is no peripheral edema. No clubbing, no cyanosis. Peripher al pulses are intact. - Labs CBC & Chem 7: 12/10/20 05:26 12/10/20 05:26 Labs: Abnormal Lab Results - Last 24 Hours (Table) 12/10/20 12/10/20 12/10/20 Range/Units 00:53 05:26 05:26 WBC 11.0 H (3.8-10.6) k/uL RDW 15.6 H (11.5-15.5) % Neutrophils # 9.5 H (1.3-7.7) k/uL Lymphocytes # 0.7 L (1.0-4.8) k/uL Sodium 154 H (135-145) mmol/L Potassium 3.2 L (3.5-5.5) mmol/L Carbon Dioxide >40.0 H* (21.6-31.8) mmol/L BUN 28.0 H (9.0-27.0) mg/dL Est GFR (CKD-EPI)AfAm 59.3 L (60.0-200.0) Est GFR (CKD-EPI)NonAf 51.2 L (60.0-200.0) BUN/Creatinine Ratio 25.45 H (12.00-20.00) Ratio Glucose 376 H (70-110) mg/dL POC Glucose (mg/dL) 447 H (75-99) mg/dL Calcium 8.6 L (8.7-10.3) mg/dL Ionized Calcium Jorge 4.3 L (4.5-5.3) mg/dL 12/10/20 12/10/20 12/10/20 Range/Units 06:04 11:13 16:49 WBC (3.8-10.6) k/uL RDW (11.5-15.5) % Neutrophils # (1.3-7.7) k/uL Lymphocytes # (1.0-4.8) k/uL Sodium (135-145) mmol/L Potassium (3.5-5.5) mmol/L Carbon Dioxide (21.6-31.8) mmol/L BUN (9.0-27.0) mg/dL Est GFR (CKD-EPI)AfAm (60.0-200.0) Est GFR (CKD-EPI)NonAf (60.0-200.0) BUN/Creatinine Ratio (12.00-20.00) Ratio Glucose (70-110) mg/dL POC Glucose (mg/dL) 385 H 384 H 511 H (75-99) mg/dL Calcium (8.7-10.3) mg/dL Ionized Calcium Jorge (4.5-5.3) mg/dL 12/10/20 Range/Units 16:51 WBC (3.8-10.6) k/uL RDW (11.5-15.5) % Neutrophils # (1.3-7.7) k/uL Lymphocytes # (1.0-4.8) k/uL Sodium (135-145) mmol/L Potassium (3.5-5.5) mmol/L Carbon Dioxide (21.6-31.8) mmol/L BUN (9.0-27.0) mg/dL Est GFR (CKD-EPI)AfAm (60.0-200.0) Est GFR (CKD-EPI)NonAf (60.0-200.0) BUN/Creatinine Ratio (12.00-20.00) Ratio Glucose (70-110) mg/dL POC Glucose (mg/dL) 476 H (75-99) mg/dL Calcium (8.7-10.3) mg/dL Ionized Calcium Jorge (4.5-5.3) mg/dL Assessment and Plan Assessment: 1 Acute bowel obstruction, with computed tomography scan showing findings suspicious of a right colonic mass or apple core lesion. Status post resection. Pathology positive for adenocarcinoma. 2 Severe/stage III, COPD, with an FEV1 that is 0.92 L or 41% of predicted. 3 History of 3 prior abdominal hernia repairs, with mesh placement. 4 History of angina pectoris. 5 History of CHF. 6 History of diabetes mellitus. 7 History of hyperlipidemia. 8 History of essential hypertension. 9 History of sleep apnea syndrome, currently on CPAP. 10 History of hypothyroidism. 11 Prior history of MRSA infection, 2012. 12 Previous history of heavy tobacco use. Plan: The patient was seen and evaluated by Dr. Carroll Labs reviewed, and chest x-ray showing improvement Encourage the increased use the incentive spirometer Continued bronchodilators, Zosyn, Flagyl diuretics Lovenox for DVT prophylaxis TPN and lipids for nutritional support, clear liquids Increase her activity as tolerate Titrate down the FiO2 as tolerated We will continue to follow I, the cosigning physician, performed a history & physical examination of the patient. Lungs sounds few crackles in the posterior bases. Maintaining good O2 saturations in the 90s on 10 L/m per nasal. I discussed the assessment and plan of care with my nurse practitioner, Maria Guadalupe Barnes. I attest to the above note as dictated by her.
[2020-12-10] MEDS: ATORVASTATIN 40 MG TAB PO SCH (20:23)
[2020-12-10] MEDS: ZOLPIDEM 5 MG TAB PO SCH (20:23)
[2020-12-10 22:05] LABS: Glucose,Whole Blood 571 mg/dL (75-99)
[2020-12-10] MEDS ORDERED: SODIUM CHLORIDE 0.9% 500 ML 500 ML IV ONE (22:19)
[2020-12-10] MEDS: NALOXONE 0.4 MG/ML 1 ML VIAL IV PRN (22:25)
[2020-12-10] MEDS ORDERED: INSULIN REGULAR 100 UNIT in SODIUM CHLORIDE 0.9% 100 ML IV SCH (23:00)
[2020-12-10 23:21] LABS: Allen Test Performed? Yes
[2020-12-10 23:22] LABS: ABG PH 7.33 (7.35-7.45)
[2020-12-10 23:24] LABS: Glucose,Whole Blood 543 mg/dL (75-99)
[2020-12-10 23:25] LABS: ABG PCO2 99 mmHg (35-45)
[2020-12-10 23:26] LABS: ABG PO2 88 mmHg (83-108)
[2020-12-10 23:27] LABS: ABG Base Excess 25.8 mmol/L; ABG HCO3 52 mmol/L (21-25); ABG Oxygen Saturation 96.2 % (94-97); ABG TCO2 55 mmol/L (19-24)
[2020-12-10 23:55] LABS: Basophils # (A) 0.1 k/uL (0-0.2); Basophils % (A) 1 %; Eosinophils # (A) 0.3 k/uL (0-0.7); Eosinophils % (A) 2 %; HCT 38.4 % (34.0-46.0); HGB 11.3 gm/dL (11.4-16.0); Hypochromasia Marked; Lymphocytes # (A) 0.7 k/uL (1.0-4.8); Lymphocytes % (A) 5 %; MCHC 29.6 g/dL (31.0-37.0); MCV 101.6 fL (80.0-100.0); Macrocytosis Slight; Mean Platelet Volume 7.9; Monocytes # (A) 0.6 k/uL (0-1.0); Monocytes % (A) 5 %; Neutrophils # (A) 11.3 k/uL (1.3-7.7); Neutrophils % (A) 86 %; Platelet Count 326 k/uL (150-450); RBC 3.78 m/uL (3.80-5.40); RDW 15.7 % (11.5-15.5); WBC 13.1 k/uL (3.8-10.6)
[2020-12-11 00:06] LABS: African American GFR (CKD) 58 (>60 ml/min/1.73 sqM); Blood Urea Nitrogen 36 mg/dL (7-17); Calcium 7.9 mg/dL (8.4-10.2); Chloride 92 mmol/L (98-107); Magnesium 2.2 mg/dL (1.6-2.3); Non-African American GFR(CKD) 50 (>60 ml/min/1.73 sqM); Phosphorus 4.7 mg/dL (2.5-4.5); Potassium 3.4 mmol/L (3.5-5.1); Sodium 143 mmol/L (137-145)
[2020-12-11 00:12] LABS: Anion Gap 9 mmol/L
[2020-12-11 00:33] LABS: Carbon Dioxide 42 mmol/L (22-30); Glucose 590 mg/dL (74-99)
[2020-12-11] MEDS: metroNIDAZOLE-NS PMX 500 MG in SALINE 1 100ML.BAG IVPB SCH ×4 (00:34→23:17)
[2020-12-11 01:07] LABS: Glucose,Whole Blood 497 mg/dL (75-99)
[2020-12-11] MEDS: PIPERACILLIN-TAZOBACTAM 3.375 GM in SODIUM CHLORIDE 0.9% 100 ML IVPB SCH ×4 (01:40→23:17)
[2020-12-11 01:47] LABS: Anisocytosis (M) Present; Band Neutrophils % 4 %; Eosinophils # (M) 0.52 k/uL (0-0.7); Lymphocytes # (M) 0.79 k/uL (1.0-4.8); Monocytes # (M) 0.39 k/uL (0-1.0); Neutrophils % (M) 83 %; Nucleated Red Blood Cells 0 /100 WBC (0-0); Total Cells Counted 100
[2020-12-11 01:48] LABS: Polychromasia Present
[2020-12-11] MEDS: INSULIN REGULAR 100 UNIT in SODIUM CHLORIDE 0.9% 100 ML IV SCH ×3 (01:50→20:57)
[2020-12-11 02:01] LABS: Glucose,Whole Blood 494 mg/dL (75-99)
[2020-12-11 02:58] LABS: Glucose,Whole Blood 398 mg/dL (75-99)
[2020-12-11 04:13] LABS: Glucose,Whole Blood 371 mg/dL (75-99)
[2020-12-11 04:17] LABS: Basophils % (A) 0 %; Eosinophils # (A) 0.2 k/uL (0-0.7); Eosinophils % (A) 2 %; HCT 34.7 % (34.0-46.0); HGB 10.8 gm/dL (11.4-16.0); Hypochromasia Marked; Lymphocytes # (A) 0.6 k/uL (1.0-4.8); Lymphocytes % (A) 5 %; MCH 30.7 pg (25.0-35.0); Macrocytosis Slight; Monocytes # (A) 0.3 k/uL (0-1.0); Monocytes % (A) 3 %; Neutrophils # (A) 10.5 k/uL (1.3-7.7); Neutrophils % (A) 89 %; Platelet Count 267 k/uL (150-450); RDW 15.6 % (11.5-15.5); WBC 11.8 k/uL (3.8-10.6)
[2020-12-11 04:49] LABS: African American GFR (CKD) 55 (>60 ml/min/1.73 sqM); Blood Urea Nitrogen 41 mg/dL (7-17); Calcium 7.9 mg/dL (8.4-10.2); Chloride 93 mmol/L (98-107); Glucose 360 mg/dL (74-99); Magnesium 2.2 mg/dL (1.6-2.3); Non-African American GFR(CKD) 48 (>60 ml/min/1.73 sqM); Phosphorus 3.9 mg/dL (2.5-4.5); Potassium 3.7 mmol/L (3.5-5.1); Sodium 146 mmol/L (137-145)
[2020-12-11 04:50] LABS: Anion Gap 8 mmol/L; Carbon Dioxide 45 mmol/L (22-30)
[2020-12-11 05:07] LABS: Glucose,Whole Blood 290 mg/dL (75-99)
[2020-12-11] MEDS: SODIUM CHLORIDE 0.45% 1,000 ML IV SCH (05:09)
[2020-12-11] MEDS: POTASSIUM CHLORIDE 10 MEQ in WATER FOR INJECTION 1 100ML.BAG IVPB SCH ×2 (05:24→06:53)
[2020-12-11 05:53] LABS: ABG PH 7.35 (7.35-7.45); Allen Test Performed? Yes
[2020-12-11 05:54] LABS: ABG PCO2 98 mmHg (35-45)
[2020-12-11 05:56] LABS: ABG PO2 57 mmHg (83-108)
[2020-12-11 05:59] LABS: ABG HCO3 55 mmol/L (21-25); ABG TCO2 58 mmol/L (19-24)
[2020-12-11] MEDS ORDERED: [UNRECOGNIZED DRUG - REMARK] IV SCH ×7 (06:00)
[2020-12-11 06:03] LABS: Glucose,Whole Blood 282 mg/dL (75-99)
[2020-12-11] MEDS: LEVOTHYROXINE IVP 100 MCG/5 ML VIAL IV SCH (06:53)
[2020-12-11 07:04] LABS: Glucose,Whole Blood 246 mg/dL (75-99)
[2020-12-11] MEDS: IPRATROPIUM-ALBUTEROL 3 ML NEB INHALATION SCH ×4 (08:20→20:16)
[2020-12-11] MEDS: BUDESONIDE 1 MG/2 ML NEBU INHALATION SCH ×2 (08:20→20:16)
[2020-12-11] MEDS: FORMOTEROL FUMARATE 20 MCG/2 ML NEBU INHALATION SCH ×2 (08:20→20:16)
[2020-12-11 09:23] LABS: Glucose,Whole Blood 158 mg/dL (75-99)
--- NOTE | 2020-12-11 09:31 | XR ---
EXAMINATION TYPE: XR chest 1V portable DATE OF EXAM: 12/11/2020 COMPARISON: Chest x-ray 12/09/2020 HISTORY: Congestive heart failure TECHNIQUE: Single frontal view of the chest is obtained. FINDINGS: The patient is markedly rotated, there are overlying artifacts. Left-sided PICC line shows the distal tip overlying superior vena cava. Interstitium and central vascularity are prominent. The re is no evident pneumothorax. Difficult to exclude basilar effusion. Heart size is likely stable. IMPRESSION: Rotated exam. Correlate for pneumonia versus edema, follow-up recommended
[2020-12-11 10:33] LABS: Glucose,Whole Blood 192 mg/dL (75-99)
--- NOTE | 2020-12-11 11:00 | P.PN ---
Subjective Progress Note Date: 12/11/20 Principal diagnosis: acute bowel obstruction 70-year-old patient, brought in by EMS, on November 28. She was seen by Dr. Luis Enrique Murillo in the emergency department. She has a history of diabetes mellitus, CHF, chronic kidney disease, multiple abdominal hernia repairs, with mesh, and severe COPD. Her FEV1 is 0.92 L which is 41% of predicted. She sees my partner in the office for her COPD. She also suffers from chronic hypoxemic respiratory failure, and does use oxygen 24/. She apparently recently has had multiple episodes of nonbloody nonbilious emesis, as well as watery diarrhea, for one week. She apparently was evaluated and found on computed tomography scan, to have a colonic lesion, consistent with colon cancer. I was consulted for preop clearance. We saw her right before she went off to surgery. She is chronically on oxygen therapy at 3 L as mentioned above. The patient was having surgery with Dr. Clay Healy. Basically, she tells me that her COPD much at baseline. I did mention to her that she may end up in the intensive care unit after surgery. Also, based on the FEV1 alone, without the MVV, or RV/TLC ratio, the patient's at moderately increased operative risk from general anesthesia. White count 11.1, hemoglobin 13, hematocrit 40.6, platelet count 529,000, sodium 137, potassium 4.3, chlorides 100, CO2 32, anion gap 5, BUN 26, and creatinine 1.45. There was no chest x-ray to review. The patient is seen today 11/30/2020 in follow-up on the regular medical floor. She is currently resting quite comfortably in bed. Awake and alert in no acute distress. Nasogastric tube is secured in place. Maintaining O2 saturations in the 90s on 6 L/m per nasal cannula. White count 10.6. Hemoglobin 12.6. Sodium 137. Potassium 4.8. Creatinine 1.50. She is maintained on Symbicort and DuoNeb inhalations. Anticoagulated with Lovenox. The patient is seen today 12/01/2020 in follow-up on the regular medical floor. She is awake and alert in no acute distress. Resting comfortably in bed. Nasogastric tube remains in place. This is postoperative day #2. She remains on Zosyn and Flagyl. Maintaining O2 saturation in the 90s on 4 L/m per nasal cannula. She was requesting breathing treatments during the night for some increasing shortness of breath. Working well with the incentive spirometer. White count 10.2. Hemoglobin 10.9. Sodium 141. Potassium 4.5. Creatinine 1.3. 12/02/2020 the patient is being seen for a follow-up. The patient is postop day #3 and the patient underwent resection of the right colonic mass and secondary bowel obstruction. The patient has an NG tube in place. The patient remains covered with a combination of Zosyn and Flagyl. Doing well. Using incentive spirometer. No significant respiratory difficulties. Currently on oxygen at 4 L per minute nasal cannula. The pain is under adequate control. The patient is on DuoNeb nebulized treatments around the clock and the patient is receiving Dilaudid for pain control 1 mg every 3 hours IV. IV fluids are running with normal saline at the rate of 100 mL an hour. NG tube was removed this morning. The patient is passing no gas and she hasn't had any bowel movements yet. Nevertheless, she has decent bowel sounds. JOHN drains in place. Output is in order of minimal amount in the order of 10 mL serosanguineous. The patient was up on a chair and she is gradually getting stronger. Antibiotic coverage is same. Oxygen is at 5 L. On today's evaluation of 12/02/2020, the patient is postop day #4. She is currently on 5 L of oxygen by nasal cannula. NG tube was removed yesterday. She is quite comfortable and she is sitting up on a recliner. JOHN drain is in place and output is serosanguineous and it's minimal right now. Bowel sounds are active and the patient on is still nothing by mouth and she's taken only as chips. She is using incentive spirometer which is in front of her all the time. Urine output is adequate. She feels that she is getting stronger. She is on DuoNeb nebulized treatment [id number]. She has adequate pain control with Dilaudid. She is also on examination Zosyn and Flagyl. No fever. No chills. No other significant events overnight. No altered mentation. Patient is passing gas and she is requesting gel low The patient is seen today 12/04/2020 in follow-up. This is postoperative day # 5. She is currently sitting up in a chair at the bedside. Maintaining O2 saturations in the 90s on 5 L/m per nasal cannula. She's afebrile. His been having some ongoing discomfort in her abdomen. Nasogastric tube remains in place. Computed tomography scan of the abdomen revealed distended loops of air and fluid filled bowel consistent with ileus similar to compared to previous. No free air. No mechanical bowel obstruction. There were noted basilar consolidation and atelectasis. New pleural effusions. She is working well with the incentive spirometer. Chest x-ray revealed pleural effusions right greater than left. She is continued on bronchodilators, antibiotics in the form of Zo syn and Flagyl. 12/05/2020 the patient is postop day #6. She was able to pass flatus. She was also able to pass a bowel movement. NG tube is still in place and output is in order of 3. Unfortunately, she continues to have popsicles. In terms of oxygen, she is on 6 L and his saturations around 91%. She is feeling slightly more short of breath and she getting incentive spirometer. Chest x-ray that showed some small bilateral pleural effusions. She is on IV fluids currently running at 100 mL an hour. She is also on examination Zosyn and Flagyl. Surgical wound site is clean. The blood work from today showing His on 12/07/2020, the patient's condition has somewhat decompensated. She has recovered of setbacks yesterday. She became more short of breath overnight. The emergency team was called and the patient was given Lasix. The chest x-ray showed some pulmonary vessel congestion and fluid overload. The patient responded nicely. Currently the patient is on 5 L and this was up to 8 L and her saturations around 90%. She is also complaining of abdominal pain and distention. No direct tenderness. I noticed that the patient is taking some on and off popsicles despite the surgical recommendations. The patient's CAT scan of the abdomen and pelvis that was done on 12/06/2020 showed no evidence of any colonic obstruction or any anastomotic leaks. Some atelectatic changes were seen in lung bases bilaterally. Meanwhile, NG tube is still in place. Output from the NG tube is in the order of 50 mL over the past several hours probably 10 hours and the patient's output is limited this point in time. She is receiving TPN for nutritional support. Has no bowel sounds and examination. She was passing flatus yesterday and she is not passing any today. On examination, no direct tenderness. No altered mentation. Slightly more restless on today's evaluation. She remains on IV Zosyn. Blood work shows a white cell count of 16, hemoglobin of 10.9 which is up compared to yesterday, electrolytes show a potassium of 3.3 which is to be replaced and the sodium of 145 and a BUN of 19 with a creatinine of 1.1. Note that yesterday, during the patient's shortness of breath, blood gases was done that showed an acute on top of chronic hypercapnic respiratory failure and the patient responded to Lasix. She also had to be given some Narcan as the patient was under the contact of Dilaudid. 12/08/2020 the patient is being seen for a follow-up. NG tube is still in pl fely. She is on 10-15 L by nasal cannula. She is using incentive spirometer. She put out only 20 mL on her energy over the past 8 hours. She has taken ice chips and she's going through them that he past. She is also on IV fluids and TPN for nutritional support. Surgical wound site is dry clean and intact. She is passing some flatus. Abdomen is still slightly distended and the patient is complaining is complaining of dry mouth and she continues to want ice chips.The patient is a patient of [facility] and [facility]. She remains on TPN. Blood sugars are elevated and the patient is currently on Levemir running at 30 units daily along with a sliding scale coverage. This dose was adjusted yesterday. She is also on Lovenox for DVT prophylaxis. Patient was reevaluated today on 12/09/2020, patient is comfortable, she continues to have nasogastric tube in place, she is on a high flow nasal ca nnula, she is actually on 10 L high flow, O2 saturations 94%, she is on TPN, and she is also on Lasix. Her chest x-ray continues to show left lower lobe atelectasis/infiltrate.WBC count today is 13.3 hemoglobin is 11.6. Sodium is elevated at 147 bicarb is more than 40 BUN is 26 creatinine is 1.1. Her sugar is 308. And her magnesium is 2.1. The patient is seen today 12/10/2020 in follow-up on the regular medical floor. She is currently sitting up in bed. Awake and alert in no acute distress. She is currently on 10 L high flow nasal cannula and maintaining O2 saturations in the mid 90s. Recent chest x-ray revealed improvement in aeration of the lung bases with small effusions. White count 11.0. Hemoglobin 11.7. Sodium 154. Potassium 3.2. Bicarb greater than 40. Creatinine 1.1. Glucose 376. She remains on DuoNeb inhalations, Pulmicort and Perforomist inhalations, antibioti cs in the form of Zosyn, Flagyl. Remains on IV diuretics. Lovenox for DVT prophylaxis. Again encouraged regarding the increased use the incentive spirometer and cough and deep breathing exercises. Nasogastric tube and Barkley catheter removed. Tolerating a clear liquid diet. Remains on TPN and lipids for nutritional support. Pathology of the right colon mass positive for adenocarcinoma. Patient was reevaluated today on 12/11/2020, patient required transfer to the ICU last night, apparently the patient developed worsening hypercapnic respiratory failure required placement on BiPAP, and a relatively high FiO2. Chest x-ray is showing atelectasis and possibly some component of interstitial edema. She is now on BiPAP with IPAP of 12 and EPAP of 6 and a increased IPAP to 14. She is on 50% I cut it down to 45%. Her last ABG this morning showed a pO2 of 57 pCO2 of 98 pH of 7.35 patient remains on antibiotics, remains on TPN, she is also on insulin at 10.5 units per hour. Given Lasix earlier today 40 mg IV push, and we have decided to request for covid 19 PCR. Mostly because of her slightly worsening chest x-ray today compared to previous x-rays. Objective - Vital Signs Vital signs: Vital Signs Temp 97.5 F L 12/11/20 08:00 Pulse 64 12/11/20 10:00 Resp 18 12/11/20 10:00 BP 120/62 12/11/20 10:00 Pulse Ox 94 L 12/11/20 10:00 Intake & Output 12/10/20 12/11/20 12/11/20 18:59 06:59 18:59 Intake Total 263.260 521.487 Output Total 2550 190 50 Balance -2550 73.260 471.487 Weight 109 kg 112.1 kg Intake: IV 200 480 Mvi, Adult No.4 with Vit 150 K 10 ml Trace (Conc-1Ml/ Dose) 1 ml Potassium Phosphate 24 mmol Magnesium Sulfate gm 1 gm Potassium Chloride 16 meq Calcium Gluconate 1.5 gm In Amino Acids 5 %/ Dextrose 20 % 1,000 ml @ 50 mls/hr IV .[id number] [facility] Rx#:[id number] Piperacillin-Tazobactam 3 100 .375 gm In Sodium Chloride 0.9% 100 ml @ 25 mls/hr IVPB Q8HR [facility] Rx# :[id number] Potassium Chloride 10 meq 300 In Water For Injection 1 100ml.bag @ 100 mls/hr IVPB Q1H [facility] Rx#: [id number] Sodium Chloride 0.45% 1, 100 30 000 ml @ 20 mls/hr IV . Q24H [facility] Rx#:[id number] Intake, IV Titration 63.260 41.487 Amount Insulin Regular 100 unit 63.260 41.487 In Sodium Chloride 0.9% 100 ml @ Per Protocol IV .Q0M [facility] Rx#:[id number] Output: Urine 2550 190 50 Other: Voiding Method Bedside Commode Urinal Urinal Bedpan Diaper # Voids 1 # Bowel Movements 1 - Exam GENERAL EXAM: Alert, pleasant 70-year-old female patient, on BiPAP. IPAP of 14 EPAP of 6 and 45% FiO2 HEAD: Normocephalic. EYES: Normal reaction of pupils, equal size. NOSE: Nasogastric tube secured in place. Clear with pink turbinates. THROAT: No erythema or exudates. NECK: No masses, no JVD. CHEST: No chest wall deformity. LUNGS: diminished breath sounds and dullness at the left base, no crackles nor rhonchi no wheezes. CVS: S1 and S2 normal with no audible murmur, regular rhythm. ABDOMEN: Dressing dry and intact. No hepatosplenomegaly, normal bowel sounds, no guarding or rigidity. Bowel sounds are hypoactive and sluggish. No abdominal distention. No direct tenderness. Surgical wound site is dry clean and intact. SPINE: No scoliosis or deformity SKIN: No rashes CENTRAL NERVOUS SYSTEM: alert and oriented 3, no gross focal neurologic deficits. EXTREMITIES: no clubbing edema or cyanosis. - Labs CBC & Chem 7: 12/11/20 03:44 12/11/20 03:44 Labs: Abnormal Lab Results - Last 24 Hours (Table) 12/10/20 12/10/20 12/10/20 Range/Units 05:26 11:13 16:49 WBC (3.8-10.6) k/uL RBC (3.80-5.40) m/uL Hgb (11.4-16.0) gm/dL MCV (80.0-100.0) fL MCHC (31.0-37.0) g/dL RDW (11.5-15.5) % Neutrophils # (1.3-7.7) k/uL Neutrophils # (Manual) (1.3-7.7) k/uL Lymphocytes # (1.0-4.8) k/uL Lymphocytes # (Manual) (1.0-4.8) k/uL ABG pH (7.35-7.45) ABG pCO2 (35-45) mmHg ABG pO2 (83-108) mmHg ABG HCO3 (21-25) mmol/L ABG Total CO2 (19-24) mmol/L ABG O2 Saturation (94-97) % Sodium 154 H (135-145) mmol/L Potassium 3.2 L (3.5-5.5) mmol/L Chloride (98-107) mmol/L Carbon Dioxide >40.0 H* (21.6-31.8) mmol/L BUN 28.0 H (9.0-27.0) mg/dL Creatinine (0.52-1.04) mg/dL Est GFR (CKD-EPI)AfAm 59.3 L (60.0-200.0) Est GFR (CKD-EPI)NonAf 51.2 L (60.0-200.0) BUN/Creatinine Ratio 25.45 H (12.00-20.00) Ratio Glucose 376 H (70-110) mg/dL POC Glucose (mg/dL) 384 H 511 H (75-99) mg/dL Calcium 8.6 L (8.7-10.3) mg/dL Ionized Calcium Jorge 4.3 L (4.5-5.3) mg/dL Phosphorus (2.5-4.5) mg/dL 12/10/20 12/10/20 12/10/20 Range/Units 16:51 22:03 22:40 WBC (3.8-10.6) k/uL RBC (3.80-5.40) m/uL Hgb (11.4-16.0) gm/dL MCV (80.0-100.0) fL MCHC (31.0-37.0) g/dL RDW (11.5-15.5) % Neutrophils # (1.3-7.7) k/uL Neutrophils # (Manual) (1.3-7.7) k/uL Lymphocytes # (1.0-4.8) k/uL Lymphocytes # (Manual) (1.0-4.8) k/uL ABG pH (7.35-7.45) ABG pCO2 (35-45) mmHg ABG pO2 (83-108) mmHg ABG HCO3 (21-25) mmol/L ABG Total CO2 (19-24) mmol/L ABG O2 Saturation (94-97) % Sodium (135-145) mmol/L Potassium 3.4 L (3.5-5.5) mmol/L Chloride 92 L (98-107) mmol/L Carbon Dioxide 42 H* (21.6-31.8) mmol/L BUN 36 H (9.0-27.0) mg/dL Creatinine 1.12 H (0.52-1.04) mg/dL Est GFR (CKD-EPI)AfAm (60.0-200.0) Est GFR (CKD-EPI)NonAf (60.0-200.0) BUN/Creatinine Ratio (12.00-20.00) Ratio Glucose 590 H* (70-110) mg/dL POC Glucose (mg/dL) 476 H 571 H (75-99) mg/dL Calcium 7.9 L (8.7-10.3) mg/dL Ionized Calcium Jorge (4.5-5.3) mg/dL Phosphorus 4.7 H (2.5-4.5) mg/dL 12/10/20 12/10/20 12/10/20 Range/Units 22:44 23:10 23:22 WBC 13.1 H (3.8-10.6) k/uL RBC 3.78 L (3.80-5.40) m/uL Hgb 11.3 L (11.4-16.0) gm/dL MCV 101.6 H (80.0-100.0) fL MCHC 29.6 L (31.0-37.0) g/dL RDW 15.7 H (11.5-15.5) % Neutrophils # 11.3 H (1.3-7.7) k/uL Neutrophils # (Manual) 11.30 H (1.3-7.7) k/uL Lymphocytes # 0.7 L (1.0-4.8) k/uL Lymphocytes # (Manual) 0.79 L (1.0-4.8) k/uL ABG pH 7.33 L (7.35-7.45) ABG pCO2 99 H* (35-45) mmHg ABG pO2 (83-108) mmHg ABG HCO3 52 H* (21-25) mmol/L ABG Total CO2 55 H (19-24) mmol/L ABG O2 Saturation (94-97) % Sodium (135-145) mmol/L Potassium (3.5-5.5) mmol/L Chloride (98-107) mmol/L Carbon Dioxide (21.6-31.8) mmol/L BUN (9.0-27.0) mg/dL Creatinine (0.52-1.04) mg/dL Est GFR (CKD-EPI)AfAm (60.0-200.0) Est GFR (CKD-EPI)NonAf (60.0-200.0) BUN/Creatinine Ratio (12.00-20.00) Ratio Glucose (70-110) mg/dL POC Glucose (mg/dL) 543 H (75-99) mg/dL Calcium (8.7-10.3) mg/dL Ionized Calcium Jorge (4.5-5.3) mg/dL Phosphorus (2.5-4.5) mg/dL 12/11/20 12/11/20 12/11/20 Range/Units 01:06 02:00 02:57 WBC (3.8-10.6) k/uL RBC (3.80-5.40) m/uL Hgb (11.4-16.0) gm/dL MCV (80.0-100.0) fL MCHC (31.0-37.0) g/dL RDW (11.5-15.5) % Neutrophils # (1.3-7.7) k/uL Neutrophils # (Manual) (1.3-7.7) k/uL Lymphocytes # (1.0-4.8) k/uL Lymphocytes # (Manual) (1.0-4.8) k/uL ABG pH (7.35-7.45) ABG pCO2 (35-45) mmHg ABG pO2 (83-108) mmHg ABG HCO3 (21-25) mmol/L ABG Total CO2 (19-24) mmol/L ABG O2 Saturation (94-97) % Sodium (135-145) mmol/L Potassium (3.5-5.5) mmol/L Chloride (98-107) mmol/L Carbon Dioxide (21.6-31.8) mmol/L BUN (9.0-27.0) mg/dL Creatinine (0.52-1.04) mg/dL Est GFR (CKD-EPI)AfAm (60.0-200.0) Est GFR (CKD-EPI)NonAf (60.0-200.0) BUN/Creatinine Ratio (12.00-20.00) Ratio Glucose (70-110) mg/dL POC Glucose (mg/dL) 497 H 494 H 398 H (75-99) mg/dL Calcium (8.7-10.3) mg/dL Ionized Calcium Jorge (4.5-5.3) mg/dL Phosphorus (2.5-4.5) mg/dL 12/11/20 12/11/20 12/11/20 Range/Units 03:44 03:44 04:11 WBC 11.8 H (3.8-10.6) k/uL RBC 3.50 L (3.80-5.40) m/uL Hgb 10.8 L (11.4-16.0) gm/dL MCV (80.0-100.0) fL MCHC (31.0-37.0) g/dL RDW 15.6 H (11.5-15.5) % Neutrophils # 10.5 H (1.3-7.7) k/uL Neutrophils # (Manual) (1.3-7.7) k/uL Lymphocytes # 0.6 L (1.0-4.8) k/uL Lymphocytes # (Manual) (1.0-4.8) k/uL ABG pH (7.35-7.45) ABG pCO2 (35-45) mmHg ABG pO2 (83-108) mmHg ABG HCO3 (21-25) mmol/L ABG Total CO2 (19-24) mmol/L ABG O2 Saturation (94-97) % Sodium 146 H (135-145) mmol/L Potassium (3.5-5.5) mmol/L Chloride 93 L (98-107) mmol/L Carbon Dioxide 45 H* (21.6-31.8) mmol/L BUN 41 H (9.0-27.0) mg/dL Creatinine 1.17 H (0.52-1.04) mg/dL Est GFR (CKD-EPI)AfAm (60.0-200.0) Est GFR (CKD-EPI)NonAf (60.0-200.0) BUN/Creatinine Ratio (12.00-20.00) Ratio Glucose 360 H (70-110) mg/dL POC Glucose (mg/dL) 371 H (75-99) mg/dL Calcium 7.9 L (8.7-10.3) mg/dL Ionized Calcium Jorge (4.5-5.3) mg/dL Phosphorus (2.5-4.5) mg/dL 12/11/20 12/11/20 12/11/20 Range/Units 04:55 05:06 06:01 WBC (3.8-10.6) k/uL RBC (3.80-5.40) m/uL Hgb (11.4-16.0) gm/dL MCV (80.0-100.0) fL MCHC (31.0-37.0) g/dL RDW (11.5-15.5) % Neutrophils # (1.3-7.7) k/uL Neutrophils # (Manual) (1.3-7.7) k/uL Lymphocytes # (1.0-4.8) k/uL Lymphocytes # (Manual) (1.0-4.8) k/uL ABG pH (7.35-7.45) ABG pCO2 98 H* (35-45) mmHg ABG pO2 57 L* (83-108) mmHg ABG HCO3 55 H* (21-25) mmol/L ABG Total CO2 58 H (19-24) mmol/L ABG O2 Saturation 90.0 L (94-97) % Sodium (135-145) mmol/L Potassium (3.5-5.5) mmol/L Chloride (98-107) mmol/L Carbon Dioxide (21.6-31.8) mmol/L BUN (9.0-27.0) mg/dL Creatinine (0.52-1.04) mg/dL Est GFR (CKD-EPI)AfAm (60.0-200.0) Est GFR (CKD-EPI)NonAf (60.0-200.0) BUN/Creatinine Ratio (12.00-20.00) Ratio Glucose (70-110) mg/dL POC Glucose (mg/dL) 290 H 282 H (75-99) mg/dL Calcium (8.7-10.3) mg/dL Ionized Calcium Jorge (4.5-5.3) mg/dL Phosphorus (2.5-4.5) mg/dL 12/11/20 12/11/20 12/11/20 Range/Units 07:02 09:22 10:22 WBC (3.8-10.6) k/uL RBC (3.80-5.40) m/uL Hgb (11.4-16.0) gm/dL MCV (80.0-100.0) fL MCHC (31.0-37.0) g/dL RDW (11.5-15.5) % Neutrophils # (1.3-7.7) k/uL Neutrophils # (Manual) (1.3-7.7) k/uL Lymphocytes # (1.0-4.8) k/uL Lymphocytes # (Manual) (1.0-4.8) k/uL ABG pH (7.35-7.45) ABG pCO2 (35-45) mmHg ABG pO2 (83-108) mmHg ABG HCO3 (21-25) mmol/L ABG Total CO2 (19-24) mmol/L ABG O2 Saturation (94-97) % Sodium (135-145) mmol/L Potassium (3.5-5.5) mmol/L Chloride (98-107) mmol/L Carbon Dioxide (21.6-31.8) mmol/L BUN (9.0-27.0) mg/dL Creatinine (0.52-1.04) mg/dL Est GFR (CKD-EPI)AfAm (60.0-200.0) Est GFR (CKD-EPI)NonAf (60.0-200.0) BUN/Creatinine Ratio (12.00-20.00) Ratio Glucose (70-110) mg/dL POC Glucose (mg/dL) 246 H 158 H 192 H (75-99) mg/dL Calcium (8.7-10.3) mg/dL Ionized Calcium Jorge (4.5-5.3) mg/dL Phosphorus (2.5-4.5) mg/dL Assessment and Plan Assessment: 1 Acute bowel obstruction, status post resection, postoperative day #10, pathology of her colonic mass was positive for adenocarcinoma. 2 Severe/stage III, COPD, with an FEV1 that is 0.92 L or 41% of predicted. The patient developed an acute on top of chronic hypercapnic respiratory failure. Requiring BiPAP and placement in the ICU on 12/11/2020. 3 History of 3 prior abdominal hernia repairs, with mesh placement. 4 History of angina pectoris. 5 History of CHF. 6 History of diabetes mellitus. 7 History of hyperlipidemia. 8 History of essential hypertension. 9 History of sleep apnea syndrome, currently on CPAP. 10 History of hypothyroidism. 11 Prior history of MRSA infection, 2012. 12 Previous history of heavy tobacco use. Recommendation: Continue BiPAP. Continue to monitor in the ICU. PCR for coronary virus was ordered. Continue present supportive care measures. Continue to keep the patient nothing by mouth. continue incentive spirometry. Continue bronchodilators. Continue insulin Continue diuretics. Continue Zosyn and Flagyl Surgical follow-up regarding her abdominal pain and ongoing ileus the abdomen and pelvis that was done earlier was noted. We will continue to follow Time with Patient: Less than 30
[2020-12-11] MEDS: bisacodyL 10 MG SUPP RECTAL SCH (11:13)
[2020-12-11] MEDS: PANTOPRAZOLE 40 MG/10 ML VIAL IVP SCH ×2 (11:13→20:46)
[2020-12-11] MEDS: FUROSEMIDE 10 MG/ML 4 ML VIAL IV SCH (11:13)
[2020-12-11] MEDS: ENOXAPARIN 40 MG/0.4 ML SYRINGE SQ SCH (11:13)
[2020-12-11] MEDS: FAT EMULSION 20% 250 ML in EMPTY BAG 1 BAG IV SCH (11:14)
--- NOTE | 2020-12-11 11:49 | P.PN ---
<Chiqui Dietz - Last Filed: 12/11/20 11:43> Subjective Progress Note Date: 12/11/20 CHIEF COMPLAINT: Colon obstruction HISTORY OF PRESENT ILLNESS: Patient is status post exploratory laparotomy with right colectomy for obstructing mass of the right colon. Postop day #12. Patient required transfer to ICU last night due to worsening respiratory failure. She required to be placed on BiPAP. She is followed by critical care service. She is being tested for Covid. Patient chest x-ray had shown some interstitial edema and she is receiving IV Lasix. She is sitting up in bed comfortably. No abdominal pain reported. She is currently on a full liquid diet. Afebrile. WBC 11.8 Hgb 10.8 PHYSICAL EXAM: VITAL SIGNS: Reviewed. GENERAL: Well-developed in no acute distress. HEENT: No sclera icterus. Extraocular movements grossly intact. Moist buccal mucosa. Head is atraumatic, normocephalic. ABDOMEN: Soft. Nondistended. Incision site clean dry and intact. Lower abdominal bruising noted from lovenox injections NEUROLOGIC: Alert and oriented. Cranial nerves II through XII grossly intact. ASSESSMENT: 1. Obstructing mass of the right colon status post exploratory laparotomy with right colectomy with path report showing adenocarcinoma 2. Leukocytosis 3. Ileus 4. Hypophosphatemia resolved 5. Hypokalemia resolved 6. Acute on chronic hypercapnic respiratory failure followed by critical care service 7. Fluid overload patient receiving IV Lasix PLAN: -Continue ICU management and supportive care -Continue full liquid diet -Continue TPN for nutrition support for now -Continue pain medication as needed -Encouraged patient to use incentive spirometer -Encouraged patient to increase activity -Continue IV antibiotics -Continue GI prophylaxis Protonix and DVT prophylaxis Lovenox Physician Certified Dialysis Technician note has been reviewed by physician. Signing provider agrees with the documented findings, assessment, and plan of care. Objective - Vital Signs Vital signs: Vital Signs Temp 97.5 F L 12/11/20 08:00 Pulse 64 12/11/20 10:00 Resp 18 12/11/20 10:00 BP 120/62 12/11/20 10:00 Pulse Ox 94 L 12/11/20 10:00 Intake & Output 12/10/20 12/11/20 12/11/20 18:59 06:59 18:59 Intake Total 263.260 521.487 Output Total 2550 190 50 Balance -2550 73.260 471.487 Weight 109 kg 112.1 kg 112.1 kg Intake: IV 200 480 Mvi, Adult No.4 with Vit 150 K 10 ml Trace (Conc-1Ml/ Dose) 1 ml Potassium Phosphate 24 mmol Magnesium Sulfate gm 1 gm Potassium Chloride 16 meq Calcium Gluconate 1.5 gm In Amino Acids 5 %/ Dextrose 20 % 1,000 ml @ 50 mls/hr IV .[id number] [facility] Rx#:[id number] Piperacillin-Tazobactam 3 100 .375 gm In Sodium Chloride 0.9% 100 ml @ 25 mls/hr IVPB Q8HR [facility] Rx# :[id number] Potassium Chloride 10 meq 300 In Water For Injection 1 100ml.bag @ 100 mls/hr IVPB Q1H [facility] Rx#: [id number] Sodium Chloride 0.45% 1, 100 30 000 ml @ 20 mls/hr IV . Q24H [facility] Rx#:[id number] Intake, IV Titration 63.260 41.487 Amount Insulin Regular 100 unit 63.260 41.487 In Sodium Chloride 0.9% 100 ml @ Per Protocol IV .Q0M [facility] Rx#:[id number] Output: Urine 2550 190 50 Other: Voiding Method Bedside Commode Urinal Urinal Bedpan Diaper # Voids 1 # Bowel Movements 1 - Labs CBC & Chem 7: 12/11/20 03:44 12/11/20 03:44 Labs: Abnormal Lab Results - Last 24 Hours (Table) 12/10/20 12/10/20 12/10/20 Range/Units 05:26 16:49 16:51 WBC (3.8-10.6) k/uL RBC (3.80-5.40) m/uL Hgb (11.4-16.0) gm/dL MCV (80.0-100.0) fL MCHC (31.0-37.0) g/dL RDW (11.5-15.5) % Neutrophils # (1.3-7.7) k/uL Neutrophils # (Manual) (1.3-7.7) k/uL Lymphocytes # (1.0-4.8) k/uL Lymphocytes # (Manual) (1.0-4.8) k/uL ABG pH (7.35-7.45) ABG pCO2 (35-45) mmHg ABG pO2 (83-108) mmHg ABG HCO3 (21-25) mmol/L ABG Total CO2 (19-24) mmol/L ABG O2 Saturation (94-97) % Sodium 154 H (135-145) mmol/L Potassium 3.2 L (3.5-5.5) mmol/L Chloride (98-107) mmol/L Carbon Dioxide >40.0 H* (21.6-31.8) mmol/L BUN 28.0 H (9.0-27.0) mg/dL Creatinine (0.52-1.04) mg/dL Est GFR (CKD-EPI)AfAm 59.3 L (60.0-200.0) Est GFR (CKD-EPI)NonAf 51.2 L (60.0-200.0) BUN/Creatinine Ratio 25.45 H (12.00-20.00) Ratio Glucose 376 H (70-110) mg/dL POC Glucose (mg/dL) 511 H 476 H (75-99) mg/dL Calcium 8.6 L (8.7-10.3) mg/dL Ionized Calcium Jorge 4.3 L (4.5-5.3) mg/dL Phosphorus (2.5-4.5) mg/dL 12/10/20 12/10/20 12/10/20 Range/Units 22:03 22:40 22:44 WBC 13.1 H (3.8-10.6) k/uL RBC 3.78 L (3.80-5.40) m/uL Hgb 11.3 L (11.4-16.0) gm/dL MCV 101.6 H (80.0-100.0) fL MCHC 29.6 L (31.0-37.0) g/dL RDW 15.7 H (11.5-15.5) % Neutrophils # 11.3 H (1.3-7.7) k/uL Neutrophils # (Manual) 11.30 H (1.3-7.7) k/uL Lymphocytes # 0.7 L (1.0-4.8) k/uL Lymphocytes # (Manual) 0.79 L (1.0-4.8) k/uL ABG pH (7.35-7.45) ABG pCO2 (35-45) mmHg ABG pO2 (83-108) mmHg ABG HCO3 (21-25) mmol/L ABG Total CO2 (19-24) mmol/L ABG O2 Saturation (94-97) % Sodium (135-145) mmol/L Potassium 3.4 L (3.5-5.5) mmol/L Chloride 92 L (98-107) mmol/L Carbon Dioxide 42 H* (21.6-31.8) mmol/L BUN 36 H (9.0-27.0) mg/dL Creatinine 1.12 H (0.52-1.04) mg/dL Est GFR (CKD-EPI)AfAm (60.0-200.0) Est GFR (CKD-EPI)NonAf (60.0-200.0) BUN/Creatinine Ratio (12.00-20.00) Ratio Glucose 590 H* (70-110) mg/dL POC Glucose (mg/dL) 571 H (75-99) mg/dL Calcium 7.9 L (8.7-10.3) mg/dL Ionized Calcium Jorge (4.5-5.3) mg/dL Phosphorus 4.7 H (2.5-4.5) mg/dL 12/10/20 12/10/20 12/11/20 Range/Units 23:10 23:22 01:06 WBC (3.8-10.6) k/uL RBC (3.80-5.40) m/uL Hgb (11.4-16.0) gm/dL MCV (80.0-100.0) fL MCHC (31.0-37.0) g/dL RDW (11.5-15.5) % Neutrophils # (1.3-7.7) k/uL Neutrophils # (Manual) (1.3-7.7) k/uL Lymphocytes # (1.0-4.8) k/uL Lymphocytes # (Manual) (1.0-4.8) k/uL ABG pH 7.33 L (7.35-7.45) ABG pCO2 99 H* (35-45) mmHg ABG pO2 (83-108) mmHg ABG HCO3 52 H* (21-25) mmol/L ABG Total CO2 55 H (19-24) mmol/L ABG O2 Saturation (94-97) % Sodium (135-145) mmol/L Potassium (3.5-5.5) mmol/L Chloride (98-107) mmol/L Carbon Dioxide (21.6-31.8) mmol/L BUN (9.0-27.0) mg/dL Creatinine (0.52-1.04) mg/dL Est GFR (CKD-EPI)AfAm (60.0-200.0) Est GFR (CKD-EPI)NonAf (60.0-200.0) BUN/Creatinine Ratio (12.00-20.00) Ratio Glucose (70-110) mg/dL POC Glucose (mg/dL) 543 H 497 H (75-99) mg/dL Calcium (8.7-10.3) mg/dL Ionized Calcium Jorge (4.5-5.3) mg/dL Phosphorus (2.5-4.5) mg/dL 12/11/20 12/11/20 12/11/20 Range/Units 02:00 02:57 03:44 WBC (3.8-10.6) k/uL RBC (3.80-5.40) m/uL Hgb (11.4-16.0) gm/dL MCV (80.0-100.0) fL MCHC (31.0-37.0) g/dL RDW (11.5-15.5) % Neutrophils # (1.3-7.7) k/uL Neutrophils # (Manual) (1.3-7.7) k/uL Lymphocytes # (1.0-4.8) k/uL Lymphocytes # (Manual) (1.0-4.8) k/uL ABG pH (7.35-7.45) ABG pCO2 (35-45) mmHg ABG pO2 (83-108) mmHg ABG HCO3 (21-25) mmol/L ABG Total CO2 (19-24) mmol/L ABG O2 Saturation (94-97) % Sodium 146 H (135-145) mmol/L Potassium (3.5-5.5) mmol/L Chloride 93 L (98-107) mmol/L Carbon Dioxide 45 H* (21.6-31.8) mmol/L BUN 41 H (9.0-27.0) mg/dL Creatinine 1.17 H (0.52-1.04) mg/dL Est GFR (CKD-EPI)AfAm (60.0-200.0) Est GFR (CKD-EPI)NonAf (60.0-200.0) BUN/Creatinine Ratio (12.00-20.00) Ratio Glucose 360 H (70-110) mg/dL POC Glucose (mg/dL) 494 H 398 H (75-99) mg/dL Calcium 7.9 L (8.7-10.3) mg/dL Ionized Calcium Jorge (4.5-5.3) mg/dL Phosphorus (2.5-4.5) mg/dL 12/11/20 12/11/20 12/11/20 Range/Units 03:44 04:11 04:55 WBC 11.8 H (3.8-10.6) k/uL RBC 3.50 L (3.80-5.40) m/uL Hgb 10.8 L (11.4-16.0) gm/dL MCV (80.0-100.0) fL MCHC (31.0-37.0) g/dL RDW 15.6 H (11.5-15.5) % Neutrophils # 10.5 H (1.3-7.7) k/uL Neutrophils # (Manual) (1.3-7.7) k/uL Lymphocytes # 0.6 L (1.0-4.8) k/uL Lymphocytes # (Manual) (1.0-4.8) k/uL ABG pH (7.35-7.45) ABG pCO2 98 H* (35-45) mmHg ABG pO2 57 L* (83-108) mmHg ABG HCO3 55 H* (21-25) mmol/L ABG Total CO2 58 H (19-24) mmol/L ABG O2 Saturation 90.0 L (94-97) % Sodium (135-145) mmol/L Potassium (3.5-5.5) mmol/L Chloride (98-107) mmol/L Carbon Dioxide (21.6-31.8) mmol/L BUN (9.0-27.0) mg/dL Creatinine (0.52-1.04) mg/dL Est GFR (CKD-EPI)AfAm (60.0-200.0) Est GFR (CKD-EPI)NonAf (60.0-200.0) BUN/Creatinine Ratio (12.00-20.00) Ratio Glucose (70-110) mg/dL POC Glucose (mg/dL) 371 H (75-99) mg/dL Calcium (8.7-10.3) mg/dL Ionized Calcium Jorge (4.5-5.3) mg/dL Phosphorus (2.5-4.5) mg/dL 12/11/20 12/11/20 12/11/20 Range/Units 05:06 06:01 07:02 WBC (3.8-10.6) k/uL RBC (3.80-5.40) m/uL Hgb (11.4-16.0) gm/dL MCV (80.0-100.0) fL MCHC (31.0-37.0) g/dL RDW (11.5-15.5) % Neutrophils # (1.3-7.7) k/uL Neutrophils # (Manual) (1.3-7.7) k/uL Lymphocytes # (1.0-4.8) k/uL Lymphocytes # (Manual) (1.0-4.8) k/uL ABG pH (7.35-7.45) ABG pCO2 (35-45) mmHg ABG pO2 (83-108) mmHg ABG HCO3 (21-25) mmol/L ABG Total CO2 (19-24) mmol/L ABG O2 Saturation (94-97) % Sodium (135-145) mmol/L Potassium (3.5-5.5) mmol/L Chloride (98-107) mmol/L Carbon Dioxide (21.6-31.8) mmol/L BUN (9.0-27.0) mg/dL Creatinine (0.52-1.04) mg/dL Est GFR (CKD-EPI)AfAm (60.0-200.0) Est GFR (CKD-EPI)NonAf (60.0-200.0) BUN/Creatinine Ratio (12.00-20.00) Ratio Glucose (70-110) mg/dL POC Glucose (mg/dL) 290 H 282 H 246 H (75-99) mg/dL Calcium (8.7-10.3) mg/dL Ionized Calcium Jorge (4.5-5.3) mg/dL Phosphorus (2.5-4.5) mg/dL 12/11/20 12/11/20 Range/Units 09:22 10:22 WBC (3.8-10.6) k/uL RBC (3.80-5.40) m/uL Hgb (11.4-16.0) gm/dL MCV (80.0-100.0) fL MCHC (31.0-37.0) g/dL RDW (11.5-15.5) % Neutrophils # (1.3-7.7) k/uL Neutrophils # (Manual) (1.3-7.7) k/uL Lymphocytes # (1.0-4.8) k/uL Lymphocytes # (Manual) (1.0-4.8) k/uL ABG pH (7.35-7.45) ABG pCO2 (35-45) mmHg ABG pO2 (83-108) mmHg ABG HCO3 (21-25) mmol/L ABG Total CO2 (19-24) mmol/L ABG O2 Saturation (94-97) % Sodium (135-145) mmol/L Potassium (3.5-5.5) mmol/L Chloride (98-107) mmol/L Carbon Dioxide (21.6-31.8) mmol/L BUN (9.0-27.0) mg/dL Creatinine (0.52-1.04) mg/dL Est GFR (CKD-EPI)AfAm (60.0-200.0) Est GFR (CKD-EPI)NonAf (60.0-200.0) BUN/Creatinine Ratio (12.00-20.00) Ratio Glucose (70-110) mg/dL POC Glucose (mg/dL) 158 H 192 H (75-99) mg/dL Calcium (8.7-10.3) mg/dL Ionized Calcium Jorge (4.5-5.3) mg/dL Phosphorus (2.5-4.5) mg/dL <Clay Healy - Last Filed: 12/11/20 12:00> Subjective As above. Patient had evidence of hypercapnia and confusion last night. Doing well currently on BiPAP. Covid rapid test negative. Denies pain. She is hungry. She apparently had an episode of vomiting last night after she went to the ICU. Labs noted. Objective - Vital Signs Vital signs: Vital Signs Temp 97.5 F L 12/11/20 08:00 Pulse 71 12/11/20 11:00 Resp 14 12/11/20 11:00 BP 128/61 12/11/20 11:00 Pulse Ox 92 L 12/11/20 11:00 Intake & Output 12/10/20 12/11/20 12/11/20 18:59 06:59 18:59 Intake Total 263.260 521.487 Output Total 2550 190 50 Balance -2550 73.260 471.487 Weight 109 kg 112.1 kg 112.1 kg Intake: IV 200 480 Mvi, Adult No.4 with Vit 150 K 10 ml Trace (Conc-1Ml/ Dose) 1 ml Potassium Phosphate 24 mmol Magnesium Sulfate gm 1 gm Potassium Chloride 16 meq Calcium Gluconate 1.5 gm In Amino Acids 5 %/ Dextrose 20 % 1,000 ml @ 50 mls/hr IV .[id number] [facility] Rx#:[id number] Piperacillin-Tazobactam 3 100 .375 gm In Sodium Chloride 0.9% 100 ml @ 25 mls/hr IVPB Q8HR [facility] Rx# :[id number] Potassium Chloride 10 meq 300 In Water For Injection 1 100ml.bag @ 100 mls/hr IVPB Q1H [facility] Rx#: [id number] Sodium Chloride 0.45% 1, 100 30 000 ml @ 20 mls/hr IV . Q24H [facility] Rx#:[id number] Intake, IV Titration 63.260 41.487 Amount Insulin Regular 100 unit 63.260 41.487 In Sodium Chloride 0.9% 100 ml @ Per Protocol IV .Q0M [facility] Rx#:[id number] Output: Urine 2550 190 50 Other: Voiding Method Bedside Commode Urinal Urinal Bedpan Diaper # Voids 1 # Bowel Movements 1 - Labs CBC & Chem 7: 12/11/20 03:44 12/11/20 03:44 Labs: Abnormal Lab Results - Last 24 Hours (Table) 12/10/20 12/10/20 12/10/20 Range/Units 05:26 16:49 16:51 WBC (3.8-10.6) k/uL RBC (3.80-5.40) m/uL Hgb (11.4-16.0) gm/dL MCV (80.0-100.0) fL MCHC (31.0-37.0) g/dL RDW (11.5-15.5) % Neutrophils # (1.3-7.7) k/uL Neutrophils # (Manual) (1.3-7.7) k/uL Lymphocytes # (1.0-4.8) k/uL Lymphocytes # (Manual) (1.0-4.8) k/uL ABG pH (7.35-7.45) ABG pCO2 (35-45) mmHg ABG pO2 (83-108) mmHg ABG HCO3 (21-25) mmol/L ABG Total CO2 (19-24) mmol/L ABG O2 Saturation (94-97) % Sodium 154 H (135-145) mmol/L Potassium 3.2 L (3.5-5.5) mmol/L Chloride (98-107) mmol/L Carbon Dioxide >40.0 H* (21.6-31.8) mmol/L BUN 28.0 H (9.0-27.0) mg/dL Creatinine (0.52-1.04) mg/dL Est GFR (CKD-EPI)AfAm 59.3 L (60.0-200.0) Est GFR (CKD-EPI)NonAf 51.2 L (60.0-200.0) BUN/Creatinine Ratio 25.45 H (12.00-20.00) Ratio Glucose 376 H (70-110) mg/dL POC Glucose (mg/dL) 511 H 476 H (75-99) mg/dL Calcium 8.6 L (8.7-10.3) mg/dL Ionized Calcium Jorge 4.3 L (4.5-5.3) mg/dL Phosphorus (2.5-4.5) mg/dL 12/10/20 12/10/20 12/10/20 Range/Units 22:03 22:40 22:44 WBC 13.1 H (3.8-10.6) k/uL RBC 3.78 L (3.80-5.40) m/uL Hgb 11.3 L (11.4-16.0) gm/dL MCV 101.6 H (80.0-100.0) fL MCHC 29.6 L (31.0-37.0) g/dL RDW 15.7 H (11.5-15.5) % Neutrophils # 11.3 H (1.3-7.7) k/uL Neutrophils # (Manual) 11.30 H (1.3-7.7) k/uL Lymphocytes # 0.7 L (1.0-4.8) k/uL Lymphocytes # (Manual) 0.79 L (1.0-4.8) k/uL ABG pH (7.35-7.45) ABG pCO2 (35-45) mmHg ABG pO2 (83-108) mmHg ABG HCO3 (21-25) mmol/L ABG Total CO2 (19-24) mmol/L ABG O2 Saturation (94-97) % Sodium (135-145) mmol/L Potassium 3.4 L (3.5-5.5) mmol/L Chloride 92 L (98-107) mmol/L Carbon Dioxide 42 H* (21.6-31.8) mmol/L BUN 36 H (9.0-27.0) mg/dL Creatinine 1.12 H (0.52-1.04) mg/dL Est GFR (CKD-EPI)AfAm (60.0-200.0) Est GFR (CKD-EPI)NonAf (60.0-200.0) BUN/Creatinine Ratio (12.00-20.00) Ratio Glucose 590 H* (70-110) mg/dL POC Glucose (mg/dL) 571 H (75-99) mg/dL Calcium 7.9 L (8.7-10.3) mg/dL Ionized Calcium Jorge (4.5-5.3) mg/dL Phosphorus 4.7 H (2.5-4.5) mg/dL 12/10/20 12/10/20 12/11/20 Range/Units 23:10 23:22 01:06 WBC (3.8-10.6) k/uL RBC (3.80-5.40) m/uL Hgb (11.4-16.0) gm/dL MCV (80.0-100.0) fL MCHC (31.0-37.0) g/dL RDW (11.5-15.5) % Neutrophils # (1.3-7.7) k/uL Neutrophils # (Manual) (1.3-7.7) k/uL Lymphocytes # (1.0-4.8) k/uL Lymphocytes # (Manual) (1.0-4.8) k/uL ABG pH 7.33 L (7.35-7.45) ABG pCO2 99 H* (35-45) mmHg ABG pO2 (83-108) mmHg ABG HCO3 52 H* (21-25) mmol/L ABG Total CO2 55 H (19-24) mmol/L ABG O2 Saturation (94-97) % Sodium (135-145) mmol/L Potassium (3.5-5.5) mmol/L Chloride (98-107) mmol/L Carbon Dioxide (21.6-31.8) mmol/L BUN (9.0-27.0) mg/dL Creatinine (0.52-1.04) mg/dL Est GFR (CKD-EPI)AfAm (60.0-200.0) Est GFR (CKD-EPI)NonAf (60.0-200.0) BUN/Creatinine Ratio (12.00-20.00) Ratio Glucose (70-110) mg/dL POC Glucose (mg/dL) 543 H 497 H (75-99) mg/dL Calcium (8.7-10.3) mg/dL Ionized Calcium Jorge (4.5-5.3) mg/dL Phosphorus (2.5-4.5) mg/dL 12/11/20 12/11/20 12/11/20 Range/Units 02:00 02:57 03:44 WBC (3.8-10.6) k/uL RBC (3.80-5.40) m/uL Hgb (11.4-16.0) gm/dL MCV (80.0-100.0) fL MCHC (31.0-37.0) g/dL RDW (11.5-15.5) % Neutrophils # (1.3-7.7) k/uL Neutrophils # (Manual) (1.3-7.7) k/uL Lymphocytes # (1.0-4.8) k/uL Lymphocytes # (Manual) (1.0-4.8) k/uL ABG pH (7.35-7.45) ABG pCO2 (35-45) mmHg ABG pO2 (83-108) mmHg ABG HCO3 (21-25) mmol/L ABG Total CO2 (19-24) mmol/L ABG O2 Saturation (94-97) % Sodium 146 H (135-145) mmol/L Potassium (3.5-5.5) mmol/L Chloride 93 L (98-107) mmol/L Carbon Dioxide 45 H* (21.6-31.8) mmol/L BUN 41 H (9.0-27.0) mg/dL Creatinine 1.17 H (0.52-1.04) mg/dL Est GFR (CKD-EPI)AfAm (60.0-200.0) Est GFR (CKD-EPI)NonAf (60.0-200.0) BUN/Creatinine Ratio (12.00-20.00) Ratio Glucose 360 H (70-110) mg/dL POC Glucose (mg/dL) 494 H 398 H (75-99) mg/dL Calcium 7.9 L (8.7-10.3) mg/dL Ionized Calcium Jorge (4.5-5.3) mg/dL Phosphorus (2.5-4.5) mg/dL 12/11/20 12/11/20 12/11/20 Range/Units 03:44 04:11 04:55 WBC 11.8 H (3.8-10.6) k/uL RBC 3.50 L (3.80-5.40) m/uL Hgb 10.8 L (11.4-16.0) gm/dL MCV (80.0-100.0) fL MCHC (31.0-37.0) g/dL RDW 15.6 H (11.5-15.5) % Neutrophils # 10.5 H (1.3-7.7) k/uL Neutrophils # (Manual) (1.3-7.7) k/uL Lymphocytes # 0.6 L (1.0-4.8) k/uL Lymphocytes # (Manual) (1.0-4.8) k/uL ABG pH (7.35-7.45) ABG pCO2 98 H* (35-45) mmHg ABG pO2 57 L* (83-108) mmHg ABG HCO3 55 H* (21-25) mmol/L ABG Total CO2 58 H (19-24) mmol/L ABG O2 Saturation 90.0 L (94-97) % Sodium (135-145) mmol/L Potassium (3.5-5.5) mmol/L Chloride (98-107) mmol/L Carbon Dioxide (21.6-31.8) mmol/L BUN (9.0-27.0) mg/dL Creatinine (0.52-1.04) mg/dL Est GFR (CKD-EPI)AfAm (60.0-200.0) Est GFR (CKD-EPI)NonAf (60.0-200.0) BUN/Creatinine Ratio (12.00-20.00) Ratio Glucose (70-110) mg/dL POC Glucose (mg/dL) 371 H (75-99) mg/dL Calcium (8.7-10.3) mg/dL Ionized Calcium Jorge (4.5-5.3) mg/dL Phosphorus (2.5-4.5) mg/dL 12/11/20 12/11/20 12/11/20 Range/Units 05:06 06:01 07:02 WBC (3.8-10.6) k/uL RBC (3.80-5.40) m/uL Hgb (11.4-16.0) gm/dL MCV (80.0-100.0) fL MCHC (31.0-37.0) g/dL RDW (11.5-15.5) % Neutrophils # (1.3-7.7) k/uL Neutrophils # (Manual) (1.3-7.7) k/uL Lymphocytes # (1.0-4.8) k/uL Lymphocytes # (Manual) (1.0-4.8) k/uL ABG pH (7.35-7.45) ABG pCO2 (35-45) mmHg ABG pO2 (83-108) mmHg ABG HCO3 (21-25) mmol/L ABG Total CO2 (19-24) mmol/L ABG O2 Saturation (94-97) % Sodium (135-145) mmol/L Potassium (3.5-5.5) mmol/L Chloride (98-107) mmol/L Carbon Dioxide (21.6-31.8) mmol/L BUN (9.0-27.0) mg/dL Creatinine (0.52-1.04) mg/dL Est GFR (CKD-EPI)AfAm (60.0-200.0) Est GFR (CKD-EPI)NonAf (60.0-200.0) BUN/Creatinine Ratio (12.00-20.00) Ratio Glucose (70-110) mg/dL POC Glucose (mg/dL) 290 H 282 H 246 H (75-99) mg/dL Calcium (8.7-10.3) mg/dL Ionized Calcium Jorge (4.5-5.3) mg/dL Phosphorus (2.5-4.5) mg/dL 12/11/20 12/11/20 Range/Units 09:22 10:22 WBC (3.8-10.6) k/uL RBC (3.80-5.40) m/uL Hgb (11.4-16.0) gm/dL MCV (80.0-100.0) fL MCHC (31.0-37.0) g/dL RDW (11.5-15.5) % Neutrophils # (1.3-7.7) k/uL Neutrophils # (Manual) (1.3-7.7) k/uL Lymphocytes # (1.0-4.8) k/uL Lymphocytes # (Manual) (1.0-4.8) k/uL ABG pH (7.35-7.45) ABG pCO2 (35-45) mmHg ABG pO2 (83-108) mmHg ABG HCO3 (21-25) mmol/L ABG Total CO2 (19-24) mmol/L ABG O2 Saturation (94-97) % Sodium (135-145) mmol/L Potassium (3.5-5.5) mmol/L Chloride (98-107) mmol/L Carbon Dioxide (21.6-31.8) mmol/L BUN (9.0-27.0) mg/dL Creatinine (0.52-1.04) mg/dL Est GFR (CKD-EPI)AfAm (60.0-200.0) Est GFR (CKD-EPI)NonAf (60.0-200.0) BUN/Creatinine Ratio (12.00-20.00) Ratio Glucose (70-110) mg/dL POC Glucose (mg/dL) 158 H 192 H (75-99) mg/dL Calcium (8.7-10.3) mg/dL Ionized Calcium Jorge (4.5-5.3) mg/dL Phosphorus (2.5-4.5) mg/dL Assessment and Plan (1) Bowel obstruction Current Visit: Yes Status: Acute Code(s): K56.609 - UNSP INTESTNL OBST, UNSP TO PARTIAL VERSUS COMPLETE OBST SNOMED Code(s): 38014779
[2020-12-11 12:20] LABS: Glucose,Whole Blood 140 mg/dL (75-99)
[2020-12-11] MEDS ORDERED: POTASSIUM CHLORIDE 20 MEQ in WATER FOR INJECTION 1 100ML.BAG IVPB ONE (14:00)
[2020-12-11 15:13] LABS: Glucose,Whole Blood 104 mg/dL (75-99)
[2020-12-11 16:26] LABS: Glucose,Whole Blood 104 mg/dL (75-99)
[2020-12-11] MEDS: ONDANSETRON 4 MG/2 ML VIAL IVP PRN (17:23)
[2020-12-11] MEDS: HYDROmorphone 1 MG/ML 1 ML SYRINGE IVP PRN ×2 (17:23→23:17)
[2020-12-11 19:21] LABS: Glucose,Whole Blood 240 mg/dL (75-99)
[2020-12-11 20:00] LABS: Glucose,Whole Blood 285 mg/dL (75-99)
--- NOTE | 2020-12-11 20:33 | PN ---
PROGRESS NOTE DATE OF SERVICE: 12/11/2020 This 70-year-old woman who was admitted with obstructive mass in the right colon, had surgery. The patient was on TPN last night. The patient had some respiratory difficulties and patient was transferred to ICU and admitted for further evaluation and treatment. The patient was thought to have respiratory failure, which was thought to be multifactorial. Chest x-ray showed some atelectasis and interstitial edema. The patient is started on BiPAP. The ABG is slightly improved this morning and the patient being closely monitored at this time. The patient is also receiving TPN also. The patient is receiving broad-spectrum IV antibiotics. Most recent chest x-ray which was done today reviewed personally by me showed significant atelectasis. PAST MEDICAL HISTORY: Reviewed. REVIEW OF SYSTEMS: Could not be taken, the patient is on BIPAP. CURRENT MEDICATIONS: Reviewed and include: [place], DuoNeb, Lipitor, hurricane spray, Dulcolax, Pulmicort. Doses are reviewed. PHYSICAL EXAM: Patient is alert and oriented times . Pulse is 90. Blood pressure 134/70, respirations 16. Temperature 98 degrees, pulse ox 93% on 6 L. HEENT: Conjunctivae normal. NECK: No JVD. CARDIOVASCULAR: S1, S2 muffled. LUNGS: Breath sounds diminished in the bases. Bilateral scattered rhonchi and crackles. ABDOMEN: Soft, nontender. LEGS are no edema, no swelling. NERVOUS SYSTEM: No focal deficits. LABS: WBC 11.8. ABGs noted. Sodium 146, potassium 3.7. Creatinine is 1.17. COVID-19 is negative. ASSESSMENT: 1. Obstructive mass in the right colon, status post exploratory laparotomy, right colectomy and the pathology showed adenocarcinoma. 2. Diabetes mellitus type 2, uncontrolled with hyperglycemia. 3. Chronic obstructive pulmonary disease acute exacerbation with acute on chronic hypoxic hypercarbic respiratory failure. 4. Change in mental status, acute metabolic encephalopathy, multifactorial. 5. Hypertension. 6. Hyperlipidemia. 7. Chronic urinary incontinence. 8. Hypothyroidism. 9. Left base atelectasis. 10.Morbid obesity. 11.Congestive heart failure, ejection fraction unknown. 12.Obstructive sleep apnea. 13.History of repair abdominal hernia and mesh placement. 14.Hyponatremia. 15.Hypokalemia. 16.Increased WBC. 17.History of degenerative joint disease. 18.History of sleep apnea. 19.History of bronchitis. 20.History of MRSA. 21.History of cholecystectomy. 22.History of obesity, body mass index of 43.5. 23.FULL CODE. RECOMMENDATIONS AND DISCUSSION: Recommend to continue current medications, management and symptomatic treatment. Continue the bronchodilators. Continue with incentive spirometry. Continue with broad- spectrum antibiotics. Prognosis guarded because of multiple complex medical issues. Closely follow with Dr. Carroll. Further recommendations to follow. MMODL / IJN: [id number] / PAULA
[2020-12-11] MEDS: ZOLPIDEM 5 MG TAB PO SCH (20:46)
[2020-12-11] MEDS: ATORVASTATIN 40 MG TAB PO SCH (20:46)
[2020-12-11 20:57] LABS: Glucose,Whole Blood 371 mg/dL (75-99)
[2020-12-11 22:04] LABS: Glucose,Whole Blood 358 mg/dL (75-99)
[2020-12-11 23:12] LABS: Glucose,Whole Blood 304 mg/dL (75-99)
[2020-12-12 00:10] LABS: Glucose,Whole Blood 271 mg/dL (75-99)
[2020-12-12 01:05] LABS: Glucose,Whole Blood 268 mg/dL (75-99)
[2020-12-12] MEDS: [UNRECOGNIZED DRUG - REMARK] IV SCH ×14 (01:54→23:40)
[2020-12-12] MEDS: SODIUM CHLORIDE 0.45% 1,000 ML IV SCH (01:54)
[2020-12-12 02:03] LABS: Glucose,Whole Blood 236 mg/dL (75-99)
[2020-12-12 03:16] LABS: Glucose,Whole Blood 236 mg/dL (75-99)
[2020-12-12] MEDS: INSULIN REGULAR 100 UNIT in SODIUM CHLORIDE 0.9% 100 ML IV SCH ×3 (03:16→21:03)
[2020-12-12 04:16] LABS: Glucose,Whole Blood 214 mg/dL (75-99)
[2020-12-12 04:53] LABS: Ionized Calcium 4.3 mg/dL (4.5-5.3)
[2020-12-12 05:04] LABS: Albumin 2.7 g/dL (3.5-5.0); Calcium 8.2 mg/dL (8.4-10.2); Magnesium 2.3 mg/dL (1.6-2.3); Potassium 3.1 mmol/L (3.5-5.1); Total Bilirubin 0.6 mg/dL (0.2-1.3); Total Protein 6.4 g/dL (6.3-8.2)
[2020-12-12 05:10] LABS: Glucose,Whole Blood 180 mg/dL (75-99)
[2020-12-12 06:06] LABS: Glucose,Whole Blood 185 mg/dL (75-99)
[2020-12-12] MEDS: POTASSIUM CHLORIDE 20 MEQ in WATER FOR INJECTION 1 100ML.BAG IVPB SCH ×2 (06:09→09:22)
[2020-12-12] MEDS: LEVOTHYROXINE IVP 100 MCG/5 ML VIAL IV SCH (06:10)
[2020-12-12 07:05] LABS: Glucose,Whole Blood 185 mg/dL (75-99)
[2020-12-12] MEDS: FORMOTEROL FUMARATE 20 MCG/2 ML NEBU INHALATION SCH ×2 (07:07→19:33)
[2020-12-12] MEDS: BUDESONIDE 1 MG/2 ML NEBU INHALATION SCH ×2 (07:07→19:33)
[2020-12-12] MEDS: IPRATROPIUM-ALBUTEROL 3 ML NEB INHALATION SCH ×4 (07:07→19:33)
[2020-12-12 08:14] LABS: Glucose,Whole Blood 171 mg/dL (75-99)
[2020-12-12] MEDS: bisacodyL 10 MG SUPP RECTAL SCH (08:34)
[2020-12-12] MEDS: ENOXAPARIN 40 MG/0.4 ML SYRINGE SQ SCH (09:21)
[2020-12-12] MEDS: FUROSEMIDE 10 MG/ML 4 ML VIAL IV SCH (09:21)
[2020-12-12] MEDS: PANTOPRAZOLE 40 MG/10 ML VIAL IVP SCH ×2 (09:22→20:03)
[2020-12-12] MEDS: metroNIDAZOLE-NS PMX 500 MG in SALINE 1 100ML.BAG IVPB SCH ×3 (09:22→23:39)
[2020-12-12] MEDS: PIPERACILLIN-TAZOBACTAM 3.375 GM in SODIUM CHLORIDE 0.9% 100 ML IVPB SCH ×3 (09:23→23:39)
[2020-12-12 09:31] LABS: Glucose,Whole Blood 201 mg/dL (75-99)
--- NOTE | 2020-12-12 10:25 | XR ---
EXAMINATION TYPE: XR chest 1V portable DATE OF EXAM: 12/12/2020 COMPARISON: Chest x-ray 12/11/2020 HISTORY: COPD, abnormal chest x-ray TECHNIQUE: Single frontal view of the chest is obtained. FINDINGS: Patient is again rotated. Left-sided PICC line is stable. There is some prominence of inte rstitium, patchy airspace disease is present bilaterally. Cardiac mediastinal silhouette is likely st able. No evident pneumothorax, difficult to exclude effusion. IMPRESSION: Findings are similar to prior. Correlate for pneumonia, congestive heart failure, possib le small effusion, rotated exam.
[2020-12-12 10:45] LABS: Glucose,Whole Blood 194 mg/dL (75-99)
--- NOTE | 2020-12-12 11:30 | P.PN ---
Subjective Progress Note Date: 12/12/20 Principal diagnosis: acute bowel obstruction 70-year-old patient, brought in by EMS, on November 28. She was seen by Dr. Luis Enrique Murillo in the emergency department. She has a history of diabetes mellitus, CHF, chronic kidney disease, multiple abdominal hernia repairs, with mesh, and severe COPD. Her FEV1 is 0.92 L which is 41% of predicted. She sees my partner in the office for her COPD. She also suffers from chronic hypoxemic respiratory failure, and does use oxygen 24/. She apparently recently has had multiple episodes of nonbloody nonbilious emesis, as well as watery diarrhea, for one week. She apparently was evaluated and found on computed tomography scan, to have a colonic lesion, consistent with colon cancer. I was consulted for preop clearance. We saw her right before she went off to surgery. She is chronically on oxygen therapy at 3 L as mentioned above. The patient was having surgery with Dr. Clay Healy. Basically, she tells me that her COPD much at baseline. I did mention to her that she may end up in the intensive care unit after surgery. Also, based on the FEV1 alone, without the MVV, or RV/TLC ratio, the patient's at moderately increased operative risk from general anesthesia. White count 11.1, hemoglobin 13, hematocrit 40.6, platelet count 529,000, sodium 137, potassium 4.3, chlorides 100, CO2 32, anion gap 5, BUN 26, and creatinine 1.45. There was no chest x-ray to review. The patient is seen today 11/30/2020 in follow-up on the regular medical floor. She is currently resting quite comfortably in bed. Awake and alert in no acute distress. Nasogastric tube is secured in place. Maintaining O2 saturations in the 90s on 6 L/m per nasal cannula. White count 10.6. Hemoglobin 12.6. Sodium 137. Potassium 4.8. Creatinine 1.50. She is maintained on Symbicort and DuoNeb inhalations. Anticoagulated with Lovenox. The patient is seen today 12/01/2020 in follow-up on the regular medical floor. She is awake and alert in no acute distress. Resting comfortably in bed. Nasogastric tube remains in place. This is postoperative day #2. She remains on Zosyn and Flagyl. Maintaining O2 saturation in the 90s on 4 L/m per nasal cannula. She was requesting breathing treatments during the night for some increasing shortness of breath. Working well with the incentive spirometer. White count 10.2. Hemoglobin 10.9. Sodium 141. Potassium 4.5. Creatinine 1.3. 12/02/2020 the patient is being seen for a follow-up. The patient is postop day #3 and the patient underwent resection of the right colonic mass and secondary bowel obstruction. The patient has an NG tube in place. The patient remains covered with a combination of Zosyn and Flagyl. Doing well. Using incentive spirometer. No significant respiratory difficulties. Currently on oxygen at 4 L per minute nasal cannula. The pain is under adequate control. The patient is on DuoNeb nebulized treatments around the clock and the patient is receiving Dilaudid for pain control 1 mg every 3 hours IV. IV fluids are running with normal saline at the rate of 100 mL an hour. NG tube was removed this morning. The patient is passing no gas and she hasn't had any bowel movements yet. Nevertheless, she has decent bowel sounds. JOHN drains in place. Output is in order of minimal amount in the order of 10 mL serosanguineous. The patient was up on a chair and she is gradually getting stronger. Antibiotic coverage is same. Oxygen is at 5 L. On today's evaluation of 12/02/2020, the patient is postop day #4. She is currently on 5 L of oxygen by nasal cannula. NG tube was removed yesterday. She is quite comfortable and she is sitting up on a recliner. JOHN drain is in place and output is serosanguineous and it's minimal right now. Bowel sounds are active and the patient on is still nothing by mouth and she's taken only as chips. She is using incentive spirometer which is in front of her all the time. Urine output is adequate. She feels that she is getting stronger. She is on DuoNeb nebulized treatment [id number]. She has adequate pain control with Dilaudid. She is also on examination Zosyn and Flagyl. No fever. No chills. No other significant events overnight. No altered mentation. Patient is passing gas and she is requesting gel low The patient is seen today 12/04/2020 in follow-up. This is postoperative day # 5. She is currently sitting up in a chair at the bedside. Maintaining O2 saturations in the 90s on 5 L/m per nasal cannula. She's afebrile. His been having some ongoing discomfort in her abdomen. Nasogastric tube remains in place. Computed tomography scan of the abdomen revealed distended loops of air and fluid filled bowel consistent with ileus similar to compared to previous. No free air. No mechanical bowel obstruction. There were noted basilar consolidation and atelectasis. New pleural effusions. She is working well with the incentive spirometer. Chest x-ray revealed pleural effusions right greater than left. She is continued on bronchodilators, antibiotics in the form of Zo syn and Flagyl. 12/05/2020 the patient is postop day #6. She was able to pass flatus. She was also able to pass a bowel movement. NG tube is still in place and output is in order of 3. Unfortunately, she continues to have popsicles. In terms of oxygen, she is on 6 L and his saturations around 91%. She is feeling slightly more short of breath and she getting incentive spirometer. Chest x-ray that showed some small bilateral pleural effusions. She is on IV fluids currently running at 100 mL an hour. She is also on examination Zosyn and Flagyl. Surgical wound site is clean. The blood work from today showing His on 12/07/2020, the patient's condition has somewhat decompensated. She has recovered of setbacks yesterday. She became more short of breath overnight. The emergency team was called and the patient was given Lasix. The chest x-ray showed some pulmonary vessel congestion and fluid overload. The patient responded nicely. Currently the patient is on 5 L and this was up to 8 L and her saturations around 90%. She is also complaining of abdominal pain and distention. No direct tenderness. I noticed that the patient is taking some on and off popsicles despite the surgical recommendations. The patient's CAT scan of the abdomen and pelvis that was done on 12/06/2020 showed no evidence of any colonic obstruction or any anastomotic leaks. Some atelectatic changes were seen in lung bases bilaterally. Meanwhile, NG tube is still in place. Output from the NG tube is in the order of 50 mL over the past several hours probably 10 hours and the patient's output is limited this point in time. She is receiving TPN for nutritional support. Has no bowel sounds and examination. She was passing flatus yesterday and she is not passing any today. On examination, no direct tenderness. No altered mentation. Slightly more restless on today's evaluation. She remains on IV Zosyn. Blood work shows a white cell count of 16, hemoglobin of 10.9 which is up compared to yesterday, electrolytes show a potassium of 3.3 which is to be replaced and the sodium of 145 and a BUN of 19 with a creatinine of 1.1. Note that yesterday, during the patient's shortness of breath, blood gases was done that showed an acute on top of chronic hypercapnic respiratory failure and the patient responded to Lasix. She also had to be given some Narcan as the patient was under the contact of Dilaudid. 12/08/2020 the patient is being seen for a follow-up. NG tube is still in pl fely. She is on 10-15 L by nasal cannula. She is using incentive spirometer. She put out only 20 mL on her energy over the past 8 hours. She has taken ice chips and she's going through them that he past. She is also on IV fluids and TPN for nutritional support. Surgical wound site is dry clean and intact. She is passing some flatus. Abdomen is still slightly distended and the patient is complaining is complaining of dry mouth and she continues to want ice chips.The patient is a patient of [facility] and [employer]. She remains on TPN. Blood sugars are elevated and the patient is currently on Levemir running at 30 units daily along with a sliding scale coverage. This dose was adjusted yesterday. She is also on Lovenox for DVT prophylaxis. Patient was reevaluated today on 12/09/2020, patient is comfortable, she continues to have nasogastric tube in place, she is on a high flow nasal ca nnula, she is actually on 10 L high flow, O2 saturations 94%, she is on TPN, and she is also on Lasix. Her chest x-ray continues to show left lower lobe atelectasis/infiltrate.WBC count today is 13.3 hemoglobin is 11.6. Sodium is elevated at 147 bicarb is more than 40 BUN is 26 creatinine is 1.1. Her sugar is 308. And her magnesium is 2.1. The patient is seen today 12/10/2020 in follow-up on the regular medical floor. She is currently sitting up in bed. Awake and alert in no acute distress. She is currently on 10 L high flow nasal cannula and maintaining O2 saturations in the mid 90s. Recent chest x-ray revealed improvement in aeration of the lung bases with small effusions. White count 11.0. Hemoglobin 11.7. Sodium 154. Potassium 3.2. Bicarb greater than 40. Creatinine 1.1. Glucose 376. She remains on DuoNeb inhalations, Pulmicort and Perforomist inhalations, antibioti cs in the form of Zosyn, Flagyl. Remains on IV diuretics. Lovenox for DVT prophylaxis. Again encouraged regarding the increased use the incentive spirometer and cough and deep breathing exercises. Nasogastric tube and Barkley catheter removed. Tolerating a clear liquid diet. Remains on TPN and lipids for nutritional support. Pathology of the right colon mass positive for adenocarcinoma. Patient was reevaluated today on 12/11/2020, patient required transfer to the ICU last night, apparently the patient developed worsening hypercapnic respiratory failure required placement on BiPAP, and a relatively high FiO2. Chest x-ray is showing atelectasis and possibly some component of interstitial edema. She is now on BiPAP with IPAP of 12 and EPAP of 6 and a increased IPAP to 14. She is on 50% I cut it down to 45%. Her last ABG this morning showed a pO2 of 57 pCO2 of 98 pH of 7.35 patient remains on antibiotics, remains on TPN, she is also on insulin at 10.5 units per hour. Given Lasix earlier today 40 mg IV push, and we have decided to request for covid 19 PCR. Mostly because of her slightly worsening chest x-ray today compared to previous x-rays. Patient was reevaluated today on 12/12/2020, remains in the ICU, has been on BiPAP through the night, this was discontinued earlier this morning. Patient seems to be very comfortable, she was on BiPAP with IPAP of 14 and EPAP of 6 and 45% FiO2. Patient had a blood gases yesterday showed a pO2 of 57 pCO2 of 98 pH of 7.35. She is on TPN at 50 MLS per hour she is on insulin at 8.5 units per hour Lasix 40 mg daily, Zosyn and Flagyl. Morning she was transitioned from BiPAP to 4 L nasal cannula, and seems to be doing fairly well. Her lama PCR was negative. WBC count is 11.8 hemoglobin is 10.8. Basic metabolic profile is rel atively normal except for low potassium of 3.1 and her bicarb is 46. The and is 44 creatinine is 1.34 Objective - Vital Signs Vital signs: Vital Signs Temp 96.7 F L 12/12/20 08:00 Pulse 68 12/12/20 11:00 Resp 14 12/12/20 11:00 BP 141/77 12/12/20 11:00 Pulse Ox 96 12/12/20 11:00 Intake & Output 12/11/20 12/12/20 12/12/20 18:59 06:59 18:59 Intake Total 861.487 488.593 584.489 Output Total 860 510 855 Balance 1.487 -21.407 -270.511 Weight 112.1 kg 110 kg Intake: IV 820 330 530 Mvi, Adult No.4 with Vit 250 200 K 10 ml Trace (Conc-1Ml/ Dose) 1 ml Potassium Phosphate 24 mmol Magnesium Sulfate gm 1 gm Potassium Chloride 16 meq Calcium Gluconate 1.5 gm In Amino Acids 5 %/ Dextrose 20 % 1,000 ml @ 50 mls/hr IV .[id number] [facility] Rx#:[id number] Piperacillin-Tazobactam 3 100 100 .375 gm In Sodium Chloride 0.9% 100 ml @ 25 mls/hr IVPB Q8HR [facility] Rx# :[id number] Potassium Chloride 10 meq 400 100 In Water For Injection 1 100ml.bag @ 100 mls/hr IVPB Q1H [facility] Rx#: [id number] Sodium Chloride 0.45% 1, 170 130 30 000 ml @ 20 mls/hr IV . Q24H [facility] Rx#:[id number] metroNIDAZOLE-NS PMX 500 100 100 mg In Saline 1 100ml.bag @ 100 mls/hr IVPB Q8HR [facility] Rx#:[id number] Intake, IV Titration 41.487 158.593 54.489 Amount Insulin Regular 100 unit 41.487 158.593 54.489 In Sodium Chloride 0.9% 100 ml @ Per Protocol IV .Q0M COUNT INCLUDES THE [facility] Rx#:[id number] Output: Urine 860 510 855 Other: Voiding Method Urinal Urinal Indwelling Catheter - Exam GENERAL EXAM: Alert, pleasant 70-year-old female patient, on 4 L nasal cannula this morning. Seems to be comfortable, HEAD: Normocephalic. EYES: Normal reaction of pupils, equal size. NOSE: Nasogastric tube secured in place. Clear with pink turbinates. THROAT: No erythema or exudates. NECK: No masses, no JVD. CHEST: No chest wall deformity. LUNGS: diminished breath sounds and dullness at the left base, no crackles nor rhonchi no wheezes. CVS: S1 and S2 normal with no audible murmur, regular rhythm. ABDOMEN: Dressing dry and intact. No hepatosplenomegaly, normal bowel sounds, no guarding or rigidity. Bowel sounds are hypoactive and sluggish. No abdominal distention. No direct tenderness. Surgical wound site is dry clean and intact. SPINE: No scoliosis or deformity SKIN: No rashes CENTRAL NERVOUS SYSTEM: alert and oriented 3, no gross focal neurologic deficits. EXTREMITIES: no clubbing edema or cyanosis. - Labs CBC & Chem 7: 12/11/20 03:44 12/12/20 04:00 Labs: Abnormal Lab Results - Last 24 Hours (Table) 12/11/20 12/11/20 12/11/20 Range/Units 12:18 15:11 16:24 Potassium (3.5-5.1) mmol/L Chloride (98-107) mmol/L Carbon Dioxide (22-30) mmol/L BUN (7-17) mg/dL Creatinine (0.52-1.04) mg/dL Glucose (74-99) mg/dL POC Glucose (mg/dL) 140 H 104 H 104 H (75-99) mg/dL Calcium (8.4-10.2) mg/dL Ionized Calcium Jorge (4.5-5.3) mg/dL Albumin (3.5-5.0) g/dL Triglycerides (<150) mg/dL 12/11/20 12/11/20 12/11/20 Range/Units 19:19 19:59 20:56 Potassium (3.5-5.1) mmol/L Chloride (98-107) mmol/L Carbon Dioxide (22-30) mmol/L BUN (7-17) mg/dL Creatinine (0.52-1.04) mg/dL Glucose (74-99) mg/dL POC Glucose (mg/dL) 240 H 285 H 371 H (75-99) mg/dL Calcium (8.4-10.2) mg/dL Ionized Calcium Jorge (4.5-5.3) mg/dL Albumin (3.5-5.0) g/dL Triglycerides (<150) mg/dL 12/11/20 12/11/20 12/12/20 Range/Units 22:03 23:01 00:08 Potassium (3.5-5.1) mmol/L Chloride (98-107) mmol/L Carbon Dioxide (22-30) mmol/L BUN (7-17) mg/dL Creatinine (0.52-1.04) mg/dL Glucose (74-99) mg/dL POC Glucose (mg/dL) 358 H 304 H 271 H (75-99) mg/dL Calcium (8.4-10.2) mg/dL Ionized Calcium Jorge (4.5-5.3) mg/dL Albumin (3.5-5.0) g/dL Triglycerides (<150) mg/dL 12/12/20 12/12/20 12/12/20 Range/Units 01:03 02:01 03:14 Potassium (3.5-5.1) mmol/L Chloride (98-107) mmol/L Carbon Dioxide (22-30) mmol/L BUN (7-17) mg/dL Creatinine (0.52-1.04) mg/dL Glucose (74-99) mg/dL POC Glucose (mg/dL) 268 H 236 H 236 H (75-99) mg/dL Calcium (8.4-10.2) mg/dL Ionized Calcium Joreg (4.5-5.3) mg/dL Albumin (3.5-5.0) g/dL Triglycerides (<150) mg/dL 12/12/20 12/12/20 12/12/20 Range/Units 04:00 04:15 05:09 Potassium 3.1 L (3.5-5.1) mmol/L Chloride 92 L (98-107) mmol/L Carbon Dioxide 46 H* (22-30) mmol/L BUN 44 H (7-17) mg/dL Creatinine 1.34 H (0.52-1.04) mg/dL Glucose 201 H (74-99) mg/dL POC Glucose (mg/dL) 214 H 180 H (75-99) mg/dL Calcium 8.2 L (8.4-10.2) mg/dL Ionized Calcium Jorge 4.3 L (4.5-5.3) mg/dL Albumin 2.7 L (3.5-5.0) g/dL Triglycerides 194 H (<150) mg/dL 12/12/20 12/12/20 12/12/20 Range/Units 06:04 07:04 08:02 Potassium (3.5-5.1) mmol/L Chloride (98-107) mmol/L Carbon Dioxide (22-30) mmol/L BUN (7-17) mg/dL Creatinine (0.52-1.04) mg/dL Glucose (74-99) mg/dL POC Glucose (mg/dL) 185 H 185 H 171 H (75-99) mg/dL Calcium (8.4-10.2) mg/dL Ionized Calcium Jorge (4.5-5.3) mg/dL Albumin (3.5-5.0) g/dL Triglycerides (<150) mg/dL 12/12/20 12/12/20 Range/Units 09:30 10:43 Potassium (3.5-5.1) mmol/L Chloride (98-107) mmol/L Carbon Dioxide (22-30) mmol/L BUN (7-17) mg/dL Creatinine (0.52-1.04) mg/dL Glucose (74-99) mg/dL POC Glucose (mg/dL) 201 H 194 H (75-99) mg/dL Calcium (8.4-10.2) mg/dL Ionized Calcium Jorge (4.5-5.3) mg/dL Albumin (3.5-5.0) g/dL Triglycerides (<150) mg/dL Assessment and Plan Assessment: 1 Acute bowel obstruction, status post resection, postoperative day #11, pathology of her colonic mass was positive for adenocarcinoma. 2 Severe/stage III, COPD, with an FEV1 that is 0.92 L or 41% of predicted. The patient developed an acute on top of chronic hypercapnic respiratory failure. Intermittently on BiPAP. 3 History of 3 prior abdominal hernia repairs, with mesh placement. 4 History of angina pectoris. 5 History of CHF. 6 History of diabetes mellitus. 7 History of hyperlipidemia. 8 History of essential hypertension. 9 History of sleep apnea syndrome, currently on CPAP. 10 History of hypothyroidism. 11 Prior history of MRSA infection, 2013. 12 Previous history of heavy tobacco use. Recommendation: Continue BiPAP. As needed. Continue to monitor in the ICU. continue incentive spirometry. Continue bronchodilators. Continue insulin Continue diuretics. Continue Zosyn and Flagyl Continue GI and DVT prophylaxis. We will continue to follow Time with Patient: Less than 30
[2020-12-12 12:15] LABS: Glucose,Whole Blood 212 mg/dL (75-99)
[2020-12-12] MEDS ORDERED: LORazepam 2 MG/ML INJ IV STA (12:24)
[2020-12-12] MEDS: ONDANSETRON 4 MG/2 ML VIAL IVP PRN (12:44)
[2020-12-12 13:23] LABS: Glucose,Whole Blood 257 mg/dL (75-99)
[2020-12-12 15:03] LABS: Glucose,Whole Blood 256 mg/dL (75-99)
--- NOTE | 2020-12-12 15:39 | P.PN ---
Subjective Progress Note Date: 12/12/20 CHIEF COMPLAINT: Colon obstruction HISTORY OF PRESENT ILLNESS: Patient is status post exploratory laparotomy with right colectomy for obstructing mass of the right colon. Postop day #13. Patient is in the ICU due to worsening respiratory failure from fluid overload. She has been receiving IV Lasix. She did have the BIPAP on last night. However, this morning patient is becoming more confused. She is refusing the BiPAP and stating that she wants to go home. Her Covid PCR is negative. She is on a full liquid diet. Her oral intake has been on the lower side. She did have a large liquidy bowel movement today. She is passing gas. Afebrile. Currently on 4 L satting at 97% sodium 142 potassium 3.1 CO2 46 creatinine 1.34 blood sugar 201 PHYSICAL EXAM: VITAL SIGNS: Reviewed. GENERAL: Well-developed in no acute distress. HEENT: No sclera icterus. Extraocular movements grossly intact. Moist buccal mucosa. Head is atraumatic, normocephalic. ABDOMEN: Soft. Nondistended. Incision site clean dry and intact. Lower abdominal bruising noted from lovenox injections NEUROLOGIC: Awake and alert. She is confused. Cranial nerves II through XII grossly intact. ASSESSMENT: 1. Obstructing mass of the right colon status post exploratory laparotomy with right colectomy with path report showing adenocarcinoma 2. Leukocytosis 3. Ileus 4. Hypophosphatemia resolved 5. Hypokalemia 6. Acute on chronic hypercapnic respiratory failure followed by critical care service 7. Fluid overload patient receiving IV Lasix 8. COPD PLAN: -Continue ICU management and supportive care -Advance diet to low fiber -Reassess tomorrow for possible weaning of TPN -Potassium being replaced -Continue pain medication as needed -Encouraged patient to use incentive spirometer -Encouraged patient to increase activity -Continue IV antibiotics -Continue diuretics -Continue GI prophylaxis Protonix and DVT prophylaxis Lovenox Physician Top Precipitator Operator Helper note has been reviewed by physician. Signing provider agrees with the documented findings, assessment, and plan of care. Objective - Vital Signs Vital signs: Vital Signs Temp 97.0 F L 12/12/20 12:00 Pulse 70 12/12/20 15:00 Resp 22 12/12/20 15:00 BP 123/65 12/12/20 15:00 Pulse Ox 97 12/12/20 15:00 Intake & Output 12/11/20 12/12/20 12/12/20 18:59 06:59 18:59 Intake Total 861.487 488.593 840.017 Output Total 667 819 4308 Balance 1.487 -21.407 -889.983 Weight 112.1 kg 110 kg Intake: IV 820 330 760 Mvi, Adult No.4 with Vit 250 400 K 10 ml Trace (Conc-1Ml/ Dose) 1 ml Potassium Phosphate 24 mmol Magnesium Sulfate gm 1 gm Potassium Chloride 16 meq Calcium Gluconate 1.5 gm In Amino Acids 5 %/ Dextrose 20 % 1,000 ml @ 50 mls/hr IV .[id number] [facility] Rx#:[id number] Piperacillin-Tazobactam 3 100 100 .375 gm In Sodium Chloride 0.9% 100 ml @ 25 mls/hr IVPB Q8HR [facility] Rx# :[id number] Potassium Chloride 10 meq 400 100 In Water For Injection 1 100ml.bag @ 100 mls/hr IVPB Q1H [facility] Rx#: [id number] Sodium Chloride 0.45% 1, 170 130 60 000 ml @ 20 mls/hr IV . Q24H [facility] Rx#:[id number] metroNIDAZOLE-NS PMX 500 100 100 mg In Saline 1 100ml.bag @ 100 mls/hr IVPB Q8HR [facility] Rx#:[id number] Intake, IV Titration 41.487 158.593 80.017 Amount Insulin Regular 100 unit 41.487 158.593 80.017 In Sodium Chloride 0.9% 100 ml @ Per Protocol IV .Q0M [facility] Rx#:[id number] Output: Urine 362 037 2699 Other: Voiding Method Urinal Urinal Indwelling Catheter - Labs CBC & Chem 7: 12/11/20 03:44 12/12/20 04:00 Labs: Abnormal Lab Results - Last 24 Hours (Table) 12/11/20 12/11/20 12/11/20 Range/Units 16:24 19:19 19:59 Potassium (3.5-5.1) mmol/L Chloride (98-107) mmol/L Carbon Dioxide (22-30) mmol/L BUN (7-17) mg/dL Creatinine (0.52-1.04) mg/dL Glucose (74-99) mg/dL POC Glucose (mg/dL) 104 H 240 H 285 H (75-99) mg/dL Calcium (8.4-10.2) mg/dL Ionized Calcium Jorge (4.5-5.3) mg/dL Albumin (3.5-5.0) g/dL Triglycerides (<150) mg/dL 12/11/20 12/11/20 12/11/20 Range/Units 20:56 22:03 23:01 Potassium (3.5-5.1) mmol/L Chloride (98-107) mmol/L Carbon Dioxide (22-30) mmol/L BUN (7-17) mg/dL Creatinine (0.52-1.04) mg/dL Glucose (74-99) mg/dL POC Glucose (mg/dL) 371 H 358 H 304 H (75-99) mg/dL Calcium (8.4-10.2) mg/dL Ionized Calcium Jorge (4.5-5.3) mg/dL Albumin (3.5-5.0) g/dL Triglycerides (<150) mg/dL 12/12/20 12/12/20 12/12/20 Range/Units 00:08 01:03 02:01 Potassium (3.5-5.1) mmol/L Chloride (98-107) mmol/L Carbon Dioxide (22-30) mmol/L BUN (7-17) mg/dL Creatinine (0.52-1.04) mg/dL Glucose (74-99) mg/dL POC Glucose (mg/dL) 271 H 268 H 236 H (75-99) mg/dL Calcium (8.4-10.2) mg/dL Ionized Calcium Jorge (4.5-5.3) mg/dL Albumin (3.5-5.0) g/dL Triglycerides (<150) mg/dL 12/12/20 12/12/20 12/12/20 Range/Units 03:14 04:00 04:15 Potassium 3.1 L (3.5-5.1) mmol/L Chloride 92 L (98-107) mmol/L Carbon Dioxide 46 H* (22-30) mmol/L BUN 44 H (7-17) mg/dL Creatinine 1.34 H (0.52-1.04) mg/dL Glucose 201 H (74-99) mg/dL POC Glucose (mg/dL) 236 H 214 H (75-99) mg/dL Calcium 8.2 L (8.4-10.2) mg/dL Ionized Calcium Jorge 4.3 L (4.5-5.3) mg/dL Albumin 2.7 L (3.5-5.0) g/dL Triglycerides 194 H (<150) mg/dL 12/12/20 12/12/20 12/12/20 Range/Units 05:09 06:04 07:04 Potassium (3.5-5.1) mmol/L Chloride (98-107) mmol/L Carbon Dioxide (22-30) mmol/L BUN (7-17) mg/dL Creatinine (0.52-1.04) mg/dL Glucose (74-99) mg/dL POC Glucose (mg/dL) 180 H 185 H 185 H (75-99) mg/dL Calcium (8.4-10.2) mg/dL Ionized Calcium Jorge (4.5-5.3) mg/dL Albumin (3.5-5.0) g/dL Triglycerides (<150) mg/dL 12/12/20 12/12/20 12/12/20 Range/Units 08:02 09:30 10:43 Potassium (3.5-5.1) mmol/L Chloride (98-107) mmol/L Carbon Dioxide (22-30) mmol/L BUN (7-17) mg/dL Creatinine (0.52-1.04) mg/dL Glucose (74-99) mg/dL POC Glucose (mg/dL) 171 H 201 H 194 H (75-99) mg/dL Calcium (8.4-10.2) mg/dL Ionized Calcium Jorge (4.5-5.3) mg/dL Albumin (3.5-5.0) g/dL Triglycerides (<150) mg/dL 12/12/20 12/12/20 12/12/20 Range/Units 12:14 13:11 15:02 Potassium (3.5-5.1) mmol/L Chloride (98-107) mmol/L Carbon Dioxide (22-30) mmol/L BUN (7-17) mg/dL Creatinine (0.52-1.04) mg/dL Glucose (74-99) mg/dL POC Glucose (mg/dL) 212 H 257 H 256 H (75-99) mg/dL Calcium (8.4-10.2) mg/dL Ionized Calcium Jorge (4.5-5.3) mg/dL Albumin (3.5-5.0) g/dL Triglycerides (<150) mg/dL
--- NOTE | 2020-12-12 15:43 | CDI ---
Documentation Clarification Form Date: 12/12/2020 03:32:20 PM From: Britta Peterson CCS, CCDS Admit Date: 11/28/2020 04:35:00 PM Patient Name: Kae Batista Visit Number: [id number] Discharge Date: ATTENTION: The Clinical Documentation Specialists (CDI) and [facility] Coding Staff appreciate your assistance in clarifying documentation. Please respond to the clarification below the line at the bottom and electronically sign. The CDI & [facility] Coding staff will review the response and follow-up if needed. Please note: Queries are made part of the Legal Health Record. If you have any questions, please contact the author of this message via ITS. Dr. Bianka Huerta: The patient presented with the following clinical indicators. Additional clarification regarding the etiology/cause of the clinical indicators is requested. Admitted with an obstructing mass in the right colon status post an Exploratory Laparotomy with Right Colectomy on 11/29 and developed pneumonia and metabolic encephalopathy postoperatively. History/Risk Factors per the 11/28 ED Past Medical History: Heart Failure, COPD, IDDM II with bilateral neuropathy, Chronic Respiratory Failure on Home O2, TRUDI, Hypertension and CKD II. Former smoker. Clinical Indicators: Presented to the ED 11/28 with abdominal pain via EMS as a transfer from [facility]. CT Abdomen & Pelvis showed a bowel obstruction. Per the 11/29 History & Physical: Bowel obstruction with computed tomography scan findings suspicious of a right colonic mass or apple core lesion causing the bowel obstruction. 11/29 Procedure: Exploratory Laparotomy with Right Colectomy. 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 11/28 VS: T 98.7, P 59, R 18, BP 123/50, PO 98 3Lnc 11/28 LAB: WBC 11.1, Neut 8.9, CO2 32, BUN 26, Cr 1.45, COVID negative. Blood cultures: No cultures. 12/02 CXR: Probable atelectasis, correlate to exclude pneumonia. Treatment 11/28: IV Morphine, IV Zofran, IV fluid 1,000 mls @ 75 mls/hr q13H, INH Duoneb, INH Symbicort 3/19: IV Cefazolin, IV Lactated Ringers 11/30: IV Flagyl, IV Zosyn In your professional opinion, please clarify if these findings signify one of the following conditions: [ ] Sepsis POA [ ] Sepsis, Not POA [ ] Severe Sepsis with organ failure [ ] Other, please specify [ ] Unable to determine (Template Last Reviewed: October 2020) Unable to determine MTDD
--- NOTE | 2020-12-12 15:44 | PN ---
PROGRESS NOTE DATE OF SERVICE: 12/12/2020 This 70-year-old woman admitted after bowel surgery had significant respiratory issues. The patient had worsening of the respiratory issues and hypoxia hypercarbic respiratory failure yesterday. The patient is monitored in ICU at this time. Currently the patient is much more alert at this time. Dr. Carroll is following the patient closely. The patient is also receiving Lasix for fluid overload. TPN has been limited to mL per hour. The chest x-ray showed significant bilateral lesions. COVID-19 is negative at this time. PAST MEDICAL HISTORY: Reviewed. REVIEW OF SYSTEMS: Could not be obtained, the patient continues to be confused. MEDICATIONS: Medications are [place], DuoNeb, Lipitor, Dulcolax, Pulmicort, Lovenox, Lasix, Dilaudid. PHYSICAL EXAMINATION: The patient is alert and oriented x1. Pulse 71, blood pressure 115/60, respirations 16, temperature 97 degrees, pulse ox 94% on 4 L. HEENT: Conjunctivae normal. NECK: No jugular venous distention. CARDIOVASCULAR: S1, S2 muffled. RESPIRATORY: Breath sounds diminished at the bases. A few scattered rhonchi and crackles. ABDOMEN: Soft, obese, nontender. LEGS: No edema, no swelling. NERVOUS SYSTEM: No focal deficits. LABS: WBC 11.8, hemoglobin 10.8. Sodium is 145, potassium 3.1. ASSESSMENT: 1. Obstructive mass in the right colon, status post exploratory laparotomy, right colectomy and pathology showed adenocarcinoma. 2. Diabetes mellitus type 2, uncontrolled with hyperglycemia. 3. Chronic obstructive pulmonary disease acute exacerbation with acute on chronic hypoxic hypercarbic respiratory failure. 4. Change in mental status, acute metabolic encephalopathy multifactorial. 5. Hypertension. 6. Hyperlipidemia. 7. Chronic urine incontinence. 8. Hypothyroidism. 9. Left basilar atelectasis. 10.Morbid obesity. 11.Congestive heart failure, ejection fraction unknown. 12.Obstructive sleep apnea. 13.History of repair of abdominal hernia with mesh placement. 14.Hypernatremia. 15.Hypokalemia. 16.Increased WBC. 17.History of degenerative joint disease. 18.History of sleep apnea. 19.History of bronchitis. 20.History of MRSA. 21.History of cholecystectomy. 22.Obesity with body mass index of 43.5. 23.FULL CODE. RECOMMENDATIONS AND DISCUSSION: Recommend to continue current medication, continue symptomatic treatment. Otherwise, continue with diuretics, monitor. Continue with antibiotics. I would also recommend repeat 2D echo with Doppler. Otherwise, guarded prognosis because of the multiple complex medical issues and further recommendations to follow. AMNA / IJN: [id number] / MTDD
--- NOTE | 2020-12-12 15:53 | CDI ---
Documentation Clarification Form Date: 12/12/2020 03:46:00 PM From: Britta Peterson CCS, CCDS Admit Date: 11/28/2020 04:35:00 PM Patient Name: Kae Batista Visit Number: [id number] Discharge Date: ATTENTION: The Clinical Documentation Specialists (CDI) and [facility] Coding Staff appreciate your assistance in clarifying documentation. Please respond to the clarification below the line at the bottom and electronically sign. The CDI & [facility] Coding staff will review the response and follow-up if needed. Please note: Queries are made part of the Legal Health Record. If you have any questions, please contact the author of this message via ITS. Dr. Clay Healy: Per the 12/04 Surgical Progress Note: Distended loops of air and fluid-filled bowel consistent with ileus which is similar to last exam. Nasogastric tube remains in place after last night's CAT scan. Patients Admitting Diagnosis: Obstructing Mass Right Colon Post-Operative Diagnosis: Right Colon Adenocarcinoma Procedure performed: Exploratory Laparotomy with Right Colectomy History/Risk Factors per the 11/28 ED Past Medical History: Heart Failure, COPD, IDDM II with bilateral neuropathy, Chronic Respiratory Failure on Home O2, TRUDI, Hypertension and CKD II. Former smoker. Clinical Indicators: Presented to the ED 11/28 with abdominal pain via EMS as a transfer from [facility]. CT Abdomen & Pelvis showed a bowel obstruction. Per the 11/29 History & Physical: Bowel obstruction with computed tomography scan findings suspicious of a right colonic mass or apple core lesion causing the bowel obstruction. 11/29 Procedure: Exploratory Laparotomy with Right Colectomy. 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 11/28 VS: T 98.7, P 59, R 18, BP 123/50, PO 98 3Lnc 11/28 LAB: WBC 11.1, Neut 8.9, CO2 32, BUN 26, Cr 1.45, COVID negative. Blood cultures: No cultures. 11/28 CT Abdomen/Pelvis: There is NGT with the tip overlying the gastroesophageal junction or the gastric fundus. There are clips probably from cholecystectomy. There are multiple dilated small bowel loops with fluid. 11/29 CT Abdomen/Pelvis: NG tube appears to been pulled back into the distal esophagus correlate for repositioning. Persistent dilated bowel loops with a markedly distended loop seen in the right abdomen with air-fluid levels correlate for obstruction. Bilateral lower lobe infiltrate. 12/04 CT Abdomen/Pelvis: Distended loops of air and fluid-filled bowel consistent with ileus which is similar to last exam. Treatment 11/28: IV Morphine, IV Zofran, IV fluid 1,000 mls @ 75 mls/hr q13H, INH Duoneb, INH Symbicort 11/29: IV Cefazolin, IV Lactated Ringers 11/30: IV Flagyl, IV Zosyn In order to accurately reflect this patients severity of illness, please clarify if the Ileus: [ ] is a complication of surgical procedure [x ] is an expected outcome of the surgical procedure [ ] is related to co-morbid condition(s) of [ ] Other please specify: [ ] Unable to determine (Last Revision: October 2019) MTDD
[2020-12-12 16:28] LABS: Glucose,Whole Blood 228 mg/dL (75-99)
[2020-12-12] MEDS: HYDROcodone/APAP 5-325MG 1 EACH TAB PO PRN (17:06)
[2020-12-12 17:13] LABS: Glucose,Whole Blood 190 mg/dL (75-99)
[2020-12-12 17:51] LABS: Glucose,Whole Blood 223 mg/dL (75-99)
[2020-12-12 18:52] LABS: Glucose,Whole Blood 265 mg/dL (75-99)
[2020-12-12 19:58] LABS: Glucose,Whole Blood 244 mg/dL (75-99)
[2020-12-12] MEDS: HYDROmorphone 1 MG/ML 1 ML SYRINGE IVP PRN (20:03)
[2020-12-12] MEDS: ATORVASTATIN 40 MG TAB PO SCH (20:04)
[2020-12-12] MEDS: ZOLPIDEM 5 MG TAB PO SCH (20:04)
[2020-12-12 21:02] LABS: Glucose,Whole Blood 222 mg/dL (75-99)
[2020-12-12 22:00] LABS: Glucose,Whole Blood 221 mg/dL (75-99)
[2020-12-12 23:05] LABS: Glucose,Whole Blood 205 mg/dL (75-99)
[2020-12-13 00:15] LABS: Glucose,Whole Blood 166 mg/dL (75-99)
[2020-12-13] MEDS: HYDROmorphone 1 MG/ML 1 ML SYRINGE IVP PRN ×3 (00:33→14:56)
[2020-12-13 01:04] LABS: Glucose,Whole Blood 140 mg/dL (75-99)
[2020-12-13] MEDS: SODIUM CHLORIDE 0.45% 1,000 ML IV SCH (02:15)
[2020-12-13 02:16] LABS: Glucose,Whole Blood 139 mg/dL (75-99)
[2020-12-13 02:59] LABS: Glucose,Whole Blood 136 mg/dL (75-99)
[2020-12-13 04:13] LABS: Glucose,Whole Blood 154 mg/dL (75-99)
[2020-12-13 05:07] LABS: Glucose,Whole Blood 193 mg/dL (75-99)
[2020-12-13 06:04] LABS: Glucose,Whole Blood 188 mg/dL (75-99)
[2020-12-13] MEDS: INSULIN REGULAR 100 UNIT in SODIUM CHLORIDE 0.9% 100 ML IV SCH ×3 (06:08→22:36)
[2020-12-13] MEDS: LEVOTHYROXINE IVP 100 MCG/5 ML VIAL IV SCH (06:39)
[2020-12-13 07:04] LABS: Glucose,Whole Blood 176 mg/dL (75-99)
[2020-12-13 07:24] LABS: Albumin 2.5 g/dL (3.5-5.0); Calcium 8.1 mg/dL (8.4-10.2); Total Bilirubin 0.5 mg/dL (0.2-1.3); Total Protein 6.2 g/dL (6.3-8.2)
--- NOTE | 2020-12-13 07:39 | XR ---
EXAMINATION TYPE: XR chest 1V portable DATE OF EXAM: 12/13/2020 COMPARISON: Chest x-ray 12/12/2020 HISTORY: Intensive care unit follow-up, congestive heart failure and COPD, abnormal chest x-ray TECHNIQUE: Single frontal view of the chest is obtained. FINDINGS: Findings are similar to prior exam. Patient is rotated, PICC line is stable. IMPRESSION: There is no significant interval change. Correlate for pneumonia, interstitial edema, po ssible pleural effusion. Suspect cardiomegaly.
[2020-12-13 07:52] LABS: Anisocytosis Slight; Basophils # (A) 0.1 k/uL (0-0.2); Basophils % (A) 1 %; Eosinophils # (A) 0.5 k/uL (0-0.7); Eosinophils % (A) 4 %; HCT 35.7 % (34.0-46.0); HGB 11.4 gm/dL (11.4-16.0); Hypochromasia Slight; Lymphocytes % (A) 8 %; MCH 30.9 pg (25.0-35.0); MCHC 31.9 g/dL (31.0-37.0); MCV 96.7 fL (80.0-100.0); Macrocytosis Slight; Mean Platelet Volume 8.8; Monocytes # (A) 0.4 k/uL (0-1.0); Monocytes % (A) 3 %; Neutrophils # (A) 10.2 k/uL (1.3-7.7); Neutrophils % (A) 83 %; Platelet Count 302 k/uL (150-450); RDW 16.3 % (11.5-15.5); WBC 12.3 k/uL (3.8-10.6)
[2020-12-13 08:01] LABS: Magnesium 2.2 mg/dL (1.6-2.3); Phosphorus 3.2 mg/dL (2.5-4.5); Potassium 3.9 mmol/L (3.5-5.1)
[2020-12-13] MEDS: FORMOTEROL FUMARATE 20 MCG/2 ML NEBU INHALATION SCH ×2 (08:05→19:35)
[2020-12-13] MEDS: IPRATROPIUM-ALBUTEROL 3 ML NEB INHALATION SCH ×4 (08:05→19:35)
[2020-12-13] MEDS: BUDESONIDE 1 MG/2 ML NEBU INHALATION SCH ×2 (08:05→19:35)
[2020-12-13] MEDS: bisacodyL 10 MG SUPP RECTAL SCH (08:13)
[2020-12-13 08:37] LABS: Poikilocytosis (M) Present
[2020-12-13] MEDS: metroNIDAZOLE-NS PMX 500 MG in SALINE 1 100ML.BAG IVPB SCH ×2 (08:47→15:25)
[2020-12-13] MEDS: PANTOPRAZOLE 40 MG/10 ML VIAL IVP SCH ×2 (08:49→21:19)
[2020-12-13] MEDS: FUROSEMIDE 10 MG/ML 4 ML VIAL IV SCH (08:49)
[2020-12-13] MEDS: ENOXAPARIN 40 MG/0.4 ML SYRINGE SQ SCH (08:49)
[2020-12-13] MEDS: FAT EMULSION 20% 250 ML in EMPTY BAG 1 BAG IV SCH (08:50)
[2020-12-13] MEDS ORDERED: POTASSIUM BICARBONATE/CIT AC 20 MEQ TABLET.EFF NG-TUBE SCH (09:00)
[2020-12-13 09:01] LABS: Glucose,Whole Blood 242 mg/dL (75-99)
[2020-12-13] MEDS: HYDROcodone/APAP 5-325MG 1 EACH TAB PO PRN (09:04)
[2020-12-13] MEDS: acetaZOLAMIDE 250 MG TAB PO SCH ×2 (09:04→21:18)
[2020-12-13] MEDS: PIPERACILLIN-TAZOBACTAM 3.375 GM in SODIUM CHLORIDE 0.9% 100 ML IVPB SCH ×2 (09:46→16:59)
[2020-12-13 10:10] LABS: Glucose,Whole Blood 276 mg/dL (75-99)
--- NOTE | 2020-12-13 10:48 | ECHOF ---
Referral Reason:chf MEASUREMENTS -------- HEIGHT: 160.0 cm WEIGHT: 109.8 kg BP: RVIDd: 2.6 cm (< 3.3) IVSd: 1.9 cm (0.6 - 1.1) LVIDd: 3.7 cm (3.9 - 5.3) LVPWd: 1.7 cm (0.6 - 1.1) IVSs: 2.3 cm LVIDs: 1.7 cm LVPWs: 2.0 cm Ao Diam: 3.5 cm (2.0 - 3.7) AV Cusp: 2.1 cm (1.5 - 2.6) LA Diam: 3.2 cm (2.7 - 3.8) MV EXCURSION: 20.694 mm (> 18.000) MV EF SLOPE: 80 mm/s (70 - 150) EPSS: 1.6 cm MV E Jacky: 1.05 m/s MV DecT: 254 ms MV A Jacky: 0.77 m/s MV E/A Ratio: 1.36 RAP: 5.00 mmHg RVSP: 35.30 mmHg FINDINGS -------- This was a technically difficult study with suboptimal views. The left ventricular size is normal. There is severe concentric left ventricular hypertrophy. Ove rall left ventricular systolic function is normal with, an EF between 55 - 60 %. The right ventricle is normal in size. The left atrial size is normal. The right atrial size is normal. 5.0mg of Lumason was utilized for enhancement of images The aortic valve is trileaflet and appears structurally normal. There is trace mitral regurgitation. The tricuspid valve appears structurally normal. Mild tricuspid regurgitation present. There is b orderline pulmonary artery hypertension. The right ventricular systolic pressure, as measured by Do ppler, is 35.30mmHg. There is no pulmonic regurgitation present. The aortic root size is normal. IVC Not well visulized. There is no pericardial effusion. CONCLUSIONS -------- 1. The left ventricular size is normal. 2. There is severe concentric left ventricular hypertrophy. 3. Overall left ventricular systolic function is normal with, an EF between 55 - 60 %. 4. There is trace mitral regurgitation. 5. Mild tricuspid regurgitation present. 6. There is borderline pulmonary artery hypertension. 7. The right ventricular systolic pressure, as measured by Doppler, is 35.30mmHg. 8. There is no pericardial effusion. INFORMATION SERVICES VICE PRESIDENT: Pricila Live RDCS
[2020-12-13 11:44] LABS: Glucose,Whole Blood 243 mg/dL (75-99)
--- NOTE | 2020-12-13 12:08 | P.PN ---
Subjective Progress Note Date: 12/13/20 Principal diagnosis: acute bowel obstruction 70-year-old patient, brought in by EMS, on November 28. She was seen by Dr. Luis Enrique Murillo in the emergency department. She has a history of diabetes mellitus, CHF, chronic kidney disease, multiple abdominal hernia repairs, with mesh, and severe COPD. Her FEV1 is 0.92 L which is 41% of predicted. She sees my partner in the office for her COPD. She also suffers from chronic hypoxemic respiratory failure, and does use oxygen 24/. She apparently recently has had multiple episodes of nonbloody nonbilious emesis, as well as watery diarrhea, for one week. She apparently was evaluated and found on computed tomography scan, to have a colonic lesion, consistent with colon cancer. I was consulted for preop clearance. We saw her right before she went off to surgery. She is chronically on oxygen therapy at 3 L as mentioned above. The patient was having surgery with Dr. Clay Healy. Basically, she tells me that her COPD much at baseline. I did mention to her that she may end up in the intensive care unit after surgery. Also, based on the FEV1 alone, without the MVV, or RV/TLC ratio, the patient's at moderately increased operative risk from general anesthesia. White count 11.1, hemoglobin 13, hematocrit 40.6, platelet count 529,000, sodium 137, potassium 4.3, chlorides 100, CO2 32, anion gap 5, BUN 26, and creatinine 1.45. There was no chest x-ray to review. The patient is seen today 11/30/2020 in follow-up on the regular medical floor. She is currently resting quite comfortably in bed. Awake and alert in no acute distress. Nasogastric tube is secured in place. Maintaining O2 saturations in the 90s on 6 L/m per nasal cannula. White count 10.6. Hemoglobin 12.6. Sodium 137. Potassium 4.8. Creatinine 1.50. She is maintained on Symbicort and DuoNeb inhalations. Anticoagulated with Lovenox. The patient is seen today 12/01/2020 in follow-up on the regular medical floor. She is awake and alert in no acute distress. Resting comfortably in bed. Nasogastric tube remains in place. This is postoperative day #2. She remains on Zosyn and Flagyl. Maintaining O2 saturation in the 90s on 4 L/m per nasal cannula. She was requesting breathing treatments during the night for some increasing shortness of breath. Working well with the incentive spirometer. White count 10.2. Hemoglobin 10.9. Sodium 141. Potassium 4.5. Creatinine 1.3. 12/02/2020 the patient is being seen for a follow-up. The patient is postop day #3 and the patient underwent resection of the right colonic mass and secondary bowel obstruction. The patient has an NG tube in place. The patient remains covered with a combination of Zosyn and Flagyl. Doing well. Using incentive spirometer. No significant respiratory difficulties. Currently on oxygen at 4 L per minute nasal cannula. The pain is under adequate control. The patient is on DuoNeb nebulized treatments around the clock and the patient is receiving Dilaudid for pain control 1 mg every 3 hours IV. IV fluids are running with normal saline at the rate of 100 mL an hour. NG tube was removed this morning. The patient is passing no gas and she hasn't had any bowel movements yet. Nevertheless, she has decent bowel sounds. JOHN drains in place. Output is in order of minimal amount in the order of 10 mL serosanguineous. The patient was up on a chair and she is gradually getting stronger. Antibiotic coverage is same. Oxygen is at 5 L. On today's evaluation of 12/02/2020, the patient is postop day #4. She is currently on 5 L of oxygen by nasal cannula. NG tube was removed yesterday. She is quite comfortable and she is sitting up on a recliner. JOHN drain is in place and output is serosanguineous and it's minimal right now. Bowel sounds are active and the patient on is still nothing by mouth and she's taken only as chips. She is using incentive spirometer which is in front of her all the time. Urine output is adequate. She feels that she is getting stronger. She is on DuoNeb nebulized treatment [id number]. She has adequate pain control with Dilaudid. She is also on examination Zosyn and Flagyl. No fever. No chills. No other significant events overnight. No altered mentation. Patient is passing gas and she is requesting gel low The patient is seen today 12/04/2020 in follow-up. This is postoperative day # 5. She is currently sitting up in a chair at the bedside. Maintaining O2 saturations in the 90s on 5 L/m per nasal cannula. She's afebrile. His been having some ongoing discomfort in her abdomen. Nasogastric tube remains in place. Computed tomography scan of the abdomen revealed distended loops of air and fluid filled bowel consistent with ileus similar to compared to previous. No free air. No mechanical bowel obstruction. There were noted basilar consolidation and atelectasis. New pleural effusions. She is working well with the incentive spirometer. Chest x-ray revealed pleural effusions right greater than left. She is continued on bronchodilators, antibiotics in the form of Zo syn and Flagyl. 12/05/2020 the patient is postop day #6. She was able to pass flatus. She was also able to pass a bowel movement. NG tube is still in place and output is in order of 3. Unfortunately, she continues to have popsicles. In terms of oxygen, she is on 6 L and his saturations around 91%. She is feeling slightly more short of breath and she getting incentive spirometer. Chest x-ray that showed some small bilateral pleural effusions. She is on IV fluids currently running at 100 mL an hour. She is also on examination Zosyn and Flagyl. Surgical wound site is clean. The blood work from today showing His on 12/07/2020, the patient's condition has somewhat decompensated. She has recovered of setbacks yesterday. She became more short of breath overnight. The emergency team was called and the patient was given Lasix. The chest x-ray showed some pulmonary vessel congestion and fluid overload. The patient responded nicely. Currently the patient is on 5 L and this was up to 8 L and her saturations around 90%. She is also complaining of abdominal pain and distention. No direct tenderness. I noticed that the patient is taking some on and off popsicles despite the surgical recommendations. The patient's CAT scan of the abdomen and pelvis that was done on 12/06/2020 showed no evidence of any colonic obstruction or any anastomotic leaks. Some atelectatic changes were seen in lung bases bilaterally. Meanwhile, NG tube is still in place. Output from the NG tube is in the order of 50 mL over the past several hours probably 10 hours and the patient's output is limited this point in time. She is receiving TPN for nutritional support. Has no bowel sounds and examination. She was passing flatus yesterday and she is not passing any today. On examination, no direct tenderness. No altered mentation. Slightly more restless on today's evaluation. She remains on IV Zosyn. Blood work shows a white cell count of 16, hemoglobin of 10.9 which is up compared to yesterday, electrolytes show a potassium of 3.3 which is to be replaced and the sodium of 145 and a BUN of 19 with a creatinine of 1.1. Note that yesterday, during the patient's shortness of breath, blood gases was done that showed an acute on top of chronic hypercapnic respiratory failure and the patient responded to Lasix. She also had to be given some Narcan as the patient was under the contact of Dilaudid. 12/08/2020 the patient is being seen for a follow-up. NG tube is still in pl fely. She is on 10-15 L by nasal cannula. She is using incentive spirometer. She put out only 20 mL on her energy over the past 8 hours. She has taken ice chips and she's going through them that he past. She is also on IV fluids and TPN for nutritional support. Surgical wound site is dry clean and intact. She is passing some flatus. Abdomen is still slightly distended and the patient is complaining is complaining of dry mouth and she continues to want ice chips.The [facility] and [facility]. She remains on TPN. Blood sugars are elevated and the patient is currently on Levemir running at 30 units daily along with a sliding scale coverage. This dose was adjusted yesterday. She is also on Lovenox for DVT prophylaxis. Patient was reevaluated today on 12/09/2020, patient is comfortable, she continues to have nasogastric tube in place, she is on a high flow nasal ca nnula, she is actually on 10 L high flow, O2 saturations 94%, she is on TPN, and she is also on Lasix. Her chest x-ray continues to show left lower lobe atelectasis/infiltrate.WBC count today is 13.3 hemoglobin is 11.6. Sodium is elevated at 147 bicarb is more than 40 BUN is 26 creatinine is 1.1. Her sugar is 308. And her magnesium is 2.1. The patient is seen today 12/10/2020 in follow-up on the regular medical floor. She is currently sitting up in bed. Awake and alert in no acute distress. She is currently on 10 L high flow nasal cannula and maintaining O2 saturations in the mid 90s. Recent chest x-ray revealed improvement in aeration of the lung bases with small effusions. White count 11.0. Hemoglobin 11.7. Sodium 154. Potassium 3.2. Bicarb greater than 40. Creatinine 1.1. Glucose 376. She remains on DuoNeb inhalations, Pulmicort and Perforomist inhalations, antibioti cs in the form of Zosyn, Flagyl. Remains on IV diuretics. Lovenox for DVT prophylaxis. Again encouraged regarding the increased use the incentive spirometer and cough and deep breathing exercises. Nasogastric tube and Barkley catheter removed. Tolerating a clear liquid diet. Remains on TPN and lipids for nutritional support. Pathology of the right colon mass positive for adenocarcinoma. Patient was reevaluated today on 12/11/2020, patient required transfer to the ICU last night, apparently the patient developed worsening hypercapnic respiratory failure required placement on BiPAP, and a relatively high FiO2. Chest x-ray is showing atelectasis and possibly some component of interstitial edema. She is now on BiPAP with IPAP of 12 and EPAP of 6 and a increased IPAP to 14. She is on 50% I cut it down to 45%. Her last ABG this morning showed a pO2 of 57 pCO2 of 98 pH of 7.35 patient remains on antibiotics, remains on TPN, she is also on insulin at 10.5 units per hour. Given Lasix earlier today 40 mg IV push, and we have decided to request for covid 19 PCR. Mostly because of her slightly worsening chest x-ray today compared to previous x-rays. Patient was reevaluated today on 12/12/2020, remains in the ICU, has been on BiPAP through the night, this was discontinued earlier this morning. Patient seems to be very comfortable, she was on BiPAP with IPAP of 14 and EPAP of 6 and 45% FiO2. Patient had a blood gases yesterday showed a pO2 of 57 pCO2 of 98 pH of 7.35. She is on TPN at 50 MLS per hour she is on insulin at 8.5 units per hour Lasix 40 mg daily, Zosyn and Flagyl. Morning she was transitioned from BiPAP to 4 L nasal cannula, and seems to be doing fairly well. Her lama PCR was negative. WBC count is 11.8 hemoglobin is 10.8. Basic metabolic profile is rel atively normal except for low potassium of 3.1 and her bicarb is 46. The and is 44 creatinine is 1.34 Patient was reevaluated today on 12/13/2020, she is on 6 L high flow nasal cannula, remains in the ICU, she is still on insulin, she is on TPN, and today I added Diamox. Has been intermittently on BiPAP for her hypercapnic a story failure. Now she is on 6 L high flow, seems to be doing fairly well, yesterday she had some episodes of confusion responded well to Ativan and to BiPAP. CBC is relatively normal lites are normal BUN is 39 creatinine is 1.22 bicarb is 41 Objective - Vital Signs Vital signs: Vital Signs Temp 97.6 F 12/13/20 08:00 Pulse 78 12/13/20 11:56 Resp 14 12/13/20 10:00 BP 133/71 12/13/20 10:00 Pulse Ox 94 L 12/13/20 10:00 Intake & Output 12/12/20 12/13/20 12/13/20 18:59 06:59 18:59 Intake Total 6689.669 8997.337 888.303 Output Total 2004 662 935 Balance -982.320 597.337 -46.697 Weight 110 kg Intake: IV 880 170 312 Fat Emulsion 20% 250 ml 42 In Empty Bag 1 bag @ 21 mls/hr IV [facility] Rx#: [id number] Mvi, Adult No.4 with Vit 100 K 10 ml Trace (Conc-1Ml/ Dose) 1 ml Potassium Phosphate 18 mmol Magnesium Sulfate gm 1 gm Potassium Chloride 28 meq Calcium Gluconate 1.5 gm In Amino Acids 5 %/ Dextrose 20 % 1,000 ml @ 50 mls/hr IV .[id number] [facility] Rx#:[id number] Mvi, Adult No.4 with Vit 500 50 K 10 ml Trace (Conc-1Ml/ Dose) 1 ml Potassium Phosphate 24 mmol Magnesium Sulfate gm 1 gm Potassium Chloride 16 meq Calcium Gluconate 1.5 gm In Amino Acids 5 %/ Dextrose 20 % 1,000 ml @ 50 mls/hr IV .[id number] [facility] Rx#:[id number] Piperacillin-Tazobactam 3 100 100 .375 gm In Sodium Chloride 0.9% 100 ml @ 25 mls/hr IVPB Q8HR [facility] Rx# :[id number] Potassium Chloride 10 meq 100 In Water For Injection 1 100ml.bag @ 100 mls/hr IVPB Q1H [facility] Rx#: [id number] Sodium Chloride 0.45% 1, 80 170 20 000 ml @ 20 mls/hr IV . Q24H [facility] Rx#:[id number] metroNIDAZOLE-NS PMX 500 100 mg In Saline 1 100ml.bag @ 100 mls/hr IVPB Q8HR [facility] Rx#:[id number] Intake, IV Titration 827.431 6421.337 96.303 Amount Insulin Regular 100 unit 142.680 139.337 96.303 In Sodium Chloride 0.9% 100 ml @ Per Protocol IV .Q0M [facility] Rx#:[id number] Mvi, Adult No.4 with Vit 1048 K 10 ml Trace (Conc-1Ml/ Dose) 1 ml Potassium Phosphate 18 mmol Magnesium Sulfate gm 1 gm Potassium Chloride 28 meq Calcium Gluconate 1.5 gm In Amino Acids 5 %/ Dextrose 20 % 1,000 ml @ 50 mls/hr IV .[id number] [facility] Rx#:[id number] Oral 480 Output: Urine 2004 760 935 Other: Voiding Method Indwelling Catheter Indwelling Catheter Indwelling Catheter - Exam GENERAL EXAM: Alert, pleasant 70-year-old female patient, on 6 L high flow nasal cannula HEAD: Normocephalic. EYES: Normal reaction of pupils, equal size. NOSE: Nasogastric tube secured in place. Clear with pink turbinates. THROAT: No erythema or exudates. NECK: No masses, no JVD. CHEST: No chest wall deformity. LUNGS: diminished breath sounds and dullness at the left base, no crackles nor rhonchi no wheezes. CVS: S1 and S2 normal with no audible murmur, regular rhythm. ABDOMEN: Dressing dry and intact. No hepatosplenomegaly, normal bowel sounds, no guarding or rigidity. Bowel sounds are hypoactive and sluggish. No abdominal distention. No direct tenderness. Surgical wound site is dry clean and intact. SPINE: No scoliosis or deformity SKIN: No rashes CENTRAL NERVOUS SYSTEM: alert and oriented 3, no gross focal neurologic deficits. EXTREMITIES: no clubbing edema or cyanosis. - Labs CBC & Chem 7: 12/13/20 06:54 12/13/20 06:54 Labs: Abnormal Lab Results - Last 24 Hours (Table) 12/12/20 12/12/20 12/12/20 Range/Units 12:14 13:11 15:02 WBC (3.8-10.6) k/uL RBC (3.80-5.40) m/uL RDW (11.5-15.5) % Neutrophils # (1.3-7.7) k/uL Chloride (98-107) mmol/L Carbon Dioxide (22-30) mmol/L BUN (7-17) mg/dL Creatinine (0.52-1.04) mg/dL Glucose (74-99) mg/dL POC Glucose (mg/dL) 212 H 257 H 256 H (75-99) mg/dL Calcium (8.4-10.2) mg/dL Total Protein (6.3-8.2) g/dL Albumin (3.5-5.0) g/dL 12/12/20 12/12/20 12/12/20 Range/Units 16:26 17:12 17:39 WBC (3.8-10.6) k/uL RBC (3.80-5.40) m/uL RDW (11.5-15.5) % Neutrophils # (1.3-7.7) k/uL Chloride (98-107) mmol/L Carbon Dioxide (22-30) mmol/L BUN (7-17) mg/dL Creatinine (0.52-1.04) mg/dL Glucose (74-99) mg/dL POC Glucose (mg/dL) 228 H 190 H 223 H (75-99) mg/dL Calcium (8.4-10.2) mg/dL Total Protein (6.3-8.2) g/dL Albumin (3.5-5.0) g/dL 12/12/20 12/12/20 12/12/20 Range/Units 18:50 19:57 21:01 WBC (3.8-10.6) k/uL RBC (3.80-5.40) m/uL RDW (11.5-15.5) % Neutrophils # (1.3-7.7) k/uL Chloride (98-107) mmol/L Carbon Dioxide (22-30) mmol/L BUN (7-17) mg/dL Creatinine (0.52-1.04) mg/dL Glucose (74-99) mg/dL POC Glucose (mg/dL) 265 H 244 H 222 H (75-99) mg/dL Calcium (8.4-10.2) mg/dL Total Protein (6.3-8.2) g/dL Albumin (3.5-5.0) g/dL 12/12/20 12/12/20 12/13/20 Range/Units 21:59 23:04 00:14 WBC (3.8-10.6) k/uL RBC (3.80-5.40) m/uL RDW (11.5-15.5) % Neutrophils # (1.3-7.7) k/uL Chloride (98-107) mmol/L Carbon Dioxide (22-30) mmol/L BUN (7-17) mg/dL Creatinine (0.52-1.04) mg/dL Glucose (74-99) mg/dL POC Glucose (mg/dL) 221 H 205 H 166 H (75-99) mg/dL Calcium (8.4-10.2) mg/dL Total Protein (6.3-8.2) g/dL Albumin (3.5-5.0) g/dL 12/13/20 12/13/20 12/13/20 Range/Units 01:01 02:15 02:57 WBC (3.8-10.6) k/uL RBC (3.80-5.40) m/uL RDW (11.5-15.5) % Neutrophils # (1.3-7.7) k/uL Chloride (98-107) mmol/L Carbon Dioxide (22-30) mmol/L BUN (7-17) mg/dL Creatinine (0.52-1.04) mg/dL Glucose (74-99) mg/dL POC Glucose (mg/dL) 140 H 139 H 136 H (75-99) mg/dL Calcium (8.4-10.2) mg/dL Total Protein (6.3-8.2) g/dL Albumin (3.5-5.0) g/dL 12/13/20 12/13/20 12/13/20 Range/Units 04:12 05:06 06:02 WBC (3.8-10.6) k/uL RBC (3.80-5.40) m/uL RDW (11.5-15.5) % Neutrophils # (1.3-7.7) k/uL Chloride (98-107) mmol/L Carbon Dioxide (22-30) mmol/L BUN (7-17) mg/dL Creatinine (0.52-1.04) mg/dL Glucose (74-99) mg/dL POC Glucose (mg/dL) 154 H 193 H 188 H (75-99) mg/dL Calcium (8.4-10.2) mg/dL Total Protein (6.3-8.2) g/dL Albumin (3.5-5.0) g/dL 12/13/20 12/13/20 12/13/20 Range/Units 06:54 06:54 07:03 WBC 12.3 H (3.8-10.6) k/uL RBC 3.70 L (3.80-5.40) m/uL RDW 16.3 H (11.5-15.5) % Neutrophils # 10.2 H (1.3-7.7) k/uL Chloride 96 L (98-107) mmol/L Carbon Dioxide 41 H* (22-30) mmol/L BUN 39 H (7-17) mg/dL Creatinine 1.22 H (0.52-1.04) mg/dL Glucose 164 H (74-99) mg/dL POC Glucose (mg/dL) 176 H (75-99) mg/dL Calcium 8.1 L (8.4-10.2) mg/dL Total Protein 6.2 L (6.3-8.2) g/dL Albumin 2.5 L (3.5-5.0) g/dL 12/13/20 12/13/20 12/13/20 Range/Units 08:59 10:08 11:43 WBC (3.8-10.6) k/uL RBC (3.80-5.40) m/uL RDW (11.5-15.5) % Neutrophils # (1.3-7.7) k/uL Chloride (98-107) mmol/L Carbon Dioxide (22-30) mmol/L BUN (7-17) mg/dL Creatinine (0.52-1.04) mg/dL Glucose (74-99) mg/dL POC Glucose (mg/dL) 242 H 276 H 243 H (75-99) mg/dL Calcium (8.4-10.2) mg/dL Total Protein (6.3-8.2) g/dL Albumin (3.5-5.0) g/dL Assessment and Plan Assessment: 1 Acute bowel obstruction, status post resection, postoperative day #12, pathology of her colonic mass was positive for adenocarcinoma. 2 Severe/stage III, COPD, with an FEV1 that is 0.92 L or 41% of predicted. The patient developed an acute on top of chronic hypercapnic respiratory failure. Intermittently on BiPAP. 3 History of 3 prior abdominal hernia repairs, with mesh placement. 4 History of angina pectoris. 5 History of CHF. 6 History of diabetes mellitus. 7 History of hyperlipidemia. 8 History of essential hypertension. 9 History of sleep apnea syndrome, currently on CPAP. 10 History of hypothyroidism. 11 Prior history of MRSA infection, 2013. 12 Previous history of heavy tobacco use. Recommendation: Continue present supportive care measures. Transfer out of the ICU to a medical surgical floor. continue incentive spirometry. Continue bronchodilators. Continue insulin Continue diuretics. Will add Diamox to 50 mg by mouth twice a day. Continue antibiotics as per ID on the case. Continue GI and DVT prophylaxis. We will continue to follow Time with Patient: Less than 30
[2020-12-13 13:08] LABS: Glucose,Whole Blood 253 mg/dL (75-99)
[2020-12-13 14:18] LABS: Glucose,Whole Blood 284 mg/dL (75-99)
[2020-12-13 15:14] LABS: Glucose,Whole Blood 247 mg/dL (75-99)
--- NOTE | 2020-12-13 15:25 | PN ---
PROGRESS NOTE DATE OF SERVICE: 12/13/2020 This 70-year-old woman who was admitted with obstructive mass initially had surgery. Subsequently patient had respiratory failure secondary to COPD exacerbation and fluid overload. The patient was transferred to ICU. The patient's most recent chest x-ray which was personally reviewed by me showed no significant interval changes and the patient is seen by Cardiology and Pulmonology also. A 2D echo with Doppler was done which showed ejection fraction 55% to 60% and trace mitral regurgitation. No chest pain. No palpitations. PAST MEDICAL HISTORY: Reviewed. REVIEW OF SYSTEMS: CARDIOVASCULAR SYSTEM: No angina. RESPIRATORY SYSTEM: As mentioned earlier. GI: As mentioned earlier. : No dysuria. NERVOUS SYSTEM: No numbness or weakness. CURRENT MEDICATIONS: Current medications are reviewed and include [place], Diamox, DuoNeb, Lipitor, Dulcolax, Pulmicort, Lovenox, Perforomist, Lasix. Doses are reviewed. PHYSICAL EXAMINATION: Patient is alert and oriented x3. Pulse 75, blood pressure 112/80, respiration 20, temperature normal, pulse ox 93% on room air. HEENT: Conjunctivae normal. NECK: No jugular venous distention. CARDIOVASCULAR: S1, S2 muffled. RESPIRATORY: Breath sounds diminished in the bases. A few rhonchi, no crackles. ABDOMEN: Soft, status post surgery. LEGS: No edema, no swelling. NERVOUS SYSTEM: No focal deficits. LABS: WBC 12.3, hemoglobin 11.4. Sodium 143, potassium 3.9, creatinine is 1.22. COVID-19 is negative. ASSESSMENT: 1. Obstructive mass in the right colon, status post exploratory laparotomy, right colectomy and pathology showed adenocarcinoma. 2. Diabetes mellitus type 2, uncontrolled with hyperglycemia. 3. Chronic obstructive pulmonary disease acute exacerbation with acute on chronic hypoxic hypercarbic respiratory failure. 4. Congestive heart failure acute exacerbation acute on chronic diastolic dysfunction, ejection fraction 55% to 60%. 5. Change in mental status, acute metabolic encephalopathy, multifactorial. 6. Hypertension. 7. Hyperlipidemia. 8. Chronic urine incontinence. 9. Hypothyroidism. 10.Left basilar atelectasis. 11.Morbid obesity. 12.Congestive heart failure history. 13.Obstructive sleep apnea. 14.History of repair of abdominal hernia with mesh placement. 15.Hypernatremia. 16.Hypokalemia. 17.Increased WBC. 18.History of degenerative joint disease. 19.History of sleep apnea. 20.History of bronchitis. 21.History of MRSA. 22.History of cholecystectomy. 23.Obesity with body mass index of 43. 24.FULL CODE. RECOMMENDATIONS AND DISCUSSION: I recommend to continue current medications, continue symptomatic treatment. Continue with TPN. Continue the rest of medications. IV Lasix. Monitor intake output closely. Guarded prognosis. Closely follow with Surgery. Further recommendations to follow. MMODL / IJN: [id number] /
--- NOTE | 2020-12-13 15:51 | P.PN ---
Progress Note - Text Progress Note Date: 12/13/20 Patient will require a wheelchair to complete ADLs which is unable to be done with a walker or cane due to weakness and there is family support there at the home but will be able to propel them. Patient will also be requiring a Lisa lift in the home because she is requiring at least 2 person assist to get out of the bed and complete their ADLs or otherwise the patient would be bed bound.
--- NOTE | 2020-12-13 16:03 | P.PN ---
Progress Note - Text Progress Note Date: 12/13/20 The patient feels slightly better today. She still has complaints of abdominal pain. On exam vital signs are stable. Abdomen soft. Incisions clean dry tach. Status post right clipped. Patient is tolerating diet. She'll be in discharged home when cleared by medicine
[2020-12-13 17:08] LABS: Glucose,Whole Blood 218 mg/dL (75-99)
[2020-12-13] MEDS: [UNRECOGNIZED DRUG - REMARK] IV SCH ×7 (18:08)
[2020-12-13 19:02] LABS: Glucose,Whole Blood 261 mg/dL (75-99)
[2020-12-13 21:05] LABS: Glucose,Whole Blood 330 mg/dL (75-99)
[2020-12-13] MEDS: ATORVASTATIN 40 MG TAB PO SCH (21:18)
[2020-12-13] MEDS: ZOLPIDEM 5 MG TAB PO SCH (21:18)
[2020-12-13 22:33] LABS: Glucose,Whole Blood 333 mg/dL (75-99)
[2020-12-14] MEDS: HYDROmorphone 1 MG/ML 1 ML SYRINGE IVP PRN (00:01)
[2020-12-14 00:27] LABS: Glucose,Whole Blood 286 mg/dL (75-99)
[2020-12-14] MEDS: metroNIDAZOLE-NS PMX 500 MG in SALINE 1 100ML.BAG IVPB SCH ×3 (00:53→15:52)
[2020-12-14] MEDS: PIPERACILLIN-TAZOBACTAM 3.375 GM in SODIUM CHLORIDE 0.9% 100 ML IVPB SCH ×4 (00:53→16:55)
[2020-12-14 03:00] LABS: Allen Test Performed? Yes
[2020-12-14 03:03] LABS: ABG PH 7.35 (7.35-7.45)
[2020-12-14 03:04] LABS: Glucose,Whole Blood 286 mg/dL (75-99)
[2020-12-14 03:05] LABS: ABG PCO2 86 mmHg (35-45); ABG PO2 49 mmHg (83-108)
[2020-12-14 03:06] LABS: ABG HCO3 47 mmol/L (21-25); ABG TCO2 50 mmol/L (19-24)
[2020-12-14 05:07] LABS: Glucose,Whole Blood 273 mg/dL (75-99)
[2020-12-14] MEDS: SODIUM CHLORIDE 0.45% 1,000 ML IV SCH (05:13)
[2020-12-14] MEDS: LEVOTHYROXINE IVP 100 MCG/5 ML VIAL IV SCH (06:14)
[2020-12-14 07:06] LABS: Glucose,Whole Blood 280 mg/dL (75-99)
[2020-12-14] MEDS: INSULIN REGULAR 100 UNIT in SODIUM CHLORIDE 0.9% 100 ML IV SCH (07:26)
[2020-12-14] MEDS: FORMOTEROL FUMARATE 20 MCG/2 ML NEBU INHALATION SCH ×2 (08:31→19:41)
[2020-12-14] MEDS: BUDESONIDE 1 MG/2 ML NEBU INHALATION SCH ×2 (08:31→19:41)
[2020-12-14] MEDS: IPRATROPIUM-ALBUTEROL 3 ML NEB INHALATION SCH ×4 (08:31→19:41)
[2020-12-14 09:11] LABS: Glucose,Whole Blood 319 mg/dL (75-99)
[2020-12-14] MEDS: FUROSEMIDE 10 MG/ML 4 ML VIAL IV SCH ×2 (09:28→20:43)
[2020-12-14] MEDS: ENOXAPARIN 40 MG/0.4 ML SYRINGE SQ SCH (09:29)
[2020-12-14] MEDS: PANTOPRAZOLE 40 MG/10 ML VIAL IVP SCH ×2 (09:29→20:42)
[2020-12-14] MEDS: bisacodyL 10 MG SUPP RECTAL SCH (09:30)
[2020-12-14 11:04] LABS: Glucose,Whole Blood 305 mg/dL (75-99)
[2020-12-14] MEDS: acetaZOLAMIDE 250 MG TAB PO SCH ×2 (11:12→20:43)
--- NOTE | 2020-12-14 11:29 | P.PN ---
Subjective Progress Note Date: 12/14/20 Principal diagnosis: Bowel obstruction. The patient is seen today 12/10/2020 in follow-up on the regular medical floor. She is currently sitting up in bed. Awake and alert in no acute distress. She is currently on 10 L high flow nasal cannula and maintaining O2 saturations in the mid 90s. Recent chest x-ray revealed improvement in aeration of the lung bases with small effusions. White count 11.0. Hemoglobin 11.7. Sodium 154. Potassium 3.2. Bicarb greater than 40. Creatinine 1.1. Glucose 376. She remains on DuoNeb inhalations, Pulmicort and Perforomist inhalations, antibiotics in the form of Zosyn, Flagyl. Remains on IV diuretics. Lovenox for DVT prophylaxis. Again encouraged regarding the increased use the incentive spirometer and cough and deep breathing exercises. Nasogastric tube and Barkley catheter removed. Tolerating a clear liquid diet. Remains on TPN and lipids for nutritional support. Pathology of the right colon mass positive for adenocarcinoma. Patient was reevaluated today on 12/11/2020, patient required transfer to the ICU last night, apparently the patient developed worsening hypercapnic respiratory failure required placement on BiPAP, and a relatively high FiO2. Chest x-ray is showing atelectasis and possibly some component of interstitial edema. She is now on BiPAP with IPAP of 12 and EPAP of 6 and a increased IPAP to 14. She is on 50% I cut it down to 45%. Her last ABG this morning showed a pO2 of 57 pCO2 of 98 pH of 7.35 patient remains on antibiotics, remains on TPN, she is also on insulin at 10.5 units per hour. Given Lasix earlier today 40 mg IV push, and we have decided to request for covid 19 PCR. Mostly because of her slightly worsening chest x-ray today compared to previous x-rays. Patient was reevaluated today on 12/12/2020, remains in the ICU, has been on BiPAP through the night, this was discontinued earlier this morning. Patient seems to be very comfortable, she was on BiPAP with IPAP of 14 and EPAP of 6 and 45% FiO2. Patient had a blood gases yesterday showed a pO2 of 57 pCO2 of 98 pH of 7.35. She is on TPN at 50 MLS per hour she is on insulin at 8.5 units per hour Lasix 40 mg daily, Zosyn and Flagyl. Morning she was transitioned from BiPAP to 4 L nasal cannula, and seems to be doing fairly well. Her lama PCR was negative. WBC count is 11.8 hemoglobin is 10.8. Basic metabolic profile is relatively normal except for low potassium of 3.1 and her bicarb is 46. The and is 44 creatinine is 1.34 Patient was reevaluated today on 12/13/2020, she is on 6 L high flow nasal cannula, remains in the ICU, she is still on insulin, she is on TPN, and today I added Diamox. Has been intermittently on BiPAP for her hypercapnic a story failure. Now she is on 6 L high flow, seems to be doing fairly well, yesterday she had some episodes of confusion responded well to Ativan and to BiPAP. CBC is relatively normal lites are normal BUN is 39 creatinine is 1.22 bicarb is 41 Progress note dated 12/14/2020. This patient has been in the hospital now for 16 days. She is again evaluated on the general medical floor, room 520. Currently, she is on BiPAP, with IPAP of 14, EPAP of 5, and 30%. She's getting saline at 10 mL an hour, and insulin drip at 9.5 units an hour, and TPN. The patient appears in no acute distress. She is actually sleeping when I walked into the room. The patient did have a blood gas sometime on December 14. The PaO2 was 49, the pCO2 was 86, and the pH was 7.35. It looks like she was on 36% at that time. It's not clear to me when these blood gases were done. There is no additional blood work on December 14. The patient had a chest x-ray on December 13 and compared to a x-ray that was done on December 12. There is no stiffness significant interval change. There was evidence of pneumonia and/or interstitial edema with possible pleural effusion, and cardiomegaly. The patient has been tested 3 times for coronavirus, and each time, the test is negative. Objective - Vital Signs Vital signs: Vital Signs Temp 98.2 F 12/14/20 09:26 Pulse 67 12/14/20 09:26 Resp 27 H 12/14/20 09:26 BP 138/72 12/14/20 09:26 Pulse Ox 95 12/14/20 09:26 Intake & Output 12/13/20 12/14/20 12/14/20 18:59 06:59 18:59 Intake Total 1884.357 443.146 60.121 Output Total 1185 Balance 699.357 443.146 60.121 Weight 110 kg Intake: IV 312 340 Fat Emulsion 20% 250 ml 42 In Empty Bag 1 bag @ 21 mls/hr IV MoWe[facility] Rx#: [id number] Mvi, Adult No.4 with Vit 100 K 10 ml Trace (Conc-1Ml/ Dose) 1 ml Potassium Phosphate 18 mmol Magnesium Sulfate gm 1 gm Potassium Chloride 28 meq Calcium Gluconate 1.5 gm In Amino Acids 5 %/ Dextrose 20 % 1,000 ml @ 50 mls/hr IV .[id number] [facility] Rx#:[id number] Mvi, Adult No.4 with Vit 50 K 10 ml Trace (Conc-1Ml/ Dose) 1 ml Potassium Phosphate 24 mmol Magnesium Sulfate gm 1 gm Potassium Chloride 16 meq Calcium Gluconate 1.5 gm In Amino Acids 5 %/ Dextrose 20 % 1,000 ml @ 50 mls/hr IV .[id number] [facility] Rx#:[id number] Piperacillin-Tazobactam 3 100 100 .375 gm In Sodium Chloride 0.9% 100 ml @ 25 mls/hr IVPB Q8HR [facility] Rx# :[id number] Sodium Chloride 0.45% 1, 20 240 000 ml @ 20 mls/hr IV . Q24H [facility] Rx#:[id number] Intake, IV Titration 1092.357 103.146 60.121 Amount Insulin Regular 100 unit 169.024 103.146 60.121 In Sodium Chloride 0.9% 100 ml @ Per Protocol IV .Q0M [facility] Rx#:[id number] Mvi, Adult No.4 with Vit 923.333 K 10 ml Trace (Conc-1Ml/ Dose) 1 ml Potassium Phosphate 18 mmol Magnesium Sulfate gm 1 gm Potassium Chloride 28 meq Calcium Gluconate 1.5 gm In Amino Acids 5 %/ Dextrose 20 % 1,000 ml @ 50 mls/hr IV .[id number] [facility] Rx#:[id number] Oral 480 Output: Urine 1185 Other: Voiding Method Indwelling Catheter Indwelling Catheter - Exam No acute distress, sleeping, with BiPAP mask in place. No obvious distress. Saturations are 93-95%. HEENT examination is grossly unremarkable. BiPAP mask in place. Neck supple. Full range of motion. No adenopathy thyromegaly or neck vein distention. Cardiovascular examination reveals regular rhythm rate. S1-S2 normal. No S3 or S4. No discernible murmur noted. Heart sounds are distant, and heart rate is 67 bpm. Lungs reveal diminished breath sounds throughout. A few scattered rhonchi are noted. There are no wheezes. No distinct crackles are noted. Abdomen soft bowel sounds are heard. No masses or tenderness. Surgical site is clean and dry. Extremities are intact. No cyanosis clubbing or edema. Skin is without rash or lesion. Neurologic examination is brief but nonfocal. She was asleep initially, but does arouse and is appropriate. - Labs CBC & Chem 7: 12/13/20 06:54 12/13/20 06:54 Labs: Abnormal Lab Results - Last 24 Hours (Table) 12/13/20 12/13/20 12/13/20 Range/Units 06:54 11:43 13:07 ABG pCO2 (35-45) mmHg ABG pO2 (83-108) mmHg ABG HCO3 (21-25) mmol/L ABG Total CO2 (19-24) mmol/L ABG O2 Saturation (94-97) % POC Glucose (mg/dL) 243 H 253 H (75-99) mg/dL Hemoglobin A1c 9.0 H (4.0-6.0) % 12/13/20 12/13/20 12/13/20 Range/Units 14:07 15:04 16:59 ABG pCO2 (35-45) mmHg ABG pO2 (83-108) mmHg ABG HCO3 (21-25) mmol/L ABG Total CO2 (19-24) mmol/L ABG O2 Saturation (94-97) % POC Glucose (mg/dL) 284 H 247 H 218 H (75-99) mg/dL Hemoglobin A1c (4.0-6.0) % 12/13/20 12/13/20 12/13/20 Range/Units 19:00 21:04 22:32 ABG pCO2 (35-45) mmHg ABG pO2 (83-108) mmHg ABG HCO3 (21-25) mmol/L ABG Total CO2 (19-24) mmol/L ABG O2 Saturation (94-97) % POC Glucose (mg/dL) 261 H 330 H 333 H (75-99) mg/dL Hemoglobin A1c (4.0-6.0) % 12/14/20 12/14/20 12/14/20 Range/Units 00:26 02:50 03:03 ABG pCO2 86 H* (35-45) mmHg ABG pO2 49 L* (83-108) mmHg ABG HCO3 47 H* (21-25) mmol/L ABG Total CO2 50 H (19-24) mmol/L ABG O2 Saturation 84.0 L (94-97) % POC Glucose (mg/dL) 286 H 286 H (75-99) mg/dL Hemoglobin A1c (4.0-6.0) % 12/14/20 12/14/20 12/14/20 Range/Units 05:06 07:04 09:10 ABG pCO2 (35-45) mmHg ABG pO2 (83-108) mmHg ABG HCO3 (21-25) mmol/L ABG Total CO2 (19-24) mmol/L ABG O2 Saturation (94-97) % POC Glucose (mg/dL) 273 H 280 H 319 H (75-99) mg/dL Hemoglobin A1c (4.0-6.0) % 12/14/20 Range/Units 11:03 ABG pCO2 (35-45) mmHg ABG pO2 (83-108) mmHg ABG HCO3 (21-25) mmol/L ABG Total CO2 (19-24) mmol/L ABG O2 Saturation (94-97) % POC Glucose (mg/dL) 305 H (75-99) mg/dL Hemoglobin A1c (4.0-6.0) % Assessment and Plan Assessment: Acute bowel obstruction, with computed tomography scan showing findings suspicious of a right colonic mass or apple core lesion, status post resection, postop day #13, pathology positive for adenocarcinoma. Severe/stage III, COPD, with an FEV1 that is 0.92 L or 41% of predicted, patient intermittently on BiPAP therapy. History of 3 prior abdominal hernia repairs, with mesh placement. History of angina pectoris. History of CHF. History of diabetes mellitus. History of hyperlipidemia. History of essential hypertension. History of sleep apnea syndrome, currently on CPAP. History of hypothyroidism. Prior history of MRSA infection, 2012. Previous history of heavy tobacco use. Plan: Plan dated 12/14/2020. The patient has been here now for 16 days. She is postop day #13, status post colon resection, for a colonic mass, positive for adenocarcinoma. I did her initial preop clearance, and based on her FEV1, and other data, she was in the moderately increased operative risk range for surgery. Anyway, the patient is on BiPAP currently at 14/5 and 36%. She's getting TPN, insulin at 9.5 units an hour, and saline at 10 mL an hour. Her overall prognosis is poor in my opinion, but we do encourage her to continue to use the incentive spirometer, bronchodilators, and other medications that have been provided including GI and DVT prophylaxis. She was recently in the intensive care unit and transferred out. Additional recommendations and suggestions are forthcoming. We will continue to follow make recommendations were appropriate. Time with Patient: Less than 30
[2020-12-14] MEDS: ALPRAZolam 0.25 MG TAB PO PRN ×2 (11:50→19:36)
--- NOTE | 2020-12-14 12:22 | XR ---
EXAMINATION TYPE: XR chest 1V portable DATE OF EXAM: 12/14/2020 Comparison: 12/13/2020 Clinical History: 70-year-old female SOB decrease 02 level Findings: Heart is enlarged. Diffuse interstitial opacity persists. Increasing left basilar opacity. Large rene ent body habitus. Impression: Moderate cardiomegaly. Correlate for continued interstitial edema. Worsening left basilar airspace di sease could represent infiltrate or more confluent edema.
[2020-12-14 12:40] LABS: African American GFR (CKD) 44.3 (60.0-200.0); Albumin 2.7 g/dL (3.80-4.90); Albumin/Globulin Ratio 0.77 (1.60-3.17); Anion Gap 6.2 mmol/L (4.00-12.00); BUN/Creat Ratio 20.71 Ratio (12.00-20.00); Calcium 8.3 mg/dL (8.7-10.3); Carbon Dioxide 39.8 mmol/L (21.6-31.8); Globulin 3.5 g/dL (1.6-3.3); Non-African American GFR(CKD) 38.2 (60.0-200.0); Potassium 4.5 mmol/L (3.5-5.5); Total Bilirubin 0.4 mg/dL (0.3-1.2); Total Protein 6.2 g/dL (6.2-8.2)
[2020-12-14 12:41] LABS: Magnesium 2.6 mg/dL (1.5-2.4)
--- NOTE | 2020-12-14 14:15 | P.PN ---
Progress Note - Text Progress Note Date: 12/14/20 The patient appears to be in respiratory distress. She has a BiPAP mask on. She was confused and pulled out her PICC line. Patient is tachypneic with respiratory rate 30. Abdomen soft with some incisional pain. Status post right colectomy with subsequent Heart failure and respiratory failur e. Patient will have her blood gas checked. I discussed her with Dr. segundo. She may be transferred back to the ICU
[2020-12-14 14:55] LABS: ABG Base Excess 20.5 mmol/L; ABG PCO2 55 mmHg (35-45); ABG PH 7.51 (7.35-7.45); ABG TCO2 45 mmol/L (19-24); Allen Test Performed? Yes
[2020-12-14 14:56] LABS: ABG HCO3 44 mmol/L (21-25); ABG PO2 51 mmHg (83-108)
[2020-12-14] MEDS: [UNRECOGNIZED DRUG - REMARK] IV SCH ×6 (16:56)
[2020-12-14 17:14] LABS: Glucose,Whole Blood 319 mg/dL (75-99)
[2020-12-14] MEDS: INSULIN ASPART (NovoLOG) 100 UNIT/ML VIAL SQ SCH ×2 (18:04→20:43)
--- NOTE | 2020-12-14 18:44 | PN ---
PROGRESS NOTE DATE OF SERVICE: 12/14/2020 This 70-year-old woman was admitted after abdominal surgery and multiple complex medical issues. The patient was in ICU and monitor closely because of hypoxia. The patient was not mechanically ventilated at the time. The patient improved significantly. The patient was sent to the floor but yesterday the patient had again significant respiratory difficulties. The patient was started on BiPAP. Patient is being closely monitored. A chest x-ray which was done today showed multiple abnormalities including possible atelectasis and some fluid also. The patient is being closely monitored. The patient is on diuretics. The patient given extra bronchodilators. The patient is being closely monitored at this time. The patient is apparently confused and pulled the PICC line and pulled the lines also. PAST MEDICAL HISTORY: Reviewed. REVIEW OF SYSTEMS: CARDIOVASCULAR SYSTEM: No angina or palpitations. RESPIRATORY: As mentioned earlier. GI: As mentioned earlier. : No dysuria. MEDICATIONS ARE: Peshtigo 5 mg, Diamox, Xanax. Lipitor, Lovenox, TPN. PHYSICAL EXAMINATION: Alert and oriented x2. Pulse 68, blood pressure 120/76, respiration 18, temperature 97.2, pulse ox 97% on BiPAP. HEENT: Conjunctivae normal. Oral mucosa moist. NECK: No jugular venous distention. No lymph node enlargement. CARDIOVASCULAR: S1, S2, muffled. No S3, no S4, RESPIRATORY: Diminished breath sounds at the bases. A few scattered rhonchi. ABDOMEN: Soft, status post surgery. LEGS: No edema, no swelling. NERVOUS SYSTEM: Higher functions mentioned earlier. Moves all four limbs. No focal motor or sensory deficits. LABS: At this time ABG showed pH of 7.51 and PO2 of 51. ASSESSMENT: 1. Obstructive mass in the right colon, status post exploratory laparotomy and right colectomy, pathology showing adenocarcinoma. 2. Chronic obstructive pulmonary disease acute exacerbation with acute on chronic hypoxic respiratory failure, hypercarbic respiratory failure. 3. Congestive heart failure acute exacerbation with acute on chronic diastolic dysfunction, ejection fraction 55-60%. 4. Possible bilateral atelectasis. 5. Diabetes mellitus type 2, uncontrolled with hyperglycemia. 6. Change in mental status, acute metabolic encephalopathy multifactorial. 7. Hypertension. 8. Hyperlipidemia. 9. Chronic urinary incontinence. 10.Hypothyroidism. 11.Left basilar atelectasis. 12.Morbid obesity. 13.Congestive heart failure history. 14.Possible sleep apnea. 15.History of repair of abdominal hernia with mesh placement. 16.Hypernatremia. 17.Hypokalemia. 18.Increased WBC. 19.History of DJD. 20.History of sleep apnea. 21.History of bronchitis. 22.History of MRSA. 23.History of cholecystectomy. 24.Obesity with body mass of 44.6. 25.FULL CODE. RECOMMENDATIONS: Recommend to continue current management, continue symptomatic treatment, continue extra bronchodilators. Otherwise, continue the diuretics. Monitor closely. ICU transfer per Pulmonary and Surgery. Guarded prognosis. Will monitor blood sugars closely. COVID-19 is negative. Would recommend to send out PCR COVID-19. MMODL / IJN: [id number] /
[2020-12-14 19:53] LABS: Glucose,Whole Blood 304 mg/dL (75-99)
[2020-12-14] MEDS: ATORVASTATIN 40 MG TAB PO SCH (20:43)
[2020-12-14] MEDS: ZOLPIDEM 5 MG TAB PO SCH (20:43)
[2020-12-15] MEDS: metroNIDAZOLE-NS PMX 500 MG in SALINE 1 100ML.BAG IVPB SCH ×3 (00:16→15:56)
[2020-12-15] MEDS: PIPERACILLIN-TAZOBACTAM 3.375 GM in SODIUM CHLORIDE 0.9% 100 ML IVPB SCH ×3 (01:22→15:56)
[2020-12-15] MEDS: SODIUM CHLORIDE 0.45% 1,000 ML IV SCH (04:40)
[2020-12-15] MEDS: LEVOTHYROXINE IVP 100 MCG/5 ML VIAL IV SCH (05:56)
[2020-12-15 06:12] LABS: African American GFR (CKD) 39 (>60 ml/min/1.73 sqM); Anion Gap 2 mmol/L; Blood Urea Nitrogen 29 mg/dL (7-17); Calcium 8.2 mg/dL (8.4-10.2); Carbon Dioxide 38 mmol/L (22-30); Chloride 98 mmol/L (98-107); Glucose 305 mg/dL (74-99); Magnesium 2.2 mg/dL (1.6-2.3); Non-African American GFR(CKD) 34 (>60 ml/min/1.73 sqM); Phosphorus 2.9 mg/dL (2.5-4.5); Potassium 4.3 mmol/L (3.5-5.1); Sodium 138 mmol/L (137-145)
[2020-12-15 07:24] LABS: Glucose,Whole Blood 346 mg/dL (75-99)
[2020-12-15] MEDS: FUROSEMIDE 10 MG/ML 4 ML VIAL IV SCH ×2 (07:48→21:31)
[2020-12-15] MEDS: ENOXAPARIN 40 MG/0.4 ML SYRINGE SQ SCH (07:49)
[2020-12-15] MEDS: PANTOPRAZOLE 40 MG/10 ML VIAL IVP SCH ×2 (07:49→21:31)
[2020-12-15] MEDS: INSULIN ASPART (NovoLOG) 100 UNIT/ML VIAL SQ SCH ×4 (07:50→21:30)
[2020-12-15] MEDS: bisacodyL 10 MG SUPP RECTAL SCH (07:52)
[2020-12-15] MEDS: BUDESONIDE 1 MG/2 ML NEBU INHALATION SCH ×2 (07:56→21:59)
[2020-12-15] MEDS: IPRATROPIUM-ALBUTEROL 3 ML NEB INHALATION SCH ×4 (07:57→21:59)
[2020-12-15] MEDS: FORMOTEROL FUMARATE 20 MCG/2 ML NEBU INHALATION SCH ×2 (07:57→21:59)
[2020-12-15] MEDS: acetaZOLAMIDE 250 MG TAB PO SCH ×2 (08:09→21:32)
[2020-12-15] MEDS: [UNRECOGNIZED DRUG - REMARK] IV SCH ×6 (09:11)
--- NOTE | 2020-12-15 09:53 | P.PN ---
Progress Note - Text Progress Note Date: 12/15/20 Patient's sleeping with her BiPAP on per the nursing staff she has had limited stooling. She is scheduled to receive a duplex positive today. On exam vital signs are stable. Abdomen soft. Patient is essentially reflecting she will continue supportive care.
[2020-12-15 11:41] LABS: Glucose,Whole Blood 285 mg/dL (75-99)
--- NOTE | 2020-12-15 12:08 | P.PN ---
Subjective Progress Note Date: 12/15/20 Principal diagnosis: Bowel obstruction. The patient is seen today 12/10/2020 in follow-up on the regular medical floor. She is currently sitting up in bed. Awake and alert in no acute distress. She is currently on 10 L high flow nasal cannula and maintaining O2 saturations in the mid 90s. Recent chest x-ray revealed improvement in aeration of the lung bases with small effusions. White count 11.0. Hemoglobin 11.7. Sodium 154. Potassium 3.2. Bicarb greater than 40. Creatinine 1.1. Glucose 376. She remains on DuoNeb inhalations, Pulmicort and Perforomist inhalations, antibiotics in the form of Zosyn, Flagyl. Remains on IV diuretics. Lovenox for DVT prophylaxis. Again encouraged regarding the increased use the incentive spirometer and cough and deep breathing exercises. Nasogastric tube and Barkley catheter removed. Tolerating a clear liquid diet. Remains on TPN and lipids for nutritional support. Pathology of the right colon mass positive for adenocarcinoma. Patient was reevaluated today on 12/11/2020, patient required transfer to the ICU last night, apparently the patient developed worsening hypercapnic respiratory failure required placement on BiPAP, and a relatively high FiO2. Chest x-ray is showing atelectasis and possibly some component of interstitial edema. She is now on BiPAP with IPAP of 12 and EPAP of 6 and a increased IPAP to 14. She is on 50% I cut it down to 45%. Her last ABG this morning showed a pO2 of 57 pCO2 of 98 pH of 7.35 patient remains on antibiotics, remains on TPN, she is also on insulin at 10.5 units per hour. Given Lasix earlier today 40 mg IV push, and we have decided to request for covid 19 PCR. Mostly because of her slightly worsening chest x-ray today compared to previous x-rays. Patient was reevaluated today on 12/12/2020, remains in the ICU, has been on BiPAP through the night, this was discontinued earlier this morning. Patient seems to be very comfortable, she was on BiPAP with IPAP of 14 and EPAP of 6 and 45% FiO2. Patient had a blood gases yesterday showed a pO2 of 57 pCO2 of 98 pH of 7.35. She is on TPN at 50 MLS per hour she is on insulin at 8.5 units per hour Lasix 40 mg daily, Zosyn and Flagyl. Morning she was transitioned from BiPAP to 4 L nasal cannula, and seems to be doing fairly well. Her lama PCR was negative. WBC count is 11.8 hemoglobin is 10.8. Basic metabolic profile is relatively normal except for low potassium of 3.1 and her bicarb is 46. The and is 44 creatinine is 1.34 Patient was reevaluated today on 12/13/2020, she is on 6 L high flow nasal cannula, remains in the ICU, she is still on insulin, she is on TPN, and today I added Diamox. Has been intermittently on BiPAP for her hypercapnic a story failure. Now she is on 6 L high flow, seems to be doing fairly well, yesterday she had some episodes of confusion responded well to Ativan and to BiPAP. CBC is relatively normal lites are normal BUN is 39 creatinine is 1.22 bicarb is 41 Progress note dated 12/14/2020. This patient has been in the hospital now for 16 days. She is again evaluated on the general medical floor, room 520. Currently, she is on BiPAP, with IPAP of 14, EPAP of 5, and 30%. She's getting saline at 10 mL an hour, and insulin drip at 9.5 units an hour, and TPN. The patient appears in no acute distress. She is actually sleeping when I walked into the room. The patient did have a blood gas sometime on December 14. The PaO2 was 49, the pCO2 was 86, and the pH was 7.35. It looks like she was on 36% at that time. It's not clear to me when these blood gases were done. There is no additional blood work on December 14. The patient had a chest x-ray on December 13 and compared to a x-ray that was done on December 12. There is no stiffness significant interval change. There was evidence of pneumonia and/or interstitial edema with possible pleural effusion, and cardiomegaly. The patient has been tested 3 times for coronavirus, and each time, the test is negative. Progress note dated 12/15/2020. Currently, the patient's resting comfortably. She remains on BiPAP 14/5 and 36%. She's also getting saline at 100 mL an hour, and Zosyn. Apparently yesterday, she reports her PICC line out. Hence, she is not on TPN anymore. A new PICC line will be placed tomorrow. Also, yesterday she was on an insulin drip, is obviously not currently running. From the pulmonary standpoint, she remains relatively stable. Saturations are reasonable. She is a bit more awake and alert today than yesterday. Sodium sodium 138, potassium 4.3, chloride 98, CO2 38, anion gap 2, BUN 29, creatinine 1.54. Chest x-ray yesterday showed moderate cardiomegaly, and mild interstitial edema. Objective - Vital Signs Vital signs: Vital Signs Temp 97.9 F 12/15/20 11:58 Pulse 62 12/15/20 11:58 Resp 17 12/15/20 11:58 BP 114/65 12/15/20 11:58 Pulse Ox 97 12/15/20 11:58 Intake & Output 12/14/20 12/15/20 12/15/20 18:59 06:59 18:59 Intake Total 60.121 Output Total 1500 1900 Balance -1439.879 -1900 Weight 110 kg Intake: Intake, IV Titration 60.121 Amount Insulin Regular 100 unit 60.121 In Sodium Chloride 0.9% 100 ml @ Per Protocol IV .Q0M [facility] Rx#:[id number] Output: Urine 1500 1900 Other: Voiding Method Indwelling Catheter Indwelling Catheter - Exam No acute distress, sleeping, with BiPAP mask in place. No obvious distress. Saturation is 97%. HEENT examination is grossly unremarkable. BiPAP mask in place. Neck supple. Full range of motion. No adenopathy thyromegaly or neck vein distention. Cardiovascular examination reveals regular rhythm rate. S1-S2 normal. No S3 or S4. No discernible murmur noted. Heart sounds are distant, and heart rate is 62 bpm. Lungs reveal diminished breath sounds throughout. A few scattered rhonchi are n oted. There are no wheezes. No distinct crackles are noted. Abdomen soft bowel sounds are heard. No masses or tenderness. Surgical site is clean and dry. Extremities are intact. No cyanosis clubbing or edema. Skin is without rash or lesion. Neurologic examination is brief but nonfocal. Patient a bit more awake and alert today. - Labs CBC & Chem 7: 12/13/20 06:54 04/04/21 05:35 Labs: Abnormal Lab Results - Last 24 Hours (Table) 12/14/20 12/14/20 12/14/20 Range/Units 06:51 14:17 17:12 ABG pH 7.51 H (7.35-7.45) ABG pCO2 55 H (35-45) mmHg ABG pO2 51 L* (83-108) mmHg ABG HCO3 44 H* (21-25) mmol/L ABG Total CO2 45 H (19-24) mmol/L ABG O2 Saturation 90.0 L (94-97) % Chloride 95 L (96-109) mmol/L Carbon Dioxide 39.8 H (21.6-31.8) mmol/L BUN 29.0 H (9.0-27.0) mg/dL Creatinine (0.52-1.04) mg/dL Est GFR (CKD-EPI)AfAm 44.3 L (60.0-200.0) Est GFR (CKD-EPI)NonAf 38.2 L (60.0-200.0) BUN/Creatinine Ratio 20.71 H (12.00-20.00) Ratio Glucose 285 H (70-110) mg/dL POC Glucose (mg/dL) 319 H (75-99) mg/dL Calcium 8.3 L (8.7-10.3) mg/dL Magnesium 2.6 H (1.5-2.4) mg/dL Albumin 2.70 L (3.80-4.90) g/dL Globulin 3.5 H (1.6-3.3) g/dL Albumin/Globulin Ratio 0.77 L (1.60-3.17) g/dL 12/14/20 12/15/20 12/15/20 Range/Units 19:52 05:35 07:23 ABG pH (7.35-7.45) ABG pCO2 (35-45) mmHg ABG pO2 (83-108) mmHg ABG HCO3 (21-25) mmol/L ABG Total CO2 (19-24) mmol/L ABG O2 Saturation (94-97) % Chloride (96-109) mmol/L Carbon Dioxide 38 H (21.6-31.8) mmol/L BUN 29 H (9.0-27.0) mg/dL Creatinine 1.54 H (0.52-1.04) mg/dL Est GFR (CKD-EPI)AfAm (60.0-200.0) Est GFR (CKD-EPI)NonAf (60.0-200.0) BUN/Creatinine Ratio (12.00-20.00) Ratio Glucose 305 H (70-110) mg/dL POC Glucose (mg/dL) 304 H 346 H (75-99) mg/dL Calcium 8.2 L (8.7-10.3) mg/dL Magnesium (1.5-2.4) mg/dL Albumin (3.80-4.90) g/dL Globulin (1.6-3.3) g/dL Albumin/Globulin Ratio (1.60-3.17) g/dL 12/15/20 Range/Units 11:40 ABG pH (7.35-7.45) ABG pCO2 (35-45) mmHg ABG pO2 (83-108) mmHg ABG HCO3 (21-25) mmol/L ABG Total CO2 (19-24) mmol/L ABG O2 Saturation (94-97) % Chloride (96-109) mmol/L Carbon Dioxide (21.6-31.8) mmol/L BUN (9.0-27.0) mg/dL Creatinine (0.52-1.04) mg/dL Est GFR (CKD-EPI)AfAm (60.0-200.0) Est GFR (CKD-EPI)NonAf (60.0-200.0) BUN/Creatinine Ratio (12.00-20.00) Ratio Glucose (70-110) mg/dL POC Glucose (mg/dL) 285 H (75-99) mg/dL Calcium (8.7-10.3) mg/dL Magnesium (1.5-2.4) mg/dL Albumin (3.80-4.90) g/dL Globulin (1.6-3.3) g/dL Albumin/Globulin Ratio (1.60-3.17) g/dL Assessment and Plan Assessment: Acute bowel obstruction, with computed tomography scan showing findings suspicious of a right colonic mass or apple core lesion, status post resection, postop day #14, pathology positive for adenocarcinoma. Severe/stage III, COPD, with an FEV1 that is 0.92 L or 41% of predicted, patient intermittently on BiPAP therapy. History of 3 prior abdominal hernia repairs, with mesh placement. History of angina pectoris. History of CHF. History of diabetes mellitus. History of hyperlipidemia. History of essential hypertension. History of sleep apnea syndrome, currently on CPAP. History of hypothyroidism. Prior history of MRSA infection, 2012. Previous history of heavy tobacco use. Plan: Plan dated 12/14/2020. The patient has been here now for 16 days. She is postop day #13, status post colon resection, for a colonic mass, positive for adenocarcinoma. I did her initial preop clearance, and based on her FEV1, and other data, she was in the moderately increased operative risk range for surgery. Anyway, the patient is on BiPAP currently at 14/5 and 36%. She's getting TPN, insulin at 9.5 units an hour, and saline at 10 mL an hour. Her overall prognosis is poor in my opinion, but we do encourage her to continue to use the incentive spirometer, bronchodilators, and other medications that have been provided including GI and DVT prophylaxis. She was recently in the intensive care unit and transferred out. Additional recommendations and suggestions are forthcoming. We will continue to follow make recommendations were appropriate. Plan dated 12/15/2020. Unfortunately, patient about her PICC line. He, and the wound will be inserted tomorrow. The patient's on saline at 100 mL an hour. She is getting her antibiotic. She is a bit more awake and alert today than she was yesterday. We'll continue to follow. Additional recommendations and suggestions are forthcoming. Saturations are appropriate between 88-92%. The patient does have severe chronic lung disease. Time with Patient: Less than 30
[2020-12-15] MEDS: HYDROmorphone 1 MG/ML 1 ML SYRINGE IVP PRN ×2 (13:26→18:23)
[2020-12-15 16:58] LABS: Glucose,Whole Blood 234 mg/dL (75-99)
[2020-12-15 20:45] LABS: Glucose,Whole Blood 227 mg/dL (75-99)
[2020-12-15] MEDS: ATORVASTATIN 40 MG TAB PO SCH (21:32)
[2020-12-15] MEDS: ZOLPIDEM 5 MG TAB PO SCH (21:32)
--- NOTE | 2020-12-15 21:32 | PN ---
PROGRESS NOTE DATE OF SERVICE: 12/15/2020 This 70-year-old woman was admitted with obstructive mass in the right colon, had surgery. Patient also has COPD exacerbation, recurrent respiratory difficulties also. The intensive bronchodilator showed some improvement. The most recent chest x- ray which was evaluated personally by me showed some fluid overload and as well as left upper lobe lesion also, possibly atelectasis. Patient closely monitored. Surgery and Pulmonary also following the patient closely. Past medical history reviewed. REVIEW OF SYSTEMS: Cardiac: As mentioned earlier. Respiration as mentioned earlier. GI as mentioned earlier. : No dysuria. NERVOUS SYSTEM: No numbness or weakness. MEDICATIONS: Reviewed and include: Albuterol, Xanax. Lipitor, Cepacol, Pulmicort, Lovenox, TPN, Lasix and doses and other medications reviewed. PHYSICAL EXAM: Patient is alert, oriented x3. Pulse 62, blood pressure 140/62, respirations 17, temperature 97.2, pulse ox 97% on BiPAP. HEENT: Conjunctivae normal. NECK: No JVD. CARDIOVASCULAR: S1, S2. LUNGS: Breath sounds diminished in the bases. A few scattered rhonchi and crackles. ABDOMEN: Soft. Nontender. Nervous system: No focal deficits. Accu-Cheks are 285, creatinine is 1.54. ASSESSMENT: 1. Obstructive mass in the right colon, status post exploratory laparotomy and right colectomy. Pathology showing adenocarcinoma. 2. Chronic obstructive pulmonary disease acute exacerbation with acute on chronic hypoxic respiratory failure with hypercarbic hypoxic respiratory failure. 3. Congestive heart failure acute exacerbation with acute on chronic diastolic dysfunction, ejection fraction 55-60 percent. 4. Possible bilateral atelectasis. 5. Diabetes mellitus type 2, uncontrolled with hyperglycemia. 6. Change in mental status acute metabolic encephalopathy multifactorial. 7. Hypertension. 8. Hyperlipidemia. 9. Chronic urinary incontinence. 10.Hypothyroidism. 11.Left basilar atelectasis. 12.Morbid obesity. 13.Congestive heart failure history. 14.Possible sleep apnea. 15.History of repair of abdominal hernia with mesh placement. 16.Hypernatremia. 17.Hypokalemia. 18.Increased WBC. 19.History of degenerative joint disease. 20.History of sleep apnea. 21.History of bronchitis. 22.History of MRSA. 23.History of cholecystectomy. 24.Obesity with body mass index of 44.6. 25.FULL CODE. RECOMMENDATIONS AND DISCUSSION: Recommend to continue current medication, continue to monitor and symptomatic treatment. Otherwise, at this time, I would recommend to follow the patient closely with surgery and Pulmonary. Incentive spirometry and possible continue the BiPAP. Guarded prognosis. Chest x-ray showed significant lesions. Will repeat chest x- ray in the morning and continue to monitor. Further recommendations to follow. MMCHARANL / ODINN: [id number] / MTDD
[2020-12-16] MEDS: metroNIDAZOLE-NS PMX 500 MG in SALINE 1 100ML.BAG IVPB SCH ×3 (00:03→16:38)
[2020-12-16] MEDS: PIPERACILLIN-TAZOBACTAM 3.375 GM in SODIUM CHLORIDE 0.9% 100 ML IVPB SCH ×3 (01:11→16:38)
[2020-12-16] MEDS: SODIUM CHLORIDE 0.45% 1,000 ML IV SCH (05:24)
[2020-12-16 06:55] LABS: Anisocytosis Slight; Basophils # (A) 0.1 k/uL (0-0.2); Basophils % (A) 1 %; Eosinophils # (A) 0.4 k/uL (0-0.7); Eosinophils % (A) 4 %; HCT 34.8 % (34.0-46.0); HGB 11.2 gm/dL (11.4-16.0); Hypochromasia Slight; Lymphocytes # (A) 1.2 k/uL (1.0-4.8); Lymphocytes % (A) 12 %; MCH 31.4 pg (25.0-35.0); MCHC 32.2 g/dL (31.0-37.0); MCV 97.6 fL (80.0-100.0); Macrocytosis Slight; Mean Platelet Volume 7.9; Monocytes # (A) 0.5 k/uL (0-1.0); Monocytes % (A) 5 %; Neutrophils # (A) 7.9 k/uL (1.3-7.7); Neutrophils % (A) 78 %; Platelet Count 467 k/uL (150-450); RBC 3.56 m/uL (3.80-5.40); RDW 17.3 % (11.5-15.5); WBC 10.2 k/uL (3.8-10.6)
[2020-12-16] MEDS: BUDESONIDE 1 MG/2 ML NEBU INHALATION SCH ×2 (07:00→21:02)
[2020-12-16] MEDS: FORMOTEROL FUMARATE 20 MCG/2 ML NEBU INHALATION SCH ×2 (07:00→21:02)
[2020-12-16] MEDS: IPRATROPIUM-ALBUTEROL 3 ML NEB INHALATION SCH ×4 (07:00→21:03)
[2020-12-16 07:22] LABS: Glucose,Whole Blood 233 mg/dL (75-99)
[2020-12-16 07:35] LABS: Magnesium 2.2 mg/dL (1.6-2.3); Phosphorus 3.7 mg/dL (2.5-4.5)
[2020-12-16 07:36] LABS: African American GFR (CKD) 38 (>60 ml/min/1.73 sqM); Anion Gap 3 mmol/L; Blood Urea Nitrogen 30 mg/dL (7-17); Calcium 7.9 mg/dL (8.4-10.2); Carbon Dioxide 37 mmol/L (22-30); Chloride 100 mmol/L (98-107); Glucose 227 mg/dL (74-99); Non-African American GFR(CKD) 33 (>60 ml/min/1.73 sqM); Potassium 4.1 mmol/L (3.5-5.1); Sodium 140 mmol/L (137-145)
[2020-12-16] MEDS: FAT EMULSION 20% 250 ML in EMPTY BAG 1 BAG IV SCH (08:14)
[2020-12-16] MEDS: [UNRECOGNIZED DRUG - REMARK] IV SCH ×12 (08:14→22:37)
[2020-12-16] MEDS: traMADol 50 MG TAB PO PRN (08:17)
[2020-12-16] MEDS: bisacodyL 10 MG SUPP RECTAL SCH (08:19)
[2020-12-16] MEDS: LEVOTHYROXINE IVP 100 MCG/5 ML VIAL IV SCH (08:19)
[2020-12-16] MEDS: INSULIN ASPART (NovoLOG) 100 UNIT/ML VIAL SQ SCH ×4 (08:20→20:40)
[2020-12-16] MEDS: PANTOPRAZOLE 40 MG/10 ML VIAL IVP SCH ×2 (08:25→20:53)
[2020-12-16] MEDS: FUROSEMIDE 10 MG/ML 4 ML VIAL IV SCH ×2 (08:25→20:40)
[2020-12-16] MEDS: ENOXAPARIN 40 MG/0.4 ML SYRINGE SQ SCH (08:25)
[2020-12-16] MEDS: acetaZOLAMIDE 250 MG TAB PO SCH ×2 (08:26→20:41)
--- NOTE | 2020-12-16 10:05 | XR ---
EXAMINATION TYPE: XR chest 1V portable DATE OF EXAM: 12/16/2020 COMPARISON: 12/14/2020 HISTORY: Shortness of breath TECHNIQUE: Single frontal view of the chest is obtained. FINDINGS: Diffuse interstitial pattern with bilateral infiltrate and pleural effusion greater on the right. No pneumothorax. Heart is enlarged but stable. IMPRESSION: 1. Bilateral diffuse infiltrates and consolidation with small effusion. Findings are progressive on t he right. Correlate for underlying pneumonia otherwise consider CHF.
--- NOTE | 2020-12-16 11:41 | P.PN ---
Subjective Progress Note Date: 12/16/20 Principal diagnosis: acute bowel obstruction 70-year-old patient, brought in by EMS, on November 28. She was seen by Dr. Luis Enrique Murillo in the emergency department. She has a history of diabetes mellitus, CHF, chronic kidney disease, multiple abdominal hernia repairs, with mesh, and severe COPD. Her FEV1 is 0.92 L which is 41% of predicted. She sees my partner in the office for her COPD. She also suffers from chronic hypoxemic respiratory failure, and does use oxygen 24/. She apparently recently has had multiple episodes of nonbloody nonbilious emesis, as well as watery diarrhea, for one week. She apparently was evaluated and found on computed tomography scan, to have a colonic lesion, consistent with colon cancer. I was consulted for preop clearance. We saw her right before she went off to surgery. She is chronically on oxygen therapy at 3 L as mentioned above. The patient was having surgery with Dr. Clay Healy. Basically, she tells me that her COPD much at baseline. I did mention to her that she may end up in the intensive care unit after surgery. Also, based on the FEV1 alone, without the MVV, or RV/TLC ratio, the patient's at moderately increased operative risk from general anesthesia. White count 11.1, hemoglobin 13, hematocrit 40.6, platelet count 529,000, sodium 137, potassium 4.3, chlorides 100, CO2 32, anion gap 5, BUN 26, and creatinine 1.45. There was no chest x-ray to review. The patient is seen today 11/30/2020 in follow-up on the regular medical floor. She is currently resting quite comfortably in bed. Awake and alert in no acute distress. Nasogastric tube is secured in place. Maintaining O2 saturations in the 90s on 6 L/m per nasal cannula. White count 10.6. Hemoglobin 12.6. Sodium 137. Potassium 4.8. Creatinine 1.50. She is maintained on Symbicort and DuoNeb inhalations. Anticoagulated with Lovenox. The patient is seen today 12/01/2020 in follow-up on the regular medical floor. She is awake and alert in no acute distress. Resting comfortably in bed. Nasogastric tube remains in place. This is postoperative day #2. She remains on Zosyn and Flagyl. Maintaining O2 saturation in the 90s on 4 L/m per nasal cannula. She was requesting breathing treatments during the night for some increasing shortness of breath. Working well with the incentive spirometer. White count 10.2. Hemoglobin 10.9. Sodium 141. Potassium 4.5. Creatinine 1.3. 12/02/2020 the patient is being seen for a follow-up. The patient is postop day #3 and the patient underwent resection of the right colonic mass and secondary bowel obstruction. The patient has an NG tube in place. The patient remains covered with a combination of Zosyn and Flagyl. Doing well. Using incentive spirometer. No significant respiratory difficulties. Currently on oxygen at 4 L per minute nasal cannula. The pain is under adequate control. The patient is on DuoNeb nebulized treatments around the clock and the patient is receiving Dilaudid for pain control 1 mg every 3 hours IV. IV fluids are running with normal saline at the rate of 100 mL an hour. NG tube was removed this morning. The patient is passing no gas and she hasn't had any bowel movements yet. Nevertheless, she has decent bowel sounds. JOHN drains in place. Output is in order of minimal amount in the order of 10 mL serosanguineous. The patient was up on a chair and she is gradually getting stronger. Antibiotic coverage is same. Oxygen is at 5 L. On today's evaluation of 12/02/2020, the patient is postop day #4. She is currently on 5 L of oxygen by nasal cannula. NG tube was removed yesterday. She is quite comfortable and she is sitting up on a recliner. JOHN drain is in place and output is serosanguineous and it's minimal right now. Bowel sounds are active and the patient on is still nothing by mouth and she's taken only as chips. She is using incentive spirometer which is in front of her all the time. Urine output is adequate. She feels that she is getting stronger. She is on DuoNeb nebulized treatment [id number]. She has adequate pain control with Dilaudid. She is also on examination Zosyn and Flagyl. No fever. No chills. No other significant events overnight. No altered mentation. Patient is passing gas and she is requesting gel low The patient is seen today 12/04/2020 in follow-up. This is postoperative day # 5. She is currently sitting up in a chair at the bedside. Maintaining O2 saturations in the 90s on 5 L/m per nasal cannula. She's afebrile. His been having some ongoing discomfort in her abdomen. Nasogastric tube remains in place. Computed tomography scan of the abdomen revealed distended loops of air and fluid filled bowel consistent with ileus similar to compared to previous. No free air. No mechanical bowel obstruction. There were noted basilar consolidation and atelectasis. New pleural effusions. She is working well with the incentive spirometer. Chest x-ray revealed pleural effusions right greater than left. She is continued on bronchodilators, antibiotics in the form of Zo syn and Flagyl. 12/05/2020 the patient is postop day #6. She was able to pass flatus. She was also able to pass a bowel movement. NG tube is still in place and output is in order of 3. Unfortunately, she continues to have popsicles. In terms of oxygen, she is on 6 L and his saturations around 91%. She is feeling slightly more short of breath and she getting incentive spirometer. Chest x-ray that showed some small bilateral pleural effusions. She is on IV fluids currently running at 100 mL an hour. She is also on examination Zosyn and Flagyl. Surgical wound site is clean. The blood work from today showing His on 12/07/2020, the patient's condition has somewhat decompensated. She has recovered of setbacks yesterday. She became more short of breath overnight. The emergency team was called and the patient was given Lasix. The chest x-ray showed some pulmonary vessel congestion and fluid overload. The patient responded nicely. Currently the patient is on 5 L and this was up to 8 L and her saturations around 90%. She is also complaining of abdominal pain and distention. No direct tenderness. I noticed that the patient is taking some on and off popsicles despite the surgical recommendations. The patient's CAT scan of the abdomen and pelvis that was done on 12/06/2020 showed no evidence of any colonic obstruction or any anastomotic leaks. Some atelectatic changes were seen in lung bases bilaterally. Meanwhile, NG tube is still in place. Output from the NG tube is in the order of 50 mL over the past several hours probably 10 hours and the patient's output is limited this point in time. She is receiving TPN for nutritional support. Has no bowel sounds and examination. She was passing flatus yesterday and she is not passing any today. On examination, no direct tenderness. No altered mentation. Slightly more restless on today's evaluation. She remains on IV Zosyn. Blood work shows a white cell count of 16, hemoglobin of 10.9 which is up compared to yesterday, electrolytes show a potassium of 3.3 which is to be replaced and the sodium of 145 and a BUN of 19 with a creatinine of 1.1. Note that yesterday, during the patient's shortness of breath, blood gases was done that showed an acute on top of chronic hypercapnic respiratory failure and the patient responded to Lasix. She also had to be given some Narcan as the patient was under the contact of Dilaudid. 12/08/2020 the patient is being seen for a follow-up. NG tube is still in pl fely. She is on 10-15 L by nasal cannula. She is using incentive spirometer. She put out only 20 mL on her energy over the past 8 hours. She has taken ice chips and she's going through them that he past. She is also on IV fluids and TPN for nutritional support. Surgical wound site is dry clean and intact. She is passing some flatus. Abdomen is still slightly distended and the patient is complaining is complaining of dry mouth and she continues to want ice chips.The patient is a patient of [facility] and [facility]. She remains on TPN. Blood sugars are elevated and the patient is currently on Levemir running at 30 units daily along with a sliding scale coverage. This dose was adjusted yesterday. She is also on Lovenox for DVT prophylaxis. Patient was reevaluated today on 12/09/2020, patient is comfortable, she continues to have nasogastric tube in place, she is on a high flow nasal ca nnula, she is actually on 10 L high flow, O2 saturations 94%, she is on TPN, and she is also on Lasix. Her chest x-ray continues to show left lower lobe atelectasis/infiltrate.WBC count today is 13.3 hemoglobin is 11.6. Sodium is elevated at 147 bicarb is more than 40 BUN is 26 creatinine is 1.1. Her sugar is 308. And her magnesium is 2.1. The patient is seen today 12/10/2020 in follow-up on the regular medical floor. She is currently sitting up in bed. Awake and alert in no acute distress. She is currently on 10 L high flow nasal cannula and maintaining O2 saturations in the mid 90s. Recent chest x-ray revealed improvement in aeration of the lung bases with small effusions. White count 11.0. Hemoglobin 11.7. Sodium 154. Potassium 3.2. Bicarb greater than 40. Creatinine 1.1. Glucose 376. She remains on DuoNeb inhalations, Pulmicort and Perforomist inhalations, antibioti cs in the form of Zosyn, Flagyl. Remains on IV diuretics. Lovenox for DVT prophylaxis. Again encouraged regarding the increased use the incentive spirometer and cough and deep breathing exercises. Nasogastric tube and Barkley catheter removed. Tolerating a clear liquid diet. Remains on TPN and lipids for nutritional support. Pathology of the right colon mass positive for adenocarcinoma. Patient was reevaluated today on 12/11/2020, patient required transfer to the ICU last night, apparently the patient developed worsening hypercapnic respiratory failure required placement on BiPAP, and a relatively high FiO2. Chest x-ray is showing atelectasis and possibly some component of interstitial edema. She is now on BiPAP with IPAP of 12 and EPAP of 6 and a increased IPAP to 14. She is on 50% I cut it down to 45%. Her last ABG this morning showed a pO2 of 57 pCO2 of 98 pH of 7.35 patient remains on antibiotics, remains on TPN, she is also on insulin at 10.5 units per hour. Given Lasix earlier today 40 mg IV push, and we have decided to request for covid 19 PCR. Mostly because of her slightly worsening chest x-ray today compared to previous x-rays. Patient was reevaluated today on 12/12/2020, remains in the ICU, has been on BiPAP through the night, this was discontinued earlier this morning. Patient seems to be very comfortable, she was on BiPAP with IPAP of 14 and EPAP of 6 and 45% FiO2. Patient had a blood gases yesterday showed a pO2 of 57 pCO2 of 98 pH of 7.35. She is on TPN at 50 MLS per hour she is on insulin at 8.5 units per hour Lasix 40 mg daily, Zosyn and Flagyl. Morning she was transitioned from BiPAP to 4 L nasal cannula, and seems to be doing fairly well. Her lama PCR was negative. WBC count is 11.8 hemoglobin is 10.8. Basic metabolic profile is rel atively normal except for low potassium of 3.1 and her bicarb is 46. The and is 44 creatinine is 1.34 Patient was reevaluated today on 12/13/2020, she is on 6 L high flow nasal cannula, remains in the ICU, she is still on insulin, she is on TPN, and today I added Diamox. Has been intermittently on BiPAP for her hypercapnic a story failure. Now she is on 6 L high flow, seems to be doing fairly well, yesterday she had some episodes of confusion responded well to Ativan and to BiPAP. CBC is relatively normal lites are normal BUN is 39 creatinine is 1.22 bicarb is 41 Patient was reevaluated today on 12/16/2020, patient remains on the regular medical floor, she is on 3 L nasal cannula, and intermittently on BiPAP with IPAP of 14 EPAP of 5 and FiO2 of 36%. Patient seems to be very comfortable, in no distress. Denies any specific complaints, however her chest x-ray is worsening with bilateral infiltrates and small effusions, suspect a combination of underlying pneumonia and possibly some component of CHF. There is also some component of atelectasis especially in the right lower lobe and right midlung. Patient remains on antibiotics in the form of Flagyl and Zosyn which is appropriate considering her abnormal chest x-ray. She does not seem to be in any distress, and she is only on 3 L nasal cannula. Her bicarb remains elevated at 37. Remains on Lasix and Diamox. Her BUN is 30 creatinine is 1.58. CBC is relatively normal. Electrolytes are normal Objective - Vital Signs Vital signs: Vital Signs Temp 98.5 F 12/16/20 04:36 Pulse 66 12/16/20 11:13 Resp 20 12/16/20 04:36 BP 128/72 12/16/20 04:36 Pulse Ox 93 L 12/16/20 04:36 Intake & Output 12/15/20 12/16/20 12/16/20 18:59 06:59 18:59 Intake Total 2140 340 Output Total 1800 1200 1500 Balance 340 -860 -1500 Weight 107 kg Intake: IV 1180 Piperacillin-Tazobactam 3 200 .375 gm In Sodium Chloride 0.9% 100 ml @ 25 mls/hr IVPB Q8HR [facility] Rx# :[id number] Sodium Chloride 0.45% 1, 780 000 ml @ 20 mls/hr IV . Q24H [facility] Rx#:[id number] metroNIDAZOLE-NS PMX 500 200 mg In Saline 1 100ml.bag @ 100 mls/hr IVPB Q8HR [facility] Rx#:[id number] Oral 960 340 Output: Urine 1800 1200 1500 Uretheral (Barkley) 600 Other: Voiding Method Indwelling Catheter Indwelling Catheter Indwelling Catheter # Voids 1 # Bowel Movements 2 1 - Exam GENERAL EXAM: Alert, pleasant 70-year-old female patient, on 3 L nasal cannula and intermittently on BiPAP. HEENT: PERRLA, EOMI, nonicteric, dry mucous membranes, short obese neck, no neck masses, no thyromegaly, no stridor. CHEST: No chest wall deformity. LUNGS: diminished breath sounds , mostly at the bases and more specifically at the right base. No crackles, rhonchi or wheezes. CVS: Distant S1 and S2 normal with no audible murmur, regular rhythm. ABDOMEN: Dressing dry and intact. No hepatosplenomegaly, normal bowel sounds, no guarding or rigidity. Bowel sounds are hypoactive and sluggish. No abdominal distention. No direct tenderness. Surgical wound site is dry clean and intact. SPINE: No scoliosis or deformity SKIN: No rashes CENTRAL NERVOUS SYSTEM: alert and oriented 3, no gross focal neurologic defici ts. EXTREMITIES: no clubbing edema or cyanosis. - Labs CBC & Chem 7: 12/16/20 06:28 12/16/20 06:28 Labs: Abnormal Lab Results - Last 24 Hours (Table) 12/15/20 12/15/20 12/15/20 Range/Units 11:40 16:56 20:31 RBC (3.80-5.40) m/uL Hgb (11.4-16.0) gm/dL RDW (11.5-15.5) % Plt Count (150-450) k/uL Neutrophils # (1.3-7.7) k/uL Carbon Dioxide (22-30) mmol/L BUN (7-17) mg/dL Creatinine (0.52-1.04) mg/dL Glucose (74-99) mg/dL POC Glucose (mg/dL) 285 H 234 H 227 H (75-99) mg/dL Calcium (8.4-10.2) mg/dL 12/16/20 12/16/20 12/16/20 Range/Units 06:28 06:28 07:18 RBC 3.56 L (3.80-5.40) m/uL Hgb 11.2 L (11.4-16.0) gm/dL RDW 17.3 H (11.5-15.5) % Plt Count 467 H (150-450) k/uL Neutrophils # 7.9 H (1.3-7.7) k/uL Carbon Dioxide 37 H (22-30) mmol/L BUN 30 H (7-17) mg/dL Creatinine 1.58 H (0.52-1.04) mg/dL Glucose 227 H (74-99) mg/dL POC Glucose (mg/dL) 233 H (75-99) mg/dL Calcium 7.9 L (8.4-10.2) mg/dL Assessment and Plan Assessment: 1 Acute bowel obstruction, status post resection, postoperative day # 15. 2 Severe/stage III, COPD, with an FEV1 that is 0.92 L or 41% of predicted. The patient developed an acute on top of chronic hypercapnic respiratory failure. Intermittently on BiPAP. 3 History of 3 prior abdominal hernia repairs, with mesh placement. 4 History of angina pectoris. 5 History of CHF. 6 History of diabetes mellitus. 7 History of hyperlipidemia. 8 History of essential hypertension. 9 History of sleep apnea syndrome, currently on CPAP. 10 History of hypothyroidism. 11 Prior history of MRSA infection, 2013. 12 Previous history of heavy tobacco use. 13 colonic adenocarcinoma based on the pathology from her surgical biopsy. 14 suspect some component of aspiration pneumonia with postoperative atelectasis and possibly some component of acute on diastolic congestive heart failure. Recommendation: Continue present supportive care measures. Continue present antibiotics, patient is on Flagyl and Zosyn. Encourage ambulation and assist with ambulation. continue incentive spirometry. Continue bronchodilators. Continue insulin Continue diuretics. Including Diamox and Lasix. Continue GI and DVT prophylaxis. We will continue to follow Time with Patient: Less than 30
--- NOTE | 2020-12-16 12:01 | P.PN ---
Subjective Progress Note Date: 12/16/20 Principal diagnosis: Colon obstruction Patient without new complaints. Tolerating diet. Breathing somewhat improved. PICC line fell out but she does have peripheral IVs. TPN is now off. She is having multiple loose stools. Objective - Vital Signs Vital signs: Vital Signs Temp 98.5 F 12/16/20 04:36 Pulse 66 12/16/20 11:13 Resp 20 12/16/20 04:36 BP 128/72 12/16/20 04:36 Pulse Ox 93 L 12/16/20 04:36 Intake & Output 12/15/20 12/16/20 12/16/20 18:59 06:59 18:59 Intake Total 2140 340 Output Total 1800 1200 1500 Balance 340 -860 -1500 Weight 107 kg Intake: IV 1180 Piperacillin-Tazobactam 3 200 .375 gm In Sodium Chloride 0.9% 100 ml @ 25 mls/hr IVPB Q8HR [facility] Rx# :[id number] Sodium Chloride 0.45% 1, 780 000 ml @ 20 mls/hr IV . Q24H [facility] Rx#:[id number] metroNIDAZOLE-NS PMX 500 200 mg In Saline 1 100ml.bag @ 100 mls/hr IVPB Q8HR [facility] Rx#:[id number] Oral 960 340 Output: Urine 1800 1200 1500 Uretheral (Barkley) 600 Other: Voiding Method Indwelling Catheter Indwelling Catheter Indwelling Catheter # Voids 1 # Bowel Movements 2 1 - Exam Abdomen: Soft, obese, incision clean and dry - Labs CBC & Chem 7: 12/16/20 06:28 12/16/20 06:28 Labs: Abnormal Lab Results - Last 24 Hours (Table) 12/15/20 12/15/20 12/16/20 Range/Units 16:56 20:31 06:28 RBC 3.56 L (3.80-5.40) m/uL Hgb 11.2 L (11.4-16.0) gm/dL RDW 17.3 H (11.5-15.5) % Plt Count 467 H (150-450) k/uL Neutrophils # 7.9 H (1.3-7.7) k/uL Carbon Dioxide (22-30) mmol/L BUN (7-17) mg/dL Creatinine (0.52-1.04) mg/dL Glucose (74-99) mg/dL POC Glucose (mg/dL) 234 H 227 H (75-99) mg/dL Calcium (8.4-10.2) mg/dL 12/16/20 12/16/20 Range/Units 06:28 07:18 RBC (3.80-5.40) m/uL Hgb (11.4-16.0) gm/dL RDW (11.5-15.5) % Plt Count (150-450) k/uL Neutrophils # (1.3-7.7) k/uL Carbon Dioxide 37 H (22-30) mmol/L BUN 30 H (7-17) mg/dL Creatinine 1.58 H (0.52-1.04) mg/dL Glucose 227 H (74-99) mg/dL POC Glucose (mg/dL) 233 H (75-99) mg/dL Calcium 7.9 L (8.4-10.2) mg/dL Assessment and Plan (1) Bowel obstruction Narrative/Plan: Continue diet as tolerated. Continue physical therapy and pulmonary therapy. Doing well from a surgical point of view at this point. Decisions regarding discharge per medicine and pulmonary. Current Visit: Yes Status: Acute Code(s): K56.609 - UNSP INTESTNL OBST, UNSP TO PARTIAL VERSUS COMPLETE OBST SNOMED Code(s): 20106884
[2020-12-16 12:40] LABS: Glucose,Whole Blood 358 mg/dL (75-99)
[2020-12-16] MEDS: HYDROcodone/APAP 5-325MG 1 EACH TAB PO PRN ×2 (14:31→20:39)
[2020-12-16 17:05] LABS: Glucose,Whole Blood 332 mg/dL (75-99)
[2020-12-16 20:32] LABS: Glucose,Whole Blood 208 mg/dL (75-99)
[2020-12-16] MEDS: ZOLPIDEM 5 MG TAB PO SCH (20:39)
[2020-12-16] MEDS: ATORVASTATIN 40 MG TAB PO SCH (20:39)
[2020-12-17] MEDS: PIPERACILLIN-TAZOBACTAM 3.375 GM in SODIUM CHLORIDE 0.9% 100 ML IVPB SCH ×4 (00:10→23:56)
[2020-12-17] MEDS: metroNIDAZOLE-NS PMX 500 MG in SALINE 1 100ML.BAG IVPB SCH ×4 (00:10→23:56)
--- NOTE | 2020-12-17 00:16 | P.PN ---
Progress Note - Text Progress Note Date: 12/16/20 - Chief Complaint Abdominal pain Consultation: This is a pleasant 70-year-old patient of Dr. Mercer. Chronic stable medical conditions include heart failure, diabetes, hypertension, hyperlipidemia, obstructive sleep apnea, hypothyroid. Patient lives by herself at her baseline uses a walker. For 2 weeks patient been having mid abdominal pain. 3 much constant. We'll get 8 intermittent watery stools. Was taking Imodium. Has been having fever nausea vomiting. Patient's had multiple abdominal hernia repairs with mesh. Was transferred here from [facility]. She is also had appendectomy and cholecystectomy in the past. She was transferred for small bowel obstruction. November 29: Underwent expiratory 3 laboratory with a right colectomy for obstructing right distal colonic mass Postoperative: Computed tomography scan showed postoperative ileus. NG tube was reinserted. Patient was started on TPN. Discontinued Today: On a low fiber diet. Had bowel movements. Pain control. Laying in bed. Review of systems: Was done for constitutional, cardiovascular, GI, pulmonary. relevant finding as above Active Medications Hydrocodone Bitart/Acetaminophen (Hydrocodone/Apap 5-325mg 1 Each Tab) 1 each PO Q6HR PRN PRN Reason: Pain Last Admin: 12/16/20 20:39 Dose: 1 each Documented by: Acetazolamide (Acetazolamide 250 Mg Tab) 250 mg PO BID [facility] Last Admin: 12/16/20 20:41 Dose: 250 mg Documented by: Albuterol/Ipratropium (Ipratropium-Albuterol 3 Ml Neb) 3 ml INHALATION RT-Q1H PRN PRN Reason: Shortness Of Breath Or Wheezing Last Admin: 12/07/20 15:42 Dose: 3 ml Documented by: Albuterol/Ipratropium (Ipratropium-Albuterol 3 Ml Neb) 3 ml INHALATION RT-QID [facility] Last Admin: 12/16/20 21:03 Dose: 3 ml Documented by: Alprazolam (Alprazolam 0.25 Mg Tab) 0.25 mg PO BID PRN PRN Reason: Anxiety Last Admin: 12/14/20 19:36 Dose: 0.25 mg Documented by: Atorvastatin Calcium (Atorvastatin 40 Mg Tab) 40 mg PO HS [facility] Last Admin: 12/16/20 20:39 Dose: 40 mg Documented by: Benzocaine (Benzocaine Simms 1 Can) 1 spray MUCOUS MEM QID PRN PRN Reason: Mouth Irritation Last Admin: 12/10/20 08:49 Dose: 1 spray Documented by: Benzocaine/Menthol (Benzocaine/Menthol Lozeng 1 Each Lozenge) 1 each MUCOUS MEM Q4HR PRN PRN Reason: Sore Throat Last Admin: 12/08/20 17:03 Dose: 1 each Documented by: Budesonide (Budesonide 1 Mg/2 Ml Nebu) 1 mg INHALATION RT-BID [facility] Last Admin: 12/16/20 21:02 Dose: 1 mg Documented by: Enoxaparin Sodium (Enoxaparin 40 Mg/0.4 Ml Syringe) 40 mg SQ DAILY [facility] Last Admin: 12/16/20 08:25 Dose: 40 mg Documented by: Fentanyl Citrate (Fentanyl Senior Windows Engineer 500 Mcg/50 Ml Bag) 500 mcg IV PER PROTOCOL PRN; Protocol PRN Reason: Pain Control Last Admin: 12/06/20 17:08 Dose: 500 mcg Documented by: Formoterol Fumarate (Formoterol Fumarate 20 Mcg/2 Ml Nebu) 20 mcg INHALATION RT-BID [facility] Last Admin: 12/16/20 21:02 Dose: 20 mcg Documented by: Furosemide (Furosemide 10 Mg/Ml 4 Ml Vial) 40 mg IV BID [facility] Last Admin: 12/16/20 20:40 Dose: 40 mg Documented by: Piperacillin Sod/Tazobactam (Sod 3.375 gm/ Sodium Chloride) 100 mls @ 25 mls/hr IVPB Q8HR [facility] Last Admin: 12/16/20 16:38 Dose: 25 mls/hr Documented by: Metronidazole 500 mg/ IV (Solution) 100 mls @ 100 mls/hr IVPB Q8HR [facility] Last Admin: 12/16/20 16:38 Dose: 100 mls/hr Documented by: Fat Emulsion Intravenous 250 (ml/ IV Solution) 250 mls @ 21 mls/hr IV MoWeFr [facility] Last Admin: 12/16/20 08:14 Dose: Not Given Documented by: Sodium Chloride (Saline 0.45%) 1,000 mls @ 20 mls/hr IV .Q24H [facility] Last Admin: 12/16/20 05:24 Dose: Not Given Documented by: Parenteral Vitamin Supplement 10 ml/ Zinc/Copper/Manganese/Selenium 1 ml/ Potassium Phosphate 18 mmol/ Potassium Chloride 22 meq/ Calcium Gluconate 1.5 gm/ Amino Acids/Dextrose 1,043 mls @ 50 mls/hr IV .[id number] [facility] Last Admin: 12/16/20 22:37 Dose: Not Given Documented by: Insulin Aspart (Insulin Aspart (Novolog) 100 Unit/Ml Vial) 0 unit SQ ACHS [facility]; Protocol Last Admin: 12/16/20 20:40 Dose: 4 unit Documented by: Levothyroxine Sodium (Levothyroxine Ivp 100 Mcg/5 Ml Vial) 75 mcg IV Q48H [facility] Last Admin: 12/16/20 08:19 Dose: 75 mcg Documented by: Levothyroxine Sodium (Levothyroxine Ivp 100 Mcg/5 Ml Vial) 68.5 mcg IV Q48H [facility] Last Admin: 12/15/20 05:56 Dose: 68.5 mcg Documented by: Miscellaneous Information (Magnesium Replacement Protocol 1 Each Misc) 1 each MISCELLANE DAILY PRN; Protocol PRN Reason: Per Protocol Miscellaneous Information (Potassium Replacement Protocol 1 Each Misc) 1 each MISCELLANE DAILY PRN; Protocol PRN Reason: Per Protocol Naloxone HCl (Naloxone 0.4 Mg/Ml 1 Ml Vial) 0.2 mg IV Q2M PRN PRN Reason: Opioid Reversal Last Admin: 12/10/20 22:25 Dose: 0.2 mg Documented by: Ondansetron HCl (Ondansetron 4 Mg/2 Ml Vial) 4 mg IVP Q8HR PRN PRN Reason: Nausea And Vomiting Last Admin: 12/12/20 12:44 Dose: 4 mg Documented by: Pantoprazole Sodium (Pantoprazole 40 Mg/10 Ml Vial) 40 mg IVP BID [facility] Last Admin: 12/16/20 20:53 Dose: 40 mg Documented by: Saliva Substitute (Dry Mouth Simms 44.3 Simms/44.3 Ml Simms) 1 spray MUCOUS MEM QID PRN PRN Reason: Dry Mouth Last Admin: 12/08/20 04:25 Dose: 1 spray Documented by: Tramadol HCl (Tramadol 50 Mg Tab) 50 mg PO Q6H PRN PRN Reason: Breakthrough Pain Last Admin: 12/16/20 08:17 Dose: 50 mg Documented by: Zolpidem Tartrate (Zolpidem 5 Mg Tab) 5 mg PO [facility] Last Admin: 12/16/20 20:39 Dose: 5 mg Documented by: Past medical history to include: Angina, CHF, diabetes, hyperlipidemia, hypertension, obstructive sleep apnea, hypothyroid, home oxygen-2 L Social history: . Lives alone. Does smoke up to 7 years ago. Alcohol rarely. Does use a walker Physical examination: VITAL SIGNS: 98, 60, 19, 117/72, 99% on BiPAP GENERAL: Reclining in bed, awake EYES: Pupils equal. Conjunctiva normal. HEENT: External appearance of nose and ears normal, oral cavity -dry. NG tube- to suction NECK: JVD not raised; masses not palpable. HEART: First and second heart sounds are normal; no edema. LUNGS:[ Respiratory rate increased, decreased breath sounds. ABDOMEN: Soft, mild abdominal tenderness, incision healing well. No mass palpated. MUSCULAR skeletal: Evidence of OA especially in the hands PSYCH: [Alert and oriented x3; mood and affect anxious. INVESTIGATIONS, reviewed in the clinical context: December 16: WBC 10.2 hemoglobin 11.2 platelets 467 potassium 4.1 creatinine 1.58 Chest x-ray right greater than left pleural effusion Computed tomography scan of abdomen and pelvis without contrast: Distended loops of 8 and fluid-filled bowel consistent with ileus similar to previous exam. No free air. Bowel obstruction not suspected December 04: WBC 14.2 hemoglobin 10.3 potassium 3.9 creatinine 1.2 December 03: WBC 14.3 hemoglobin 10.7 December 02: WBC 12.09 hemoglobin 10.5 potassium 4.2 December 01: WBC 10.2 hemoglobin 10.9 platelets 198 potassium 4.5 creatinine 1.3 November 30: WBC 10.6 hemoglobin 12.6 potassium 4.8 creatinine 1.5 Abdominal x-ray [November 29]: Persistent dilated bowel loops with air-fluid levels Coronavirus [PCR]-not detected Abdominal x-ray film personally reviewed by me: Small bowel obstruction Assessment and plan: -Acute small bowel obstruction : November 29: Right hemicolectomy for a distal ascending colon mass. NG tube to suction-discontinued. - Post operative ileus. -NG tube to continue. Improved. Discontinued -Diabetes mellitus type 2. Patient on insulin pump. And for now. Levemir. Accu-Cheks. -Chronic hypoxic respiratory failure uses 2 L of oxygen at home -Hyperlipidemia Continue Lipitor -Chronic urinary stress incontinence. Follow clinically. -Hypothyroid, continue with Synthroid -Morbid obesity BMI 42.5. Follow-up with PCP for weight loss measures . -Chronic congestive heart failure. Diastolic dysfunction EF 55-60% On Lasix -Chronic insomnia. Continue with Ambien -COPD in an ex-smoker, continue with , DuoNeb, Symbicort -Chronic kidney disease stage III, patient's creatinine was 1.45 on presentation Follow labs closely -DVT prophylaxis. Subcu Lovenox On IV Zosyn and Flagyl. Oral intake improving. Check for C. diff Thank you Dr. Broderick.
[2020-12-17] MEDS: SODIUM CHLORIDE 0.45% 1,000 ML IV SCH ×2 (03:32→23:56)
[2020-12-17] MEDS: LEVOTHYROXINE IVP 100 MCG/5 ML VIAL IV SCH (05:55)
[2020-12-17 06:21] LABS: ALT 19 U/L (4-34); AST 31 U/L (14-36); African American GFR (CKD) 40 (>60 ml/min/1.73 sqM); Albumin 2.5 g/dL (3.5-5.0); Albumin/Globulin Ratio 0.7; Alkaline Phosphatase 78 U/L (38-126); Anion Gap 5 mmol/L; Blood Urea Nitrogen 26 mg/dL (7-17); Calcium 7.9 mg/dL (8.4-10.2); Carbon Dioxide 34 mmol/L (22-30); Chloride 99 mmol/L (98-107); Globulin 3.8 g/dL; Glucose 212 mg/dL (74-99); Non-African American GFR(CKD) 35 (>60 ml/min/1.73 sqM); Phosphorus 3.7 mg/dL (2.5-4.5); Potassium 3.9 mmol/L (3.5-5.1); Sodium 138 mmol/L (137-145); Total Bilirubin 0.5 mg/dL (0.2-1.3); Total Protein 6.3 g/dL (6.3-8.2)
[2020-12-17 07:23] LABS: Glucose,Whole Blood 230 mg/dL (75-99)
[2020-12-17] MEDS: FUROSEMIDE 10 MG/ML 4 ML VIAL IV SCH ×2 (08:10→22:30)
[2020-12-17] MEDS: INSULIN ASPART (NovoLOG) 100 UNIT/ML VIAL SQ SCH ×4 (08:11→22:19)
[2020-12-17] MEDS: PANTOPRAZOLE 40 MG/10 ML VIAL IVP SCH ×2 (08:13→22:30)
[2020-12-17] MEDS: ENOXAPARIN 40 MG/0.4 ML SYRINGE SQ SCH (08:15)
[2020-12-17] MEDS: acetaZOLAMIDE 250 MG TAB PO SCH ×2 (08:16→22:19)
[2020-12-17] MEDS: IPRATROPIUM-ALBUTEROL 3 ML NEB INHALATION SCH ×4 (08:46→20:04)
[2020-12-17] MEDS: BUDESONIDE 1 MG/2 ML NEBU INHALATION SCH ×2 (08:46→20:04)
[2020-12-17] MEDS: FORMOTEROL FUMARATE 20 MCG/2 ML NEBU INHALATION SCH ×2 (08:46→20:04)
--- NOTE | 2020-12-17 10:19 | P.PN ---
Subjective Progress Note Date: 12/17/20 Principal diagnosis: Colon obstruction Patient doing well today. Her breathing is much improved. Denies pain. Tolerating diet. She is having loose stools. She is afebrile. Objective - Vital Signs Vital signs: Vital Signs Temp 97.4 F L 12/17/20 04:34 Pulse 58 L 12/17/20 08:00 Resp 16 12/17/20 08:00 BP 97/54 12/17/20 04:34 Pulse Ox 96 12/17/20 04:34 Intake & Output 12/16/20 12/17/20 12/17/20 18:59 06:59 18:59 Intake Total 750 240 Output Total 2500 900 Balance -1750 -660 Weight 107 kg 106.5 kg Intake: Oral 750 240 Output: Urine 2500 900 Other: Voiding Method Indwelling Catheter Indwelling Catheter Indwelling Catheter # Bowel Movements 1 - Exam Abdomen: Soft, nontender, nondistended, incision clean and dry - Labs CBC & Chem 7: 12/16/20 06:28 12/17/20 05:24 Labs: Abnormal Lab Results - Last 24 Hours (Table) 12/16/20 12/16/20 12/16/20 Range/Units 12:20 17:03 20:31 Carbon Dioxide (22-30) mmol/L BUN (7-17) mg/dL Creatinine (0.52-1.04) mg/dL Glucose (74-99) mg/dL POC Glucose (mg/dL) 358 H 332 H 208 H (75-99) mg/dL Calcium (8.4-10.2) mg/dL Albumin (3.5-5.0) g/dL 12/17/20 12/17/20 Range/Units 05:24 07:20 Carbon Dioxide 34 H (22-30) mmol/L BUN 26 H (7-17) mg/dL Creatinine 1.53 H (0.52-1.04) mg/dL Glucose 212 H (74-99) mg/dL POC Glucose (mg/dL) 230 H (75-99) mg/dL Calcium 7.9 L (8.4-10.2) mg/dL Albumin 2.5 L (3.5-5.0) g/dL Assessment and Plan (1) Bowel obstruction Narrative/Plan: Patient overall doing much better. Patient is agreeable to rehab. Continue diet as tolerated. Continue optimization of pulmonary status. Stable for transfer from my point of view. Will discuss with consultants. Current Visit: Yes Status: Acute Code(s): K56.609 - UNSP INTESTNL OBST, UNSP TO PARTIAL VERSUS COMPLETE OBST SNOMED Code(s): 25757193
[2020-12-17 12:00] LABS: Glucose,Whole Blood 308 mg/dL (75-99)
--- NOTE | 2020-12-17 12:20 | P.PN ---
Subjective Progress Note Date: 12/17/20 Principal diagnosis: acute bowel obstruction 70-year-old patient, brought in by EMS, on November 28. She was seen by Dr. Luis Enrique Murillo in the emergency department. She has a history of diabetes mellitus, CHF, chronic kidney disease, multiple abdominal hernia repairs, with mesh, and severe COPD. Her FEV1 is 0.92 L which is 41% of predicted. She sees my partner in the office for her COPD. She also suffers from chronic hypoxemic respiratory failure, and does use oxygen 24/. She apparently recently has had multiple episodes of nonbloody nonbilious emesis, as well as watery diarrhea, for one week. She apparently was evaluated and found on computed tomography scan, to have a colonic lesion, consistent with colon cancer. I was consulted for preop clearance. We saw her right before she went off to surgery. She is chronically on oxygen therapy at 3 L as mentioned above. The patient was having surgery with Dr. Clay Healy. Basically, she tells me that her COPD much at baseline. I did mention to her that she may end up in the intensive care unit after surgery. Also, based on the FEV1 alone, without the MVV, or RV/TLC ratio, the patient's at moderately increased operative risk from general anesthesia. White count 11.1, hemoglobin 13, hematocrit 40.6, platelet count 529,000, sodium 137, potassium 4.3, chlorides 100, CO2 32, anion gap 5, BUN 26, and creatinine 1.45. There was no chest x-ray to review. The patient is seen today 11/30/2020 in follow-up on the regular medical floor. She is currently resting quite comfortably in bed. Awake and alert in no acute distress. Nasogastric tube is secured in place. Maintaining O2 saturations in the 90s on 6 L/m per nasal cannula. White count 10.6. Hemoglobin 12.6. Sodium 137. Potassium 4.8. Creatinine 1.50. She is maintained on Symbicort and DuoNeb inhalations. Anticoagulated with Lovenox. The patient is seen today 12/01/2020 in follow-up on the regular medical floor. She is awake and alert in no acute distress. Resting comfortably in bed. Nasogastric tube remains in place. This is postoperative day #2. She remains on Zosyn and Flagyl. Maintaining O2 saturation in the 90s on 4 L/m per nasal cannula. She was requesting breathing treatments during the night for some increasing shortness of breath. Working well with the incentive spirometer. White count 10.2. Hemoglobin 10.9. Sodium 141. Potassium 4.5. Creatinine 1.3. 12/02/2020 the patient is being seen for a follow-up. The patient is postop day #3 and the patient underwent resection of the right colonic mass and secondary bowel obstruction. The patient has an NG tube in place. The patient remains covered with a combination of Zosyn and Flagyl. Doing well. Using incentive spirometer. No significant respiratory difficulties. Currently on oxygen at 4 L per minute nasal cannula. The pain is under adequate control. The patient is on DuoNeb nebulized treatments around the clock and the patient is receiving Dilaudid for pain control 1 mg every 3 hours IV. IV fluids are running with normal saline at the rate of 100 mL an hour. NG tube was removed this morning. The patient is passing no gas and she hasn't had any bowel movements yet. Nevertheless, she has decent bowel sounds. JOHN drains in place. Output is in order of minimal amount in the order of 10 mL serosanguineous. The patient was up on a chair and she is gradually getting stronger. Antibiotic coverage is same. Oxygen is at 5 L. On today's evaluation of 12/02/2020, the patient is postop day #4. She is currently on 5 L of oxygen by nasal cannula. NG tube was removed yesterday. She is quite comfortable and she is sitting up on a recliner. JOHN drain is in place and output is serosanguineous and it's minimal right now. Bowel sounds are active and the patient on is still nothing by mouth and she's taken only as chips. She is using incentive spirometer which is in front of her all the time. Urine output is adequate. She feels that she is getting stronger. She is on DuoNeb nebulized treatment [id number]. She has adequate pain control with Dilaudid. She is also on examination Zosyn and Flagyl. No fever. No chills. No other significant events overnight. No altered mentation. Patient is passing gas and she is requesting gel low The patient is seen today 12/04/2020 in follow-up. This is postoperative day # 5. She is currently sitting up in a chair at the bedside. Maintaining O2 saturations in the 90s on 5 L/m per nasal cannula. She's afebrile. His been having some ongoing discomfort in her abdomen. Nasogastric tube remains in place. Computed tomography scan of the abdomen revealed distended loops of air and fluid filled bowel consistent with ileus similar to compared to previous. No free air. No mechanical bowel obstruction. There were noted basilar consolidation and atelectasis. New pleural effusions. She is working well with the incentive spirometer. Chest x-ray revealed pleural effusions right greater than left. She is continued on bronchodilators, antibiotics in the form of Zo syn and Flagyl. 12/05/2020 the patient is postop day #6. She was able to pass flatus. She was also able to pass a bowel movement. NG tube is still in place and output is in order of 3. Unfortunately, she continues to have popsicles. In terms of oxygen, she is on 6 L and his saturations around 91%. She is feeling slightly more short of breath and she getting incentive spirometer. Chest x-ray that showed some small bilateral pleural effusions. She is on IV fluids currently running at 100 mL an hour. She is also on examination Zosyn and Flagyl. Surgical wound site is clean. The blood work from today showing His on 12/07/2020, the patient's condition has somewhat decompensated. She has recovered of setbacks yesterday. She became more short of breath overnight. The emergency team was called and the patient was given Lasix. The chest x-ray showed some pulmonary vessel congestion and fluid overload. The patient responded nicely. Currently the patient is on 5 L and this was up to 8 L and her saturations around 90%. She is also complaining of abdominal pain and distention. No direct tenderness. I noticed that the patient is taking some on and off popsicles despite the surgical recommendations. The patient's CAT scan of the abdomen and pelvis that was done on 12/06/2020 showed no evidence of any colonic obstruction or any anastomotic leaks. Some atelectatic changes were seen in lung bases bilaterally. Meanwhile, NG tube is still in place. Output from the NG tube is in the order of 50 mL over the past several hours probably 10 hours and the patient's output is limited this point in time. She is receiving TPN for nutritional support. Has no bowel sounds and examination. She was passing flatus yesterday and she is not passing any today. On examination, no direct tenderness. No altered mentation. Slightly more restless on today's evaluation. She remains on IV Zosyn. Blood work shows a white cell count of 16, hemoglobin of 10.9 which is up compared to yesterday, electrolytes show a potassium of 3.3 which is to be replaced and the sodium of 145 and a BUN of 19 with a creatinine of 1.1. Note that yesterday, during the patient's shortness of breath, blood gases was done that showed an acute on top of chronic hypercapnic respiratory failure and the patient responded to Lasix. She also had to be given some Narcan as the patient was under the contact of Dilaudid. 12/08/2020 the patient is being seen for a follow-up. NG tube is still in pl fely. She is on 10-15 L by nasal cannula. She is using incentive spirometer. She put out only 20 mL on her energy over the past 8 hours. She has taken ice chips and she's going through them that he past. She is also on IV fluids and TPN for nutritional support. Surgical wound site is dry clean and intact. She is passing some flatus. Abdomen is still slightly distended and the patient is complaining is complaining of dry mouth and she continues to want ice chips.The patient is a patient of [facility] and [employer]. She remains on TPN. Blood sugars are elevated and the patient is currently on Levemir running at 30 units daily along with a sliding scale coverage. This dose was adjusted yesterday. She is also on Lovenox for DVT prophylaxis. Patient was reevaluated today on 12/09/2020, patient is comfortable, she continues to have nasogastric tube in place, she is on a high flow nasal ca nnula, she is actually on 10 L high flow, O2 saturations 94%, she is on TPN, and she is also on Lasix. Her chest x-ray continues to show left lower lobe atelectasis/infiltrate.WBC count today is 13.3 hemoglobin is 11.6. Sodium is elevated at 147 bicarb is more than 40 BUN is 26 creatinine is 1.1. Her sugar is 308. And her magnesium is 2.1. The patient is seen today 12/10/2020 in follow-up on the regular medical floor. She is currently sitting up in bed. Awake and alert in no acute distress. She is currently on 10 L high flow nasal cannula and maintaining O2 saturations in the mid 90s. Recent chest x-ray revealed improvement in aeration of the lung bases with small effusions. White count 11.0. Hemoglobin 11.7. Sodium 154. Potassium 3.2. Bicarb greater than 40. Creatinine 1.1. Glucose 376. She remains on DuoNeb inhalations, Pulmicort and Perforomist inhalations, antibioti cs in the form of Zosyn, Flagyl. Remains on IV diuretics. Lovenox for DVT prophylaxis. Again encouraged regarding the increased use the incentive spirometer and cough and deep breathing exercises. Nasogastric tube and Barkley catheter removed. Tolerating a clear liquid diet. Remains on TPN and lipids for nutritional support. Pathology of the right colon mass positive for adenocarcinoma. Patient was reevaluated today on 12/11/2020, patient required transfer to the ICU last night, apparently the patient developed worsening hypercapnic respiratory failure required placement on BiPAP, and a relatively high FiO2. Chest x-ray is showing atelectasis and possibly some component of interstitial edema. She is now on BiPAP with IPAP of 12 and EPAP of 6 and a increased IPAP to 14. She is on 50% I cut it down to 45%. Her last ABG this morning showed a pO2 of 57 pCO2 of 98 pH of 7.35 patient remains on antibiotics, remains on TPN, she is also on insulin at 10.5 units per hour. Given Lasix earlier today 40 mg IV push, and we have decided to request for covid 19 PCR. Mostly because of her slightly worsening chest x-ray today compared to previous x-rays. Patient was reevaluated today on 12/12/2020, remains in the ICU, has been on BiPAP through the night, this was discontinued earlier this morning. Patient seems to be very comfortable, she was on BiPAP with IPAP of 14 and EPAP of 6 and 45% FiO2. Patient had a blood gases yesterday showed a pO2 of 57 pCO2 of 98 pH of 7.35. She is on TPN at 50 MLS per hour she is on insulin at 8.5 units per hour Lasix 40 mg daily, Zosyn and Flagyl. Morning she was transitioned from BiPAP to 4 L nasal cannula, and seems to be doing fairly well. Her lama PCR was negative. WBC count is 11.8 hemoglobin is 10.8. Basic metabolic profile is rel atively normal except for low potassium of 3.1 and her bicarb is 46. The and is 44 creatinine is 1.34 Patient was reevaluated today on 12/13/2020, she is on 6 L high flow nasal cannula, remains in the ICU, she is still on insulin, she is on TPN, and today I added Diamox. Has been intermittently on BiPAP for her hypercapnic a story failure. Now she is on 6 L high flow, seems to be doing fairly well, yesterday she had some episodes of confusion responded well to Ativan and to BiPAP. CBC is relatively normal lites are normal BUN is 39 creatinine is 1.22 bicarb is 41 Patient was reevaluated today on 12/16/2020, patient remains on the regular medical floor, she is on 3 L nasal cannula, and intermittently on BiPAP with IPAP of 14 EPAP of 5 and FiO2 of 36%. Patient seems to be very comfortable, in no distress. Denies any specific complaints, however her chest x-ray is worsening with bilateral infiltrates and small effusions, suspect a combination of underlying pneumonia and possibly some component of CHF. There is also some component of atelectasis especially in the right lower lobe and right midlung. Patient remains on antibiotics in the form of Flagyl and Zosyn which is appropriate considering her abnormal chest x-ray. She does not seem to be in any distress, and she is only on 3 L nasal cannula. Her bicarb remains elevated at 37. Remains on Lasix and Diamox. Her BUN is 30 creatinine is 1.58. CBC is relatively normal. Electrolytes are normal Reevaluated today on 12/17/2020, patient remains on the regular medical floor, she is sitting at a bedside chair, in no distress, on 2 L nasal cannula. BiPAP is at bedside, but not using it today. Electrolytes are normal, bicarb is 34. Sugars are running a bit high as high as 308. CBC is relatively normal. Electrolytes are normal BUN is 26 creatinine is improving down to 1.53. Chest x-ray from yesterday was noted as above clinically however the patient is doing better than what is expected considering the chest x-ray findings Objective - Vital Signs Vital signs: Vital Signs Temp 97.4 F L 12/17/20 04:34 Pulse 58 L 12/17/20 08:00 Resp 16 12/17/20 08:00 BP 97/54 12/17/20 04:34 Pulse Ox 96 12/17/20 04:34 Intake & Output 12/16/20 12/17/20 12/17/20 18:59 06:59 18:59 Intake Total 750 240 Output Total 2500 900 Balance -1750 -660 Weight 107 kg 106.5 kg Intake: Oral 750 240 Output: Urine 2500 900 Other: Voiding Method Indwelling Catheter Indwelling Catheter Indwelling Catheter # Bowel Movements 1 - Exam GENERAL EXAM: Alert, pleasant 70-year-old female patient, on2 L nasal cannula and intermittently on BiPAP. HEENT: PERRLA, EOMI, nonicteric, dry mucous membranes, short obese neck, no neck masses, no thyromegaly, no stridor. CHEST: No chest wall deformity. LUNGS: diminished breath sounds , mostly at the bases and more specifically at the right base. No crackles, rhonchi or wheezes. CVS: Distant S1 and S2 normal with no audible murmur, regular rhythm. ABDOMEN: Dressing dry and intact. No hepatosplenomegaly, normal bowel sounds, no guarding or rigidity. Bowel sounds are hypoactive and sluggish. No abdominal distention. No direct tenderness. Surgical wound site is dry clean and intact. SPINE: No scoliosis or deformity SKIN: No rashes CENTRAL NERVOUS SYSTEM: alert and oriented 3, no gross focal neurologic deficits. EXTREMITIES: no clubbing edema or cyanosis. - Labs CBC & Chem 7: 12/16/20 06:28 12/17/20 05:24 Labs: Abnormal Lab Results - Last 24 Hours (Table) 12/16/20 12/16/20 12/16/20 Range/Units 12:20 17:03 20:31 Carbon Dioxide (22-30) mmol/L BUN (7-17) mg/dL Creatinine (0.52-1.04) mg/dL Glucose (74-99) mg/dL POC Glucose (mg/dL) 358 H 332 H 208 H (75-99) mg/dL Calcium (8.4-10.2) mg/dL Albumin (3.5-5.0) g/dL 12/17/20 12/17/20 12/17/20 Range/Units 05:24 07:20 11:57 Carbon Dioxide 34 H (22-30) mmol/L BUN 26 H (7-17) mg/dL Creatinine 1.53 H (0.52-1.04) mg/dL Glucose 212 H (74-99) mg/dL POC Glucose (mg/dL) 230 H 308 H (75-99) mg/dL Calcium 7.9 L (8.4-10.2) mg/dL Albumin 2.5 L (3.5-5.0) g/dL Assessment and Plan Assessment: 1 Acute bowel obstruction, status post resection, postoperative day #16 2 Severe/stage III, COPD, with an FEV1 that is 0.92 L or 41% of predicted. The patient developed an acute on top of chronic hypercapnic respiratory failure. Intermittently on BiPAP. 3 History of 3 prior abdominal hernia repairs, with mesh placement. 4 History of angina pectoris. 5 History of CHF. 6 History of diabetes mellitus. 7 History of hyperlipidemia. 8 History of essential hypertension. 9 History of sleep apnea syndrome, currently on CPAP. 10 History of hypothyroidism. 11 Prior history of MRSA infection, 2012. 12 Previous history of heavy tobacco use. 13 colonic adenocarcinoma based on the pathology from her surgical biopsy. 14 suspect some component of aspiration pneumonia with postoperative atelectasis and possibly some component of acute on diastolic congestive heart failure. Recommendation: Continue present supportive care measures. Continue present antibiotics, patient is on Flagyl and Zosyn. Encourage ambulation and assist with ambulation. continue incentive spirometry. Continue bronchodilators. Continue insulin Continue diuretics. Including Diamox and Lasix. Continue GI and DVT prophylaxis. Patient is being considered for placement in a assisted or rehab facility and I think this is appropriate. Cleared from our perspective for discharge planning if could be accepted at a rehab facility. Time with Patient: Less than 30
[2020-12-17] MEDS: HYDROcodone/APAP 5-325MG 1 EACH TAB PO PRN (12:36)
[2020-12-17] MEDS: ONDANSETRON 4 MG/2 ML VIAL IVP PRN (14:43)
[2020-12-17 16:54] LABS: Glucose,Whole Blood 314 mg/dL (75-99)
[2020-12-17 20:21] LABS: Glucose,Whole Blood 283 mg/dL (75-99)
[2020-12-17] MEDS: ATORVASTATIN 40 MG TAB PO SCH (22:19)
[2020-12-17] MEDS: ZOLPIDEM 5 MG TAB PO SCH (22:19)
[2020-12-17] MEDS: [UNRECOGNIZED DRUG - REMARK] IV SCH ×6 (23:54)
--- NOTE | 2020-12-18 00:06 | P.PN ---
Progress Note - Text Progress Note Date: 12/18/20 - Chief Complaint Abdominal pain Consultation: This is a pleasant 70-year-old patient of Dr. Mercer. Chronic stable medical conditions include heart failure, diabetes, hypertension, hyperlipidemia, obstructive sleep apnea, hypothyroid. Patient lives by herself at her baseline uses a walker. For 2 weeks patient been having mid abdominal pain. 3 much constant. We'll get 8 intermittent watery stools. Was taking Imodium. Has been having fever nausea vomiting. Patient's had multiple abdominal hernia repairs with mesh. Was transferred here from [facility]. She is also had appendectomy and cholecystectomy in the past. She was transferred for small bowel obstruction. November 29: Underwent expiratory 3 laboratory with a right colectomy for obstructing right distal colonic mass Postoperative: Computed tomography scan showed postoperative ileus. NG tube was reinserted-subsequently discontinued. Patient was started on TPN. Discontinued Today: On a low fiber diet. Getting a bit tired. Had a bowel movement. Eating about 25% Review of systems: Was done for constitutional, cardiovascular, GI, pulmonary. relevant finding as above Active Medications Hydrocodone Bitart/Acetaminophen (Hydrocodone/Apap 5-325mg 1 Each Tab) 1 each PO Q6HR PRN PRN Reason: Pain Last Admin: 12/17/20 12:36 Dose: 1 each Documented by: Acetazolamide (Acetazolamide 250 Mg Tab) 250 mg PO BID [facility] Last Admin: 12/17/20 22:19 Dose: 250 mg Documented by: Albuterol/Ipratropium (Ipratropium-Albuterol 3 Ml Neb) 3 ml INHALATION RT-Q1H PRN PRN Reason: Shortness Of Breath Or Wheezing Last Admin: 12/07/20 15:42 Dose: 3 ml Documented by: Albuterol/Ipratropium (Ipratropium-Albuterol 3 Ml Neb) 3 ml INHALATION RT-QID [facility] Last Admin: 12/17/20 20:04 Dose: 3 ml Documented by: Alprazolam (Alprazolam 0.25 Mg Tab) 0.25 mg PO BID PRN PRN Reason: Anxiety Last Admin: 12/14/20 19:36 Dose: 0.25 mg Documented by: Atorvastatin Calcium (Atorvastatin 40 Mg Tab) 40 mg PO HS [facility] Last Admin: 04/06/21 22:19 Dose: 40 mg Documented by: Benzocaine (Benzocaine Benton 1 Can) 1 spray MUCOUS MEM QID PRN PRN Reason: Mouth Irritation Last Admin: 12/10/20 08:49 Dose: 1 spray Documented by: Benzocaine/Menthol (Benzocaine/Menthol Lozeng 1 Each Lozenge) 1 each MUCOUS MEM Q4HR PRN PRN Reason: Sore Throat Last Admin: 12/08/20 17:03 Dose: 1 each Documented by: Budesonide (Budesonide 1 Mg/2 Ml Nebu) 1 mg INHALATION RT-BID [facility] Last Admin: 12/17/20 20:04 Dose: 1 mg Documented by: Enoxaparin Sodium (Enoxaparin 40 Mg/0.4 Ml Syringe) 40 mg SQ DAILY [facility] Last Admin: 12/17/20 08:15 Dose: 40 mg Documented by: Fentanyl Citrate (Fentanyl Certified Breastfeeding Educator 500 Mcg/50 Ml Bag) 500 mcg IV PER PROTOCOL PRN; Protocol PRN Reason: Pain Control Last Admin: 12/06/20 17:08 Dose: 500 mcg Documented by: Formoterol Fumarate (Formoterol Fumarate 20 Mcg/2 Ml Nebu) 20 mcg INHALATION RT-BID [facility] Last Admin: 12/17/20 20:04 Dose: 20 mcg Documented by: Furosemide (Furosemide 10 Mg/Ml 4 Ml Vial) 40 mg IV BID [facility] Last Admin: 12/17/20 22:30 Dose: 40 mg Documented by: Piperacillin Sod/Tazobactam (Sod 3.375 gm/ Sodium Chloride) 100 mls @ 25 mls/hr IVPB Q8HR [facility] Last Admin: 12/17/20 23:56 Dose: 25 mls/hr Documented by: Metronidazole 500 mg/ IV (Solution) 100 mls @ 100 mls/hr IVPB Q8HR [facility] Last Admin: 12/17/20 23:56 Dose: 100 mls/hr Documented by: Fat Emulsion Intravenous 250 (ml/ IV Solution) 250 mls @ 21 mls/hr IV MoWeFr [facility] Last Admin: 12/16/20 08:14 Dose: Not Given Documented by: Sodium Chloride (Saline 0.45%) 1,000 mls @ 20 mls/hr IV .Q24H [facility] Last Admin: 12/17/20 23:56 Dose: 20 mls/hr Documented by: Parenteral Vitamin Supplement 10 ml/ Zinc/Copper/Manganese/Selenium 1 ml/ Potassium Phosphate 18 mmol/ Potassium Chloride 22 meq/ Calcium Gluconate 1.5 gm/ Amino Acids/Dextrose 1,043 mls @ 50 mls/hr IV .[id number] [facility] Last Admin: 12/17/20 23:54 Dose: Not Given Documented by: Insulin Aspart (Insulin Aspart (Novolog) 100 Unit/Ml Vial) 0 unit SQ ACHS [facility]; Protocol Last Admin: 12/17/20 22:19 Dose: 7 unit Documented by: Levothyroxine Sodium (Levothyroxine Ivp 100 Mcg/5 Ml Vial) 75 mcg IV Q48H [facility] Last Admin: 12/16/20 08:19 Dose: 75 mcg Documented by: Levothyroxine Sodium (Levothyroxine Ivp 100 Mcg/5 Ml Vial) 68.5 mcg IV Q48H [facility] Last Admin: 12/17/20 05:55 Dose: 68.5 mcg Documented by: Miscellaneous Information (Magnesium Replacement Protocol 1 Each Misc) 1 each MISCELLANE DAILY PRN; Protocol PRN Reason: Per Protocol Miscellaneous Information (Potassium Replacement Protocol 1 Each Misc) 1 each MISCELLANE DAILY PRN; Protocol PRN Reason: Per Protocol Naloxone HCl (Naloxone 0.4 Mg/Ml 1 Ml Vial) 0.2 mg IV Q2M PRN PRN Reason: Opioid Reversal Last Admin: 12/10/20 22:25 Dose: 0.2 mg Documented by: Ondansetron HCl (Ondansetron 4 Mg/2 Ml Vial) 4 mg IVP Q8HR PRN PRN Reason: Nausea And Vomiting Last Admin: 12/17/20 14:43 Dose: 4 mg Documented by: Pantoprazole Sodium (Pantoprazole 40 Mg/10 Ml Vial) 40 mg IVP BID [facility] Last Admin: 12/17/20 22:30 Dose: 40 mg Documented by: Saliva Substitute (Dry Mouth Benton 44.3 Benton/44.3 Ml Benton) 1 spray MUCOUS MEM QID PRN PRN Reason: Dry Mouth Last Admin: 12/08/20 04:25 Dose: 1 spray Documented by: Tramadol HCl (Tramadol 50 Mg Tab) 50 mg PO Q6H PRN PRN Reason: Breakthrough Pain Last Admin: 12/16/20 08:17 Dose: 50 mg Documented by: Zolpidem Tartrate (Zolpidem 5 Mg Tab) 5 mg PO HS [facility] Last Admin: 12/17/20 22:19 Dose: 5 mg Documented by: Past medical history to include: Angina, CHF, diabetes, hyperlipidemia, hypertension, obstructive sleep apnea, hypothyroid, home oxygen-2 L Social history: . Lives alone. Does smoke up to 7 years ago. Alcohol rarely. Does use a walker Physical examination: VITAL SIGNS: 97.8, 65, 20, 130/75, 97% on 2 L GENERAL: Reclining in bed, tired, awake EYES: Pupils equal. Conjunctiva normal. HEENT: External appearance of nose and ears normal, oral cavity -dry. NG tube- to suction NECK: JVD not raised; masses not palpable. HEART: First and second heart sounds are normal; no edema. LUNGS:[ Respiratory rate increased, decreased breath sounds. ABDOMEN: Soft, mild abdominal tenderness, incision healing well. No mass palpated. MUSCULAR skeletal: Evidence of OA especially in the hands PSYCH: [Alert and oriented x3; mood and affect anxious. INVESTIGATIONS, reviewed in the clinical context: December 17: Potassium 3.9 creatinine 1.53 December 16: WBC 10.2 hemoglobin 11.2 platelets 467 potassium 4.1 creatinine 1.58 Chest x-ray right greater than left pleural effusion Computed tomography scan of abdomen and pelvis without contrast: Distended loops of 8 and fluid-filled bowel consistent with ileus similar to previous exam. No free air. Bowel obstruction not suspected November 30: WBC 10.6 hemoglobin 12.6 potassium 4.8 creatinine 1.5 Abdominal x-ray [November 29]: Persistent dilated bowel loops with air-fluid levels Coronavirus [PCR]-not detected Abdominal x-ray film personally reviewed by me: Small bowel obstruction Assessment and plan: -Acute small bowel obstruction : November 29: Right hemicolectomy for a distal ascending colon mass. NG tube to suction-discontinued. - Post operative ileus. -NG tube . Improved. Discontinued. Tolerating diet -Diabetes mellitus type 2. Patient on insulin pump. And for now. Levemir. Accu-Cheks. -Chronic hypoxic respiratory failure uses 2 L of oxygen at home -Hyperlipidemia Continue Lipitor -Chronic urinary stress incontinence. Follow clinically. -Hypothyroid, continue with Synthroid -Morbid obesity BMI 42.5. Follow-up with PCP for weight loss measures . -Chronic congestive heart failure. Diastolic dysfunction EF 55-60% On Lasix -Chronic insomnia. Continue with Ambien -COPD in an ex-smoker, continue with , DuoNeb, Symbicort -Chronic kidney disease stage III, patient's creatinine was 1.45 on presentation Follow labs closely -DVT prophylaxis. Subcu Lovenox On IV Zosyn and Flagyl. Oral intake improving. Akash diabetic coordinator review insulin pump. Continue antibiotics. Thank you Dr. Broderick.
[2020-12-18] MEDS: LEVOTHYROXINE IVP 100 MCG/5 ML VIAL IV SCH (05:36)
[2020-12-18 07:05] LABS: Glucose,Whole Blood 310 mg/dL (75-99)
[2020-12-18] MEDS: INSULIN ASPART (NovoLOG) 100 UNIT/ML VIAL SQ SCH ×3 (08:28→17:45)
[2020-12-18] MEDS: acetaZOLAMIDE 250 MG TAB PO SCH (08:47)
[2020-12-18] MEDS: metroNIDAZOLE-NS PMX 500 MG in SALINE 1 100ML.BAG IVPB SCH ×2 (08:47→16:53)
[2020-12-18] MEDS: ENOXAPARIN 40 MG/0.4 ML SYRINGE SQ SCH (08:48)
[2020-12-18] MEDS: FUROSEMIDE 10 MG/ML 4 ML VIAL IV SCH (08:48)
[2020-12-18] MEDS: PIPERACILLIN-TAZOBACTAM 3.375 GM in SODIUM CHLORIDE 0.9% 100 ML IVPB SCH ×2 (08:58→16:55)
[2020-12-18] MEDS: ONDANSETRON 4 MG/2 ML VIAL IVP PRN (08:59)
[2020-12-18] MEDS: IPRATROPIUM-ALBUTEROL 3 ML NEB INHALATION SCH ×3 (08:59→16:43)
[2020-12-18] MEDS: PANTOPRAZOLE 40 MG/10 ML VIAL IVP SCH (08:59)
[2020-12-18] MEDS: BUDESONIDE 1 MG/2 ML NEBU INHALATION SCH (08:59)
[2020-12-18] MEDS: FORMOTEROL FUMARATE 20 MCG/2 ML NEBU INHALATION SCH (08:59)
[2020-12-18] MEDS: traMADol 50 MG TAB PO PRN (09:00)
--- NOTE | 2020-12-18 09:07 | CDI ---
Documentation Clarification Form Date: 12/18/2020 08:49:00 AM From: Britta Peterson CCS, CCDS Admit Date: 11/28/2020 04:35:00 PM Patient Name: Kae Batista Visit Number: [id number] Discharge Date: ATTENTION: The Clinical Documentation Specialists (CDI) and [facility] Coding Staff appreciate your assistance in clarifying documentation. Please respond to the clarification below the line at the bottom and electronically sign. The CDI & [facility] Coding staff will review the response and follow-up if needed. Please note: Queries are made part of the Legal Health Record. If you have any questions, please contact the author of this message via ITS. Dr. Peyton Carroll: Atelectasis is documented in the 12/02 Surgeon's Progress Note and the Pulmonary Progress Note status post an Exploratory Laparotomy with Right Colectomy on 11/29. Additional clarification is requested regarding the relationship, if any, that exists between the diagnosis and the procedure. Patients Admitting Diagnosis: Obstructing Mass Right Colon Post-Operative Diagnosis: Right Colon Adenocarcinoma Procedure performed: Exploratory Laparotomy with Right Colectomy History/Risk Factors per the 11/28 ED Past Medical History: Heart Failure, COPD, IDDM II with bilateral neuropathy, Chronic Respiratory Failure on Home O2, TRUDI, Hypertension and CKD II. Former smoker. Clinical Indicators: Presented to the ED 11/28 with abdominal pain via EMS as a transfer from [facility]. CT Abdomen & Pelvis showed a bowel obstruction. Per the 11/29 History & Physical: Bowel obstruction with computed tomography scan findings suspicious of a right colonic mass or apple core lesion causing the bowel obstruction. 11/29 Procedure: Exploratory Laparotomy with Right Colectomy. 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 11/28 VS: T 98.7, P 59, R 18, BP 123/50, PO 98 3Lnc 12/02 VS: T 97.6, P 84, R 20 (cough), BP 148/69, PO 90 - 92 5Lnc 11/28 LAB: WBC 11.1, Neut 8.9, CO2 32, BUN 26, Cr 1.45, COVID negative. Blood cultures: No cultures. RAD: 12/02 CXR: Probable atelectasis, correlate to exclude pneumonia. 12/04 - 12/14 CXR: Pleural effusions, > right. 12/16 CXR: Bilateral diffuse infiltrates and consolidation with small effusion. Findings are progressive on the right. Correlate for underlying pneumonia otherwise consider CHF. Treatment as of 12/02: IV Acetaminophen 100 mls @ 400 mls/hr q6H, IV Toradol 15 mg q6H, po Ultram, Insulin sq, IV Synthroid, 37.5 mcg q48H, O2 5Lnc. 12/05 TPN started for nutritional support, O2 6Lnc - 10L high flow O2. 12/06 IV Lasix 80 mg x1. 12/08 IV Lasix 40 mg x1, O2 6Lnc - 10L high flow O2. 12/09 IV Lasix 40 mg daily, IV Kcl 100 mls @ 50 mls/hr q2H, IV fluid 500 mls @ 999 mls/hr q31M, O2 10L high flow. If your professional opinion, what relationship, if any, exists between the diagnosis of atelectasis and the procedure: [ ] Atelectasis is a complication of surgical procedure [ ] Atelectasis is an expected outcome of the surgical procedure [ ] Atelectasis is related to patients co-morbid condition(s), please specify: [ ] Other please specify: [ ] Unable to determine (Template Last Revised: November 2020) MTDD
--- NOTE | 2020-12-18 10:21 | P.PN ---
Subjective Progress Note Date: 12/18/20 Principal diagnosis: acute bowel obstruction 70-year-old patient, brought in by EMS, on November 28. She was seen by Dr. Luis Enrique Murillo in the emergency department. She has a history of diabetes mellitus, CHF, chronic kidney disease, multiple abdominal hernia repairs, with mesh, and severe COPD. Her FEV1 is 0.92 L which is 41% of predicted. She sees my partner in the office for her COPD. She also suffers from chronic hypoxemic respiratory failure, and does use oxygen 24/. She apparently recently has had multiple episodes of nonbloody nonbilious emesis, as well as watery diarrhea, for one week. She apparently was evaluated and found on computed tomography scan, to have a colonic lesion, consistent with colon cancer. I was consulted for preop clearance. We saw her right before she went off to surgery. She is chronically on oxygen therapy at 3 L as mentioned above. The patient was having surgery with Dr. Clay Healy. Basically, she tells me that her COPD much at baseline. I did mention to her that she may end up in the intensive care unit after surgery. Also, based on the FEV1 alone, without the MVV, or RV/TLC ratio, the patient's at moderately increased operative risk from general anesthesia. White count 11.1, hemoglobin 13, hematocrit 40.6, platelet count 529,000, sodium 137, potassium 4.3, chlorides 100, CO2 32, anion gap 5, BUN 26, and creatinine 1.45. There was no chest x-ray to review. The patient is seen today 11/30/2020 in follow-up on the regular medical floor. She is currently resting quite comfortably in bed. Awake and alert in no acute distress. Nasogastric tube is secured in place. Maintaining O2 saturations in the 90s on 6 L/m per nasal cannula. White count 10.6. Hemoglobin 12.6. Sodium 137. Potassium 4.8. Creatinine 1.50. She is maintained on Symbicort and DuoNeb inhalations. Anticoagulated with Lovenox. The patient is seen today 12/01/2020 in follow-up on the regular medical floor. She is awake and alert in no acute distress. Resting comfortably in bed. Nasogastric tube remains in place. This is postoperative day #2. She remains on Zosyn and Flagyl. Maintaining O2 saturation in the 90s on 4 L/m per nasal cannula. She was requesting breathing treatments during the night for some increasing shortness of breath. Working well with the incentive spirometer. White count 10.2. Hemoglobin 10.9. Sodium 141. Potassium 4.5. Creatinine 1.3. 12/02/2020 the patient is being seen for a follow-up. The patient is postop day #3 and the patient underwent resection of the right colonic mass and secondary bowel obstruction. The patient has an NG tube in place. The patient remains covered with a combination of Zosyn and Flagyl. Doing well. Using incentive spirometer. No significant respiratory difficulties. Currently on oxygen at 4 L per minute nasal cannula. The pain is under adequate control. The patient is on DuoNeb nebulized treatments around the clock and the patient is receiving Dilaudid for pain control 1 mg every 3 hours IV. IV fluids are running with normal saline at the rate of 100 mL an hour. NG tube was removed this morning. The patient is passing no gas and she hasn't had any bowel movements yet. Nevertheless, she has decent bowel sounds. JOHN drains in place. Output is in order of minimal amount in the order of 10 mL serosanguineous. The patient was up on a chair and she is gradually getting stronger. Antibiotic coverage is same. Oxygen is at 5 L. On today's evaluation of 12/02/2020, the patient is postop day #4. She is currently on 5 L of oxygen by nasal cannula. NG tube was removed yesterday. She is quite comfortable and she is sitting up on a recliner. JOHN drain is in place and output is serosanguineous and it's minimal right now. Bowel sounds are active and the patient on is still nothing by mouth and she's taken only as chips. She is using incentive spirometer which is in front of her all the time. Urine output is adequate. She feels that she is getting stronger. She is on DuoNeb nebulized treatment [id number]. She has adequate pain control with Dilaudid. She is also on examination Zosyn and Flagyl. No fever. No chills. No other significant events overnight. No altered mentation. Patient is passing gas and she is requesting gel low The patient is seen today 12/04/2020 in follow-up. This is postoperative day # 5. She is currently sitting up in a chair at the bedside. Maintaining O2 saturations in the 90s on 5 L/m per nasal cannula. She's afebrile. His been having some ongoing discomfort in her abdomen. Nasogastric tube remains in place. Computed tomography scan of the abdomen revealed distended loops of air and fluid filled bowel consistent with ileus similar to compared to previous. No free air. No mechanical bowel obstruction. There were noted basilar consolidation and atelectasis. New pleural effusions. She is working well with the incentive spirometer. Chest x-ray revealed pleural effusions right greater than left. She is continued on bronchodilators, antibiotics in the form of Zo syn and Flagyl. 12/05/2020 the patient is postop day #6. She was able to pass flatus. She was also able to pass a bowel movement. NG tube is still in place and output is in order of 3. Unfortunately, she continues to have popsicles. In terms of oxygen, she is on 6 L and his saturations around 91%. She is feeling slightly more short of breath and she getting incentive spirometer. Chest x-ray that showed some small bilateral pleural effusions. She is on IV fluids currently running at 100 mL an hour. She is also on examination Zosyn and Flagyl. Surgical wound site is clean. The blood work from today showing His on 12/07/2020, the patient's condition has somewhat decompensated. She has recovered of setbacks yesterday. She became more short of breath overnight. The emergency team was called and the patient was given Lasix. The chest x-ray showed some pulmonary vessel congestion and fluid overload. The patient responded nicely. Currently the patient is on 5 L and this was up to 8 L and her saturations around 90%. She is also complaining of abdominal pain and distention. No direct tenderness. I noticed that the patient is taking some on and off popsicles despite the surgical recommendations. The patient's CAT scan of the abdomen and pelvis that was done on 12/06/2020 showed no evidence of any colonic obstruction or any anastomotic leaks. Some atelectatic changes were seen in lung bases bilaterally. Meanwhile, NG tube is still in place. Output from the NG tube is in the order of 50 mL over the past several hours probably 10 hours and the patient's output is limited this point in time. She is receiving TPN for nutritional support. Has no bowel sounds and examination. She was passing flatus yesterday and she is not passing any today. On examination, no direct tenderness. No altered mentation. Slightly more restless on today's evaluation. She remains on IV Zosyn. Blood work shows a white cell count of 16, hemoglobin of 10.9 which is up compared to yesterday, electrolytes show a potassium of 3.3 which is to be replaced and the sodium of 145 and a BUN of 19 with a creatinine of 1.1. Note that yesterday, during the patient's shortness of breath, blood gases was done that showed an acute on top of chronic hypercapnic respiratory failure and the patient responded to Lasix. She also had to be given some Narcan as the patient was under the contact of Dilaudid. 12/08/2020 the patient is being seen for a follow-up. NG tube is still in pl fely. She is on 10-15 L by nasal cannula. She is using incentive spirometer. She put out only 20 mL on her energy over the past 8 hours. She has taken ice chips and she's going through them that he past. She is also on IV fluids and TPN for nutritional support. Surgical wound site is dry clean and intact. She is passing some flatus. Abdomen is still slightly distended and the patient is complaining is complaining of dry mouth and she continues to want ice chips.The patient is a [email or web address] and [facility]. She remains on TPN. Blood sugars are elevated and the patient is currently on Levemir running at 30 units daily along with a sliding scale coverage. This dose was adjusted yesterday. She is also on Lovenox for DVT prophylaxis. Patient was reevaluated today on 12/09/2020, patient is comfortable, she continues to have nasogastric tube in place, she is on a high flow nasal ca nnula, she is actually on 10 L high flow, O2 saturations 94%, she is on TPN, and she is also on Lasix. Her chest x-ray continues to show left lower lobe atelectasis/infiltrate.WBC count today is 13.3 hemoglobin is 11.6. Sodium is elevated at 147 bicarb is more than 40 BUN is 26 creatinine is 1.1. Her sugar is 308. And her magnesium is 2.1. The patient is seen today 12/10/2020 in follow-up on the regular medical floor. She is currently sitting up in bed. Awake and alert in no acute distress. She is currently on 10 L high flow nasal cannula and maintaining O2 saturations in the mid 90s. Recent chest x-ray revealed improvement in aeration of the lung bases with small effusions. White count 11.0. Hemoglobin 11.7. Sodium 154. Potassium 3.2. Bicarb greater than 40. Creatinine 1.1. Glucose 376. She remains on DuoNeb inhalations, Pulmicort and Perforomist inhalations, antibioti cs in the form of Zosyn, Flagyl. Remains on IV diuretics. Lovenox for DVT prophylaxis. Again encouraged regarding the increased use the incentive spirometer and cough and deep breathing exercises. Nasogastric tube and Barkley catheter removed. Tolerating a clear liquid diet. Remains on TPN and lipids for nutritional support. Pathology of the right colon mass positive for adenocarcinoma. Patient was reevaluated today on 12/11/2020, patient required transfer to the ICU last night, apparently the patient developed worsening hypercapnic respiratory failure required placement on BiPAP, and a relatively high FiO2. Chest x-ray is showing atelectasis and possibly some component of interstitial edema. She is now on BiPAP with IPAP of 12 and EPAP of 6 and a increased IPAP to 14. She is on 50% I cut it down to 45%. Her last ABG this morning showed a pO2 of 57 pCO2 of 98 pH of 7.35 patient remains on antibiotics, remains on TPN, she is also on insulin at 10.5 units per hour. Given Lasix earlier today 40 mg IV push, and we have decided to request for covid 19 PCR. Mostly because of her slightly worsening chest x-ray today compared to previous x-rays. Patient was reevaluated today on 12/12/2020, remains in the ICU, has been on BiPAP through the night, this was discontinued earlier this morning. Patient seems to be very comfortable, she was on BiPAP with IPAP of 14 and EPAP of 6 and 45% FiO2. Patient had a blood gases yesterday showed a pO2 of 57 pCO2 of 98 pH of 7.35. She is on TPN at 50 MLS per hour she is on insulin at 8.5 units per hour Lasix 40 mg daily, Zosyn and Flagyl. Morning she was transitioned from BiPAP to 4 L nasal cannula, and seems to be doing fairly well. Her lama PCR was negative. WBC count is 11.8 hemoglobin is 10.8. Basic metabolic profile is rel atively normal except for low potassium of 3.1 and her bicarb is 46. The and is 44 creatinine is 1.34 Patient was reevaluated today on 12/13/2020, she is on 6 L high flow nasal cannula, remains in the ICU, she is still on insulin, she is on TPN, and today I added Diamox. Has been intermittently on BiPAP for her hypercapnic a story failure. Now she is on 6 L high flow, seems to be doing fairly well, yesterday she had some episodes of confusion responded well to Ativan and to BiPAP. CBC is relatively normal lites are normal BUN is 39 creatinine is 1.22 bicarb is 41 Patient was reevaluated today on 12/16/2020, patient remains on the regular medical floor, she is on 3 L nasal cannula, and intermittently on BiPAP with IPAP of 14 EPAP of 5 and FiO2 of 36%. Patient seems to be very comfortable, in no distress. Denies any specific complaints, however her chest x-ray is worsening with bilateral infiltrates and small effusions, suspect a combination of underlying pneumonia and possibly some component of CHF. There is also some component of atelectasis especially in the right lower lobe and right midlung. Patient remains on antibiotics in the form of Flagyl and Zosyn which is appropriate considering her abnormal chest x-ray. She does not seem to be in any distress, and she is only on 3 L nasal cannula. Her bicarb remains elevated at 37. Remains on Lasix and Diamox. Her BUN is 30 creatinine is 1.58. CBC is relatively normal. Electrolytes are normal Reevaluated today on 12/17/2020, patient remains on the regular medical floor, she is sitting at a bedside chair, in no distress, on 2 L nasal cannula. BiPAP is at bedside, but not using it today. Electrolytes are normal, bicarb is 34. Sugars are running a bit high as high as 308. CBC is relatively normal. Electrolytes are normal BUN is 26 creatinine is improving down to 1.53. Chest x-ray from yesterday was noted as above clinically however the patient is doing better than what is expected considering the chest x-ray findings Patient was reevaluated today on 12/18/2020, patient is on 3 L nasal cannula, doing well, asymptomatic, slept with her BiPAP last night. Patient tells me today that she is feeling better, did not sleep well last night no labs were drawn today except blood sugar of 310. Her renal function yesterday showed a creatinine down to 1.53 with a BUN of 26 and her bicarb is 34. CBC from 12/16, was noted to be relatively unremarkable with WBC count of 10.2 hemoglobin 11.2. Objective - Vital Signs Vital signs: Vital Signs Temp 98.0 F 12/18/20 04:36 Pulse 76 12/18/20 09:21 Resp 18 12/18/20 04:36 BP 108/66 12/18/20 04:36 Pulse Ox 98 12/18/20 04:36 Intake & Output 12/17/20 12/18/20 12/18/20 18:59 06:59 18:59 Intake Total 160 920 Output Total 1400 Balance -1240 920 Weight 108.5 kg Intake: IV 160 240 Sodium Chloride 0.45% 1, 160 240 000 ml @ 20 mls/hr IV . Q24H [facility] Rx#:[id number] Intake, IV Titration 200 Amount Piperacillin-Tazobactam 3 100 .375 gm In Sodium Chloride 0.9% 100 ml @ 25 mls/hr IVPB Q8HR [facility] Rx# :[id number] metroNIDAZOLE-NS PMX 500 100 mg In Saline 1 100ml.bag @ 100 mls/hr IVPB Q8HR [facility] Rx#:[id number] Oral 480 Output: Urine 1400 Uretheral (Barkley) 800 Other: Voiding Method Indwelling Catheter Bedside Commode Diaper # Voids 1 # Bowel Movements 0 - Exam GENERAL EXAM: Alert, pleasant 70-year-old female patient, on 3 L nasal cannula and intermittently on BiPAP. HEENT: PERRLA, EOMI, nonicteric, dry mucous membranes, short obese neck, no neck masses, no thyromegaly, no stridor. CHEST: No chest wall deformity. LUNGS: diminished breath sounds , mostly at the bases and more specifically at the right base. No crackles, rhonchi or wheezes. CVS: Distant S1 and S2 normal with no audible murmur, regular rhythm. ABDOMEN: Dressing dry and intact. No hepatosplenomegaly, normal bowel sounds, no guarding or rigidity. Bowel sounds are hypoactive and sluggish. No ab dominal distention. No direct tenderness. Surgical wound site is dry clean and intact. SPINE: No scoliosis or deformity SKIN: No rashes CENTRAL NERVOUS SYSTEM: alert and oriented 3, no gross focal neurologic deficits. EXTREMITIES: no clubbing edema or cyanosis. - Labs CBC & Chem 7: 12/16/20 06:28 12/17/20 05:24 Labs: Abnormal Lab Results - Last 24 Hours (Table) 12/17/20 12/17/20 12/17/20 Range/Units 11:57 16:52 20:19 POC Glucose (mg/dL) 308 H 314 H 283 H (75-99) mg/dL 12/18/20 Range/Units 07:03 POC Glucose (mg/dL) 310 H (75-99) mg/dL Assessment and Plan Assessment: 1 Acute bowel obstruction, status post resection, postoperative day #17 2 Severe/stage III, COPD, with an FEV1 that is 0.92 L or 41% of predicted. The patient developed an acute on top of chronic hypercapnic respiratory failure. Intermittently on BiPAP. 3 History of 3 prior abdominal hernia repairs, with mesh placement. 4 History of angina pectoris. 5 History of CHF. 6 History of diabetes mellitus. 7 History of hyperlipidemia. 8 History of essential hypertension. 9 History of sleep apnea syndrome, currently on CPAP. 10 History of hypothyroidism. 11 Prior history of MRSA infection, 2012. 12 Previous history of heavy tobacco use. 13 colonic adenocarcinoma based on the pathology from her surgical biopsy. 14 suspect some component of aspiration pneumonia with postoperative atelectasis, this is expected. and possibly some component of acute on diastolic congestive heart failure. Recommendation: Continue incentive spirometry. Continue antibiotics as per infectious disease on the case. Continue to titrate oxygen Continue BiPAP Continue bronchodilators Continue diuretics Continue to monitor sugars closely Continue GI and DVT prophylaxis Cleared from our perspective to be discharged home with cleared by other consultants. We will sign off for now and see the patient on when necessary basis. Time with Patient: Less than 30
[2020-12-18] MEDS: FAT EMULSION 20% 250 ML in EMPTY BAG 1 BAG IV SCH (10:24)
[2020-12-18 11:17] LABS: Glucose,Whole Blood 316 mg/dL (75-99)
--- NOTE | 2020-12-18 12:48 | P.DS ---
Providers Date of admission: 11/28/20 16:35 Expected date of discharge: 12/18/20 Attending physician: Clay Healy Consults: 11/28/20 16:52 Consult Physician Urgent Consulting Provider: Jason Post Consult Reason/Comments: medical management, bowel obstruction Do you want consulting provider notified?: Yes 11/29/20 13:56 Consult Physician Stat Consulting Provider: Cain Ambriz Consult Reason/Comments: surgical clearance Do you want consulting provider notified?: Already Contacted Primary care physician: [facility] Course: Discharge diagnosis 1. Obstructing mass of the right colon status post exploratory laparotomy with right colectomy with path report showing adenocarcinoma 2. Leukocytosis 3. Ileus 4. Hypophosphatemia resolved 5. Hypokalemia 6. Acute on chronic hypercapnic respiratory failure 7. Acute on chronic diastolic congestive heart failure exacerbation 8. COPD 9. Component of aspiration pneumonia with postoperative atelectasis 10. Diabetes mellitus type 2 Hospital course This is a 70-year-old female she was a transfer from [facility]. She has a known past medical history of diabetes, congestive heart failure, chronic kidney disease, COPD and hypothyroidism. She has surgical history of 3 abdominal hernia repairs with mesh placement. Her last abdominal hernia surgery was about 20 years ago. She also had history of cholecystectomy and appendectomy. Patient is complaining of abdominal pain for about 2 weeks. She reports pain throughout her whole abdomen. She had been having diffuse watery diarrhea for the past week. And over the last couple a days she started to have vomiting. She denies any blood in the stool or emesis. She is also been having chills and sweats. Her pain is worse with movement. She had NG tube placed in the ER unfortunately the patient had pulled NG tube out. She does report her pain about a 5 or 6 out of 10. Computed tomography scan at [facility] had some shown suspicious right colonic mass or apple core neoplasm causing bowel obstruction. Significantly dilated cecum with air-fluid levels. Fecal debris and ischemia not excluded. Also had noted by nonspecific bibasilar nodules consider metastatic disease. Patient is status post exploratory laparotomy with right colectomy for obstructing colon mass of the right colon. Pathology report results were positive for adenocarcinoma. Patient did have prolonged hospitalization with acute on chronic respiratory failure. She did require transfer to the ICU and had been on BiPAP. She did receive IV an tibiotics and IV Lasix. There were concerns for possible aspiration pneumonia as well as fluid overload. Patient's respiratory status did improve. She is back to her baseline. Pulmonary service and medicine service have cleared her for discharge. Patient denies any abdominal pain. She is tolerating diet. She is having bowel movements and flatus. She is afebrile. She is up and ambulating with some assistance. It was recommended that patient go to [facility] for rehab. However, patient's family has refused the rehab option. And they're proceeding with home with home care. Patient is stable for discharge. Please refer to chart for any further details. Physician Supervisor [employer] note has been reviewed by physician. Signing provider agrees with the documented findings, assessment, and plan of care. Patient Condition at Discharge: Stable Plan - Discharge Summary Discharge Rx Participant: No New Discharge Prescriptions: New metFORMIN HCL 500 mg PO AC-TID #90 tablet acetaZOLAMIDE [Diamox] 250 mg PO BID #20 tab Zolpidem Tartrate [Ambien] 2.5 mg PO HS PRN 3 Days #30 tab PRN Reason: Insomnia Zolpidem Tartrate [Ambien] 2.5 mg PO HS PRN #30 tab PRN Reason: Insomnia Continue Levothyroxine Sodium [Synthroid] 137 mcg PO SUTUTHSA Hydrocodone/Acetaminophen [Adrian 5-325] 1 tab PO BID Atorvastatin [Lipitor] 40 mg PO HS Budesonide-Formot 160-4.5 Mcg [Symbicort 160-4.5 Mcg Inhaler] 1 puff INHALATION RT-BID #1 puff Ipratropium-Albuterol Nebulize [Duoneb 0.5 mg-3 mg/3 ml Soln] 3 ml INHALATION RT-TID Levothyroxine Sodium [Synthroid] 150 mcg PO MOWEFR Discontinued Zolpidem [Ambien] 10 mg PO HS Tiotropium [place] [Spiriva Respimat] 1 spray INHALATION RT-DAILY No Action Insulin Glulisine (For Pump) [Apidra (For Pump)] 0.01 units SQ-PUMP CONTINUOUS Discharge Medication List Atorvastatin [Lipitor] 40 mg PO HS 07/08/17 [History] Hydrocodone/Acetaminophen [Adrian 5-325] 1 tab PO BID 07/08/17 [History] Insulin Glulisine (For Pump) [Apidra (For Pump)] 0.01 units SQ-PUMP CONTINUOUS 07/08/17 [History] Levothyroxine Sodium [Synthroid] 137 mcg PO SUTUTHSA 07/08/17 [History] Budesonide-Formot 160-4.5 Mcg [Symbicort 160-4.5 Mcg Inhaler] 1 puff INHALATION RT-BID #1 puff 07/10/17 [Rx] Ipratropium-Albuterol Nebulize [Duoneb 0.5 mg-3 mg/3 ml Soln] 3 ml INHALATION RT-TID 11/28/20 [History] Levothyroxine Sodium [Synthroid] 150 mcg PO MOWEFR 11/28/20 [History] Zolpidem Tartrate [Ambien] 2.5 mg PO HS PRN #30 tab 12/18/20 [Rx] Zolpidem Tartrate [Ambien] 2.5 mg PO HS PRN 3 Days #30 tab 12/18/20 [Rx] acetaZOLAMIDE [Diamox] 250 mg PO BID #20 tab 12/18/20 [Rx] metFORMIN HCL 500 mg PO AC-TID #90 tablet 12/18/20 [Rx] Follow up Appointment(s)/Referral(s): Clay Healy MD [Medical Doctor] - 1 Week Remington Mercer MD [Primary Care Provider] - 1-2 days [facility] [NON-STAFF] - (Please contact [facility] with questions regarding any of your new medical equipment (hospital bed, shaw lift, commode chair, or wheelchair)) [facility], [NON-STAFF] - Activity/Diet/Wound Care/Special Instructions: *RN- please call [facility] at [phone] to arrange for an ambulance ride home. The form for [facility] is on patient's chart. No driving while taking Adrian No lifting over 10 pounds You may shower. No soaking or tub baths for 2 weeks Very light activity until you are reevaluated at your follow up appointment with your surgeon Discharge Disposition: HOME WITH HOME HEALTH SERVICES
[2020-12-18] MEDS: metFORMIN 500 MG TAB PO SCH ×2 (13:21→17:47)
[2020-12-18 14:50] VITALS: BMI 42.3
[2020-12-18 16:08] VITALS: RESP 20
[2020-12-18 17:11] LABS: Glucose,Whole Blood 264 mg/dL (75-99)
[2020-12-18 17:35] VITALS: BP 107/66; PULSE 77; TEMP 97.4
[2020-12-18] MEDS: HYDROcodone/APAP 5-325MG 1 EACH TAB PO PRN (19:49)
--- NOTE | 2020-12-18 23:01 | P.PN ---
Progress Note - Text Progress Note Date: 12/18/20 - Chief Complaint Abdominal pain Consultation: This is a pleasant 70-year-old patient of Dr. Mercer. Chronic stable medical conditions include heart failure, diabetes, hypertension, hyperlipidemia, obstructive sleep apnea, hypothyroid. Patient lives by herself at her baseline uses a walker. For 2 weeks patient been having mid abdominal pain. 3 much constant. We'll get 8 intermittent watery stools. Was taking Imodium. Has been having fever nausea vomiting. Patient's had multiple abdominal hernia repairs with mesh. Was transferred here from [facility]. She is also had appendectomy and cholecystectomy in the past. She was transferred for small bowel obstruction. November 29: Underwent expiratory 3 laboratory with a right colectomy for obstructing right distal colonic mass Postoperative: Computed tomography scan showed postoperative ileus. NG tube was reinserted-subsequently discontinued. Patient was started on TPN. Discontinued Today: Eating some. Feels better. Had a bowel movement. No bowel pain. Discussed with the patient. Family wants to take the patient home. Does not for rehab. Patient not comfortable using insulin pump. Because patient not eating much and decided to put her on metformin. Discussed with Dr. Broderick. Dose of Ambien has been cut back. May be contribution to her feeling sleepy. Review of systems: Was done for constitutional, cardiovascular, GI, pulmonary. relevant finding as above Current medications were reviewed Past medical history to include: Angina, CHF, diabetes, hyperlipidemia, hypertension, obstructive sleep apnea, hypothyroid, home oxygen-2 L Social history: . Lives alone. Does smoke up to 7 years ago. Alcohol rarely. Does use a walker Physical examination: VITAL SIGNS: 98, 68, 18, 1 10 x 68, 96% on 2 L GENERAL: Reclining in bed, tired, awake EYES: Pupils equal. Conjunctiva normal. HEENT: External appearance of nose and ears normal, oral cavity -dry. NG tube- to suction NECK: JVD not raised; masses not palpable. HEART: First and second heart sounds are normal; no edema. LUNGS:[ Respiratory rate increased, decreased breath sounds. ABDOMEN: Soft, mild abdominal tenderness, incision healing well. No mass palpated. MUSCULAR skeletal: Evidence of OA especially in the hands PSYCH: [Alert and oriented x3; mood and affect anxious. INVESTIGATIONS, reviewed in the clinical context: December 17: Potassium 3.9 creatinine 1.53 December 16: WBC 10.2 hemoglobin 11.2 platelets 467 potassium 4.1 creatinine 1.58 Chest x-ray right greater than left pleural effusion Computed tomography scan of abdomen and pelvis without contrast: Distended loops of 8 and fluid-filled bowel consistent with ileus similar to previous exam. No free air. Bowel obstruction not suspected November 30: WBC 10.6 hemoglobin 12.6 potassium 4.8 creatinine 1.5 Abdominal x-ray [November 29]: Persistent dilated bowel loops with air-fluid levels Coronavirus [PCR]-not detected Abdominal x-ray film personally reviewed by me: Small bowel obstruction Assessment and plan: -Acute small bowel obstruction : November 29: Right hemicolectomy for a distal ascending colon mass. NG tube to suction-discontinued. Tolerating diet. - Post operative ileus. -NG tube . Improved. Discontinued. Tolerating diet -Diabetes mellitus type 2. Patient on insulin pump. Patient not comfortable using the same. For now patient be started on metformin. Follow-up with PCP. -Chronic hypoxic respiratory failure uses 2 L of oxygen at home -Hyperlipidemia Continue Lipitor -Chronic urinary stress incontinence. Follow clinically. -Hypothyroid, continue with Synthroid -Morbid obesity BMI 42.5. Follow-up with PCP for weight loss measures . -Chronic congestive heart failure. Diastolic dysfunction EF 55-60% On Lasix -Chronic insomnia. Dose of Ambien cutback -COPD in an ex-smoker, continue with , DuoNeb, Symbicort -Chronic kidney disease stage III, patient's creatinine was 1.45 on presentation Follow labs closely -DVT prophylaxis. Subcu Lovenox 1 Pred Forte for the patient to go to rehab. Patient and family wish to go home. Follow-up with PCP. Keep Accu-Cheks log. Follow-up with her in service education teacher Thank you Dr. Broderick.
== END 2020-12-18 19:50 | disposition home health service (06) | DRG 329 ==
LOC: EC 16:13 → 5NMEDONC 16:35 → 6NMEDSUR 11-29 06:55 → 4SSUR 11-29 17:45 → 2ORWHC 12-04 02:15 → 2SICU 12-11 01:04 → 5NMEDONC 12-13 14:00
PROVIDERS: ADMIT Surgery; ATTEND Surgery
PROC: 0DTF0ZZ Resection of Right Large Intestine, Open Approach (ICD-10-PCS; principal; 2020-11-29 08:15)
PROC: 3E0436Z Introduction of Nutritional Substance into Central Vein, Percutaneous Approach (ICD-10-PCS; 2020-12-05)
PROC: 02HV33Z Insertion of Infusion Device into Superior Vena Cava, Percutaneous Approach (ICD-10-PCS; 2020-12-05)
PROC: 5A0935A Assistance with Respiratory Ventilation, Less than 24 Consecutive Hours, High Flow/Velocity Cannula (ICD-10-PCS; 2020-12-05)
PROC: 5A09357 Assistance with Respiratory Ventilation, Less than 24 Consecutive Hours, Continuous Positive Airway Pressure (ICD-10-PCS; 2020-12-10)
PROC: 5A09557 Assistance with Respiratory Ventilation, Greater than 96 Consecutive Hours, Continuous Positive Airway Pressure (ICD-10-PCS; 2020-12-13)
DX: C18.2 Malignant neoplasm of ascending colon (principal); J96.21 Acute and chronic respiratory failure with hypoxia; G93.41 Metabolic encephalopathy; I50.33 Acute on chronic diastolic (congestive) heart failure; J69.0 Pneumonitis due to inhalation of food and vomit; J96.22 Acute and chronic respiratory failure with hypercapnia; K56.50 Intestinal adhesions [bands], unspecified as to partial versus complete obstruction; I13.0 Hypertensive heart and chronic kidney disease with heart failure and stage 1 through stage 4 chronic kidney disease, or unspecified chronic kidney disease; Z68.42 Body mass index [BMI] 45.0-49.9, adult; Z20.822 Contact with and (suspected) exposure to COVID-19; E87.0 Hyperosmolality and hypernatremia; J44.1 Chronic obstructive pulmonary disease with (acute) exacerbation; E87.1 Hypo-osmolality and hyponatremia; T82.838A Hemorrhage due to vascular prosthetic devices, implants and grafts, initial encounter; K56.7 Ileus, unspecified; Z79.4 Long term (current) use of insulin; Z79.890 Hormone replacement therapy; E11.22 Type 2 diabetes mellitus with diabetic chronic kidney disease; G47.33 Obstructive sleep apnea (adult) (pediatric); Z99.81 Dependence on supplemental oxygen; Z86.14 Personal history of Methicillin resistant Staphylococcus aureus infection; Z83.3 Family history of diabetes mellitus; Z82.49 Family history of ischemic heart disease and other diseases of the circulatory system; Z96.41 Presence of insulin pump (external) (internal); E03.9 Hypothyroidism, unspecified; E78.5 Hyperlipidemia, unspecified; N39.3 Stress incontinence (female) (male); E66.01 Morbid (severe) obesity due to excess calories; E11.65 Type 2 diabetes mellitus with hyperglycemia; E87.6 Hypokalemia; E83.39 Other disorders of phosphorus metabolism; N18.30 Chronic kidney disease, stage 3 unspecified; Z79.51 Long term (current) use of inhaled steroids; F51.04 Psychophysiologic insomnia; K43.9 Ventral hernia without obstruction or gangrene; M17.0 Bilateral primary osteoarthritis of knee; Y83.8 Other surgical procedures as the cause of abnormal reaction of the patient, or of later complication, without mention of misadventure at the time of the procedure; Z87.891 Personal history of nicotine dependence; Z79.2 Long term (current) use of antibiotics
CPT/HCPCS: 36573; 36600; 71045; 74018; 74019; 74176; 80048; 80053; 82330; 82805; 83036; 83735; 84100; 84478; 85025; 86850; 86900; 86901; 87635; 88309; 93306; 94640; 94660; 94760; 94762; 99285

== ENCOUNTER 2021-01-13 06:23 | Day surgery (SDC) | payer MEDICARE, OTHER ==
[2021-01-09 15:14] VITALS: BMI 44.7
[~2021-01-13 06:23] MED LIST: DEXAMETHASONE SOD PHOSPHATE 4 MG/ML 1 ML VIAL IV ONE; LACTATED RINGERS 1,000 ML IV SCH; LIDOCAINE 1% (10MG/ML) FOR IV START INTRADERMA PRN; ONDANSETRON 4 MG/2 ML VIAL IVP ONE; Pre Op ABX Message 1 EACH MISC MISCELLANE ONE
[2021-01-13 07:24] LABS: Glucose,Whole Blood 209 mg/dL (75-99)
[2021-01-13 07:33] VITALS: TEMP 97.6
[2021-01-13] MEDS ORDERED: KETAMINE 10 MG/ML 20 ML VIAL ONE (07:44)
[2021-01-13] MEDS ORDERED: fentaNYL (PF) 50 MCG/ML 2 ML AMP ONE (07:44)
[2021-01-13] MEDS ORDERED: PROPOFOL 10 MG/ML 20 ML VIAL IV ONE (07:44)
[2021-01-13] MEDS ORDERED: LIDOCAINE 1% INJ 10MG/ML (20 ML MDV) ONE (07:44)
[2021-01-13] MEDS ORDERED: MIDAZOLAM 2 MG/2 ML VIAL ONE (07:44)
--- NOTE | 2021-01-13 07:45 | P.GSHP ---
History of Present Illness H&P Date: 01/13/21 Chief Complaint: colon cancer 70-year-old female known to our service. Patient underwent right colectomy for a large tumor. Patient had multiple nodes positive and radial margins were positive as well. Recently saw oncology and they are advising she initiate IV based chemotherapy. Here today for Port-A-Cath placement. Past Medical History Past Medical History: Cancer, Chest Pain / Angina, Heart Failure, COPD, Diabetes Mellitus, Hypertension, Osteoarthritis (OA), Pneumonia, Renal Disease, Respiratory Disorder, Sleep Apnea/CPAP/BIPAP, Thyroid Disorder Additional Past Medical History / Comment(s): colon cancer, IDDM type II with insulin pump, neuropathy bilateral feet, chronic respiratory failure with home O2 at 3L/NC ATC, CKD stage II, urinary stress incontinence, hiatal hernia, arthritis in bilateral knees/back, insomnia, had PICC line, now removed History of Any Multi-Drug Resistant Organisms: MRSA Date of last positivie culture/infection: 2012 MDRO Source:: right arm Past Surgical History: Appendectomy, Bowel Resection, Cholecystectomy, Hernia Repair Additional Past Surgical History / Comment(s): exp laparotomy with colectomy for colon mass, 3 abdominal hernia repairs, benign scalp and bilateral hip tumors removed, colonoscopy. Past Anesthesia/Blood Transfusion Reactions: No Reported Reaction Additional Past Anesthesia/Blood Transfusion Reaction / Comment(s): Pt has clausterphobia. Smoking Status: Former smoker - Past Family History Mother Family Medical History: Cancer, Congestive Heart Failure (CHF), Diabetes Mellitus, Sleep Apnea/CPAP/BIPAP, Thyroid Disorder Additional Family Medical History / Comment(s): diverticulitis. Metastatic cancer/primary unknown Father Family Medical History: Diabetes Mellitus Additional Family Medical History / Comment(s): Obesity, multiple knee replacements, pacer. Medications and Allergies Home Medications Medication Instructions Recorded Confirmed Type Atorvastatin [Lipitor] 40 mg PO HS 07/08/17 01/13/21 History Insulin Glulisine (For Pump) 0.01 units SQ-PUMP CONTINUOUS 07/08/17 01/13/21 History [Apidra (For Pump)] Levothyroxine Sodium [Synthroid] 137 mcg PO SUTUTHSA 07/08/17 01/13/21 History Ipratropium-Albuterol Nebulize 3 ml INHALATION RT-TID PRN 11/28/20 01/13/21 History [Duoneb 0.5 mg-3 mg/3 ml Soln] Levothyroxine Sodium [Synthroid] 150 mcg PO MOWEFR 11/28/20 01/13/21 History acetaZOLAMIDE [Diamox] 250 mg PO BID #20 tab 12/18/20 01/13/21 Rx metFORMIN HCL 500 mg PO AC-TID #90 tablet 12/18/20 01/13/21 Rx Albuterol Inhaler [Ventolin Hfa 2 puff INHALATION RT-TID 01/09/21 01/13/21 History Inhaler] Budesonide-Formot 160-4.5 Mcg 2 puff INHALATION QID PRN 01/09/21 01/13/21 History [Symbicort 160-4.5 Mcg Inhaler] Ergocalciferol (Vitamin D2) 50 mcg PO DAILY 01/09/21 01/13/21 History [Vitamin D2 (2000 Iu)] HYDROcodone/APAP 10-325MG [[place] 1 tab PO TID 01/09/21 01/13/21 History 10-325] Lactulose 10 gm PO BID 01/09/21 01/13/21 History Zolpidem [Ambien] 10 mg PO HS 01/09/21 01/13/21 History Allergies Allergy/AdvReac Type Severity Reaction Status Date / Time Iodinated Contrast Media AdvReac SEE COMMENT Verified 01/13/21 06:54 [Iodinated Contrast- Oral and IV Dye] Surgical - Exam Vital Signs Temp Pulse Resp BP Pulse Ox 97.6 F 76 20 125/78 99 01/13/21 06:47 01/13/21 06:47 01/13/21 06:47 01/13/21 06:47 01/13/21 06:47 Physical exam: General: Well-developed, well-nourished HEENT: Normocephalic, sclerae nonicteric Abdomen: Nontender, nondistended, incision clean and dry Extremities: No edema Neuro: Alert and oriented Results - Labs Abnormal Lab Results - Last 24 Hours (Table) 01/13/21 Range/Units 07:20 POC Glucose (mg/dL) 209 H (75-99) mg/dL Assessment and Plan (1) Stage III carcinoma of colon Narrative/Plan: Will proceed with Port-A-Cath placement at this time. Risks of bleeding, infection, DVT, pneumothorax, catheter malfunction, anesthesia related complications were discussed. The patient understands and wishes to proceed. Current Visit: No Status: Acute Code(s): C18.9 - MALIGNANT NEOPLASM OF COLON, UNSPECIFIED SNOMED Code(s): 462862956
[2021-01-13] MEDS ORDERED: SODIUM CHLORIDE 0.9% 100 ML with ceFAZolin 2,000 MG IV ONE ×2 (07:46)
[2021-01-13] MEDS ORDERED: LIDOCAINE 1% INJ 10MG/ML (20 ML MDV) SQ ONE ×2 (08:09)
[2021-01-13] MEDS ORDERED: HYDROcodone/APAP 5-325MG 1 EACH TAB PO PRN (08:45)
[2021-01-13] MEDS ORDERED: NALOXONE 0.4 MG/ML 1 ML VIAL IV PRN (08:45)
--- NOTE | 2021-01-13 08:47 | P.OP ---
Date of Procedure: 01/13/21 Procedure(s) Performed: PREOPERATIVE DIAGNOSIS: Colon cancer POSTOPERATIVE DIAGNOSIS: Same PROCEDURE: Port-A-Cath placement with fluoroscopic and ultrasound guidance SURGEON: Monet EBL: Minimal ANESTHESIA: Sedation COMPLICATIONS: None OPERATIVE PROCEDURE: Patient was brought and placed on the operative table in the supine position. The patient was sedated per anesthesia that time. The chest and neck were prepped and draped in usual sterile fashion. The ultrasound probe was used to identify the location of the right internal jugular vein. The skin was localized with lidocaine. The Seldinger needle was advanced into the IJ under ultrasound guidance. The wire was advanced through the needle under fluoroscopic guidance into the superior vena cava. A port pocket was created in the right infraclavicular location. The catheter was tunneled from the wire entrance site to the port pocket. The port was then connected to the catheter. The dilator introducer was threaded over the guidewire. The guidewire and dilator were then removed. The catheter was advanced through the introducer and introducer was then removed. The tip was seen to be in the right atrial junction via fluoroscopy. A picture of the radiograph showing the tip at the radial digital junction was taken. Port was flushed with both saline and a Hep- Lock solution. There was good flow both in and out of the port. The port was sutured in underlying tissues using 3-0 silk sutures. The subcutaneous tissues were reapproximated using 3-0 Vicryl sutures and the skin at both locations using 4-0 Monocryl sutures. Skin glue and sterile dressings then applied. DISPOSITION: Stable to recovery room
[2021-01-13 08:49] VITALS: RESP 18
--- NOTE | 2021-01-13 09:12 | XR ---
EXAMINATION TYPE: XR chest 1V confirm line [facility] DATE OF EXAM: 01/13/2021 COMPARISON: 12/16/2020 HISTORY: Line placement TECHNIQUE: Single frontal view of the chest is obtained. FINDINGS: Mediport catheter seen with the tip overlying the SVC and no sizable pneumothorax. Coarsen ed interstitium noted. Linear subsegmental changes at both lung bases are improved. IMPRESSION: 1. Persistent chronic interstitial lung disease or interstitial pneumonitis improving right-sided ple ural effusion and bibasilar infiltrate. 2. No pneumothorax. Tip of the catheter appears at the level of the SVC.
[2021-01-13 09:18] VITALS: BP 121/75; PULSE 78
--- NOTE | 2021-01-13 11:33 | FL ---
EXAMINATION TYPE: FL guided central line placemt DATE OF EXAM: 01/13/2021 CLINICAL HISTORY: Newly diagnosed neoplasm. TECHNIQUE: Fluoroscopy. COMPARISON: None. FINDINGS: Fluoroscopic guidance was provided during Port-A-Cath insertion procedure performed by Dr. Healy. A total of 11 seconds of fluoroscopic time was utilized during the procedure and 1 spot intr aoperative image is acquired. Single image acquired shows portion of right internal jugular catheter with tip at level of SVC. IMPRESSION: As Above.
== END 2021-01-13 09:36 | disposition home or self-care (01) ==
LOC: OR 06:23
PROVIDERS: ATTEND Surgery
DX: C18.9 Malignant neoplasm of colon, unspecified (principal); Z90.49 Acquired absence of other specified parts of digestive tract; I13.0 Hypertensive heart and chronic kidney disease with heart failure and stage 1 through stage 4 chronic kidney disease, or unspecified chronic kidney disease; E11.22 Type 2 diabetes mellitus with diabetic chronic kidney disease; N18.2 Chronic kidney disease, stage 2 (mild); I50.9 Heart failure, unspecified; E11.40 Type 2 diabetes mellitus with diabetic neuropathy, unspecified; E03.9 Hypothyroidism, unspecified; E78.5 Hyperlipidemia, unspecified; G47.30 Sleep apnea, unspecified; J44.9 Chronic obstructive pulmonary disease, unspecified; K44.9 Diaphragmatic hernia without obstruction or gangrene; M13.88 Other specified arthritis, other site; M13.862 Other specified arthritis, left knee; M13.861 Other specified arthritis, right knee; Z79.4 Long term (current) use of insulin; Z79.890 Hormone replacement therapy; Z79.899 Other long term (current) drug therapy; Z99.81 Dependence on supplemental oxygen; Z96.41 Presence of insulin pump (external) (internal); Z91.041 Radiographic dye allergy status; Z99.89 Dependence on other enabling machines and devices
CPT/HCPCS: 36561; 77001; C1788; J2250; J2405; J0690; J2001; J3010; J1642; J2704

== ENCOUNTER → 2021-02-21 | Outpatient (CLI) | payer MEDICARE, OTHER | END | disposition home or self-care (01) | LOC: RADMRIMAIN 10:44 | PROVIDERS: ATTEND Internal Medicine Hematology & Oncology | DX: Z53.9 Procedure and treatment not carried out, unspecified reason (principal) ==

== ENCOUNTER 2021-03-18 | Inpatient (IN) | payer MEDICARE, OTHER | END 2021-03-21 15:52 | disposition hospice, home (50) | DRG 291 | PROVIDERS: ADMIT Hospitalist | PROC: 5A09457 Assistance with Respiratory Ventilation, 24-96 Consecutive Hours, Continuous Positive Airway Pressure (ICD-10-PCS; principal; 2021-03-18) | PROC: 05HF33Z Insertion of Infusion Device into Left Cephalic Vein, Percutaneous Approach (ICD-10-PCS; 2021-03-18) ==